=== PATIENT | female | born 1945 | race Caucasian/White ===

== ENCOUNTER 2020-05-15 16:11 | Observation (INO) | payer MEDICARE, OTHER, SELFPAY ==
[2020-05-15] VITALS (11 sets, daily range): BP systolic 127–157; BP diastolic 57–89; PULSE 70–84; RESP 12–18; TEMP 36.6–37.1; O2SAT 97–100; BMI 22.4
--- NOTE | 2020-05-15 16:42 | ECG_ITS ---
Test Reason : SYNCOPE Blood Pressure : / mmHG Vent. Rate : 078 BPM Atrial Rate : 078 BPM P-R Int : 216 ms QRS Dur : 080 ms QT Int : 394 ms P-R-T Axes : 068 060 085 degrees QTc Int : 449 ms Poor data quality Sinus rhythm with 1st degree A-V block Possible Left atrial enlargement Nonspecific ST and T wave abnormality No previous ECGs available Referred By: Brandon Jacobsen Electronically Signed By:Prasanna Alex
--- NOTE | 2020-05-15 16:42 | ED.SYNCOPE ---
HPI - Syncope General Chief Complaint: Syncope Stated Complaint: SYNCOPE Time Seen by Provider: 05/15/20 16:42 Source: EMS Mode of arrival: EMS Limitations: no limitations History of Present Illness HPI narrative: This is a otherwise very healthy 74-year-old female who reports she has history of gastroesophageal reflux disease for which she is taking Nexium and urinary frequency for which she takes ? oxybutynin lives at home with her she states overall today she had somewhat emotional day due to a relationship problem with her however she has been able to eat breakfast and lunch she went for a walk after lunch which she usually does her kids were visiting today at 03:30 (1-1/2 hour prior to arrival) and she was preparing to go for walks she had a jacket on that was relatively heavy and had a zipper in buttons which she was having hard time putting on so she started become a little lightheaded she bent over to ?increase the blood flow to her brain? and subsequently appear to have fainted states she was told that she got lower by her son and she was mumbling for about 30 seconds. States she had a slight headache prior to the event and lightheadedness which she still has a slight headache otherwise no chest pain, shortness of breath or recent illness. MD complaint: loss of consciousness, felt faint and collapsed Onset (ago): hour(s) (1529) Duration of episode: 30 (Seconds) -: second(s) Prodromal symptoms: headache and lightheaded Witnessed: Yes - by Bystander (Son and ) Context: other (With standing playing on her jacket) Treatments prior to arrival: none Related Data Allergies Allergy/AdvReac Type Severity Reaction Status Date / Time Penicillins [PENICILLINS] Allergy Intermediate THROAT Unverified 02/12/20 19:04 SWELLS penicillin V Allergy Unknown anaphylaxis Verified 10/03/17 00:00 Dust, Mold, Mites, Bee Sting Allergy Unknown Nasal Uncoded 05/15/20 16:24 congestion Review of Systems Neurologic: Reports Abnormal speech present PMFSH Past Medical History Medical History Acid reflux Overactive bladder Social History Social History Smoking Status: Never smoker Use of substances other than those prescribed or required for medical reasons: No Advance Directives: No Advance Directives Information Provided: Yes Physical Exam Vital Signs: Vital Signs: Last Vital Signs Temp 98 F 05/15/20 17:43 Pulse 78 05/15/20 18:08 Resp 16 05/15/20 18:08 BP 127/57 L 05/15/20 18:08 Pulse Ox 98 05/15/20 18:08 Body Mass Index 20.0 Reviewed Const: General: cooperative and healthy appearing; No acute distress or intoxicated appearing Nutritional Appearance: average body habitus Orientation/consciousness: patient oriented x3 HENMT: Head: Yes normal to inspection Ears: hearing grossly normal bilaterally Eyes: General: appearance normal, both eyes and all related structures Visual Hall: normal visual hall by confrontation Neck: Neck: Yes normal visual inspection, No positive Brudzinski's sign, No positive Kernig's sign and No tender Thyroid: Thyroid normal Chest: Chest palpation & inspection: normal inspection of the chest Resp: Effort & Inspection: normal respiratory effort Auscultation: clear to auscultation bilaterally Cardio: Jugular venous distension: no JVD Rate: regular rate Rhythm: regular rhythm Heart sounds: S1 normal heart sound present and S2 normal heart sound present GI: Inspection: Yes normal to inspection Palpation (GI): Soft to palpation Percussion: Yes normal to percussion Auscultation: normal bowel sounds : General: Yes no CVA tenderness Back/Spine/Pelvis: Back: no CVA tenderness Skin: General skin exam: no rashes or lesions noted Neuro: General: patient oriented x3 Cranial nerves: Yes CN's II-XII intact bilaterally Speech: Abnormal speech present Gait exam (Neuro): Normal gait present Motor exam (neuro): 5/5 motor strength present throughout Sensory Exam: Normal double simultaneous stimulation for sensation Extrem: General: Yes normal to inspection NIH Stroke Scale Internal: Initial- Upon Arrival Level of Consciousness: Alert Level of Consciousness Questions: Answers both questions correctly Level of Consciousness Commands: Performs both tasks correctly Best Gaze: Normal Visual: No visual loss Facial Palsy: Normal Motor Arm (Right): No drift Motor Arm (Left): No drift Motor Leg (Right): No drift Motor Leg (Left): No drift Limb Ataxia: Absent Sensory: Normal Best Language: No aphasia Dysarthia: Normal Extinction and Inattention: No abnormality Score: 0 MDM - Syncope MDM Narrative Medical decision making narrative: Labs with slight hyponatremia has been in 128 however the 125 to the lowers for her additionally EKG/troponin nondiagnostic. D-dimer significantly elevated at 9136 subsequently CTA PE study done which is negative and bilateral lower extremity ultrasounds are negative. She has normal sinus rhythm on bedside monitor with no ectopy, pulse ox 98-99% on room air, heart rate in the 70s. COVID test is negative. She has no URI symptoms. Case discussed with hospitalist for further management. Differential Diagnosis Differential diagnosis: Likely syncope due to orthostatic hypotension, vasovagal syncope, complete atrioventricular block, subarachnoid hemorrhage, pulmonary embolism and dehydration Medical Records Attestation: I reviewed the patient's medical records. Lab Data Attestation: I reviewed the patient's lab results. Result diagrams: 05/15/20 17:29 05/15/20 17:28 Labs: Lab Results 05/15/20 05/15/20 05/15/20 Range/Units 17:19 17:25 17:28 WBC (4.8-10.8) X10*3/uL RBC (4.20-5.50) X10*6/uL Hgb (12.0-16.0) g/dl Hct (37-47) % MCV (80-98) fL MCH (27.0-33.0) pg MCHC (31.0-35.0) g/dl RDW (11.0-16.0) % Plt Count (160-400) X10*3/uL MPV (9.4-12.3) fL Immature Gran % (Auto) (0.0-0.4) % Neut % (Auto) (45-73) % Lymph % (Auto) (20-40) % [place] % (Auto) (2-11) % Eos % (Auto) (0-4) % Baso % (Auto) (0-2) % Lymph # (Auto) (1.2-4.9) X10*3/uL [place] # (Auto) (0.1-1.2) X10*3/uL Eos # (Auto) (0.0-0.4) X10*3/uL Baso # (Auto) (0.0-0.2) X10*3/uL Abs Immat Gran (auto) (0.00-0.03) X10*3/uL Absolute Neuts (auto) (2.0-8.3) X10*3/uL Absolute Nucleated RBC (0.0-0.012) X10*3/uL Nucleated RBC % (auto) (0.0-0.2) /100WBC PT 12.8 (10.8-13.0) SEC INR 1.1 (0.9-1.1) APTT 30.6 (24.1-38.0) SEC D-Dimer 9136 NG/ML Sodium (135-145) mmol/L Potassium (3.3-5.1) mmol/l Chloride (96-108) mmol/L Carbon Dioxide (22-29) mmol/L Anion Gap (12-20) BUN (9-16) mg/dL Creatinine (0.5-1.4) mg/dL Estim Creat Clear Calc Estimated GFR Random Glucose (60-115) mg/dL Calcium (8.4-10.2) mg/dL Total Bilirubin (0.0-1.0) mg/dL AST (5-31) U/L ALT (0-31) U/L Alkaline Phosphatase (39-117) U/L Troponin I High Sens (<3.5-17.0) ng/L Total Protein (6.5-8.0) g/dL Albumin (3.5-5.0) g/dL Urine Color YELLOW Urine Appearance CLEAR Urine pH 7.5 (5.0-8.0) Ur Specific [place] 1.010 (1.005-1.025) Urine Protein NEG (NEG-TRACE) MG/DL Urine Glucose (UA) NEG (NEG) MG/DL Urine Ketones NEG (NEG) MG/DL Urine Blood NEG (NEG) Urine Nitrite NEG (NEG) Ur Leukocyte Esterase NEG (NEG) Urine RBC 0 (0) /HPF Urine WBC 0 (0-4) /HPF Ur Squamous Epith Cells TRACE /LPF Urine Bacteria NONE /LPF Coronavirus (PCR) NEGATIVE (Negative) Influenza Type A (PCR) NEGATIVE (Negative) Influenza Type B (PCR) NEGATIVE (Negative) RSV RNA Qual (PCR) NEGATIVE (Negative) 05/15/20 05/15/20 05/15/20 Range/Units 17:28 17:28 17:29 WBC 5.0 (4.8-10.8) X10*3/uL RBC 3.62 L (4.20-5.50) X10*6/uL Hgb 11.9 L (12.0-16.0) g/dl Hct 34.6 L (37-47) % MCV 95.6 (80-98) fL MCH 32.9 (27.0-33.0) pg MCHC 34.4 (31.0-35.0) g/dl RDW 12.2 (11.0-16.0) % Plt Count 256 (160-400) X10*3/uL MPV 9.6 (9.4-12.3) fL Immature Gran % (Auto) 0.2 (0.0-0.4) % Neut % (Auto) 74.6 H (45-73) % Lymph % (Auto) 14.1 L (20-40) % [place] % (Auto) 10.1 (2-11) % Eos % (Auto) 0.6 (0-4) % Baso % (Auto) 0.4 (0-2) % Lymph # (Auto) 0.7 L (1.2-4.9) X10*3/uL [place] # (Auto) 0.5 (0.1-1.2) X10*3/uL Eos # (Auto) 0.0 (0.0-0.4) X10*3/uL Baso # (Auto) 0.0 (0.0-0.2) X10*3/uL Abs Immat Gran (auto) 0.01 (0.00-0.03) X10*3/uL Absolute Neuts (auto) 3.8 (2.0-8.3) X10*3/uL Absolute Nucleated RBC 0.000 (0.0-0.012) X10*3/uL Nucleated RBC % (auto) 0.0 (0.0-0.2) /100WBC PT (10.8-13.0) SEC INR (0.9-1.1) APTT (24.1-38.0) SEC D-Dimer NG/ML Sodium 125 L (135-145) mmol/L Potassium 5.0 (3.3-5.1) mmol/l Chloride 91 L (96-108) mmol/L Carbon Dioxide 28 (22-29) mmol/L Anion Gap 11 L (12-20) BUN 21 H (9-16) mg/dL Creatinine 0.89 (0.5-1.4) mg/dL Estim Creat Clear Calc 43.4 Estimated GFR > 60 Random Glucose 106 (60-115) mg/dL Calcium 8.8 (8.4-10.2) mg/dL Total Bilirubin 0.6 (0.0-1.0) mg/dL AST 33 H (5-31) U/L ALT 21 (0-31) U/L Alkaline Phosphatase 92 (39-117) U/L Troponin I High Sens 11.2 (<3.5-17.0) ng/L Total Protein 6.4 L (6.5-8.0) g/dL Albumin 4.0 (3.5-5.0) g/dL Urine Color Urine Appearance Urine pH (5.0-8.0) Ur Specific [place] (1.005-1.025) Urine Protein (NEG-TRACE) MG/DL Urine Glucose (UA) (NEG) MG/DL Urine Ketones (NEG) MG/DL Urine Blood (NEG) Urine Nitrite (NEG) Ur Leukocyte Esterase (NEG) Urine RBC (0) /HPF Urine WBC (0-4) /HPF Ur Squamous Epith Cells /LPF Urine Bacteria /LPF Coronavirus (PCR) (Negative) Influenza Type A (PCR) (Negative) Influenza Type B (PCR) (Negative) RSV RNA Qual (PCR) (Negative) Imaging Data Head CT: Radiologist's impression: [place] [address] CT Scan Report Signed Patient: Nevaeh Torres#: [id number] : 4Acct:[id number] Age/Sex: 74 / FADM Date: 05/15/20 Loc: .ED Attending Dr: Ordering Physician: Brandon Jacobsen NP Date of Service: 05/15/20 Procedure(s): CT head/brain wo con Accession Number(s): [id number] cc: Brandon Jacobsen NP~ EXAMINATION: CT HEAD WITHOUT CONTRAST CLINICAL INFORMATION: Syncope. COMPARISON: None TECHNIQUE: Contiguous axial imaging was performed from the skull base to vertex without intravenous administration of contrast. This CT examination was performed using dose optimization techniques as appropriate, variously including the following: *Automated exposure control *Adjustment of mA and/or kV according to patient size (this includes techniques or standardized protocols for targeted exams where dose is matched to indication/reason for exam; i.e. extremities or head) *Use of iterative reconstruction technique DLP: 621 mGy-cm FINDINGS: There is no evidence of acute intracranial hemorrhage or territorial infarction. No abnormal mass effect or midline shift is seen. [place] to white matter differentiation is well preserved. No extra-axial fluid collections are identified. The ventricles are normal in size. There is no abnormal attenuation within the brain parenchyma. The osseous structures and soft tissues are normal. The mastoid air cells and visualized portions of the paranasal sinuses are well aerated. Mild degenerative spurring left TM joint. CT/CT head/brain wo con IMPRESSION: No acute intracranial process seen. Dictated By:ORQUIDEA ARMSTRONG MD Signed By:<Electronically signed by ORQUIDEA ARMSTRONG MD in OV>05/15/20 1719 DD/ 1643 TD/TT: Technician [employer]: KRIS Chest x-ray: Radiologist's impression: [address] [address] XRay Report Signed Patient: Nevaeh TorresMR#: [id number] : 4Acct:[id number] Age/Sex: 74 / FADM Date: 05/15/20 Loc: .ED Attending Dr: Ordering Physician: Brandon Jacobsen NP Date of Service: 05/15/20 Procedure(s): XR chest 1V Accession Number(s): [id number] cc: Brandon Jacobsen [employer] SALES DIRECTOR~ EXAMINATION: XR chest 1V CLINICAL INFORMATION: Reason for Exam Syncope COMPARISON: No prior study available for comparison. TECHNIQUE: Portable chest x-ray marked for 40 2:00 PM Tubes and lines: None Lungs and Cassandra: Both lungs are clear. Pleura: Normal. Costophrenic angles are sharp. No pneumothorax. Heart and mediastinum: The mediastinum is within normal limits.. Bones: Skeletal structures included are normal for patient's age. XR/XR chest 1V IMPRESSION: No radiographic evidence of acute cardiopulmonary disease. Dictated By:MEHRDAD LAMAS MD Signed By:<Electronically signed by MEHRDAD LAMAS MD in OV>05/15/20 1656 DD/ 1642 TD/TT: Technician [employer] And Maintenance: CARLITO Bilateral lower extremity: Radiologist's impression: [address] [address] Ultrasound Report Signed Patient: Nevaeh TorresMR#: [id number] : 4Acct:[id number] Age/Sex: 74 / FADM Date: 05/15/20 Loc: .ED Attending Dr: Ordering Physician: Brandon Jacobsen NP Date of Service: 05/15/20 Procedure(s): US venous duplex LE BI Accession Number(s): [id number] cc: Brandon Jacobsen NP~ EXAMINATION: US VENOUS ULTRASOUND WITH DOPPLER LOWER EXTREMITY, BILATERAL CLINICAL INFORMATION: Elevated d-dimer COMPARISON: None TECHNIQUE: Ultrasound of the deep veins is performed from the hip to the calf with compression sonography and color and pulse Doppler assessment. Spectral analysis with color-flow imaging is performed. FINDINGS: RIGHT: There is normal venous compression and respiratory variation and augmented flow. The visualized common femoral vein, superficial femoral vein, profunda femoral vein, popliteal vein, and the trifurcation region shows no evidence of deep venous thrombosis. There is no significant popliteal fossa cyst. LEFT: There is normal venous compression and respiratory variation and augmented flow. The visualized common femoral vein, superficial femoral vein, profunda femoral vein, popliteal vein, and the trifurcation region shows no evidence of deep venous thrombosis. There is no significant popliteal fossa cyst. US/US venous duplex LE BI IMPRESSION: No DVT demonstrated in the bilateral lower extremities. Dictated By:TESSIE FONG MD Signed By:<Electronically signed by TESSIE FONG MD in OV>05/15/20 1936 DD/ 1840 TD/TT: Technician [employer] Maintenance: VARGHESE ECG Data Interpretation: Normal sinus rhythm with 1st degree block Rate 78 Nonspecific T-wave abnormality No acute ST segment changes Discharge Plan Discharge Clinical Impression: Syncope, Acute hyponatremia, D-dimer, elevated Patient Disposition: Admitted As Inpatient
--- NOTE | 2020-05-15 17:20 | PC.NURSE ---
Spoke with daughter Ana Lilia (with permission of pt) updated on plan of care. in WR
[2020-05-15 17:38] LABS: Glucose Urine UA NEG (NEG); Leukocyte Esterase Urine NEG (NEG); Nitrite Urine NEG (NEG); PH 7.5 (5.0-8.0); Urine Blood NEG (NEG); Urine Ketones NEG (NEG); Urine Protein NEG (NEG-TRACE)
[2020-05-15 17:38] LABS: MANUAL DIFF FLAG NO
[2020-05-15 17:40] LABS: Basophils Percent Auto 0.4 % (0-2); Eosinophils Percent Auto 0.6 % (0-4); Hematocrit 34.6 % (37-47); Hemoglobin 11.9 g/dl (12.0-16.0); Imm Gran Abs Auto 0.01 X10*3/uL (0.00-0.03); Imm Gran Pct Auto 0.2 % (0.0-0.4); Lymphocytes Absolute Auto 0.7 X10*3/uL (1.2-4.9); Lymphocytes Percent Auto 14.1 % (20-40); Mean Corpuscular HGB Conc 34.4 g/dl (31.0-35.0); Mean Corpuscular Hemoglobin 32.9 pg (27.0-33.0); Mean Corpuscular Volume 95.6 fL (80-98); Mean Platelet Volume 9.6 fL (9.4-12.3); Monocytes Absolute Auto 0.5 X10*3/uL (0.1-1.2); Monocytes Percent Auto 10.1 % (2-11); Neutrophils Absolute Auto 3.8 X10*3/uL (2.0-8.3); Neutrophils Percent Auto 74.6 % (45-73); Platelet Count 256 X10*3/uL (160-400); Red Blood Count 3.62 X10*6/uL (4.20-5.50); Red Cell Distribution Width 12.2 % (11.0-16.0)
[2020-05-15 17:45] LABS: INTERNATIONAL NORM RATIO 1.1 (0.9-1.1); Prothrombin Time 12.8 SEC (10.8-13.0)
[2020-05-15 17:48] LABS: Appearance Urine CLEAR; Color Urine YELLOW
[2020-05-15 17:48] LABS: Partial Thromboplastin Time 30.6 SEC (24.1-38.0)
[2020-05-15 17:55] LABS: RBC Urine 0 /HPF (0); Squamous Epithelial Cell Urine TRACE /LPF; WBC Urine 0 /HPF (0-4)
[2020-05-15 18:04] LABS: Troponin-I High Sensitivity 11.2 ng/L (<3.5-17.0)
[2020-05-15 18:05] LABS: Alanine Aminotransferase 21 U/L (0-31); Alkaline Phosphatase 92 U/L (39-117); Aspartate Amino Transferase 33 U/L (5-31); Bilirubin Total 0.6 mg/dL (0.0-1.0); Blood Urea Nitrogen 21 mg/dL (9-16); Calcium 8.8 mg/dL (8.4-10.2); Creatinine Clr Calc Pharmacy 43.4; Estimated Glomerular Filt Rate > 60; Glucose Random 106 mg/dL (60-115); Total Protein 6.4 g/dL (6.5-8.0)
[2020-05-15 18:18] LABS: Influenza A PCR NEGATIVE (Negative); Influenza B PCR NEGATIVE (Negative); Resp Syncy Virus RNA Qual PCR NEGATIVE (Negative); SARS COV2 PCR INHOUSE NEGATIVE (Negative)
[2020-05-15 18:26] LABS: Anion Gap 11 (12-20); Carbon Dioxide 28 mmol/L (22-29); Chloride 91 mmol/L (96-108); Sodium 125 mmol/L (135-145)
[2020-05-15 18:34] LABS: D Dimer 9136 NG/ML
--- NOTE | 2020-05-15 18:40 | CT_ITS ---
EXAMINATION: CT ANGIOGRAM OF THE CHEST WITH AND WITHOUT CONTRAST (CT PULMONARY ANGIOGRAM FOR PE) CLINICAL INFORMATION: Reason for Exam Syncope, elevated D-dimer 9000 COMPARISON: None TECHNIQUE: Prior to contrast administration, noncontrast localization images were obtained. Subsequently, multidetector volumetric imaging was performed from the thoracic inlet to below the diaphragms following the administration of 65 mL Omnipaque 350 intravenous contrast. No contrast reaction reported Sagittal, coronal, and MIP oblique sagittal reformatted images were obtained on the CT workstation, uploaded to PACS, and reviewed. This CT examination was performed using dose optimization techniques as appropriate, variously including the following: *Automated exposure control *Adjustment of mA and/or kV according to patient size (this includes techniques or standardized protocols for targeted exams where dose is matched to indication/reason for exam; i.e. extremities or head) *Use of iterative reconstruction technique Total exam dose-length product 164 mGy-cm FINDINGS: QUALITY OF STUDY/CONTRAST BOLUS: Satisfactory. PULMONARY ARTERIES: No pulmonary embolus demonstrated. THORACIC AORTA: There is no thoracic aortic aneurysm. There is some atherosclerosis. LUNG: There is likely a tiny diverticulum along the posterior right side of the upper trachea. There is no consolidation. No edema. Minor linear density in the inferior lingula may be fibrosis. PLEURA: No pleural effusion or pneumothorax. MEDIASTINUM: There are no enlarged mediastinal or hilar lymph nodes. No evidence of septal bowing or right heart strain. CHEST WALL/AXILLA: Nodular densities within the breasts are nonspecific. The patient should undergo annual screening mammography. OSSEOUS STRUCTURES: No acute or suspicious osseous abnormality. UPPER ABDOMEN: There are small circumscribed low attenuating liver lesions. No significant change when compared to 04/16/18 No reflux of contrast into the hepatic veins to suggest elevated right heart pressures. CT/CT angio chest PE protocol IMPRESSION: No pulmonary embolus demonstrated. No pneumonia or edema. VTE: negative
--- NOTE | 2020-05-15 18:40 | US_ITS ---
EXAMINATION: US VENOUS ULTRASOUND WITH DOPPLER LOWER EXTREMITY, BILATERAL CLINICAL INFORMATION: Elevated d-dimer COMPARISON: None TECHNIQUE: Ultrasound of the deep veins is performed from the hip to the calf with compression sonography and color and pulse Doppler assessment. Spectral analysis with color-flow imaging is performed. FINDINGS: RIGHT: There is normal venous compression and respiratory variation and augmented flow. The visualized common femoral vein, superficial femoral vein, profunda femoral vein, popliteal vein, and the trifurcation region shows no evidence of deep venous thrombosis. There is no significant popliteal fossa cyst. LEFT: There is normal venous compression and respiratory variation and augmented flow. The visualized common femoral vein, superficial femoral vein, profunda femoral vein, popliteal vein, and the trifurcation region shows no evidence of deep venous thrombosis. There is no significant popliteal fossa cyst. US/US venous duplex LE BI IMPRESSION: No DVT demonstrated in the bilateral lower extremities.
[2020-05-15] MEDS: iohexoL 350 MG/ML 100 ML INFUS..BTL IV (19:44)
[2020-05-15 20:41] LABS: Troponin-I High Sensitivity 8.5 ng/L (<3.5-17.0)
--- NOTE | 2020-05-15 20:46 | PC.NURSE ---
HOSPITALIST IN ROOM FOR EVAL. PT REQUESTING WATER.
--- NOTE | 2020-05-15 21:11 | PM.IMHP ---
History of Present Illness Date of Service: 05/15/20 Chief Complaint: Syncope 74-year-old female with past medical history of GERD, overactive bladder who presents to the hospital who presents to the hospital with complaints of syncopal episode. Patient reports that she was getting ready to leave the house with her and grandson for a walk and was over dressed, felt heat in the house, stepped outside, felt woozy and about to faint, she leaned forward to get some blood into her brain and fainted. She was caught by her and grandson and did not hit her head head. This lasted about less than 1 minute, her noticed her left hand shaking, but patient was not postictal. She felt nauseous after coming about, she also felt headache right after the incident. She denies any head injury, she denies having any chest pain, palpitations, any shortness of breath. Denies any similar episode within recent past. She denies any change in vision, she has been feeling slightly more anxious and nervous lately due to some family issues and has been having frequent bowel movements, and has been very anxious. She otherwise denies any abdominal pain, no diarrhea or constipation, no urinary symptoms and no lower extremity edema. No weakness numbness or tingling. On arrival to the ED hemodynamically stable with no significant abnormal vitals Labs are significant for hemoglobin of 11.9, sodium of 125 (chronically low with the lowest being 128 in 2018), last sodium was 131 on , UA negative. Respiratory viral panel negative, COVID-19 negative Past medical history: GERD, overactive bladder Past surgical history: Denies Family history: Denies Social history: Lives with , walks independently, denies any tobacco alcohol or illicit drugs Review of Systems Review of Systems: Yes all other systems are reviewed and are negative [facility] Medical History Acid reflux Overactive bladder Social History Smoking Status: Never smoker Use of substances other than those prescribed or required for medical reasons: No Advance Directives: No Advance Directives Information Provided: Yes Meds Allergies Allergy/AdvReac Type Severity Reaction Status Date / Time Penicillins [PENICILLINS] Allergy Intermediate THROAT Unverified 09/17/20 19:04 SWELLS penicillin V Allergy Unknown anaphylaxis Verified 10/03/17 00:00 Dust, Mold, Mites, Bee Sting Allergy Unknown Nasal Uncoded 05/15/20 16:24 congestion Physical Exam Vital Signs and Narrative: Vital Signs: Last Vital Signs Temp 98 F 05/15/20 17:43 Pulse 78 05/15/20 18:08 Resp 16 05/15/20 18:08 BP 127/57 L 05/15/20 18:08 Pulse Ox 98 05/15/20 18:08 Body Mass Index 20.0 Const: General: cooperative and no acute distress Orientation/consciousness: patient oriented x3 Eyes: General: appearance normal, both eyes and all related structures Resp: Effort & Inspection: normal respiratory effort and able to speak in complete sentences Auscultation: clear to auscultation bilaterally Cardio: Rate: regular rate Rhythm: regular rhythm GI: Palpation (GI): Soft to palpation Auscultation: normal bowel sounds Skin: General skin exam: no rashes or lesions noted Neuro: Other: No neurological deficits General: patient oriented x3 Cognition (Neuro): normal cognition Extrem: General: Yes normal to inspection and Yes no pedal edema Results Labs CBC and Chem 7: 05/15/20 17:29 05/15/20 17:28 Labs: Laboratory Results - last 24 hr 05/15/20 05/15/20 05/15/20 17:19 17:25 17:28 MCV MCH MCHC RDW Plt Count MPV Immature Gran % (Auto) Neut % (Auto) Lymph % (Auto) [place] % (Auto) Eos % (Auto) Baso % (Auto) Lymph # (Auto) [place] # (Auto) Eos # (Auto) Baso # (Auto) Abs Immat Gran (auto) Absolute Neuts (auto) Absolute Nucleated RBC Nucleated RBC % (auto) PT 12.8 INR 1.1 APTT 30.6 D-Dimer 9136 Anion Gap Estim Creat Clear Calc Estimated GFR Random Glucose Calcium Total Bilirubin AST ALT Alkaline Phosphatase Troponin I High Sens Total Protein Albumin Urine Color YELLOW Urine Appearance CLEAR Urine pH 7.5 Ur Specific [place] 1.010 Urine Protein NEG Urine Glucose (UA) NEG Urine Ketones NEG Urine Blood NEG Urine Nitrite NEG Ur Leukocyte Esterase NEG Urine RBC 0 Urine WBC 0 Ur Squamous Epith Cells TRACE Urine Bacteria NONE Coronavirus (PCR) NEGATIVE Influenza Type A (PCR) NEGATIVE Influenza Type B (PCR) NEGATIVE RSV RNA Qual (PCR) NEGATIVE 05/15/20 05/15/20 05/15/20 17:28 17:28 17:29 MCV 95.6 MCH 32.9 MCHC 34.4 RDW 12.2 Plt Count 256 MPV 9.6 Immature Gran % (Auto) 0.2 Neut % (Auto) 74.6 H Lymph % (Auto) 14.1 L [place] % (Auto) 10.1 Eos % (Auto) 0.6 Baso % (Auto) 0.4 Lymph # (Auto) 0.7 L [place] # (Auto) 0.5 Eos # (Auto) 0.0 Baso # (Auto) 0.0 Abs Immat Gran (auto) 0.01 Absolute Neuts (auto) 3.8 Absolute Nucleated RBC 0.000 Nucleated RBC % (auto) 0.0 PT INR APTT D-Dimer Anion Gap 11 L Estim Creat Clear Calc 43.4 Estimated GFR > 60 Random Glucose 106 Calcium 8.8 Total Bilirubin 0.6 AST 33 H ALT 21 Alkaline Phosphatase 92 Troponin I High Sens 11.2 Total Protein 6.4 L Albumin 4.0 Urine Color Urine Appearance Urine pH Ur Specific [place] Urine Protein Urine Glucose (UA) Urine Ketones Urine Blood Urine Nitrite Ur Leukocyte Esterase Urine RBC Urine WBC Ur Squamous Epith Cells Urine Bacteria Coronavirus (PCR) Influenza Type A (PCR) Influenza Type B (PCR) RSV RNA Qual (PCR) 05/15/20 20:08 MCV MCH MCHC RDW Plt Count MPV Immature Gran % (Auto) Neut % (Auto) Lymph % (Auto) [place] % (Auto) Eos % (Auto) Baso % (Auto) Lymph # (Auto) [place] # (Auto) Eos # (Auto) Baso # (Auto) Abs Immat Gran (auto) Absolute Neuts (auto) Absolute Nucleated RBC Nucleated RBC % (auto) PT INR APTT D-Dimer Anion Gap Estim Creat Clear Calc Estimated GFR Random Glucose Calcium Total Bilirubin AST ALT Alkaline Phosphatase Troponin I High Sens 8.5 Total Protein Albumin Urine Color Urine Appearance Urine pH Ur Specific [place] Urine Protein Urine Glucose (UA) Urine Ketones Urine Blood Urine Nitrite Ur Leukocyte Esterase Urine RBC Urine WBC Ur Squamous Epith Cells Urine Bacteria Coronavirus (PCR) Influenza Type A (PCR) Influenza Type B (PCR) RSV RNA Qual (PCR) Imaging Radiologist's Impressions: Impressions Chest X-Ray 05/15/20 16:42 IMPRESSION: No radiographic evidence of acute cardiopulmonary disease. Head CT 05/15/20 16:43 IMPRESSION: No acute intracranial process seen. Chest CTA 05/15/20 18:40 IMPRESSION: No pulmonary embolus demonstrated. No pneumonia or edema. VTE: negative Venous Duplex 05/15/20 18:40 IMPRESSION: No DVT demonstrated in the bilateral lower extremities. Assessment and Plan (1) Syncope: Status: Acute (2) Acute hyponatremia: Status: Acute 74-year-old female with past medical history as above who presents to the hospital with syncopal episode. # syncope - vasovagal versus cardiogenic versus neurogenic less likely - patient had prodromal symptoms and felt like fainting prior to the episode occurring - less likely to be seizure, less likely be secondary to hyponatremia as shes had hyponatremia chronically Plan: - will place on telemtry - Echocardiogram - Check orthostatic vitals # Hyponatremia - Acute on chronic - Has been as low as 128 in the past. 131 in 01/14 Plan: - Will obtain urine studies - Urine sodium, urine creatine, urine osmolality, serum osmolality - start normal saline at 80 cc - will check BMP q.6 hours - consult Nephrology # GERD - continue home med # Overactive bladder - continue home med DVT ppx: LOVONEX
--- NOTE | 2020-05-15 21:30 | PC.NURSE ---
ORTHOSTATICS OBTAINED PER HOSPITALIST.
[2020-05-15 22:32] LABS: Creatinine Urine 7.02 mg/dL
[2020-05-15 22:50] LABS: Uric Acid 3.1 mg/dL (2.4-5.7)
[2020-05-15 22:56] LABS: Osmolality, Serum 272 mosm/kg (281-305)
[2020-05-15] MEDS: Enoxaparin Sodium 40 MG/0.4 ML SYRINGE SUBCUT (22:59)
[2020-05-15] MEDS: 0.9 % Sodium Chloride 1,000 ML 80 ML IVCONT (23:00)
[2020-05-15 23:07] LABS: Osmolality Urine 166 mosm/kg (373-1093)
[2020-05-16 02:12] LABS: Anion Gap 12 (12-20); Blood Urea Nitrogen 17 mg/dL (9-16); Calcium 9.2 mg/dL (8.4-10.2); Carbon Dioxide 27 mmol/L (22-29); Chloride 97 mmol/L (96-108); Creatinine Clr Calc Pharmacy 50.7; Estimated Glomerular Filt Rate > 60; Glucose Random 91 mg/dL (60-115); Sodium 131 mmol/L (135-145)
[2020-05-16 03:21] VITALS: BP 160/78; PULSE 68; RESP 16; TEMP 36.9; O2SAT 100
[2020-05-16 05:41] LABS: Basophils Percent Auto 0.2 % (0-2); Eosinophils Percent Auto 0.2 % (0-4); Hemoglobin 12.7 g/dl (12.0-16.0); Imm Gran Abs Auto 0.01 X10*3/uL (0.00-0.03); Imm Gran Pct Auto 0.2 % (0.0-0.4); Lymphocytes Absolute Auto 0.8 X10*3/uL (1.2-4.9); Lymphocytes Percent Auto 16.4 % (20-40); Mean Corpuscular HGB Conc 34.3 g/dl (31.0-35.0); Mean Corpuscular Hemoglobin 33.2 pg (27.0-33.0); Mean Corpuscular Volume 96.6 fL (80-98); Mean Platelet Volume 9.9 fL (9.4-12.3); Monocytes Absolute Auto 0.4 X10*3/uL (0.1-1.2); Monocytes Percent Auto 9.4 % (2-11); Neutrophils Absolute Auto 3.4 X10*3/uL (2.0-8.3); Neutrophils Percent Auto 73.6 % (45-73); Platelet Count 272 X10*3/uL (160-400); Red Blood Count 3.83 X10*6/uL (4.20-5.50); Red Cell Distribution Width 12.3 % (11.0-16.0); White Blood Count 4.6 X10*3/uL (4.8-10.8)
[2020-05-16 05:42] LABS: MANUAL DIFF FLAG NO
[2020-05-16 06:07] LABS: Anion Gap 11 (12-20); Blood Urea Nitrogen 14 mg/dL (9-16); Calcium 9.1 mg/dL (8.4-10.2); Carbon Dioxide 30 mmol/L (22-29); Chloride 97 mmol/L (96-108); Creatinine Clr Calc Pharmacy 51.3; Estimated Glomerular Filt Rate > 60; Glucose Random 86 mg/dL (60-115); Potassium 4.6 mmol/l (3.3-5.1); Sodium 133 mmol/L (135-145)
[2020-05-16] MEDS: 0.9 % Sodium Chloride Flush 3 ML SYRINGE IVFLUSH ×3 (08:37→22:34)
[2020-05-16 08:49] VITALS: BP 140/65; PULSE 82; RESP 20; TEMP 36.3; O2SAT 98
--- NOTE | 2020-05-16 10:24 | MHC.CM.PN ---
Addendum entered by Erin Quiles 05/16/20 12:02: NEW HCP COMPLETED, COPY PLACED IN CHART Original Note: PT REPORTS SHE LIVES WITH HER IN AN INDEPENDENT LIVING COMMUNITY. PT REPORTS SHE HAS NO HOME SERVICES AND NO DME. PT REPORTS SHE HAS DONE A HCP IN THE PAST BUT IT ONLY LISTED HER , SHE WOULD LIKE TO COMPLETE A NEW ONE TODAY NAMING HER PRIMARY AND DAUGHTER,. LILI ALTERNATE. PT CONFIRMS HER PCP IS RONALD BACON. OBSERVATION STATUS EXPLAINED DC PLAN IS HOME WITH NO SERVICES PT WILL SELF ARRANGE TRANSPORT
--- NOTE | 2020-05-16 11:08 | PM.CNCAR ---
History of Present Illness History of Present Illness Date of Service: 05/16/20 Requesting physician: Toney Soriano Chief complaint: SYNCOPE Narrative: 74-year-old female presenting with syncope. She has background of syncope 20 years ago. She said she had multiple layers on and was about to leave the house with family. She said she felt very hot and said she was quickly trying to get out into the cold weather. She said as she stepped out she fainted. Family members held her and she did not fall. She had left arm shaking and she woke up without any postictal state. She was nauseous as she woke up. She was brought into the emergency department. She has known history of hyponatremia and was noted to be hyponatremic on this admission also. She denies chest pain or shortness of breath. No other concerns. Review of Systems Review of Systems: Currently asymptomatic Yes all other systems are reviewed and are negative [facility] Past Medical History Medical History Acid reflux Overactive bladder Social History Social History Household Members: Spouse Housing: Apartment Do you presently have visiting nurse or other home services: No Smoking Status: Never smoker Use of substances other than those prescribed or required for medical reasons: No Have you been hit, kicked, punched, or otherwise hurt by someone within the past year? If so, by whom?: No Do you feel safe in your current relationship?: Yes Is there a partner from a previous relationship who is making you feel unsafe now?: No Are you made to feel afraid or neglected: No Advance Directives: No Advance Directives Information Provided: Yes Do you have thoughts of harming others: None Do you have a plan to hurt others: No Plan Recently lost weight without trying: Unsure service: No Current occupational status: retired Meds Allergies Allergy/AdvReac Type Severity Reaction Status Date / Time Penicillins [PENICILLINS] Allergy Intermediate THROAT Verified 05/15/20 23:05 SWELLS penicillin V Allergy Unknown anaphylaxis Verified 10/03/17 00:00 Dust, Mold, Mites, Bee Sting Allergy Unknown Nasal Uncoded 05/15/20 16:24 congestion Physical Exam Vital Signs: Vital Signs: Last Vital Signs Temp 97.4 F 05/16/20 08:49 Pulse 82 05/16/20 08:49 Resp 20 05/16/20 08:49 BP 140/65 H 05/16/20 08:49 Pulse Ox 98 05/16/20 08:49 Body Mass Index 22.4 GENERAL APPEARANCE: in no acute distress, well developed, well nourished. HEENT: unremarkable. HEAD: normocephalic, atraumatic. NECK/THYROID: Radiation of aortic stenosis murmur to the carotids, no jugular venous distention. SKIN: no suspicious lesions, warm and dry. HEART: Systolic murmur aortic area with preserved 2nd heart sound, regular rate and rhythm, S1, S2 normal. LUNGS: clear to auscultation bilaterally. ABDOMEN: normal, bowel sounds present, soft, nontender, nondistended. EXTREMITIES: no clubbing, cyanosis, or edema. PERIPHERAL PULSES: equal. NEUROLOGIC: nonfocal, alert and oriented. PSYCH: mood/affect full range. Results Labs and Meds Result diagrams: 05/16/20 04:55 05/16/20 11:12 Lab results: Laboratory Results - last 24 hr 05/15/20 05/15/20 05/15/20 17:19 17:25 17:28 WBC RBC Hgb Hct MCV MCH MCHC RDW Plt Count MPV Immature Gran % (Auto) Neut % (Auto) Lymph % (Auto) [place] % (Auto) Eos % (Auto) Baso % (Auto) Lymph # (Auto) [place] # (Auto) Eos # (Auto) Baso # (Auto) Abs Immat Gran (auto) Absolute Neuts (auto) Absolute Nucleated RBC Nucleated RBC % (auto) PT 12.8 INR 1.1 APTT 30.6 D-Dimer 9136 Sodium Potassium Chloride Carbon Dioxide Anion Gap BUN Creatinine Estim Creat Clear Calc Estimated GFR Random Glucose Osmolality Uric Acid Calcium Total Bilirubin AST ALT Alkaline Phosphatase Troponin I High Sens Total Protein Albumin Urine Color YELLOW Urine Appearance CLEAR Urine pH 7.5 Ur Specific [place] 1.010 Urine Protein NEG Urine Glucose (UA) NEG Urine Ketones NEG Urine Blood NEG Urine Nitrite NEG Ur Leukocyte Esterase NEG Urine RBC 0 Urine WBC 0 Ur Squamous Epith Cells TRACE Urine Bacteria NONE Urine Osmolality Ur Random Sodium Urine Creatinine Coronavirus (PCR) NEGATIVE Influenza Type A (PCR) NEGATIVE Influenza Type B (PCR) NEGATIVE RSV RNA Qual (PCR) NEGATIVE 05/15/20 05/15/20 05/15/20 17:28 17:28 17:29 WBC 5.0 RBC 3.62 L Hgb 11.9 L Hct 34.6 L MCV 95.6 MCH 32.9 MCHC 34.4 RDW 12.2 Plt Count 256 MPV 9.6 Immature Gran % (Auto) 0.2 Neut % (Auto) 74.6 H Lymph % (Auto) 14.1 L [place] % (Auto) 10.1 Eos % (Auto) 0.6 Baso % (Auto) 0.4 Lymph # (Auto) 0.7 L [place] # (Auto) 0.5 Eos # (Auto) 0.0 Baso # (Auto) 0.0 Abs Immat Gran (auto) 0.01 Absolute Neuts (auto) 3.8 Absolute Nucleated RBC 0.000 Nucleated RBC % (auto) 0.0 PT INR APTT D-Dimer Sodium 125 L Potassium 5.0 Chloride 91 L Carbon Dioxide 28 Anion Gap 11 L BUN 21 H Creatinine 0.89 Estim Creat Clear Calc 43.4 Estimated GFR > 60 Random Glucose 106 Osmolality Uric Acid Calcium 8.8 Total Bilirubin 0.6 AST 33 H ALT 21 Alkaline Phosphatase 92 Troponin I High Sens 11.2 Total Protein 6.4 L Albumin 4.0 Urine Color Urine Appearance Urine pH Ur Specific [place] Urine Protein Urine Glucose (UA) Urine Ketones Urine Blood Urine Nitrite Ur Leukocyte Esterase Urine RBC Urine WBC Ur Squamous Epith Cells Urine Bacteria Urine Osmolality Ur Random Sodium Urine Creatinine Coronavirus (PCR) Influenza Type A (PCR) Influenza Type B (PCR) RSV RNA Qual (PCR) 05/15/20 05/15/20 05/15/20 20:08 21:59 21:59 WBC RBC Hgb Hct MCV MCH MCHC RDW Plt Count MPV Immature Gran % (Auto) Neut % (Auto) Lymph % (Auto) [place] % (Auto) Eos % (Auto) Baso % (Auto) Lymph # (Auto) [place] # (Auto) Eos # (Auto) Baso # (Auto) Abs Immat Gran (auto) Absolute Neuts (auto) Absolute Nucleated RBC Nucleated RBC % (auto) PT INR APTT D-Dimer Sodium Potassium Chloride Carbon Dioxide Anion Gap BUN Creatinine Estim Creat Clear Calc Estimated GFR Random Glucose Osmolality 272 L Uric Acid 3.1 Calcium Total Bilirubin AST ALT Alkaline Phosphatase Troponin I High Sens 8.5 Total Protein Albumin Urine Color Urine Appearance Urine pH Ur Specific [place] Urine Protein Urine Glucose (UA) Urine Ketones Urine Blood Urine Nitrite Ur Leukocyte Esterase Urine RBC Urine WBC Ur Squamous Epith Cells Urine Bacteria Urine Osmolality Ur Random Sodium Urine Creatinine Coronavirus (PCR) Influenza Type A (PCR) Influenza Type B (PCR) RSV RNA Qual (PCR) 05/15/20 05/15/20 05/16/20 22:09 22:10 00:52 WBC RBC Hgb Hct MCV MCH MCHC RDW Plt Count MPV Immature Gran % (Auto) Neut % (Auto) Lymph % (Auto) [place] % (Auto) Eos % (Auto) Baso % (Auto) Lymph # (Auto) [place] # (Auto) Eos # (Auto) Baso # (Auto) Abs Immat Gran (auto) Absolute Neuts (auto) Absolute Nucleated RBC Nucleated RBC % (auto) PT INR APTT D-Dimer Sodium 131 L Potassium 5.0 Chloride 97 Carbon Dioxide 27 Anion Gap 12 BUN 17 H Creatinine 0.78 Estim Creat Clear Calc 50.7 Estimated GFR > 60 Random Glucose 91 Osmolality Uric Acid Calcium 9.2 Total Bilirubin AST ALT Alkaline Phosphatase Troponin I High Sens Total Protein Albumin Urine Color Urine Appearance Urine pH Ur Specific [place] Urine Protein Urine Glucose (UA) Urine Ketones Urine Blood Urine Nitrite Ur Leukocyte Esterase Urine RBC Urine WBC Ur Squamous Epith Cells Urine Bacteria Urine Osmolality 166 L Ur Random Sodium 43.0 Urine Creatinine 7.02 Coronavirus (PCR) Influenza Type A (PCR) Influenza Type B (PCR) RSV RNA Qual (PCR) 05/16/20 05/16/20 04:55 04:55 WBC 4.6 L RBC 3.83 L Hgb 12.7 Hct 37.0 MCV 96.6 MCH 33.2 H MCHC 34.3 RDW 12.3 Plt Count 272 MPV 9.9 Immature Gran % (Auto) 0.2 Neut % (Auto) 73.6 H Lymph % (Auto) 16.4 L [place] % (Auto) 9.4 Eos % (Auto) 0.2 Baso % (Auto) 0.2 Lymph # (Auto) 0.8 L [place] # (Auto) 0.4 Eos # (Auto) 0.0 Baso # (Auto) 0.0 Abs Immat Gran (auto) 0.01 Absolute Neuts (auto) 3.4 Absolute Nucleated RBC 0.000 Nucleated RBC % (auto) 0.0 PT INR APTT D-Dimer Sodium 133 L Potassium 4.6 Chloride 97 Carbon Dioxide 30 H Anion Gap 11 L BUN 14 Creatinine 0.77 Estim Creat Clear Calc 51.3 Estimated GFR > 60 Random Glucose 86 Osmolality Uric Acid Calcium 9.1 Total Bilirubin AST ALT Alkaline Phosphatase Troponin I High Sens Total Protein Albumin Urine Color Urine Appearance Urine pH Ur Specific [place] Urine Protein Urine Glucose (UA) Urine Ketones Urine Blood Urine Nitrite Ur Leukocyte Esterase Urine RBC Urine WBC Ur Squamous Epith Cells Urine Bacteria Urine Osmolality Ur Random Sodium Urine Creatinine Coronavirus (PCR) Influenza Type A (PCR) Influenza Type B (PCR) RSV RNA Qual (PCR) Assessment and Plan (1) Syncope: Status: Acute 74-year-old female presenting with syncope. The story sounds like vasovagal syncope. She had elevated D-dimer and underwent chest CT to rule out pulmonary embolism which was negative. I have advised her to keep herself well hydrated. I have advised also to be careful in hot environments. We will check echocardiogram to assess for any structural issues. She has aortic stenosis murmur but it does not sound severe. She has bilateral carotid bruits which I think are due to radiation of aortic stenosis murmur. She can have elective carotid ultrasounds either inpatient or outpatient. If echocardiography is normal and she continues to be asymptomatic then she can go home. Thank you for allowing me to participate in the care of your patient. Please feel free to contact me if you have any questions.
[2020-05-16 12:08] LABS: Anion Gap 13 (12-20); Blood Urea Nitrogen 16 mg/dL (9-16); Calcium 8.5 mg/dL (8.4-10.2); Carbon Dioxide 24 mmol/L (22-29); Chloride 97 mmol/L (96-108); Estimated Glomerular Filt Rate > 60; Glucose Random 106 mg/dL (60-115); Potassium 4.9 mmol/l (3.3-5.1); Sodium 129 mmol/L (135-145)
--- NOTE | 2020-05-16 12:34 | HO.PM.IMPN ---
Subjective Subjective Date of Service: 05/16/20 Interval History: seen and examined feels better no further episodes ROS General - no fevers or chills Cardiovascular - no chest pain Respiratory - no shortness of breath or cough Abdominal- no abdominal pain, nausea, vomiting, diarrhea Physical Exam Vital Signs: Vital Signs: Last Vital Signs Temp 97.4 F 05/16/20 08:49 Pulse 82 05/16/20 08:49 Resp 20 05/16/20 08:49 BP 140/65 H 05/16/20 08:49 Pulse Ox 98 05/16/20 08:49 Body Mass Index 22.4 Const: Other: General - no acute distress, appears comfortable Cardiovascular - regular rate and rhythm, S1-S2 Lungs - normal respiratory effort, clear to auscultation bilaterally, no wheezing Abdomen - soft, nontender, no rebound or guarding Extremities - no edema bilaterally Neuro - awake and alert, no focal deficits Objective Data Current Medications Generic Name Dose Route Start Last Admin Trade Name Freq PRN Reason Stop Dose Admin Acetaminophen 650 mg 05/15/20 22:22 Acetaminophen 325 Mg Tablet PO Q6H PRN Pain, Mild (Pain Scale 1-3) Docusate Sodium 100 mg 05/15/20 22:22 Docusate Sodium 100 Mg Capsule PO DAILY PRN Constipation Enoxaparin Sodium 40 mg 05/15/20 23:00 05/15/20 22:59 Enoxaparin Sodium 40 Mg/0.4 Ml Syringe SUBCUT 40 mg Q24H MARNIE Administration Ondansetron HCl 4 mg 05/15/20 22:22 Ondansetron Hcl 4 Mg/2 Ml Vial IVPUSH Q8H PRN Nausea and Vomiting Pharmacy Consult 1 each 05/15/20 16:48 Consult Rx Perform Med Rec MISCELLANE ONCE PRN Consult order Sodium Chloride 3 ml 05/16/20 00:00 05/16/20 08:37 0.9 % Sodium Chloride Flush 3 Ml Syringe IVFLUSH 3 ml QSHIFT MARNIE Administration Labs CBC & Chem 7: 05/16/20 04:55 05/16/20 11:12 Assessment and Plan (1) Syncope: Status: Acute Assessment and Plan: 74 yo F with chronic hypoNa who presents with syncope which appears to be vasovagal in nature 1. syncope suspect vasovagal will check echo, continue cardiac monitoring doubt neurogenic 2. HypoNa chronic likely siadh fluid restrict continue other chronic meds Full code dvt pptx, lovenox
[2020-05-16 12:44] VITALS: BP 150/60; PULSE 69; RESP 20; TEMP 36.8; O2SAT 98
[2020-05-16 15:14] VITALS: BP 142/59; PULSE 68; RESP 18; TEMP 36.8; O2SAT 100
[2020-05-16 18:47] LABS: Anion Gap 10 (12-20); Blood Urea Nitrogen 20 mg/dL (9-16); Calcium 8.8 mg/dL (8.4-10.2); Carbon Dioxide 28 mmol/L (22-29); Chloride 96 mmol/L (96-108); Creatinine Clr Calc Pharmacy 50.1; Estimated Glomerular Filt Rate > 60; Glucose Random 87 mg/dL (60-115); Sodium 129 mmol/L (135-145)
[2020-05-16 19:12] VITALS: BP 137/66; PULSE 74; RESP 18; TEMP 36.8; O2SAT 97
[2020-05-16] MEDS: Enoxaparin Sodium 40 MG/0.4 ML SYRINGE SUBCUT (22:33)
[2020-05-17] VITALS: BP 151/76; PULSE 66; RESP 18; TEMP 36.6; O2SAT 99
[2020-05-17 03:47] VITALS: BP 162/64; PULSE 67; RESP 18; TEMP 36.6; O2SAT 99
[2020-05-17 04:43] VITALS: BP 142/60; PULSE 65; RESP 18
[2020-05-17 05:34] LABS: Anion Gap 12 (12-20); Blood Urea Nitrogen 17 mg/dL (9-16); Carbon Dioxide 26 mmol/L (22-29); Chloride 96 mmol/L (96-108); Estimated Glomerular Filt Rate > 60; Glucose Random 86 mg/dL (60-115); Potassium 5.2 mmol/l (3.3-5.1); Sodium 129 mmol/L (135-145)
[2020-05-17 07:31] VITALS: BP 147/72; PULSE 62; RESP 20; TEMP 36.7; O2SAT 100
[2020-05-17] MEDS: 0.9 % Sodium Chloride Flush 3 ML SYRINGE IVFLUSH (10:27)
[2020-05-17 11:24] VITALS: BP 135/74; PULSE 90; RESP 20; TEMP 36.8; O2SAT 93
--- NOTE | 2020-05-17 12:16 | PM.PNNEP ---
Subjective Subjective Date of Service: 05/17/20 Interval history: Patient seen and examined full consult dictated Physical Exam Vital Signs: Vital Signs: Last Vital Signs Temp 98.2 F 05/17/20 11:24 Pulse 90 05/17/20 11:24 Resp 20 05/17/20 11:24 BP 135/74 05/17/20 11:24 Pulse Ox 93 05/17/20 11:24 Body Mass Index 22.4 Objective Data Labs CBC & Chem 7: 05/16/20 04:55 05/17/20 04:24 Labs: Laboratory Results - last 24 hr 05/16/20 05/17/20 18:10 04:24 Sodium 129 L 129 L Potassium 5.0 5.2 H Chloride 96 96 Carbon Dioxide 28 26 Anion Gap 10 L 12 BUN 20 H 17 H Creatinine 0.79 0.76 Estim Creat Clear Calc 50.1 52.0 Estimated GFR > 60 > 60 Random Glucose 87 86 Calcium 8.8 9.0 Assessment & Plan Assessment and plan (1) Hyponatremia: Status: Acute (2) Hyperkalemia: Status: Acute Assessment and Plan: acute hyponatremia superimposed on chronic hyponatremia not consistent with SIADH serum osmolality > urine osmolality elevated urine sodium suspect: -reset osmotat -excessive free water intake REC fluid restriction cut back on fluid intake 50% follow electrolytes Thank you Time Spent With Patient Time: Total time spent is greater than 50% in coordination of care (as documented) at patient's floor/unit and/or counseling patient:
--- NOTE | 2020-05-17 12:38 | MHC.CM.PN ---
PER ROUNDS PT LIKELY TO BE DCD TODAY HOME NO SERVCEIS
--- NOTE | 2020-05-17 14:00 | CA_ITS ---
Transthoracic Echocardiogram Patient (Last, First, Middle): Nevaeh Torres, Gender: Female Date of : 1945 Age: 74 Procedure Date: 05/17/2020 Procedure Type: Transthoracic Echocardiogram Location: [facility] – [place] Height: 160.02 cm Weight: 57.15 kg BSA: 1.59 m2 Heart Rate: bpm BP: 151 / 76 mmHg Regional Controller: KEVIN Jo MD: Toney Soriano MD Doper: Mode Allen MD Symptoms: syncope Study Quality: Fair ECG Rhythm: Sinus Conclusions: - 1. Normal LV systolic function with impaired relaxation filling pattern 2. Normal cardiac valvular Doppler with mild calcific aortic valve changes 3. Normal RV systolic pressure 4. No pericardial effusion Findings Left Ventricle Normal left ventricular size, thickness, and systolic function. The visually estimated ejection fraction is between 55-60%. Spectral Doppler is indicative of an impaired relaxation filling pattern. E/E prime ratio is between 8 and 15 consistent with indeterminate filling pressures. Right Ventricle Normal right ventricular cavity size and systolic function. Atria Both atria are normal in size. There is no evidence of interatrial shunt. Aortic Valve There is mild calcification of the aortic valve. There is mild thickening of the aortic valve. There is no aortic valve stenosis. There is no aortic valve regurgitation. Mitral Valve There is mild anterior and posterior mitral leaflet thickening. There is trace mitral valve regurgitation. There is no mitral valve stenosis. Pulmonic Valve The pulmonic valve was not well visualized. Tricuspid Valve Likely normal tricuspid valve structure and function. There is trace tricuspid valve regurgitation. The right ventricular systolic pressure is normal. The right ventricular systolic pressure is 24 mmHg. Normal right atrial pressure. There is no evidence of pulmonary hypertension. Great Vessels All visible segments of the aorta are normal in size. The pulmonary artery was not well visualized. Venous The inferior vena cava is normal in size and collapses greater than 50% with inspiration. Pericardium/Pleural There is no evidence of pericardial effusion. Prior Study Comparison No prior study available for comparison. Measurements 2D Linear Measurements IVSd: 0.77 0.6-0.9/0.6-1.0 cm LVIDd: 3.73 3.9-5.3/4.2-5.9 cm LVIDd Index: 2.35 2.4-3.2/2.2-3.1 cm/m2 LVIDs: 2.11 2.0-3.6 cm LVPWd: 0.78 0.7-1.1 cm Ao Root: 3.00 2.1-3.5 cm LA Diam: 2.60 2.7-3.8/3.0-4.0 cm LAIDs Index: 1.64 1.5-2.3 cm/m2 LV Mass: 99.03 67-162/88-224 g LV Mass Index: 62.28 43-95/49-115 g/m2 LVOT Diam: 1.90 3.0+(-)1.3 cm Mitral Valve MV Pk E: 0.69 MV PK A: 0.87 MV Decel Time: 208.00 E/A: 0.80 E'Lateral: 10.20 E'Medial: 7.54 E/E' Med: 9.20 E/E' Lat: 6.80 PHT: 61.00 MVA PHT: 3.61 Decel Rooks: 3.34 Aortic Valve AoV Pk Levon: 1.51 AoV Mn Levon: 1.10 AoV VTI: 0.34 AoV Pk Grad: 9.00 Aov Mn Grad: 5.00 SANDRA Cont.VTI: 1.78 LVOT LVOT Pk Levon: 1.16 LVOT Mn Levon: 0.63 LVOT VTI: 0.21 LVOT Pk Grad: 5.00 LVOT Mn Grad: 2.00 LVOT Diam: 1.90 LVOT Area: 2.84 Diastolic Function MV Pk E: 0.69 MV Pk A: 0.87 E/A: 0.80 E'Medial: 7.54 E/E' Med: 9.20 E' Laterial: 10.20 E/E' Lat: 6.80 Tricuspid Valve TR Pk Levon: 2.31 TR Pk Grad: 21.00 RA Press: 3.00 RVSP: 24.00 Great Vessels Aorta Ao Root-2D: 3.00 2.0-3.7 cm Ao Asc: 3.00 2.1-3.4 cm Ao Arch: 2.70 Updated in Other Vendor System with Status of Final Mode Allen MD electronically signed on 05/17/2020 4:21:03 PM with status of Final
--- NOTE | 2020-05-17 14:52 | P.PNCA_ITS ---
Subjective Subjective Date of Service: 05/17/[address] <[address] - Last Filed: 05/17/20 17:10> 05/17/20 <Mode Allen MD - Last Filed: 05/17/20 17:40> Principal diagnosis: syncope <LES St - Last Filed: 05/17/20 17:10> Interval history: Cardiology follow up for syncope. Seen at 1350. Today she reports feeling well since hospital admit. No report of dizziness, presyncope, syncope. No chest pains, palpitation, sob. Reports steadiness when standing but states they won't let me . Getting echo at the time of my visit. <LES St - Last Filed: 05/17/20 17:10> Review of Systems Review of Systems as above <LES St - Last Filed: 05/17/20 17:10> Yes all other systems are reviewed and are negative <LES St - Last Filed: 05/17/20 17:10> Physical Exam Vital Signs: Last Vital Signs Temp 98.2 F 05/17/20 11:24 Pulse 90 05/17/20 11:24 Resp 20 05/17/20 11:24 BP 135/74 05/17/20 11:24 Pulse Ox 93 05/17/20 11:24 Body Mass Index 22.[address] <[address] - Last Filed: 05/17/20 17:10> Const General: cooperative, healthy appearing, no acute distress, alert and awake <LES St - Last Filed: 05/17/20 17:10> Orientation/consciousness: patient oriented x3 <LES St - Last Filed: 05/17/20 17:10> HENMT Head: Yes normal to inspection <LES St - Last Filed: 05/17/20 17:10> Neck Neck: Yes normal visual inspection and Yes no JVD <LES St - Last Filed: 05/17/20 17:10> Resp Effort & Inspection: normal respiratory effort, able to speak in complete sentences and not labored <LES St - Last Filed: 05/17/20 17:10> Auscultation: clear to auscultation bilaterally, no crackles, no rales, no rhonchi and no wheezes <Jessica ZapataAMINAH-C - Last Filed: 05/17/20 17:10> Cardio Rate: regular rate <Jessica ZapataAMINAH-C - Last Filed: 05/17/20 17:10> Rhythm: regular rhythm <Jessica ZapataAMINAH-C - Last Filed: 05/17/20 17:10> Heart sounds: S1 normal heart sound present, S2 normal heart sound present and Murmur heart sound present (2/6 systolic) <Jessica ZapataAMINAH-C - Last Filed: 05/17/20 17:10> Peripheral pulses: Peripheral pulses 2+ throughout <Jessica ZapataAMINAH-C - Last Filed: 05/17 17:10> GI Inspection: Yes normal to inspection <Jessica ZapataAMINAH-C - Last Filed: 05/17/20 17:10> Neuro General: patient oriented x3 <Jessica ZapataAMINAH-C - Last Filed: 05/17/20 17:10> Extrem General: Yes normal to inspection and No edema <Jessica ZapataAMINAH-C - Last Filed: 05/17/20 17:10> Results Labs and Meds Result diagrams: : 05/16/20 04:55 05/17/20 04:24 <Jessica ZapataDAMARISC - Last Filed: 05/17/20 17:10> Lab results: Laboratory Results - last 24 hr 05/16/20 05/17/20 18:10 04:24 Sodium 129 L 129 L Potassium 5.0 5.2 H Chloride 96 96 Carbon Dioxide 28 26 Anion Gap 10 L 12 BUN 20 H 17 H Creatinine 0.79 0.76 Estim Creat Clear Calc 50.1 52.0 Estimated GFR > 60 > 60 Random Glucose 87 86 Calcium 8.8 9.0 <Jessica ZapataAMINAH-C - Last Filed: 05/17/20 17:10> Progress Note: A&P Assessment and plan (1) Syncope: Status: Acute <Jessica PedersenAMINAH weaver-C - Last Filed: 05/17/20 17:10> Assessment and Plan: Syncopal event prior to admit. Was dressed warmly then started feeling hot. No fall, not postictal. notes indicate nausea afterwards. EKG and Tele showing SR, no arrythmia. Not reported to be orthostatic. CTA no PE. Does have hyponatremia and is being followed by nephrology. Likely vasovagal event. Echo being completed, report pending. If no significant abnormalities, then she can be discharged from a cardiology perspective. She is normally well hydrating, drinking about 64+ oz flluid daily. Nephrology recommends reduction in free water intake. To help prevent future syncope, she can increase salt intake. We will arrange for outpt cardiology follow up with BP bartlett. <DAMARIS St - Last Filed: 05/17/20 17:10> Patient seen. Case discussed with Jessica. Patient has had no significant cardiac arrhythmias. Echocardiogram within normal limits. Most likely cause for her syncope appears to be vasovagal. Advised to increase fluid and salt intake. Follow-up basic metabolic profile in a week's time. Will follow up in the office in 4 weeks. Advised to seek sitting or supine position when she has repeat symptoms. If she continues to repeat symptoms further workup will be pursued as outpatient. Patient can be safely discharged home. <Mode Allen MD - Last Filed: 05/17/20 17:40> (2) Hyponatremia: Status: Acute <LES St - Last Filed: 05/17/20 17:10> Assessment and Plan: Na 125 on admit. Up to 129 today. Nephrology recommends fluid restriction <LES St - Last Filed: 05/17/20 17:10> (3) Hyperkalemia: Status: Acute <LES St - Last Filed: 05/17/20 17:10> Assessment and Plan: K 5.2 today. Being followed by hospitalist <LES St - Last Filed: 05/17/20 17:10> Fall Risk Details Current Medications: Current Medications Generic Name Dose Route Start Last Admin Trade Name Freq PRN Reason Stop Dose Admin Acetaminophen 650 mg 05/15/20 22:22 Acetaminophen 325 Mg Tablet PO Q6H PRN Pain, Mild (Pain Scale 1-3) Docusate Sodium 100 mg 05/15/20 22:22 Docusate Sodium 100 Mg Capsule PO DAILY PRN Constipation Enoxaparin Sodium 40 mg 05/15/20 23:00 05/16/20 22:33 Enoxaparin Sodium 40 Mg/0.4 Ml Syringe SUBCUT 40 mg Q24H MARNIE Administration Ondansetron HCl 4 mg 05/15/20 22:22 Ondansetron Hcl 4 Mg/2 Ml Vial IVPUSH Q8H PRN Nausea and Vomiting Pharmacy Consult 1 each 05/15/20 16:48 Consult Rx Perform Med Rec MISCELLANE ONCE PRN Consult order Sodium Chloride 3 ml 05/16/20 00:00 05/17/20 10:27 0.9 % Sodium Chloride Flush 3 Ml Syringe IVFLUSH 3 ml QSHIFT MARNIE Administration <LES St - Last Filed: 05/17/20 17:10> Time Spent With Patient Time: Total time spent is greater than 50% in coordination of care (as documented) at patient's floor/unit and/or counseling patient: <LES St - Last Filed: 05/17/20 17:10> Time with patient: 15 - 24 minutes <[address] - Last Filed: 05/17/20 17:10>
[2020-05-17 15:22] VITALS: BP 132/61; PULSE 70; RESP 20; TEMP 36.5; O2SAT 99
--- NOTE | 2020-05-17 17:12 | PM.DS ---
DS: Providers Provider Date of admission: 05/15/20 21:08 Primary care physician: Lalit Aguirre MD Consults: 05/15/20 21:11 Consult to Nephrology Routine Consulting Provider: [facility] Reason for consultation: hyponatremia Has provider been notified: No 05/16/20 10:04 Consult to Cardiology Routine Consulting Provider: Prasanna Alex Reason for consultation: syncope DS: Diagnosis Discharge Diagnosis (1) Syncope: Status: Acute (2) Hyponatremia: Status: Acute (3) Hyperkalemia: Status: Acute DS: Summary Hospital Course Hospital Course: Patient was admitted for workup of her syncopal episode. Monitored on telemetry and did not have any cardiac arrhythmias reported. She underwent a 2D echo which did not show any Safia viable cause for her syncopal episode. She was evaluated by Cardiology who felt her syncope was likely vasovagal in nature. Her hospitalization was also complicated by acute on chronic hyponatremia. Her urine studies were consistent with polydipsia and this was confirmed by her who reported that she drank more than a gallon of water daily. She was treated with fluid restriction in the hospital with improvement of her serum sodium which has been stable at 129 for the last 3 chemistries. She will be discharged home with the following recommendations to drink less than 50% of her total water intake. She will have repeat chemistry done several days from discharge which will be followed up by the PCP as well as Nephrology. Time Spent with Patient Time attestation: Total time spent providing and/or coordinating discharge services: Physical Exam Vital Signs: Vital Signs: Last Vital Signs Temp 97.7 F 05/17/20 15:22 Pulse 70 05/17/20 15:22 Resp 20 05/17/20 15:22 BP 132/61 05/17/20 15:22 Pulse Ox 99 05/17/20 15:22 Body Mass Index 22.4 Const: Other: General - no acute distress, appears comfortable Cardiovascular - regular rate and rhythm, S1-S2 Lungs - normal respiratory effort, clear to auscultation bilaterally, no wheezing Abdomen - soft, nontender, no rebound or guarding Extremities - no edema bilaterally Neuro - awake and alert, no focal deficits DS: Data Data Completed and Pending Labs on day of discharge: Laboratory Last Values WBC 4.6 X10*3/uL (4.8-10.8) L 05/16/20 04:55 RBC 3.83 X10*6/uL (4.20-5.50) L 05/16/20 04:55 Hgb 12.7 g/dl (12.0-16.0) 05/16/20 04:55 Hct 37.0 % (37-47) 05/16/20 04:55 MCV 96.6 fL (80-98) 05/16/20 04:55 MCH 33.2 pg (27.0-33.0) H 05/16/20 04:55 MCHC 34.3 g/dl (31.0-35.0) 05/16/20 04:55 RDW 12.3 % (11.0-16.0) 05/16/20 04:55 Plt Count 272 X10*3/uL (160-400) 05/16/20 04:55 MPV 9.9 fL (9.4-12.3) 05/16/20 04:55 Immature Gran % (Auto) 0.2 % (0.0-0.4) 05/16/20 04:55 Neut % (Auto) 73.6 % (45-73) H 05/16/20 04:55 Lymph % (Auto) 16.4 % (20-40) L 05/16/20 04:55 [place] % (Auto) 9.4 % (2-11) 05/16/20 04:55 Eos % (Auto) 0.2 % (0-4) 05/16/20 04:55 Baso % (Auto) 0.2 % (0-2) 05/16/20 04:55 Lymph # (Auto) 0.8 X10*3/uL (1.2-4.9) L 05/16/20 04:55 [place] # (Auto) 0.4 X10*3/uL (0.1-1.2) 05/16/20 04:55 Eos # (Auto) 0.0 X10*3/uL (0.0-0.4) 05/16/20 04:55 Baso # (Auto) 0.0 X10*3/uL (0.0-0.2) 05/16/20 04:55 Abs Immat Gran (auto) 0.01 X10*3/uL (0.00-0.03) 05/16/20 04:55 Absolute Neuts (auto) 3.4 X10*3/uL (2.0-8.3) 05/16/20 04:55 Absolute Nucleated RBC 0.000 X10*3/uL (0.0-0.012) 05/16/20 04:55 Nucleated RBC % (auto) 0.0 /100WBC (0.0-0.2) 05/16/20 04:55 PT 12.8 SEC (10.8-13.0) 05/15/20 17:28 INR 1.1 (0.9-1.1) 05/15/20 17:28 APTT 30.6 SEC (24.1-38.0) 05/15/20 17:28 D-Dimer 9136 NG/ML 05/15/20 17:28 Sodium 129 mmol/L (135-145) L 05/17/20 04:24 Potassium 5.2 mmol/l (3.3-5.1) H 05/17/20 04:24 Chloride 96 mmol/L (96-108) 05/17/20 04:24 Carbon Dioxide 26 mmol/L (22-29) 05/17/20 04:24 Anion Gap 12 (-20) 05/17/20 04:24 BUN 17 mg/dL (9-16) H 05/17/20 04:24 Creatinine 0.76 mg/dL (0.5-1.4) 05/17/20 04:24 Estim Creat Clear Calc 52.0 05/17/20 04:24 Estimated GFR > 60 05/17/20 04:24 Random Glucose 86 mg/dL (60-115) 05/17/20 04:24 Osmolality 272 mosm/kg (281-305) L 05/15/20 21:59 Uric Acid 3.1 mg/dL (2.4-5.7) 05/15/20 21:59 Calcium 9.0 mg/dL (8.4-10.2) 05/17/20 04:24 Total Bilirubin 0.6 mg/dL (0.0-1.0) 05/15/20 17:28 AST 33 U/L (5-31) H 05/15/20 17:28 ALT 21 U/L (0-31) 05/15/20 17:28 Alkaline Phosphatase 92 U/L (39-117) 05/15/20 17:28 Troponin I High Sens 8.5 ng/L (<3.5-17.0) 05/15/20 20:08 Total Protein 6.4 g/dL (6.5-8.0) L 05/15/20 17:28 Albumin 4.0 g/dL (3.5-5.0) 05/15/20 17:28 Urine Color YELLOW 05/15/20 17:19 Urine Appearance CLEAR 05/15/20 17:19 Urine pH 7.5 (5.0-8.0) 05/15/20 17:19 Ur Specific [place] 1.010 (1.005-1.025) 05/15/20 17:19 Urine Protein NEG MG/DL (NEG-TRACE) 05/15/20 17:19 Urine Glucose (UA) NEG MG/DL (NEG) 05/15/20 17:19 Urine Ketones NEG MG/DL (NEG) 05/15/20 17:19 Urine Blood NEG (NEG) 05/15/20 17:19 Urine Nitrite NEG (NEG) 05/15/20 17:19 Ur Leukocyte Esterase NEG (NEG) 05/15/20 17:19 Urine RBC 0 /HPF (0) 05/15/20 17:19 Urine WBC 0 /HPF (0-4) 05/15/20 17:19 Ur Squamous Epith Cells TRACE /LPF 05/15/20 17:19 Urine Bacteria NONE /LPF 05/15/20 17:19 Urine Osmolality 166 mosm/kg (373-1093) L 05/15/20 22:09 Ur Random Sodium 43.0 mmol/L 05/15/20 22:10 Urine Creatinine 7.02 mg/dL 05/15/20 22:10 Coronavirus (PCR) NEGATIVE (Negative) 05/15/20 17:25 Influenza Type A (PCR) NEGATIVE (Negative) 05/15/20 17:25 Influenza Type B (PCR) NEGATIVE (Negative) 05/15/20 17:25 RSV RNA Qual (PCR) NEGATIVE (Negative) 05/15/20 17:25 Discharge Plan Discharge Patient Disposition: Home, Self-Care Referrals: Lalit Aguirre MD [Primary Care Provider] - Discharge Orders: Discharge Order (Routine); Ordered 05/17/20 Ordered By: Toney Soriano Diet: advance to usual diet Activity on Discharge: As tolerated Other Ambulatory Orders: Basic Metabolic Panel (Routine) Timeframe: 20200519 Facility: [facility] - Location: Laboratory Ordered By: Toney Soriano Visit Report Forms: Patient Portal Discharge page Care Plan Goals: To stay healthy and out of the hospital. Health Concerns: Syncope Low Sodium Levels Plan of Treatment: Syncope -- this was most likely caused by something called vaso-vagal syncope. No other specific was found Low Sodium levels -- you have low sodiums levels chornically but it was even lower than usual. Drink 50% less water than your normally do for about 2-3 days and recheck your blood work. Follow up with primary care doctor and if needed, kidney doctors.
--- NOTE | 2020-05-18 12:36 | CONS_ITS ---
DATE OF SERVICE: 05/17/2020 HISTORY OF PRESENT ILLNESS: This is a 74-year-old patient, who has a prior history of hyponatremia, who presented to the hospital with syncope and was noted to have a low serum sodium. The patient denies any chest pain or shortness of breath. She denies any nausea, vomiting, or diarrhea. She apparently was getting ready to leave her house with her for a walk, when she felt woozy and leaned forward and fainted. She reports drinking roughly around 100 ounces of liquid on a daily basis. The patient was noted to have a low serum sodium in the range of 125. PAST MEDICAL HISTORY: Remarkable for GERD, overactive bladder. MEDICATIONS: As an outpatient review. ALLERGIES: SHE IS ALLERGIC TO PENICILLIN. SOCIAL HISTORY: Does not smoke. FAMILY HISTORY: Negative for kidney disease. REVIEW OF SYSTEMS: Ten-point systems negative except pertinent in history of present illness. PHYSICAL EXAMINATION: VITAL SIGNS: Blood pressure is 135/74, heart rate 90, respiratory rate 20, temperature 98.2. CONSTITUTIONAL: Looks her stated age. No acute distress. NEUROLOGIC: Alert, awake. HEAD: Atraumatic and normocephalic. Eyes, pupils are equal and reactive to light. Anicteric sclerae. NECK: Supple. LUNGS: Good air entry bilaterally. CARDIOVASCULAR: S1, S2. No rub. ABDOMEN: Soft, nontender. EXTREMITIES: No peripheral edema. LABORATORY DATA: Showed a serum sodium 129, potassium 4.2, chloride 96, CO2 of 26, BUN 17, creatinine 0.76. Serum osmolality is 272. Urine sodium is 43. Urine osmolality 166. IMPRESSION: 1. Hyponatremia. 2. Mild hyperkalemia. This is a patient who presented with a low serum sodium and review of serum sodium suggests that she has had a sodium in the range of 130 for at least a year. I do not think that this is consistent with SIADH as her serum osmolarity is greater than her urine osmolality, which appears to be on the low side. I suspect that she could have underlying reset osmostat versus excessive free water intake causing a low serum sodium. I would restrict her fluid intake and I have discussed with her the need to cut back on her fluid intake by 50%. We will continue to follow closely her kidney function and electrolytes along with medical team. Thank you for allowing me to participate in the care of this patient. MD RENZO Velez/MODL / [phone]
== END 2020-05-17 17:58 | disposition home or self-care (01) ==
LOC: HO.ED 20:22 → HO.IMC 22:32
PROVIDERS: Nurse Practitioner Primary Care; Admitting Provider Internal Medicine; Emergency Provider Emergency Medicine; PCP Internal Medicine Medical Oncology; Visit Provider Family Medicine
DX: R55 Syncope and collapse (principal); E87.1 Hypo-osmolality and hyponatremia; E87.5 Hyperkalemia; I44.0 Atrioventricular block, first degree; K21.9 Gastro-esophageal reflux disease without esophagitis; R35.0 Frequency of micturition; Z88.0 Allergy status to penicillin; J30.89 Other allergic rhinitis; Z20.828 Contact with and (suspected) exposure to other viral communicable diseases; Z91.030 Bee allergy status
CPT/HCPCS: 0241U; 36415; 70450; 71045; 71275; 80048; 80053; 81001; 83930; 83935; 84300; 84484; 84550; 85025; 85379; 85610; 85730; 93005; 93306; 93970; 99219; 99225; 99284; 99285; J1650; Q9967

== ENCOUNTER 2020-05-19 08:39 | Outpatient (REF) | payer MEDICARE, OTHER, SELFPAY ==
[2020-05-19 10:17] LABS: Blood Urea Nitrogen 24 mg/dL (9-16); Calcium 8.4 mg/dL (8.4-10.2); Estimated Glomerular Filt Rate > 60; Glucose Random 75 mg/dL (60-115)
[2020-05-19 10:47] LABS: Anion Gap 10 (12-20); Carbon Dioxide 27 mmol/L (22-29); Chloride 98 mmol/L (96-108); Potassium 4.9 mmol/l (3.3-5.1); Sodium 130 mmol/L (135-145)
== END 2020-05-19 08:40 | disposition home or self-care (01) ==
LOC: HO.LAB 08:39
PROVIDERS: PCP Internal Medicine Medical Oncology; Visit Provider Family Medicine
DX: E87.1 Hypo-osmolality and hyponatremia (principal); M81.0 Age-related osteoporosis without current pathological fracture; R79.89 Other specified abnormal findings of blood chemistry
CPT/HCPCS: 80048

== ENCOUNTER 2020-06-02 06:11 | Outpatient (REF) | payer MEDICARE, OTHER, SELFPAY ==
[2020-06-02 07:19] LABS: MANUAL DIFF FLAG NO
[2020-06-02 07:21] LABS: Basophils Percent Auto 0.5 % (0-2); Eosinophils Absolute Auto 0.1 X10*3/uL (0.0-0.4); Eosinophils Percent Auto 2.6 % (0-4); Hematocrit 36.6 % (37-47); Hemoglobin 12.3 g/dl (12.0-16.0); Imm Gran Abs Auto 0.02 X10*3/uL (0.00-0.03); Imm Gran Pct Auto 0.5 % (0.0-0.4); Lymphocytes Absolute Auto 0.9 X10*3/uL (1.2-4.9); Lymphocytes Percent Auto 22.6 % (20-40); Mean Corpuscular HGB Conc 33.6 g/dl (31.0-35.0); Mean Corpuscular Hemoglobin 33.2 pg (27.0-33.0); Mean Corpuscular Volume 98.9 fL (80-98); Mean Platelet Volume 10.2 fL (9.4-12.3); Monocytes Absolute Auto 0.4 X10*3/uL (0.1-1.2); Monocytes Percent Auto 10.8 % (2-11); Neutrophils Absolute Auto 2.4 X10*3/uL (2.0-8.3); Platelet Count 261 X10*3/uL (160-400); Red Cell Distribution Width 12.8 % (11.0-16.0); White Blood Count 3.8 X10*3/uL (4.8-10.8)
[2020-06-02 07:37] LABS: Alanine Aminotransferase 25 U/L (0-31); Alkaline Phosphatase 89 U/L (39-117); Anion Gap 11 (12-20); Aspartate Amino Transferase 32 U/L (5-31); Bilirubin Total 0.6 mg/dL (0.0-1.0); Blood Urea Nitrogen 23 mg/dL (9-16); Calcium 8.9 mg/dL (8.4-10.2); Carbon Dioxide 29 mmol/L (22-29); Chloride 100 mmol/L (96-108); Estimated Glomerular Filt Rate 59; Glucose Random 87 mg/dL (60-115); Potassium 5.2 mmol/l (3.3-5.1); Sodium 135 mmol/L (135-145); Total Protein 6.5 g/dL (6.5-8.0)
[2020-06-02 07:50] LABS: Osmolality, Serum 288 mosm/kg (281-305)
[2020-06-02 08:47] LABS: Osmolality Urine 457 mosm/kg (373-1093)
== END 2020-06-02 06:12 | disposition home or self-care (01) ==
LOC: HO.LAB 06:11
PROVIDERS: Visit Provider Internal Medicine Medical Oncology
DX: E87.1 Hypo-osmolality and hyponatremia (principal); D72.819 Decreased white blood cell count, unspecified
CPT/HCPCS: 36415; 80053; 83930; 83935; 85025

== ENCOUNTER → 2020-07-28 10:11 | Outpatient (BNVA) | payer MEDICARE, OTHER, SELFPAY | PROVIDERS: PCP Internal Medicine Medical Oncology; Visit Provider Nurse Practitioner Family | DX: R55 Syncope and collapse (principal); E78.1 Pure hyperglyceridemia | CPT/HCPCS: 99212 ==

== ENCOUNTER 2020-10-12 06:11 | Outpatient (REF) | payer MEDICARE, OTHER, SELFPAY ==
[2020-10-12 08:11] LABS: MANUAL DIFF FLAG NO
[2020-10-12 08:14] LABS: Basophils Percent Auto 0.6 % (0-2); Eosinophils Absolute Auto 0.2 X10*3/uL (0.0-0.4); Eosinophils Percent Auto 3.5 % (0-4); Hemoglobin 12.2 g/dl (12.0-16.0); Imm Gran Abs Auto 0.01 X10*3/uL (0.00-0.03); Imm Gran Pct Auto 0.2 % (0.0-0.4); Lymphocytes Absolute Auto 1.3 X10*3/uL (1.2-4.9); Lymphocytes Percent Auto 26.1 % (20-40); Mean Corpuscular Hemoglobin 32.5 pg (27.0-33.0); Mean Corpuscular Volume 98.7 fL (80-98); Mean Platelet Volume 10.1 fL (9.4-12.3); Monocytes Absolute Auto 0.6 X10*3/uL (0.1-1.2); Monocytes Percent Auto 13.1 % (2-11); Neutrophils Absolute Auto 2.7 X10*3/uL (2.0-8.3); Neutrophils Percent Auto 56.5 % (45-73); Platelet Count 273 X10*3/uL (160-400); Red Blood Count 3.75 X10*6/uL (4.20-5.50); Red Cell Distribution Width 12.9 % (11.0-16.0); White Blood Count 4.8 X10*3/uL (4.8-10.8)
[2020-10-12 08:56] LABS: Alanine Aminotransferase 23 U/L (0-31); Alkaline Phosphatase 91 U/L (39-117); Anion Gap 13 (12-20); Aspartate Amino Transferase 34 U/L (5-31); Bilirubin Total 0.6 mg/dL (0.0-1.0); Blood Urea Nitrogen 28 mg/dL (9-16); Calcium 8.8 mg/dL (8.4-10.2); Carbon Dioxide 26 mmol/L (22-29); Chloride 101 mmol/L (96-108); Cholesterol 185 mg/dL; Estimated Glomerular Filt Rate > 60; Glucose Fasting 87 mg/dL (60-99); HDL Cholesterol 82 mg/dL; LDL Cholesterol Calculated 93 mg/dl; Potassium 4.5 mmol/L (3.3-5.1); Sodium 135 mmol/L (135-145); Total Protein 6.7 g/dL (6.5-8.0); Triglycerides 53 mg/dL
== END 2020-10-12 06:12 | disposition home or self-care (01) ==
LOC: HO.LAB 06:11
PROVIDERS: PCP Internal Medicine Medical Oncology; Visit Provider Internal Medicine Medical Oncology
DX: M54.9 Dorsalgia, unspecified (principal); K21.9 Gastro-esophageal reflux disease without esophagitis; E87.1 Hypo-osmolality and hyponatremia; D72.819 Decreased white blood cell count, unspecified
CPT/HCPCS: 36415; 80053; 80061; 85025

== ENCOUNTER 2020-11-19 14:25 | Outpatient (REF) | payer MEDICARE, OTHER, SELFPAY ==
--- NOTE | ~2020-11-19 | MM_ITS ---
EXAMINATION: MM SCREENING DIGITAL BREAST TOMOSYNTHESIS, BILATERAL CLINICAL INFORMATION: Screening. Asymptomatic. The lifetime risk of breast cancer based on the Tyrer-Cuzick Model is 1.5%. COMPARISON: Mammography: January 10, 2017 and studies dating back to January 11, 2010 TECHNIQUE: Digital breast tomosynthesis is performed in both the craniocaudal and mediolateral oblique views along with computer-aided detection (CAD). Synthesized 2D images are generated from the tomosynthesis. FINDINGS: There are scattered areas of fibroglandular density (ACR BI-RADS breast composition Category b). There are no significant masses, abnormal calcifications, or other abnormalities. MM/MM tomosynthesis screening BI IMPRESSION: There are no significant changes from prior study. ASSESSMENT: BI-RADS 1: Negative RECOMMENDATION: Routine annual mammography screening. This patient's information was entered into a reminder system with a target due date for their next mammogram.
== END 2020-11-19 14:26 | disposition home or self-care (01) ==
LOC: HO.MAMMO 14:25
PROVIDERS: Visit Provider Internal Medicine Medical Oncology
DX: Z12.31 Encounter for screening mammogram for malignant neoplasm of breast (principal)
CPT/HCPCS: 77063; 77067

== ENCOUNTER 2020-11-24 15:29 | Outpatient (REF) | payer MEDICARE, OTHER, SELFPAY ==
[2020-11-24 16:29] LABS: MANUAL DIFF FLAG NO
[2020-11-24 16:34] LABS: Basophils Percent Auto 0.7 % (0-2); Eosinophils Absolute Auto 0.1 X10*3/uL (0.0-0.4); Eosinophils Percent Auto 1.3 % (0-4); Hematocrit 33.9 % (37-47); Hemoglobin 11.5 g/dl (12.0-16.0); Imm Gran Abs Auto 0.02 X10*3/uL (0.00-0.03); Imm Gran Pct Auto 0.4 % (0.0-0.4); Lymphocytes Absolute Auto 1.1 X10*3/uL (1.2-4.9); Lymphocytes Percent Auto 23.1 % (20-40); Mean Corpuscular HGB Conc 33.9 g/dl (31.0-35.0); Mean Corpuscular Hemoglobin 32.2 pg (27.0-33.0); Mean Platelet Volume 10.2 fL (9.4-12.3); Monocytes Absolute Auto 0.6 X10*3/uL (0.1-1.2); Monocytes Percent Auto 12.4 % (2-11); Neutrophils Absolute Auto 2.9 X10*3/uL (2.0-8.3); Neutrophils Percent Auto 62.1 % (45-73); Platelet Count 265 X10*3/uL (160-400); Red Blood Count 3.57 X10*6/uL (4.20-5.50); Red Cell Distribution Width 12.4 % (11.0-16.0); White Blood Count 4.6 X10*3/uL (4.8-10.8)
[2020-11-24 16:58] LABS: Alanine Aminotransferase 21 U/L (0-31); Alkaline Phosphatase 88 U/L (39-117); Amylase 125 U/L (28-100); Anion Gap 12 (12-20); Aspartate Amino Transferase 32 U/L (5-31); Bilirubin Total 0.5 mg/dL (0.0-1.0); Blood Urea Nitrogen 26 mg/dL (9-16); Carbon Dioxide 27 mmol/L (22-29); Chloride 95 mmol/L (96-108); Estimated Glomerular Filt Rate > 60; Glucose Random 85 mg/dL (60-115); Lipase 41 U/L (8-78); Potassium 5.5 mmol/L (3.3-5.1); Sodium 128 mmol/L (135-145); Total Protein 6.5 g/dL (6.5-8.0)
[2020-11-24 17:33] LABS: Erythrocyte Sedimentation Rate 12 MM/HR (0-20)
== END 2020-11-24 15:30 | disposition home or self-care (01) ==
LOC: HO.LAB 15:29
PROVIDERS: PCP Internal Medicine Medical Oncology; Visit Provider Internal Medicine Medical Oncology
DX: R10.9 Unspecified abdominal pain (principal); R14.0 Abdominal distension (gaseous)
CPT/HCPCS: 36415; 80053; 82150; 83690; 85025; 85652

== ENCOUNTER 2020-11-29 19:41 | Inpatient (IN) | payer MEDICARE, OTHER, SELFPAY ==
[2020-11-29] VITALS (8 sets, daily range): BP systolic 132–171; BP diastolic 59–80; PULSE 75–94; RESP 10–21; TEMP 36.7–36.8; O2SAT 97–100; BMI 46.4
--- NOTE | ~2020-11-29 | CT_ITS ---
EXAMINATION: CTA NECK WITH CONTRAST (STROKE) CTA BRAIN WITH CONTRAST (STROKE) CLINICAL INFORMATION: RIGHT vision loss. Assess for major vessel occlusion. Please call report. COMPARISON: CT head performed earlier same date and 05/15/2020 TECHNIQUE: CTA of the head and neck was performed in the axial plane from the mediastinum to the skull vertex using 70mL Omnipaque 350 intravenous contrast. Additional reformatted multiplanar images including maximum intensity projection MIP images are generated on the CT workstation. This CT examination was performed using dose optimization techniques as appropriate, variously including the following: *Automated exposure control *Adjustment of mA and/or kV according to patient size (this includes techniques or standardized protocols for targeted exams where dose is matched to indication/reason for exam; i.e. extremities or head) *Use of iterative reconstruction technique DLP: 1403 mGy-cm FINDINGS: SOFT TISSUES AND LUNG APICES: No overt abnormality is appreciated. CTA NECK: The aortic arch has a classic configuration and the major arch vessel origins are non-stenotic. Left vertebral artery is dominant. Vertebral arteries are co-dominant and both vertebral origins are widely patent. Both common carotid arteries are normal in course and caliber. Both internal carotid arteries demonstrate mild atherosclerotic plaque without significant stenosis. CTA HEAD: There is normal opacification of the major intracranial vessels. No acute proximal large vessel occlusion, focal flow-limiting stenosis, or saccular intracranial aneurysm is identified. Cavernous carotid calcifications. There is somewhat asymmetrically diminished flow within the distal RIGHT ophthalmic artery with respect to the left, particularly distal to the band, however the clinical significance of this finding is unclear. No abnormal parenchymal enhancement or regional oligemia is visualized. HEAD (delayed): No intracranial mass, intercerebral edema, hemorrhage, or midline shift is evident. The ventricles and sulci are stable in size and configuration. No extra-axial collections are appreciated. No pathologic intracranial enhancement. Dural sinuses are patent. The paranasal sinuses are well-aerated and clear. CT/CT angio head neck stroke IMPRESSION: * No hemodynamically significant stenosis or large vessel occlusion within the intracranial or extracranial arterial vasculature. * Slightly asymmetrically decreased flow within the RIGHT ophthalmic artery distal to the bend. This critical result was discussed with Jocelyn Stone NP at 11/29/2020 8:48 PM and it was ascertained that the content and urgency of the report was understood at the time of direct communication.
--- NOTE | ~2020-11-29 | CT_ITS ---
EXAMINATION: CT HEAD WITHOUT CONTRAST (STROKE PROTOCOL) CLINICAL INFORMATION: Stroke protocol. COMPARISON: 05/15/2020 TECHNIQUE: Contiguous axial imaging was performed from the skull base to vertex without intravenous administration of contrast. This CT examination was performed using dose optimization techniques as appropriate, variously including the following: *Automated exposure control *Adjustment of mA and/or kV according to patient size (this includes techniques or standardized protocols for targeted exams where dose is matched to indication/reason for exam; i.e. extremities or head) *Use of iterative reconstruction technique DLP: 682 mGy-cm FINDINGS: There is no intracranial hemorrhage, hematoma, or extra-axial fluid collection. The ventricles are normal in size. There is no hydrocephalus, edema, or mass effect. The plasencia-white matter differentiation appears symmetric. There is no acute infarct or mass lesion. Cavernous carotid calcifications. The calvarium appears intact. There is no pneumocephalus or orbital emphysema. The visualized sinuses and middle ears and mastoid air cells show no significant mucosal thickening. There are no air-fluid levels. CT/CT head for stroke IMPRESSION: No acute intracranial pathology. This critical result was discussed with Jocelyn Stone NP at 11/29/2020 8:18 PM and it was ascertained that the content and urgency of the report was understood at the time of direct communication.
--- NOTE | ~2020-11-29 | MR_ITS ---
EXAMINATION: MR BRAIN WITHOUT CONTRAST CLINICAL INFORMATION: Status post stroke, tPA given. COMPARISON: CT from 11/29/2020. TECHNIQUE: Multiplanar, multisequence imaging of the brain was performed without contrast. FINDINGS: No diffusion abnormalities are identified to suggest an acute infarct. The ventricles are normal in size. No mass effect or midline shift is seen. Very mild scattered T2 hyperintense signal changes present in the cerebral white matter of both hemispheres. No extra-axial fluid collections are seen. The brainstem and cerebellum are normal. The gradient refocused acquisition is normal. The craniovertebral junction, marrow signal, and midline structures are normal. The major intracranial flow voids at the level of the [place] are preserved. The dural venous sinus flow voids are maintained. The mastoid air cells and paranasal sinuses are well aerated. Severe degenerative disc disease noted at the C4-C5 level. MR/MR head/brain wo con IMPRESSION: No acute intracranial process. Minimal nonspecific white matter signal changes which may be due to chronic microangiopathy.
--- NOTE | 2020-11-29 20:01 | ECG_ITS ---
Test Reason : STROKE Blood Pressure : / mmHG Vent. Rate : 091 BPM Atrial Rate : 091 BPM P-R Int : 224 ms QRS Dur : 094 ms QT Int : 384 ms P-R-T Axes : 071 033 057 degrees QTc Int : 472 ms Sinus rhythm with 1st degree A-V block Possible Left atrial enlargement Borderline ECG When compared with ECG of 15-MAY-2020 17:04, No significant change was found Referred By: Jocelyn Ross Electronically Signed By:JOSIE THORPE
--- NOTE | 2020-11-29 20:05 | ED_ITS ---
HPI - Eye Problem General Chief complaint: Eye Problems Stated complaint: Blurry vision to right eye Time Seen by Provider: 11/29/20 20:49 Source: patient Mode of arrival: ambulatory Limitations: no limitations History of Present Illness HPI Narrative: 75-year-old female with past medical history of hyperkalemia, h yponatremia, history of elevated D-dimer presents with sudden onset of right vision loss. Stated that she was sitting at the table and noticed that her right eye became very blurry, almost like mucus was covering the entire I, then lost her vision entirely. Stated that vision started to come back shortly after complete vision loss. This happened approximately 7:00 p.m. she does not report any other symptoms. She did not have a prior history of [place] or stroke, denies chest pain or pressure, palpitations, shortness of breath, shortness of breath on exertion, abdominal pain, abdominal distention, nausea, vomiting, diarrhea, loss of bowel or bladder, loss of balance, or any other concerning symptoms. MD chief complaint: vision change Onset (ago): hour(s) ( Within 1 hour of arrival) Onset description: sudden Duration: improved Location: right eye Eye Symptoms: decreased vision and blurry vision Place: home Related Data Patient tetanus UTD: Yes Home Medications Medication Instructions Recorded Confirmed esomeprazole magnesium 20 mg 20 mg PO DAILY 07/28/20 11/29/20 capsule,delayed release mirabegron 50 mg tablet,extended 50 mg PO DAILY tab 07/28/20 11/29/20 release 24 hr Allergies Allergy/AdvReac Type Severity Reaction Status Date / Time Penicillins [PENICILLINS] Allergy Severe THROAT Verified 07/28/20 10:18 SWELLS Dust, Mold, Mites, Bee Sting Allergy Unknown Nasal Uncoded 07/28/20 10:18 congestion Review of Systems Review of Systems: Constitutional: No Weight loss, No Fever, No Chills, No Night Sweats, No Fatigue, No Malaise ENT/Mouth: No Hearing loss, No Ear Pain, No Nasal Congestion, No Sinus Pain, No Hoarseness, No sore throat, No Rhinorrhea, No Swallowing Difficulty Eyes: Positive right vision loss, No Eye Pain, No Swelling, No Redness, No Foreign Body, No Discharge Cardiovascular: No Chest Pain, No SOB, No Dyspnea on Exertion, No Orthopnea, No Edema, No Palpitations Respiratory: No Cough, No Sputum, No Wheezing, No Smoke Exposure, No Dyspnea Gastrointestinal: No Nausea, No Vomiting, No Diarrhea, No Constipation, No abdominal Pain, No Hematochezia, No Melena Genitourinary: no irregular bleeding, No Dysuria, No Urinary Frequency, No Hematuria, No Urinary Incontinence, No Urgency, No Flank Pain, No Urinary Flow Changes, No Hesitancy Musculoskeletal: No joint pain, No Myalgias, No Joint Swelling Skin: No Skin Lesions, No rash Neuro: No Weakness, No Numbness, No Paresthesias, No Loss of Consciousness, No Dizziness, No Headache Psych: No Anxiety/Panic, No Depression, No SI/HI/AH/VH, No Social Issues Heme/Lymph: No Bruising, No Bleeding,No Lymphadenopathy Endocrine: No Polyuria, No Polydipsia, No Temperature Intolerance Yes all other systems are reviewed and are negative [facility] Past Medical History Attestation statement: The following information was validated with the patient. Source: old records reviewed Medical History Acid reflux Overactive bladder Syncope Surgical History No pertinent past surgical history Family History Family History Father No problems noted. Mother HTN (hypertension) Stroke Social History Social History Household Members: Spouse Housing: Apartment Do you presently have visiting nurse or other home services: No Alcohol intake: never Patient Tobacco Use Status: Never used Tobacco Use of substances other than those prescribed or required for medical reasons: No Advance Directives: No Advance Directives Information Provided: Yes service: No Current occupational status: retired Physical Exam Vital Signs: Vital Signs: Last Vital Signs Temp 98.0 F 11/29/20 21:47 Pulse 93 11/29/20 22:02 Resp 12 11/29/20 22:02 BP 142/65 H 11/29/20 22:02 Pulse Ox 97 11/29/20 22:02 Body Mass Index 46.4 Appearance: Alert. Oriented X3. No acute distress. Head: Normal external exam. Normocephalic. Atraumatic. No Carvajal signs noted. No raccoon eyes noted Eyes: PERRLA. EOMI. Conjunctiva and sclera normal. Eyelids normal. Unable to visualize retina or fundus secondary to cataracts. ENT: TM's Normal. Pharynx normal. Uvula midline. Moist mucous membranes. No trismus noted. No drooling noted. No muffled voice noted. Neck: Normal inspection. Neck supple. No adenopathy. Thyroid Normal. No meningeal signs. No neck mass noted. CVS: Normal heart rate and rhythm. Heart sound normal. No murmurs noted. Pulses equal to all extremities. Respiratory: No respiratory distress. Painless inspiration. Breath sounds normal. No wheezes/rales/rhonchi noted. Chest nontender. No accessory muscle usage noted or decreased air movement noted. Abdomen: Soft and nontender. Bowel sounds normal in all 4 quadrants. No distention noted. No organomegaly noted. No visible injury noted. Back: No CVA tenderness. Full range of motion noted. Skin: Skin warm and dry. Normal skin color. Normal skin turgor. No rashes/lesions/lacerations noted. Extremities: No lower extremity edema. Extremities exhibit normal range of motion. Extremities nontender. Neuro: cranial nerves 2-12 intact, no focal neural deficits, strength 5/5 to all extremities, No motor deficit. No sensory deficit. NIH Stroke Scale Internal: Initial- Upon Arrival Time: 20:00 Level of Consciousness: Alert Level of Consciousness Questions: Answers both questions correctly Level of Consciousness Commands: Performs both tasks correctly Best Gaze: Normal Visual: Partial hemianopia Facial Palsy: Normal Motor Arm (Right): No drift Motor Arm (Left): No drift Motor Leg (Right): No drift Motor Leg (Left): No drift Limb Ataxia: Absent Sensory: Normal Best Language: No aphasia Dysarthia: Normal Extinction and Inattention: No abnormality Score: 1 Course Course Course Narrative: 75-year-old female presents with sudden onset of right sided vision loss. NIH stroke scale is 1, ordered stroke protocol at 8:00 p.m.. last known well 7:00 p.m.. 8:07 p.m. INR 1.1 POC 112 8:17 p.m. discussion with [facility] regarding CT of head without. No acute findings for CT without. CTA pending. 8:44 p.m. discussion with deficits in Radiology regarding CTA of head and neck. No large vessel occlusion, question microvascular abnormalities that appear to be chronic. No indication of giant cell arteritis on physical exam. No extraocular movement abnormalities or pain on movement. 902 discussion with on-call Neurology, plan of care is to give tPA. 9:[address] Castañeda, plan is to admit to ICU, call to [facility]. MDM - Eye Problem Differential Diagnosis Differential diagnosis: Likely corneal abrasion, acute iritis and subconjunctival hemorrhage Medical Records Attestation: I reviewed the patient's medical records. Lab Data Attestation: I reviewed the patient's lab results. Result diagrams: 11/29/20 20:00 11/29/20 20:00 Labs: Lab Results 11/29/20 11/29/20 11/29/20 Range/Units 20:00 20:00 20:00 WBC 5.3 (4.8-10.8) X10*3/uL RBC 3.54 L (4.20-5.50) X10*6/uL Hgb 11.6 L (12.0-16.0) g/dl Hct 34.8 L (37-47) % MCV 98.3 H (80-98) fL MCH 32.8 (27.0-33.0) pg MCHC 33.3 (31.0-35.0) g/dl RDW 12.9 (11.0-16.0) % Plt Count 270 (160-400) X10*3/uL MPV 9.7 (9.4-12.3) fL Immature Gran % (Auto) 0.2 (0.0-0.4) % Neut % (Auto) 57.5 (45-73) % Lymph % (Auto) 25.9 (20-40) % [place] % (Auto) 12.9 H (2-11) % Eos % (Auto) 2.9 (0-4) % Baso % (Auto) 0.6 (0-2) % Lymph # (Auto) 1.4 (1.2-4.9) X10*3/uL [place] # (Auto) 0.7 (0.1-1.2) X10*3/uL Eos # (Auto) 0.2 (0.0-0.4) X10*3/uL Baso # (Auto) 0.0 (0.0-0.2) X10*3/uL Abs Immat Gran (auto) 0.01 (0.00-0.03) X10*3/uL Absolute Neuts (auto) 3.0 (2.0-8.3) X10*3/uL Absolute Nucleated RBC 0.000 (0.0-0.012) X10*3/uL Nucleated RBC % (auto) 0.0 (0.0-0.2) /100WBC ESR (0-20) MM/HR PT 12.3 (9.9-13.0) SEC Whole Blood PT (11.1-13.5) sec INR 1.1 (0.9-1.1) Whole Blood INR (0.9-1.1) APTT 31.1 (24.1-38.0) SEC Sodium (135-145) mmol/L Potassium (3.3-5.1) mmol/L Chloride (96-108) mmol/L Carbon Dioxide (22-29) mmol/L Anion Gap (12-20) BUN (9-16) mg/dL Creatinine (0.5-1.4) mg/dL Estim Creat Clear Calc Estimated GFR POC Glucose (60-115) mg/dL Random Glucose (60-115) mg/dL Calcium (8.4-10.2) mg/dL Magnesium 2.1 (1.6-2.6) mg/dL Total Bilirubin 0.6 (0.0-1.0) mg/dL Direct Bilirubin 0.2 (0.0-0.5) mg/dL AST 36 H (5-31) U/L ALT 22 (0-31) U/L Alkaline Phosphatase 94 (39-117) U/L Total Creatine Kinase (26-140) U/L Troponin I High Sens (<3.5-17.0) ng/L C-Reactive Protein (< or = 0.50) mg/dL Total Protein 6.8 (6.5-8.0) g/dL Albumin 4.0 (3.5-5.0) g/dL TSH 1.53 (0.32-4.0) uIU/mL 11/29/20 11/29/20 11/29/20 Range/Units 20:00 20:00 20:00 WBC (4.8-10.8) X10*3/uL RBC (4.20-5.50) X10*6/uL Hgb (12.0-16.0) g/dl Hct (37-47) % MCV (80-98) fL MCH (27.0-33.0) pg MCHC (31.0-35.0) g/dl RDW (11.0-16.0) % Plt Count (160-400) X10*3/uL MPV (9.4-12.3) fL Immature Gran % (Auto) (0.0-0.4) % Neut % (Auto) (45-73) % Lymph % (Auto) (20-40) % [place] % (Auto) (2-11) % Eos % (Auto) (0-4) % Baso % (Auto) (0-2) % Lymph # (Auto) (1.2-4.9) X10*3/uL [place] # (Auto) (0.1-1.2) X10*3/uL Eos # (Auto) (0.0-0.4) X10*3/uL Baso # (Auto) (0.0-0.2) X10*3/uL Abs Immat Gran (auto) (0.00-0.03) X10*3/uL Absolute Neuts (auto) (2.0-8.3) X10*3/uL Absolute Nucleated RBC (0.0-0.012) X10*3/uL Nucleated RBC % (auto) (0.0-0.2) /100WBC ESR 12 (0-20) MM/HR PT (9.9-13.0) SEC Whole Blood PT (11.1-13.5) sec INR (0.9-1.1) Whole Blood INR (0.9-1.1) APTT (24.1-38.0) SEC Sodium 132 L (135-145) mmol/L Potassium 4.3 D (3.3-5.1) mmol/L Chloride 99 (96-108) mmol/L Carbon Dioxide 25 (22-29) mmol/L Anion Gap 12 (12-20) BUN 22 H (9-16) mg/dL Creatinine 0.98 (0.5-1.4) mg/dL Estim Creat Clear Calc 59.9 Estimated GFR 55 POC Glucose (60-115) mg/dL Random Glucose 105 (60-115) mg/dL Calcium 9.2 (8.4-10.2) mg/dL Magnesium (1.6-2.6) mg/dL Total Bilirubin (0.0-1.0) mg/dL Direct Bilirubin (0.0-0.5) mg/dL AST (5-31) U/L ALT (0-31) U/L Alkaline Phosphatase (39-117) U/L Total Creatine Kinase 139 (26-140) U/L Troponin I High Sens 4.1 (<3.5-17.0) ng/L C-Reactive Protein 0.07 (< or = 0.50) mg/dL Total Protein (6.5-8.0) g/dL Albumin (3.5-5.0) g/dL TSH (0.32-4.0) uIU/mL 11/29/20 11/29/20 Range/Units 20:06 20:06 WBC (4.8-10.8) X10*3/uL RBC (4.20-5.50) X10*6/uL Hgb (12.0-16.0) g/dl Hct (37-47) % MCV (80-98) fL MCH (27.0-33.0) pg MCHC (31.0-35.0) g/dl RDW (11.0-16.0) % Plt Count (160-400) X10*3/uL MPV (9.4-12.3) fL Immature Gran % (Auto) (0.0-0.4) % Neut % (Auto) (45-73) % Lymph % (Auto) (20-40) % [place] % (Auto) (2-11) % Eos % (Auto) (0-4) % Baso % (Auto) (0-2) % Lymph # (Auto) (1.2-4.9) X10*3/uL [place] # (Auto) (0.1-1.2) X10*3/uL Eos # (Auto) (0.0-0.4) X10*3/uL Baso # (Auto) (0.0-0.2) X10*3/uL Abs Immat Gran (auto) (0.00-0.03) X10*3/uL Absolute Neuts (auto) (2.0-8.3) X10*3/uL Absolute Nucleated RBC (0.0-0.012) X10*3/uL Nucleated RBC % (auto) (0.0-0.2) /100WBC ESR (0-20) MM/HR PT (9.9-13.0) SEC Whole Blood PT 13.3 (11.1-13.5) sec INR (0.9-1.1) Whole Blood INR 1.1 (0.9-1.1) APTT (24.1-38.0) SEC Sodium (135-145) mmol/L Potassium (3.3-5.1) mmol/L Chloride (96-108) mmol/L Carbon Dioxide (22-29) mmol/L Anion Gap (12-20) BUN (9-16) mg/dL Creatinine (0.5-1.4) mg/dL Estim Creat Clear Calc Estimated GFR POC Glucose 112 (60-115) mg/dL Random Glucose (60-115) mg/dL Calcium (8.4-10.2) mg/dL Magnesium (1.6-2.6) mg/dL Total Bilirubin (0.0-1.0) mg/dL Direct Bilirubin (0.0-0.5) mg/dL AST (5-31) U/L ALT (0-31) U/L Alkaline Phosphatase (39-117) U/L Total Creatine Kinase (26-140) U/L Troponin I High Sens (<3.5-17.0) ng/L C-Reactive Protein (< or = 0.50) mg/dL Total Protein (6.5-8.0) g/dL Albumin (3.5-5.0) g/dL TSH (0.32-4.0) uIU/mL Imaging Data CT head: Attestation: I personally reviewed and interpreted this imaging study as follows: Radiologist's impression: EXAMINATION: CT HEAD WITHOUT CONTRAST (STROKE PROTOCOL) CLINICAL INFORMATION: Stroke protocol. COMPARISON: 05/15/2020 TECHNIQUE: Contiguous axial imaging was performed from the skull base to vertex without intravenous administration of contrast. This CT examination was performed using dose optimization techniques as appropriate, variously including the following: *Automated exposure control *Adjustment of mA and/or kV according to patient size (this includes techniques or standardized protocols for targeted exams where dose is matched to indication/reason for exam; i.e. extremities or head) *Use of iterative reconstruction technique DLP: 682 mGy-cm FINDINGS: There is no intracranial hemorrhage, hematoma, or extra-axial fluid collection. The ventricles are normal in size. There is no hydrocephalus, edema, or mass effect. The plasencia-white matter differentiation appears symmetric. There is no acute infarct or mass lesion. Cavernous carotid calcifications. The calvarium appears intact. There is no pneumocephalus or orbital emphysema. The visualized sinuses and middle ears and mastoid air cells show no significant mucosal thickening. There are no air-fluid levels. CT/CT head for stroke IMPRESSION: No acute intracranial pathology. This critical result was discussed with Jocelyn Stone NP at 11/29/2020 8:18 PM and it was ascertained that the content and urgency of the report was understood at the time of direct communication. CT a head neck: Attestation: I personally reviewed and interpreted this imaging study as follows: Radiologist's impression: EXAMINATION: CTA NECK WITH CONTRAST (STROKE) CTA BRAIN WITH CONTRAST (STROKE) CLINICAL INFORMATION: RIGHT vision loss. Assess for major vessel occlusion. Please call report. COMPARISON: CT head performed earlier same date and 05/15/2020 TECHNIQUE: CTA of the head and neck was performed in the axial plane from the mediastinum to the skull vertex using 70mL Omnipaque 350 intravenous contrast. Additional reformatted multiplanar images including maximum intensity projection MIP images are generated on the CT workstation. This CT examination was performed using dose optimization techniques as appropriate, variously including the following: *Automated exposure control *Adjustment of mA and/or kV according to patient size (this includes techniques or standardized protocols for targeted exams where dose is matched to indication/reason for exam; i.e. extremities or head) *Use of iterative reconstruction technique DLP: 1403 mGy-cm FINDINGS: SOFT TISSUES AND LUNG APICES: No overt abnormality is appreciated. CTA NECK: The aortic arch has a classic configuration and the major arch vessel origins are non-stenotic. Left vertebral artery is dominant. Vertebral arteries are co-dominant and both vertebral origins are widely patent. Both common carotid arteries are normal in course and caliber. Both internal carotid arteries demonstrate mild atherosclerotic plaque without significant stenosis. CTA HEAD: There is normal opacification of the major intracranial vessels. No acute proximal large vessel occlusion, focal flow-limiting stenosis, or saccular intracranial aneurysm is identified. Cavernous carotid calcifications. There is somewhat asymmetrically diminished flow within the distal RIGHT ophthalmic artery with respect to the left, particularly distal to the band, however the clinical significance of this finding is unclear. No abnormal parenchymal enhancement or regional oligemia is visualized. HEAD (delayed): No intracranial mass, intercerebral edema, hemorrhage, or midline shift is evident. The ventricles and sulci are stable in size and configuration. No extra-axial collections are appreciated. No pathologic intracranial enhancement. Dural sinuses are patent. The paranasal sinuses are well-aerated and clear. CT/CT angio head neck stroke IMPRESSION: * No hemodynamically significant stenosis or large vessel occlusion within the intracranial or extracranial arterial vasculature. * Slightly asymmetrically decreased flow within the RIGHT ophthalmic artery distal to the bend. This critical result was discussed with Jocelyn Stone NP at 11/29/2020 8:48 PM and it was ascertained that the content and urgency of the report was understood at the time of direct communication. ECG Data Attestation: I personally reviewed and interpreted this ECG as follows: ECG interpretation date: 11/29/20 ECG interpretation time: 20:30 Prior ECG tracings: available for review Interpretation: Vent. rate 91 BPM DE interval 224 ms QRS duration 94 ms QT/QTc 384/472 ms P-R-T axes 71 33 57 Sinus rhythm with 1st degree A-V block Possible Left atrial enlargement Borderline ECG When compared with ECG of 15-MAY-2020 17:04, No significant change was found Critical Care Time Critical Care Time Critical Care Time: Yes Total Critical Care Time: 65 Attestation: I have personally provided critical care time exclusive of time spent on separately billable procedures. Time includes review of laboratory data, radiology results, discussion with consultants, and monitoring for potential decompensation. Interventions were performed as documented. Discharge Plan Discharge Clinical Impression: Acute CVA (cerebrovascular accident) Patient Disposition: Admitted As Inpatient
[2020-11-29 20:16] LABS: Prothrombin Time Whole Bld POC 13.3 sec (11.1-13.5); ~PT, ~INR - Anti Coag Clinic 1.1 (0.9-1.1)
[2020-11-29 20:17] LABS: MANUAL DIFF FLAG NO
[2020-11-29 20:17] LABS: Glucose, Whole Blood 112 mg/dL (60-115)
[2020-11-29] MEDS: iohexoL 350 MG/ML 100 ML INFUS..BTL IV (20:18)
[2020-11-29 20:19] LABS: Basophils Percent Auto 0.6 % (0-2); Eosinophils Absolute Auto 0.2 X10*3/uL (0.0-0.4); Eosinophils Percent Auto 2.9 % (0-4); Hematocrit 34.8 % (37-47); Hemoglobin 11.6 g/dl (12.0-16.0); Imm Gran Abs Auto 0.01 X10*3/uL (0.00-0.03); Imm Gran Pct Auto 0.2 % (0.0-0.4); Lymphocytes Absolute Auto 1.4 X10*3/uL (1.2-4.9); Lymphocytes Percent Auto 25.9 % (20-40); Mean Corpuscular HGB Conc 33.3 g/dl (31.0-35.0); Mean Corpuscular Hemoglobin 32.8 pg (27.0-33.0); Mean Corpuscular Volume 98.3 fL (80-98); Mean Platelet Volume 9.7 fL (9.4-12.3); Monocytes Absolute Auto 0.7 X10*3/uL (0.1-1.2); Monocytes Percent Auto 12.9 % (2-11); Neutrophils Percent Auto 57.5 % (45-73); Platelet Count 270 X10*3/uL (160-400); Red Blood Count 3.54 X10*6/uL (4.20-5.50); Red Cell Distribution Width 12.9 % (11.0-16.0); White Blood Count 5.3 X10*3/uL (4.8-10.8)
[2020-11-29 20:24] LABS: INTERNATIONAL NORM RATIO 1.1 (0.9-1.1); Prothrombin Time 12.3 SEC (9.9-13.0)
[2020-11-29 20:27] LABS: Partial Thromboplastin Time 31.1 SEC (24.1-38.0)
[2020-11-29 20:28] LABS: Stroke Lab Use COMPLETE
[2020-11-29 20:41] LABS: Anion Gap 12 (12-20); Blood Urea Nitrogen 22 mg/dL (9-16); Calcium 9.2 mg/dL (8.4-10.2); Carbon Dioxide 25 mmol/L (22-29); Chloride 99 mmol/L (96-108); Creatinine Clr Calc Pharmacy 59.9; Estimated Glomerular Filt Rate 55; Glucose Random 105 mg/dL (60-115); Potassium 4.3 mmol/L (3.3-5.1); Sodium 132 mmol/L (135-145)
[2020-11-29 20:44] LABS: Alanine Aminotransferase 22 U/L (0-31); Alkaline Phosphatase 94 U/L (39-117); Aspartate Amino Transferase 36 U/L (5-31); Bilirubin Direct 0.2 mg/dL (0.0-0.5); Bilirubin Total 0.6 mg/dL (0.0-1.0); Magnesium 2.1 mg/dL (1.6-2.6); Total Protein 6.8 g/dL (6.5-8.0); Troponin-I High Sensitivity 4.1 ng/L (<3.5-17.0)
[2020-11-29] MEDS: 0.9 % Sodium Chloride 1,000 ML 999 ML IVCONT (20:47)
[2020-11-29 21:01] LABS: Thyroid Stimulating Hormone 1.53 uIU/mL (0.32-4.0)
[2020-11-29 21:06] LABS: C Reactive Protein 0.07 mg/dL (< or = 0.50)
--- NOTE | 2020-11-29 21:39 | PC.NURSE ---
ICU hospitalist at bedside for evaluation. TPA running per protocol at 44ml/hr. Patient reporting no issue with administration.
[2020-11-29 21:47] LABS: Erythrocyte Sedimentation Rate 12 MM/HR (0-20)
--- NOTE | 2020-11-29 22:02 | PC.NURSE ---
Patient passed swallow evaluation.
--- NOTE | 2020-11-29 22:19 | PM.CCHP ---
History of Present Illness Date of Service: 11/29/20 Chief Complaint: vision loss 75 yo female with a past med hx of hypokalemia, hyponatremia, history of elevated D-dimer, overactive bladder and acid reflex who came to the ED at approximately 8:45pm after experiencing sudden vision loss at approximately 7pm this evening. patient states she was at her home, with her when her vision seem to get blurry and then she lost her vision completely, in her right eye. She said about 30 minutes later, it started to come back. Her brought her to the ED. Patient denies any other deficits, she also denies chest pain, shortness of breath, nausea vomiting diarrhea, fevers, or cough. She does state that approximately 2 weeks ago she started having abdominal pains and some diarrhea so she went to her primary care doctor who did some blood work and arranged for her to have an abdominal CT scan next week at this Hospital. She states most of her symptoms have resolved. In the emergency department, the provider contacted Neurology, Dr. Gonzalez ordered tPA, tPA was started at 9:09pm. During my bedside exam, the patient was very well-appearing, her vital signs were stable except her blood pressure was slightly hypertensive at 180 systolic, she commented she was very nervous and typically does not have elevated blood pressure. The patient will be transferred to the ICU for monitoring. Review of Systems Review of Systems: Yes all other systems are reviewed and are negative PMFSH Past Medical History Medical History Acid reflux Overactive bladder Syncope Functional capacity: independent ambulation Family History Family History Father No problems noted. Mother HTN (hypertension) Stroke Surgical History Surgical History No pertinent past surgical history Social History Social History Household Members: Spouse Housing: Apartment Do you presently have visiting nurse or other home services: No Alcohol intake: never Patient Tobacco Use Status: Never used Tobacco Use of substances other than those prescribed or required for medical reasons: No Advance Directives: No Advance Directives Information Provided: Yes service: No Current occupational status: retired Meds Allergies Allergy/AdvReac Type Severity Reaction Status Date / Time Penicillins [PENICILLINS] Allergy Severe THROAT Verified 07/28/20 10:18 SWELLS Dust, Mold, Mites, Bee Sting Allergy Unknown Nasal Uncoded 07/28/20 10:18 congestion Active Medications: Current Medications Generic Name Dose Route Start Last Admin Trade Name Columba PRN Reason Stop Dose Admin Sodium Chloride 3 ml 11/30/20 00:00 0.9 % Sodium Chloride Flush 3 Ml [facility] Home Medications Medication Instructions Recorded Confirmed Last Taken Type esomeprazole magnesium 20 mg 20 mg PO DAILY 07/28/20 11/29/20 Unknown History capsule,delayed release mirabegron 50 mg tablet,extended 50 mg PO DAILY tab 07/28/20 11/29/20 Unknown History release 24 hr Physical Exam Vital Signs: Vital Signs: Last Vital Signs Temp 98.0 F 11/29/20 21:47 Pulse 93 11/29/20 22:02 Resp 12 11/29/20 22:02 BP 142/65 H 11/29/20 22:02 Pulse Ox 97 11/29/20 22:02 Body Mass Index 46.4 Const: General: cooperative, healthy appearing, comfortable, no acute distress and well developed Orientation/consciousness: patient oriented x3 Limitations: no limitations HENMT: Head: Yes normal to inspection Eyes: General: appearance normal, both eyes and all related structures Neck: Neck: Yes normal visual inspection and Yes full ROM Resp: Effort & Inspection: normal respiratory effort and able to speak in complete sentences Auscultation: clear to auscultation bilaterally Cardio: Rate: regular rate Rhythm: regular rhythm Heart sounds: normal S1 and S2 GI: Inspection: Yes normal to inspection Palpation (GI): Soft to palpation and nontender Skin: General skin exam: no rashes or lesions noted Neuro: General: patient oriented x3 and Unable to assess gait Cranial nerves: Yes CN's II-XII intact bilaterally (excpt for blurry vision in right eye) Cognition (Neuro): normal cognition Gait exam (Neuro): Unable to assess gait Motor exam (neuro): 5/5 motor strength present throughout and Pronator motor function not present Extrem: General: Yes normal to inspection Results Labs CBC and Chem 7: 11/29/20 20:00 11/29/20 20:00 Labs: Laboratory Results - last 24 hr 11/29/20 11/29/20 11/29/20 20:00 20:00 20:00 MCV 98.3 H MCH 32.8 MCHC 33.3 RDW 12.9 Plt Count 270 MPV 9.7 Immature Gran % (Auto) 0.2 Neut % (Auto) 57.5 Lymph % (Auto) 25.9 Sandoval % (Auto) 12.9 H Eos % (Auto) 2.9 Baso % (Auto) 0.6 Lymph # (Auto) 1.4 Sandoval # (Auto) 0.7 Eos # (Auto) 0.2 Baso # (Auto) 0.0 Abs Immat Gran (auto) 0.01 Absolute Neuts (auto) 3.0 Absolute Nucleated RBC 0.000 Nucleated RBC % (auto) 0.0 ESR PT 12.3 Whole Blood PT INR 1.1 Whole Blood INR APTT 31.1 Anion Gap Estim Creat Clear Calc Estimated GFR POC Glucose Random Glucose Calcium Magnesium 2.1 Total Bilirubin 0.6 Direct Bilirubin 0.2 AST 36 H ALT 22 Alkaline Phosphatase 94 Total Creatine Kinase Troponin I High Sens C-Reactive Protein Total Protein 6.8 Albumin 4.0 TSH 1.53 11/29/20 11/29/20 11/29/20 20:00 20:00 20:00 MCV MCH MCHC RDW Plt Count MPV Immature Gran % (Auto) Neut % (Auto) Lymph % (Auto) Sandoval % (Auto) Eos % (Auto) Baso % (Auto) Lymph # (Auto) Sandoval # (Auto) Eos # (Auto) Baso # (Auto) Abs Immat Gran (auto) Absolute Neuts (auto) Absolute Nucleated RBC Nucleated RBC % (auto) ESR 12 PT Whole Blood PT INR Whole Blood INR APTT Anion Gap 12 Estim Creat Clear Calc 59.9 Estimated GFR 55 POC Glucose Random Glucose 105 Calcium 9.2 Magnesium Total Bilirubin Direct Bilirubin AST ALT Alkaline Phosphatase Total Creatine Kinase 139 Troponin I High Sens 4.1 C-Reactive Protein 0.07 Total Protein Albumin TSH 11/29/20 11/29/20 20:06 20:06 MCV MCH MCHC RDW Plt Count MPV Immature Gran % (Auto) Neut % (Auto) Lymph % (Auto) Sandoval % (Auto) Eos % (Auto) Baso % (Auto) Lymph # (Auto) Sandoval # (Auto) Eos # (Auto) Baso # (Auto) Abs Immat Gran (auto) Absolute Neuts (auto) Absolute Nucleated RBC Nucleated RBC % (auto) ESR PT Whole Blood PT 13.3 INR Whole Blood INR 1.1 APTT Anion Gap Estim Creat Clear Calc Estimated GFR POC Glucose 112 Random Glucose Calcium Magnesium Total Bilirubin Direct Bilirubin AST ALT Alkaline Phosphatase Total Creatine Kinase Troponin I High Sens C-Reactive Protein Total Protein Albumin TSH Imaging Radiologist's Impressions: Impressions Head CT 11/29/20 19:58 IMPRESSION: No acute intracranial pathology. This critical result was discussed with Jocelyn Stone NP at 11/29/2020 8:18 PM and it was ascertained that the content and urgency of the report was understood at the time of direct communication. Head/Neck CTA 11/29/20 19:58 IMPRESSION: * No hemodynamically significant stenosis or large vessel occlusion within the intracranial or extracranial arterial vasculature. * Slightly asymmetrically decreased flow within the RIGHT ophthalmic artery distal to the bend. This critical result was discussed with Jocelyn Stone GRIPPER MACHINE OPERATOR at 11/29/2020 8:48 PM and it was ascertained that the content and urgency of the report was understood at the time of direct communication. Assessment and Plan (1) Acute CVA (cerebrovascular accident): Start date: 11/29/20 Status: Acute TPA given, stroke protocol to be followed, echo, MRI, Q1H neuro exams. NPO 6 hours, nursing swallow, bed rest, pt to have purewick
[2020-11-29 22:55] LABS: COVID-19 Test Negative (Negative)
[2020-11-30] VITALS (29 sets, daily range): BP systolic 120–171; BP diastolic 42–110; PULSE 64–90; RESP 12–21; TEMP 36.2–37.1; O2SAT 96–100; BMI 22.8; BMI 22.4
[2020-11-30] MEDS: 0.9 % Sodium Chloride Flush 3 ML SYRINGE IVFLUSH ×3 (00:57→15:54)
--- NOTE | 2020-11-30 03:35 | PC.NURSE ---
Addendum entered by Wilber Valdes RN 11/30/20 05:17: purwik collected 1200ml yellow urine overnight..denies blurred vision at present Original Note: ADMIT TO 259-1 POST-TPA IN ER DEPT...ALERT..ORIENTED X3...PATEL WITH GOOD STRENGTH..SPEECH CLEAR...DENIES LEFT VISUAL DEFICIT..STATES MILD RESIDUAL RIGHT EYE BLURRED VISION BUT MUCH IMPROVED SINCE ARRIVAL TO ER..STATES ABLE TO READ CLOCK ON WALL...MAP UPPER 70'S-80'S...SBP 120'S-130'S...ICU PA AWARE...PURWIK EXTERNAL CATHETER COLLECTING CLEAR YELLOW URINE....INCONTINANT X1 WHEN PURWIK DISLODGED..PER ICU PA PATIENT REQUESTED PURWIK TO HER IN ER DEPT...NSR..NO ECTOPY...RESTFUL..DENIES DISCOMFORT...DENIES HEADACHE
[2020-11-30 05:39] LABS: MANUAL DIFF FLAG NO
[2020-11-30 05:43] LABS: Basophils Percent Auto 0.4 % (0-2); Eosinophils Absolute Auto 0.1 X10*3/uL (0.0-0.4); Eosinophils Percent Auto 1.4 % (0-4); Hematocrit 31.9 % (37-47); Hemoglobin 10.9 g/dl (12.0-16.0); Imm Gran Abs Auto 0.01 X10*3/uL (0.00-0.03); Imm Gran Pct Auto 0.2 % (0.0-0.4); Lymphocytes Absolute Auto 1.1 X10*3/uL (1.2-4.9); Lymphocytes Percent Auto 18.6 % (20-40); Mean Corpuscular HGB Conc 34.2 g/dl (31.0-35.0); Mean Corpuscular Hemoglobin 32.4 pg (27.0-33.0); Mean Corpuscular Volume 94.9 fL (80-98); Monocytes Absolute Auto 0.6 X10*3/uL (0.1-1.2); Neutrophils Absolute Auto 3.9 X10*3/uL (2.0-8.3); Neutrophils Percent Auto 68.4 % (45-73); Platelet Count 241 X10*3/uL (160-400); Red Blood Count 3.36 X10*6/uL (4.20-5.50); Red Cell Distribution Width 12.7 % (11.0-16.0); White Blood Count 5.6 X10*3/uL (4.8-10.8)
[2020-11-30 05:49] LABS: INTERNATIONAL NORM RATIO 1.1 (0.9-1.1); Prothrombin Time 12.4 SEC (9.9-13.0)
[2020-11-30 05:52] LABS: Partial Thromboplastin Time 23.2 SEC (24.1-38.0)
[2020-11-30 06:10] LABS: Anion Gap 12 (12-20); Blood Urea Nitrogen 23 mg/dL (9-16); Calcium 8.4 mg/dL (8.4-10.2); Carbon Dioxide 23 mmol/L (22-29); Chloride 103 mmol/L (96-108); Creatinine Clr Calc Pharmacy 50.6; Estimated Glomerular Filt Rate > 60; Glucose Random 88 mg/dL (60-115); Phosphorus 3.8 mg/dL (2.7-4.5); Potassium 4.5 mmol/L (3.3-5.1); Sodium 133 mmol/L (135-145)
[2020-11-30 07:33] LABS: Glucose, Whole Blood 81 mg/dL (60-115)
--- NOTE | 2020-11-30 12:24 | P.CNNE_ITS ---
History of Present Illness Data of Consult Service Date: 11/30/20 Primary Care Provider: Lalit Aguirre MD HPI Reason for consult: Sudden loss of vision in the right eye This is a 75-year-old woman with a history of hyponatremia GERD d-dimer elevation and previous syncope who had just returned home with her from her on birthday celebration when suddenly she lost vision in the right I. She came to the emergency room where she had a negative CT scan of the head and a CTA showed no occlusive disease in the neck or intracranial circulation except for relatively slow flow in the right ophthalmic artery. Her sedimentation rate was 12. There was slight improvement in her vision. I was contacted 2 hours after the onset of her symptoms and recommended that she be given TPA. Overnight she has had almost complete recovery of the vision and feels back to normal and able to read. There is no previous history of stroke or TIA. Review of Systems Eyes: Eyes: Reports no additional eye complaints ENT: Reports system reviewed and no additional complaints, except as documented and Reports Normal hearing present Cardiovascular: Cardiovascular: Reports no additional cardiovascular complaints Respiratory: Respiratory: Reports no additional respiratory complaints Gastrointestinal: Gastrointestinal: Reports no additional gastrointestinal complaints Musculoskeletal: Musculoskeletal: Reports no additional musculoskeletal complaints Integumentary/Breasts: Skin/Breast: Reports system reviewed and no additional complaints, except as docu Neurologic: Reports as per HPI and Reports Normal hearing present Psychiatric: Psychiatric: Reports as per HPI Endocrine: Endocrine: Reports no additional endocrine complaints Hematologic/Lymphatic: Hematologic/Lymphatic: Reports no additional hematologic/lymphatic complaints Allergic/Immunologic: Allergic/Immunologic: Reports no additional allergic/immunologic complaints [facility] Past Medical History Medical History Acid reflux Overactive bladder Syncope Functional capacity: independent ambulation Family History Family History Father No problems noted. Mother HTN (hypertension) Stroke Surgical History Surgical History No pertinent past surgical history Social History Social History Household Members: Spouse Housing: Apartment Do you presently have visiting nurse or other home services: No Alcohol intake: never Patient Tobacco Use Status: Never used Tobacco Use of substances other than those prescribed or required for medical reasons: No Currently Displaying Signs/Symptoms of Drug Intoxication Withdrawal: No Have you been hit, kicked, punched, or otherwise hurt by someone within the past year? If so, by whom?: No Do you feel safe in your current relationship?: Yes Is there a partner from a previous relationship who is making you feel unsafe now?: No Are you made to feel afraid or neglected: No Advance Directives: No Advance Directives Information Provided: Yes Do you have thoughts of harming others: None Do you have a plan to hurt others: No Plan service: No Current occupational status: retired Meds Allergies Allergy/AdvReac Type Severity Reaction Status Date / Time Penicillins [PENICILLINS] Allergy Severe THROAT Verified 07/28/20 10:18 SWELLS Dust, Mold, Mites, Bee Sting Allergy Unknown Nasal Uncoded 07/28/20 10:18 congestion Active Medications: Current Medications Generic Name Dose Route Start Last Admin Trade Name Freq PRN Reason Stop Dose Admin Sodium Chloride 3 ml 11/30/20 00:00 11/30/20 09:07 0.9 % Sodium Chloride Flush 3 Ml Syringe IVFLUSH 3 ml [facility] Administration Home Medications Medication Instructions Recorded Confirmed Last Taken Type esomeprazole magnesium 20 mg 20 mg PO DAILY 07/28/20 11/30/20 11/29/20 12:00 History capsule,delayed release mirabegron 50 mg tablet,extended 50 mg PO DAILY tab 07/28/20 11/30/20 11/29/20 07:00 History release 24 hr Physical Exam Vital Signs: Vital Signs: Last Vital Signs Temp 98.7 F 11/30/20 11:00 Pulse 72 11/30/20 11:00 Resp 18 11/30/20 11:00 BP 136/71 11/30/20 11:00 Pulse Ox 99 11/30/20 11:00 Body Mass Index 22.4 Const: General: cooperative, comfortable, no acute distress, well developed, alert and awake Nutritional Appearance: well nourished Orientation/consciousness: oriented to person, oriented to place and oriented to time Limitations: no limitations HENMT: Head: Yes normal to inspection, Yes normocephalic and Yes atraumatic Ears: hearing grossly normal bilaterally General nose exam: Normal external nose present Face and sinus: Yes normal facial exam Mouth: Normal oral and palatal mucosa present Eyes: General: appearance normal, both eyes and all related structures Visual Bergeron: normal visual bergeron by confrontation Alignment and Position: alignment normal Periorbital: periorbital findings normal Eyelids: Yes eyelids normal Conjunctivae: conjunctivae normal Sclerae: sclerae normal Corneas: corneas normal Pupils: Equal, round and reactive pupils present and Pupil accommodation reflex normal EOM: EOMs intact bilaterally Direct Ophthalmoscopy: normal light reflex Neck: Neck: Yes normal visual inspection, Yes full ROM and Yes no meningeal signs Thyroid: Thyroid normal Carotids: normal carotid upstroke and bounding pulses Chest: Chest palpation & inspection: normal inspection of the chest Resp: Effort & Inspection: normal respiratory effort Auscultation: clear to auscultation bilaterally Cardio: Rate: regular rate Rhythm: regular rhythm Heart sounds: S1 normal heart sound present and S2 normal heart sound present Peripheral pulses: Peripheral pulses 2+ throughout GI: Inspection: Yes normal to inspection Percussion: Yes normal to percussion Auscultation: normal bowel sounds Rectal Exam - Female: d eferred Back/Spine/Pelvis: Cervical Spine: normal cervical lordosis and cervical ROM normal Thoracic/Lumbar Spine: thoracic and lumbar spine normal to inspection Skin: General skin exam: no rashes or lesions noted Neuro: General: oriented to person, oriented to place, oriented to time, gait normal, tone normal, moves all extremities, Normal light touch and pain sensation, no meningeal signs, no focal motor deficits, CN's II-XI intact bilaterally, normal sensation to monofilament and deep tendon reflexes 2+ bilaterally Cranial nerves: Yes CN's II-XII intact bilaterally, Yes Equal, round and reactive pupils present, Yes Bilaterally intact EOM present, Yes Nystagmus not present, Yes Normal facial strength present, Yes Midline tongue present, Yes Normal gag reflex present, Yes Symmetric palate elevation present, Yes Normal hearing present and Yes Ability to bilaterally rotate head present Cognition (Neuro): normal cognition Speech: Other speech findings present (Neuro) Gait exam (Neuro): Normal gait present Motor exam (neuro): 5/5 motor strength present throughout, Pronator motor function not present, no tremor noted, no asterixis, Motor fasciculations not present, Normal motor muscle tone present throughout and Motor abnormalities not present Sensory Exam: Bilaterally intact graphesthesia Deep tendon reflexes (DTR's): Right triceps reflex intensity grade: 2+, Left triceps reflex intensity grade: 2+, Rt Biceps (C5, C6): 2+, Left biceps reflex intensity grade: 2+, Right brachioradialis reflex intensity grade: 2+, Left brachioradialis reflex intensity grade: 2+, Right patellar reflex intensity grade: 2+, Left patellar reflex intensity grade: 2+, Right ankle reflex intensity grade: 2+ and Left ankle reflex intensity grade: 2+ Plantar Reflex Responses: downgoing: right, left and bilateral Coordination: [id number] test normal, [id number] test normal, tandem gait normal and Romberg test negative Pupils: Normal pupillary reactivity/response: bilateral Extrem: General: Yes normal to inspection, Yes normal exam except as noted and Yes no pedal edema Psych: Appearance: grossly normal Mental Status: mental status grossly normal Speech and movement: Normal speech and movement present and Clear speech present Affect: normal affect Attitude: cooperative Thought process: Normal thought process present Results Labs CBC & Chem 7: 11/30/20 05:15 11/30/20 05:15 Labs: Short CBC 11/29/20 11/30/20 Range/Units 20:00 05:15 WBC 5.3 5.6 (4.8-10.8) X10*3/uL Hgb 11.6 L 10.9 L (12.0-16.0) g/dl Hct 34.8 L 31.9 L (37-47) % Plt Count 270 241 (160-400) X10*3/uL BMP 11/29/20 11/30/20 20:00 05:15 Sodium 132 L 133 L Potassium 4.3 D 4.5 Chloride 99 103 Carbon Dioxide 25 23 BUN 22 H 23 H Creatinine 0.98 0.77 Calcium 9.2 8.4 D Cardiac Enzymes 11/29/20 Range/Units 20:00 Total Creatine Kinase 139 (26-140) U/L Liver Function 11/29/20 Range/Units 20:00 Total Bilirubin 0.6 (0.0-1.0) mg/dL Direct Bilirubin 0.2 (0.0-0.5) mg/dL AST 36 H (5-31) U/L ALT 22 (0-31) U/L Alkaline Phosphatase 94 (39-117) U/L Albumin 4.0 (3.5-5.0) g/dL Assessment and Plan (1) Transient monocular blindness: Status: Acute Status post t-PA for right ophthalmic artery occlusion with good return of vision. Start aspirin 81 mg a day. (2) Acute CVA (cerebrovascular accident): Status: Acute As above. MRI brain is pending. CTA reports as above (3) Syncope: Status: Acute (4) Hyponatremia: Status: Acute Procedures Date of Service Date of Service: 11/30/20
--- NOTE | 2020-11-30 13:35 | P.PNCC_ITS ---
Subjective Subjective Date of Service: 11/30/20 Interval History: 75-year-old female no significant past medical history presents with am your Amaurosis Fugax which resolved after receiving tPA and she has had an unremarkable course since then with religion of her site and MRI results are pending diet has started because she passed a swallow evaluation Critical Care Time (minutes): 30 Physical Exam Vital Signs: Vital Signs: Last Vital Signs Temp 97.9 F 11/30/20 12:00 Pulse 71 11/30/20 13:00 Resp 21 H 11/30/20 13:00 BP 152/76 H 11/30/20 13:00 Pulse Ox 99 11/30/20 13:00 Body Mass Index 22.4 Const: Other: awake alert and oriented without complaint and nonfocal neurologic cardiovascular with normal sinus rhythm and no neck vein distension and good bilateral carotid upstrokes and no murmurs chest clear with no adventitious sounds abdomen benign with no organom egaly no peripheral edema and and distal pulses are palpable Objective Data Labs CBC & Chem 7: 11/30/20 05:15 11/30/20 05:15 Labs: Laboratory Results - last 24 hr 11/29/20 11/29/20 11/29/20 20:00 20:00 20:00 WBC 5.3 RBC 3.54 L Hgb 11.6 L Hct 34.8 L MCV 98.3 H MCH 32.8 MCHC 33.3 RDW 12.9 Plt Count 270 MPV 9.7 Immature Gran % (Auto) 0.2 Neut % (Auto) 57.5 Lymph % (Auto) 25.9 [place] % (Auto) 12.9 H Eos % (Auto) 2.9 Baso % (Auto) 0.6 Lymph # (Auto) 1.4 [place] # (Auto) 0.7 Eos # (Auto) 0.2 Baso # (Auto) 0.0 Abs Immat Gran (auto) 0.01 Absolute Neuts (auto) 3.0 Absolute Nucleated RBC 0.000 Nucleated RBC % (auto) 0.0 ESR PT 12.3 Whole Blood PT INR 1.1 Whole Blood INR APTT 31.1 Sodium Potassium Chloride Carbon Dioxide Anion Gap BUN Creatinine Estim Creat Clear Calc Estimated GFR POC Glucose Random Glucose Calcium Phosphorus Magnesium 2.1 Total Bilirubin 0.6 Direct Bilirubin 0.2 AST 36 H ALT 22 Alkaline Phosphatase 94 Total Creatine Kinase Troponin I High Sens C-Reactive Protein Total Protein 6.8 Albumin 4.0 TSH 1.53 COVID-19 ([facility]) COVID-19 Clin Com 11/29/20 11/29/20 11/29/20 20:00 20:00 20:00 WBC RBC Hgb Hct MCV MCH MCHC RDW Plt Count MPV Immature Gran % (Auto) Neut % (Auto) Lymph % (Auto) [place] % (Auto) Eos % (Auto) Baso % (Auto) Lymph # (Auto) [place] # (Auto) Eos # (Auto) Baso # (Auto) Abs Immat Gran (auto) Absolute Neuts (auto) Absolute Nucleated RBC Nucleated RBC % (auto) ESR 12 PT Whole Blood PT INR Whole Blood INR APTT Sodium 132 L Potassium 4.3 D Chloride 99 Carbon Dioxide 25 Anion Gap 12 BUN 22 H Creatinine 0.98 Estim Creat Clear Calc 59.9 Estimated GFR 55 POC Glucose Random Glucose 105 Calcium 9.2 Phosphorus Magnesium Total Bilirubin Direct Bilirubin AST ALT Alkaline Phosphatase Total Creatine Kinase 139 Troponin I High Sens 4.1 C-Reactive Protein 0.07 Total Protein Albumin TSH COVID-19 ([facility]) COVID-19 [employer] 11/29/20 11/29/20 11/29/20 20:06 20:06 22:31 WBC RBC Hgb Hct MCV MCH MCHC RDW Plt Count MPV Immature Gran % (Auto) Neut % (Auto) Lymph % (Auto) [place] % (Auto) Eos % (Auto) Baso % (Auto) Lymph # (Auto) [place] # (Auto) Eos # (Auto) Baso # (Auto) Abs Immat Gran (auto) Absolute Neuts (auto) Absolute Nucleated RBC Nucleated RBC % (auto) ESR PT Whole Blood PT 13.3 INR Whole Blood INR 1.1 APTT Sodium Potassium Chloride Carbon Dioxide Anion Gap BUN Creatinine Estim Creat Clear Calc Estimated GFR POC Glucose 112 Random Glucose Calcium Phosphorus Magnesium Total Bilirubin Direct Bilirubin AST ALT Alkaline Phosphatase Total Creatine Kinase Troponin I High Sens C-Reactive Protein Total Protein Albumin TSH COVID-19 ([facility]) Negative COVID-19 Clin Com See Note 11/30/20 11/30/20 11/30/20 05:15 05:15 05:15 WBC 5.6 RBC 3.36 L Hgb 10.9 L Hct 31.9 L MCV 94.9 MCH 32.4 MCHC 34.2 RDW 12.7 Plt Count 241 MPV 10.0 Immature Gran % (Auto) 0.2 Neut % (Auto) 68.4 Lymph % (Auto) 18.6 L [place] % (Auto) 11.0 Eos % (Auto) 1.4 Baso % (Auto) 0.4 Lymph # (Auto) 1.1 L [place] # (Auto) 0.6 Eos # (Auto) 0.1 Baso # (Auto) 0.0 Abs Immat Gran (auto) 0.01 Absolute Neuts (auto) 3.9 Absolute Nucleated RBC 0.000 Nucleated RBC % (auto) 0.0 ESR PT 12.4 Whole Blood PT INR 1.1 Whole Blood INR APTT 23.2 L D Sodium 133 L Potassium 4.5 Chloride 103 Carbon Dioxide 23 Anion Gap 12 BUN 23 H Creatinine 0.77 Estim Creat Clear Calc 50.6 Estimated GFR > 60 POC Glucose Random Glucose 88 Calcium 8.4 D Phosphorus 3.8 Magnesium 2.0 Total Bilirubin Direct Bilirubin AST ALT Alkaline Phosphatase Total Creatine Kinase Troponin I High Sens C-Reactive Protein Total Protein Albumin TSH COVID-19 ([facility]) COVID-19 [employer] 11/30/20 07:29 WBC RBC Hgb Hct MCV MCH MCHC RDW Plt Count MPV Immature Gran % (Auto) Neut % (Auto) Lymph % (Auto) [place] % (Auto) Eos % (Auto) Baso % (Auto) Lymph # (Auto) [place] # (Auto) Eos # (Auto) Baso # (Auto) Abs Immat Gran (auto) Absolute Neuts (auto) Absolute Nucleated RBC Nucleated RBC % (auto) ESR PT Whole Blood PT INR Whole Blood INR APTT Sodium Potassium Chloride Carbon Dioxide Anion Gap BUN Creatinine Estim Creat Clear Calc Estimated GFR POC Glucose 81 Random Glucose Calcium Phosphorus Magnesium Total Bilirubin Direct Bilirubin AST ALT Alkaline Phosphatase Total Creatine Kinase Troponin I High Sens C-Reactive Protein Total Protein Albumin TSH COVID-19 ([facility]) COVID-19 Clin Com Progress Note: A&P Assessment and plan (1) Transient monocular blindness: Status: Acute (2) Syncope: Status: Acute (3) Acute CVA (cerebrovascular accident): Status: Acute (4) Hyperkalemia: Status: Acute (5) Acid reflux: Status: Acute (6) Hyponatremia: Status: Acute (7) Acute hyponatremia: Status: Acute (8) D-dimer, elevated: Status: Acute (9) Amaurosis fugax: Status: Acute Assessment and Plan: awaiting results from MRI and evaluation by Occupational and Physical therapy will begin a statin drug tonight and aspirin probably tomorrow morning pure normal sinus rhythm and okay to go to the floor Quality Stroke Does the patient have a stroke diagnosis?: Yes Reason for No Anti-thrombotic by Day Two: N/A - Med Ordered VTE Prior VTE?: No VTE Risk Level:: Medical - low VTE Device Contraindication: N/A - Device Ordered VTE Drug Contraindication: Treatment Not Tolerated
--- NOTE | 2020-11-30 13:42 | MHC.STROKE ---
Addendum entered by Genna Liao RN 11/30/20 16:11: I VERIFIED WITH CARLOS MANUEL MART RN THAT THE ALTEPLASE BOLUS DOSE OF 4.8MG WAS GIVEN AT 2113. DOOR TO NEEDLE = 92 MINUTES. Addendum entered by Genna Liao RN 11/30/20 15:56: I SPOKE WITH RONALD BURR REGARDING TPA ADMINISTRATION. ORIGINALLY THE WT WAS PUT IN 119KG AND SHOULD HAVE BEEN 119LBS. THAT WAS CORRECTED AND MEDICATION WAS GIVEN BASED ON WT OF 119. 48.2MG FOR HER TOTAL DOSE. I ALSO CONFIRMED WITH THE ORACLE EBS CONSULTANT RONALD THAT THE DELAY WAS ALSO BASED ON IF SHE HAD A DETACHED RETINA, SHE HAD CATARACTS THEREFORE THE EXAM WAS MORE INVOLVED. SHE DID NEED TO DETERMINE HER ELIGIBILITY AND WITH THE NIHSS = 1 THE TIMEFRAME WAS EXTENDED BEYOND THE 30MIN, 45MIN, AND 60 MIN WINDOW. Original Note: 11/29/201940 ARRIVED VIA CAR WITH C/O SUDDEN ONSET OF RIGHT VISION LOSS AT APPROX. 1900. STAT CTH AND CTA H/N, NO BLEED NO LVO. NEUROLOGIST CONTACTED AND IT WAS DETERMINED THAT SHE WAS ELIGIBLE FOR TPA (ALTEPLASE). DELAY IN TPA >THAN 30 MIN, 45 AND 60 MINUTES DUE TO LOW NIHSS OF 1 AND CARE TEAM WAS DETERMINING ELIGIBILITY. IV BOLUS OF ALTEPLASE GIVEN AT 2118 PER NURSES NOTES. HER SYMPTOMS IMPROVED POST-TPA. NO COMPLICATIONS POST-TPA. I MET WITH HER TODAY AND PROVIDED STROKE EDUCATION. WE RIVIEWED HER INDIVIDUAL RISK FACTORS. I EXPLAINED THAT SHE WILL BE STARTING ON AN ASPIRIN 81MG AND A STATIN. WE WILL DO A FASTING LIPID PANEL IN THE AM. SHE WILL BE SEEN BY PT/OT TO ASSESS ANY REHAB NEEDS. SHE HAD AN MRI TODAY. DR ARAUJO EXPLAINED THAT HE MRI MAY NOT SHOW AN INFARCT DUE TO THE LOCATION, I DID EXPLAIN THIS TO THE PATIENT. I ANSWERED ALL OF THEIR QUESTIONS AND I WILL CONTINUE TO FOLLOW.
[2020-11-30 14:28] LABS: MANUAL DIFF FLAG NO
[2020-11-30 14:31] LABS: Basophils Percent Auto 0.4 % (0-2); Eosinophils Absolute Auto 0.1 X10*3/uL (0.0-0.4); Eosinophils Percent Auto 1.6 % (0-4); Hematocrit 36.7 % (37-47); Hemoglobin 12.4 g/dl (12.0-16.0); Imm Gran Abs Auto 0.02 X10*3/uL (0.00-0.03); Imm Gran Pct Auto 0.3 % (0.0-0.4); Lymphocytes Percent Auto 12.7 % (20-40); Mean Corpuscular HGB Conc 33.8 g/dl (31.0-35.0); Mean Corpuscular Hemoglobin 32.7 pg (27.0-33.0); Mean Corpuscular Volume 96.8 fL (80-98); Mean Platelet Volume 9.9 fL (9.4-12.3); Monocytes Absolute Auto 0.8 X10*3/uL (0.1-1.2); Monocytes Percent Auto 9.9 % (2-11); Neutrophils Absolute Auto 5.7 X10*3/uL (2.0-8.3); Neutrophils Percent Auto 75.1 % (45-73); Platelet Count 248 X10*3/uL (160-400); Red Blood Count 3.79 X10*6/uL (4.20-5.50); Red Cell Distribution Width 12.8 % (11.0-16.0); White Blood Count 7.6 X10*3/uL (4.8-10.8)
--- NOTE | 2020-11-30 14:36 | MHC.CM.PN ---
Met with pt to discuss d/c planning: pt resides with spouse at [facility] - she is independent with all care needs, has no services or devices and drives. Pt states she has an RN at her complex that she can have visits with and declined VNA services. Will await MRI and evals from PT/OT to ensure no changes to d/c plan. Spouse to transport: HCP requested
[2020-11-30 15:00] LABS: Anion Gap 15 (12-20); Blood Urea Nitrogen 19 mg/dL (9-16); Calcium 8.9 mg/dL (8.4-10.2); Carbon Dioxide 23 mmol/L (22-29); Chloride 98 mmol/L (96-108); Cholesterol 178 mg/dL; Creatinine Clr Calc Pharmacy 48.1; Estimated Glomerular Filt Rate > 60; Glucose Random 100 mg/dL (60-115); HDL Cholesterol 86 mg/dL; LDL Cholesterol Calculated 84 mg/dl; Potassium 4.7 mmol/L (3.3-5.1); Sodium 131 mmol/L (135-145); Triglycerides 43 mg/dL
[2020-11-30 16:34] LABS: Glucose, Whole Blood 88 mg/dL (60-115)
[2020-11-30 18:00] LABS: Glucose, Whole Blood 85 mg/dL (60-115)
--- NOTE | 2020-11-30 18:35 | PC.NURSE ---
Patient stable this shift, no neurological deficits. MRI obtained, (-). Neuro consult done. PT/OT screen done. Transfer order put in to move to [facility] [place]. PLAN:To start STATIN tonight and Aspirin in the AM. Mild bleeding noted to bilateral AC IV sites. Left site redressed. Patient transferred with belongings in W/C to [facility] at 16:00.
[2020-11-30] MEDS: Atorvastatin Calcium 40 MG TABLET PO (20:09)
[2020-11-30 20:34] LABS: Glucose, Whole Blood 103 mg/dL (60-115)
[2020-12-01] MEDS: 0.9 % Sodium Chloride Flush 3 ML SYRINGE IVFLUSH ×3 (00:34→10:12)
[2020-12-01 03:56] VITALS: BP 160/75; PULSE 72; RESP 18; TEMP 36.4; O2SAT 99
[2020-12-01 04:51] VITALS: BMI 21.5
[2020-12-01 06:59] LABS: Glucose, Whole Blood 79 mg/dL (60-115)
[2020-12-01 07:15] VITALS: BP 158/72; PULSE 65; RESP 16; TEMP 36.7; O2SAT 100
[2020-12-01 07:51] LABS: Cholesterol 177 mg/dL; HDL Cholesterol 87 mg/dL; LDL Cholesterol Calculated 81 mg/dl; Triglycerides 47 mg/dL
[2020-12-01 10:12] VITALS: BP 158/72; PULSE 65; O2SAT 100
[2020-12-01] MEDS: Aspirin 81 MG TAB.CHEW PO (10:12)
[2020-12-01 11:00] LABS: Glucose, Whole Blood 96 mg/dL (60-115)
[2020-12-01 11:27] VITALS: BP 137/69; PULSE 77; RESP 16; TEMP 36.6; O2SAT 99
--- NOTE | 2020-12-01 14:20 | PM.DS ---
DS: Providers Provider Date of Service: 12/01/20 Date of admission: 11/29/20 22:02 Primary care physician: Lalit Aguirre MD Consults: 11/29/20 22:02 Consult to Neurology Routine Consulting Provider: Tristin Gonzalez Reason for consultation: stroke protocol Has provider been notified: Yes DS: Diagnosis Discharge Diagnosis (1) Transient monocular blindness: Status: Acute (2) Syncope: Status: Acute (3) Acute CVA (cerebrovascular accident): Status: Acute (4) Hyperkalemia: Status: Acute (5) Acid reflux: Status: Acute (6) Hyponatremia: Status: Acute (7) Acute hyponatremia: Status: Acute (8) D-dimer, elevated: Status: Acute (9) Amaurosis fugax: Status: Acute DS: Medications Discharge Medications Home Medications: Home Medications Medication Instructions Recorded Confirmed esomeprazole magnesium 20 mg 20 mg PO DAILY 07/28/20 11/30/20 capsule,delayed release mirabegron 50 mg tablet,extended 50 mg PO DAILY tab 07/28/20 11/30/20 release 24 hr Previous Rx's Medication Instructions Recorded aspirin 81 mg PO DAILY #30 tab 12/01/20 atorvastatin 40 mg PO BEDTIME #30 tab 12/01/20 DS: Summary Hospital Course Hospital Course: Patient was admitted for TIA due to slow flow in right ophthalmic artery. She received IV tPA and she had complete return of vision to right eye. Post tPA monitoring was unremarkable. Echo was completed, with report pending and should be followed up outpatient. Patient is feeling much better will be discharged home on aspirin and statin. Time Spent with Patient Time attestation: Total time spent providing and/or coordinating discharge services: Discharge coordination time: Greater than 30 minutes Quality: Stroke Does the patient have a stroke diagnosis?: Yes Reason for No Anti-thrombotic at DC: N/A - Med Ordered Reason for No Anticoagulant at DC: Not indicated Reason Not Initiating IV-Tpa: N/A - Med Ordered Reason for No Anti-thrombotic by Day Two: N/A - Med Ordered Reason for No Statin at DC: N/A - Med Ordered Physical Exam Vital Signs: Vital Signs: Last Vital Signs Temp 97.8 F 12/01/20 11:27 Pulse 77 12/01/20 11:27 Resp 16 12/01/20 11:27 BP 137/69 12/01/20 11:27 Pulse Ox 99 12/01/20 11:27 Body Mass Index 21.5 General: AO X 3, no acute distress Resp: CTA bilateral CVS: S1,S2,RRR GI: soft, non tender, non distended Neuro: motor grossly intact Psych: appropriate affect DS: Data Data Completed and Pending Labs on day of discharge: Laboratory Results - last 24 hr 11/30/20 11/30/20 11/30/20 12:24 13:55 13:55 WBC 7.6 RBC 3.79 L Hgb 12.4 Hct 36.7 L MCV 96.8 MCH 32.7 MCHC 33.8 RDW 12.8 Plt Count 248 MPV 9.9 Immature Gran % (Auto) 0.3 Neut % (Auto) 75.1 H Lymph % (Auto) 12.7 L [place] % (Auto) 9.9 Eos % (Auto) 1.6 Baso % (Auto) 0.4 Lymph # (Auto) 1.0 L [place] # (Auto) 0.8 Eos # (Auto) 0.1 Baso # (Auto) 0.0 Abs Immat Gran (auto) 0.02 Absolute Neuts (auto) 5.7 Absolute Nucleated RBC 0.000 Nucleated RBC % (auto) 0.0 Sodium 131 L Potassium 4.7 Chloride 98 Carbon Dioxide 23 Anion Gap 15 BUN 19 H Creatinine 0.81 Estim Creat Clear Calc 48.1 Estimated GFR > 60 POC Glucose 85 Random Glucose 100 Calcium 8.9 Triglycerides 43 Cholesterol 178 LDL Cholesterol, Calc 84 HDL Cholesterol 86 11/30/20 11/30/20 12/01/20 16:28 20:29 05:57 WBC RBC Hgb Hct MCV MCH MCHC RDW Plt Count MPV Immature Gran % (Auto) Neut % (Auto) Lymph % (Auto) [place] % (Auto) Eos % (Auto) Baso % (Auto) Lymph # (Auto) [place] # (Auto) Eos # (Auto) Baso # (Auto) Abs Immat Gran (auto) Absolute Neuts (auto) Absolute Nucleated RBC Nucleated RBC % (auto) Sodium Potassium Chloride Carbon Dioxide Anion Gap BUN Creatinine Estim Creat Clear Calc Estimated GFR POC Glucose 88 103 Random Glucose Calcium Triglycerides 47 Cholesterol 177 LDL Cholesterol, Calc 81 HDL Cholesterol 87 12/01/20 12/01/20 06:53 10:55 WBC RBC Hgb Hct MCV MCH MCHC RDW Plt Count MPV Immature Gran % (Auto) Neut % (Auto) Lymph % (Auto) [place] % (Auto) Eos % (Auto) Baso % (Auto) Lymph # (Auto) [place] # (Auto) Eos # (Auto) Baso # (Auto) Abs Immat Gran (auto) Absolute Neuts (auto) Absolute Nucleated RBC Nucleated RBC % (auto) Sodium Potassium Chloride Carbon Dioxide Anion Gap BUN Creatinine Estim Creat Clear Calc Estimated GFR POC Glucose 79 96 Random Glucose Calcium Triglycerides Cholesterol LDL Cholesterol, Calc HDL Cholesterol Discharge Plan Discharge Patient Disposition: Home, Self-Care Discharge Diagnosis: TIA Referrals: Lalit Aguirre MD [Primary Care Provider] - 1 Week Discharge Medications: New atorvastatin 40 mg Tablet 40 mg PO BEDTIME Qty: 30 RF: 0 aspirin 81 mg Tablet,Chewable 81 mg PO DAILY Qty: 30 RF: 0 Continued mirabegron 50 mg tablet extended release 24 hr 50 mg PO DAILY RF: 0 esomeprazole magnesium [Nexium 24HR] 20 mg capsule,delayed release(DR/EC) 20 mg PO DAILY RF: 0 Discharge Orders: Discharge Order (Routine); Ordered 12/01/20 Ordered By: Axel Tamayo Diet: advance to usual diet Activity on Discharge: As tolerated Stand Alone Forms: Patient Portal Discharge page Care Plan Goals: prevent further strokes Health Concerns: cva Plan of Treatment: asa, statin Assessment: see above
--- NOTE | 2020-12-01 14:20 | MHC.CM.PN ---
Patient has been medically cleared for dc to home today, no services.Last IMM addressed yesterday.
--- NOTE | 2020-12-01 22:02 | CA_ITS ---
Transthoracic Echocardiogram Patient (Last, First, Middle): Nevaeh Torres, Gender: Female Date of : 1945 Age: 75 Procedure Date: 12/01/2020 Procedure Type: Transthoracic Echocardiogram Location: OP Height: 160.02 cm Weight: 56.7 kg BSA: 1.58 m2 Heart Rate: bpm BP: 138 / 110 mmHg Salon Assistant: KEVIN/CAROL Referring MD: Mary Barrientos PA-C Symptoms: CVA s/p stroke tpa given Study Quality: Fair ECG Rhythm: Sinus Conclusions: - The left ventricular systolic function is normal. The calculated ejection fraction is 60% by biplane method. - There is mild calcification of the aortic valve. - No obvious valvular pathology seen on this study. Findings Left Ventricle Normal left ventricular cavity size. There is normal left ventricular wall thickness. The left ventricular systolic function is normal. The calculated ejection fraction is 60% by biplane method. There is no evidence of regional wall motion abnormalities. Diastolic function is normal for age. Right Ventricle Normal right ventricular cavity size and systolic function. Atria Both atria are normal in size. Aortic Valve There is a normal trileaflet aortic valve. There is mild calcification of the aortic valve. There is no aortic valve stenosis. There is no aortic valve regurgitation. Mitral Valve The mitral valve appears normal. There is mild anterior mitral leaflet thickening. There is trace mitral valve regurgitation. There is no mitral valve stenosis. Pulmonic Valve The pulmonic valve was not well visualized. Tricuspid Valve Normal tricuspid valve structure. There is no tricuspid valve regurgitation. The pulmonary artery systolic pressure is normal. Great Vessels The aortic annulus, sinuses of valsalva, and asc aorta are normal in size. Venous The inferior vena cava is normal in size and collapses greater than 50% with inspiration. Pericardium/Pleural There is no evidence of pericardial effusion. Prior Study Comparison No significant change compared to prior study dated: 05/17/2020. Recommendations, Care & Conclusions No obvious valvular pathology seen on this study. Measurements 2D Linear Measurements IVSd: 0.92 0.6-0.9/0.6-1.0 cm LVIDd: 3.84 3.9-5.3/4.2-5.9 cm LVIDd Index: 2.43 2.4-3.2/2.2-3.1 cm/m2 LVIDs: 2.32 2.0-3.6 cm LVPWd: 0.79 0.7-1.1 cm Ao Root: 2.80 2.1-3.5 cm LA Diam: 2.90 2.7-3.8/3.0-4.0 cm LAIDs Index: 1.84 1.5-2.3 cm/m2 LV Mass: 118.62 67-162/88-224 g LV Mass Index: 75.07 43-95/49-115 g/m2 LVOT Diam: 2.00 3.0+(-)1.3 cm 2D Systolic Function EF 4C: 56.00 >55% EF 2C: 63.10 >55% EF BiP: 59.50 >55% Mitral Valve MV Pk E: 0.90 MV PK A: 0.81 MV Decel Time: 210.00 E/A: 1.10 E'Lateral: 12.40 E'Medial: 9.46 E/E' Med: 9.50 E/E' Lat: 7.20 PHT: 61.00 MVA PHT: 3.61 Decel [place]: 4.27 Aortic Valve AoV Pk Levon: 1.51 AoV Mn Levon: 0.96 AoV VTI: 0.29 AoV Pk Grad: 9.00 Aov Mn Grad: 4.00 SANDRA Cont.VTI: 2.66 LVOT LVOT Pk Levon: 1.23 LVOT Mn Levon: 0.76 LVOT VTI: 0.24 LVOT Pk Grad: 6.00 LVOT Mn Grad: 3.00 LVOT Diam: 2.00 LVOT Area: 3.14 Diastolic Function MV Pk E: 0.90 MV Pk A: 0.81 E/A: 1.10 E'Medial: 9.46 E/E' Med: 9.50 E' Laterial: 12.40 E/E' Lat: 7.20 Tricuspid Valve TR Pk Levon: 1.85 TR Pk Grad: 14.00 RA Press: 3.00 RVSP: 17.00 Great Vessels Aorta Ao Root-2D: 2.80 2.0-3.7 cm Ao Asc: 2.70 2.1-3.4 cm Ao Arch: 2.20 Updated in Other Vendor System with Status of Final Marco A Mccartney MD electronically signed on 12/01/2020 5:04:44 PM with status of Final
== END 2020-12-01 15:15 | disposition home or self-care (01) | DRG 62 ==
LOC: HO.ED 21:21 → HO.ICU 23:05 → HO.IMC 11-30 13:53
PROVIDERS: Internal Medicine Cardiovascular Disease; Nurse Practitioner Family; Admitting Provider Physician Assistant; Emergency Provider Emergency Medicine; PCP Internal Medicine Medical Oncology; Visit Provider Internal Medicine
DX: I63.9 Cerebral infarction, unspecified (principal); G45.3 Amaurosis fugax; E87.1 Hypo-osmolality and hyponatremia; K21.9 Gastro-esophageal reflux disease without esophagitis; R29.701 NIHSS score 1; Z20.822 Contact with and (suspected) exposure to COVID-19; Z88.0 Allergy status to penicillin; Z79.82 Long term (current) use of aspirin; Z79.899 Other long term (current) drug therapy
CPT/HCPCS: 36415; 70450; 70496; 70498; 70551; 80048; 80061; 80076; 82550; 82947; 83735; 84100; 84443; 84484; 85025; 85610; 85652; 85730; 86140; 87635; 93005; 93306; 97110; 97116; 97161; 97166; 99285; J2997; Q9967

== ENCOUNTER 2020-12-29 06:04 | Outpatient (REF) | payer MEDICARE, OTHER, SELFPAY ==
[2020-12-29 08:54] LABS: MANUAL DIFF FLAG NO
[2020-12-29 09:00] LABS: Basophils Percent Auto 0.4 % (0-2); Eosinophils Absolute Auto 0.2 X10*3/uL (0.0-0.4); Eosinophils Percent Auto 2.8 % (0-4); Hematocrit 34.8 % (37-47); Hemoglobin 11.5 g/dl (12.0-16.0); Imm Gran Abs Auto 0.02 X10*3/uL (0.00-0.03); Imm Gran Pct Auto 0.4 % (0.0-0.4); Lymphocytes Absolute Auto 0.8 X10*3/uL (1.2-4.9); Lymphocytes Percent Auto 14.5 % (20-40); Mean Corpuscular Hemoglobin 31.7 pg (27.0-33.0); Mean Corpuscular Volume 95.9 fL (80-98); Mean Platelet Volume 10.6 fL (9.4-12.3); Monocytes Absolute Auto 0.6 X10*3/uL (0.1-1.2); Monocytes Percent Auto 11.7 % (2-11); Neutrophils Absolute Auto 3.7 X10*3/uL (2.0-8.3); Neutrophils Percent Auto 70.2 % (45-73); Platelet Count 261 X10*3/uL (160-400); Red Blood Count 3.63 X10*6/uL (4.20-5.50); Red Cell Distribution Width 12.3 % (11.0-16.0); White Blood Count 5.3 X10*3/uL (4.8-10.8)
[2020-12-29 09:50] LABS: Alanine Aminotransferase 36 U/L (0-31); Albumin Level 3.8 g/dL (3.5-5.0); Alkaline Phosphatase 95 U/L (39-117); Anion Gap 12 (12-20); Aspartate Amino Transferase 45 U/L (5-31); Bilirubin Total 0.5 mg/dL (0.0-1.0); Blood Urea Nitrogen 22 mg/dL (9-16); Calcium 8.8 mg/dL (8.4-10.2); Carbon Dioxide 27 mmol/L (22-29); Chloride 95 mmol/L (96-108); Cholesterol 122 mg/dL; Estimated Glomerular Filt Rate > 60; Glucose Fasting 77 mg/dL (60-99); HDL Cholesterol 74 mg/dL; LDL Cholesterol Calculated 42 mg/dl; Potassium 5.6 mmol/L (3.3-5.1); Sodium 128 mmol/L (135-145); Total Protein 6.2 g/dL (6.5-8.0); Triglycerides 34 mg/dL
[2020-12-29 10:00] LABS: Erythrocyte Sedimentation Rate 12 MM/HR (0-20)
== END 2020-12-29 06:05 | disposition home or self-care (01) ==
LOC: HO.LAB 06:04
PROVIDERS: PCP Internal Medicine Medical Oncology; Visit Provider Internal Medicine Medical Oncology
DX: M81.0 Age-related osteoporosis without current pathological fracture (principal); D72.819 Decreased white blood cell count, unspecified
CPT/HCPCS: 36415; 80053; 80061; 85025; 85652

== ENCOUNTER 2021-01-04 06:29 | Emergency (ER) | payer MEDICARE, OTHER, SELFPAY ==
--- NOTE | ~2021-01-04 | CT_ITS ---
EXAMINATION: CT ANGIOGRAM NECK WITH CONTRAST CT ANGIOGRAM BRAIN WITH CONTRAST CLINICAL INFORMATION: Right eye cloudy vision to rule out ophthalmic artery occlusion. COMPARISON: CTA head and neck November 29, 2020. MRI brain November 30, 2020. Head CT performed earlier the same day. TECHNIQUE: Test bolus sequences followed by intravenous administration 70 mL of Omnipaque 350. Helical imaging was performed in the axial plane from the thoracic inlet to the skull vertex. Delayed postcontrast imaging of the head was also performed. The data was processed at the dental technologist workstation for generation of MIP sequences. Angled MIPs and volume rendered reformatted images were also generated at an offline 3D workstation under concurrent supervision. Stenoses are assessed in accordance with NASCET criteria unless otherwise indicated. This CT examination was performed using dose optimization techniques as appropriate, variously including the following: *Automated exposure control *Adjustment of mA and/or kV according to patient size (this includes techniques or standardized protocols for targeted exams where dose is matched to indication/reason for exam; i.e. extremities or head) *Use of iterative reconstruction technique FINDINGS: BRAIN: [There is no intracranial hemorrhage, hydrocephalus, extra-axial surface collection, midline shift, or other herniation pattern. [place] to white matter differentiation is diffusely maintained without evidence of an evolved acute territorial infarct. The basilar cisterns are preserved. No significant soft tissue abnormality. No acute osseous abnormality. The paranasal sinuses and the mastoid air cells are well aerated.] CERVICAL SOFT TISSUES AND LUNG APICES: There is multilevel cervical spondylosis. No significant soft tissue findings within the neck. Imaged upper lungs are clear. NECK CTA: [There is a classic 3 vessel configuration of the aortic arch. Proximal arch vessels are non-stenotic. Left vertebral artery is dominant. No significant ostial stenosis is visualized on either side. Both vertebral arteries are widely patent throughout their extracranial cervical course. Common carotid arteries are widely patent. Stable significant beaded irregularity of the cervical internal carotid arteries bilaterally in keeping with fibromuscular dysplasia. BRAIN CTA: Stable appearing decreased contrast opacification of the right ophthalmic artery beyond the mid right orbit suggesting partial occlusion or a significant flow-limiting stenosis. No additional focal flow-limiting stenosis nor discrete proximal large artery occlusion. No aneurysm. Timing of the contrast bolus allows assessment of the major dural venous sinuses, which all opacify normally] CT/CT angio head neck stroke IMPRESSION: Stable appearing decreased contrast opacification of the right ophthalmic artery beyond the mid right orbit suggesting partial occlusion or a significant flow-limiting stenosis. Stable significant beaded irregularity of the cervical internal carotid arteries bilaterally in keeping with fibromuscular dysplasia.
--- NOTE | ~2021-01-04 | CT_ITS ---
EXAMINATION: CT HEAD WITHOUT CONTRAST (STROKE PROTOCOL) CLINICAL INFORMATION: Stroke protocol. Right eye cloudy vision. COMPARISON: MRI brain 11/30/2020. TECHNIQUE: Contiguous axial imaging was performed from the skull base to vertex without intravenous administration of contrast. This CT examination was performed using dose optimization techniques as appropriate, variously including the following: *Automated exposure control *Adjustment of mA and/or kV according to patient size (this includes techniques or standardized protocols for targeted exams where dose is matched to indication/reason for exam; i.e. extremities or head) *Use of iterative reconstruction technique DLP: 638 mGy-cm FINDINGS: There is no intracranial hemorrhage, hematoma, or extra-axial fluid collection. The ventricles are normal in size. There is no hydrocephalus, edema, or mass effect. The plasencia-white matter differentiation appears symmetric. There is no acute infarct or mass lesion. The calvarium appears intact. There is no pneumocephalus or orbital emphysema. The visualized sinuses and middle ears and mastoid air cells show no significant mucosal thickening. There are no air-fluid levels. CT/CT head for stroke IMPRESSION: No acute intracranial process seen. This critical result was discussed with Dr. Adam Bell at 7:35 AM on 01/04/2021. It was ascertained that the content and urgency of the report was understood at the time of direct communication.
[2021-01-04 06:38] VITALS: BP 145/63; PULSE 89; RESP 16; TEMP 36.7; O2SAT 100; BMI 21.0
--- NOTE | 2021-01-04 06:47 | ED.NEUROSD ---
HPI - Neuro Symptoms/Deficit General Chief Complaint: Stroke Stated Complaint: PT admitted prev for stroke, exp. same symptoms Time Seen by Provider: 01/04/21 06:47 Source: patient Mode of arrival: ambulatory Limitations: no limitations History of Present Illness HPI Narrative: 75-year-old female who presents emergency department for evaluation of cloudy vision in her right eye. The patient states that she got up around 6:00 a.m. and was eating breakfast. She then had a sudden onset of cloudy, foggy vision in her right eye. She states that 30-40% over vision was cloudy, cloudiness seem to be increased medially. She states that since being in the emergency department it has improved slightly but her vision is still cloudy. She denied headache, nausea, vomiting, weakness, difficulty talking, numbness. The patient had a similar presentation on 11/29/2020. CT angiogram of the head revealed decreased flow in the right upper ophthalmic?artery. She was given tPA. She states that on discharge she was started atorvastatin and aspirin 81 mg. She states she has been taking these medications. Related Data Home Medications Medication Instructions Recorded Confirmed esomeprazole magnesium 20 mg 20 mg PO DAILY 07/28/20 11/30/20 capsule,delayed release (Nexium 24HR) mirabegron 50 mg tablet,extended 50 mg PO DAILY tab 07/28/20 11/30/20 release 24 hr Previous Rx's Medication Instructions Recorded aspirin 81 mg chewable tablet 81 mg PO DAILY #30 tab 12/01/20 atorvastatin 40 mg tablet 40 mg PO BEDTIME #30 tab 12/01/20 clopidogrel 75 mg tablet (Plavix) 75 mg PO DAILY #30 tab 01/04/21 Allergies Allergy/AdvReac Type Severity Reaction Status Date / Time Penicillins [PENICILLINS] Allergy Severe THROAT Verified 07/28/20 10:18 SWELLS Dust, Mold, Mites, Bee Sting Allergy Unknown Nasal Uncoded 07/28/20 10:18 congestion Review of Systems Review of Systems: Yes all other systems are reviewed and are negative [facility] Past Medical History Medical History Acid reflux Overactive bladder Syncope Surgical History No pertinent past surgical history Family History Family History Father No problems noted. Mother HTN (hypertension) Stroke Social History Social History Household Members: Spouse Housing: Apartment Do you presently have visiting nurse or other home services: No Alcohol intake: never Patient Tobacco Use Status: Never used Tobacco Use of substances other than those prescribed or required for medical reasons: No Advance Directives: Yes Advance Directives on File: Yes Advance Directives Date on File: 05/18/20 service: No Current occupational status: retired Physical Exam Vital Signs: Vital Signs: Last Vital Signs Temp 98.0 F 01/04/21 06:38 Pulse 72 01/04/21 09:07 Resp 18 01/04/21 09:07 BP 140/61 H 01/04/21 09:07 Pulse Ox 100 01/04/21 09:07 Body Mass Index 21.0 Const: General: cooperative and no acute distress Orientation/consciousness: oriented to person and oriented to place Limitations: no limitations HENMT: Head: Yes normal to inspection, Yes normocephalic and Yes atraumatic Ears: external ears normal General nose exam: Normal external nose present Face and sinus: Yes normal facial exam Mouth: Normal oral and palatal mucosa present Throat: Yes posterior oropharynx normal Eyes: Other: The patient is able to see objects and identify but she states that the a vision is cloudy. There is no visual field defect on confrontation. General: appearance normal, both eyes and all related structures Pupils: Equal, round and reactive pupils present Neck: Neck: Yes normal visual inspection, Yes no lymphadenopathy, Yes trachea midline and Yes supple Chest: Chest palpation & inspection: normal inspection of the chest and normal palpation of entire chest wall Resp: Effort & Inspection: normal respiratory effort and able to speak in complete sentences Auscultation: clear to auscultation bilaterally Cardio: Rate: regular rate Rhythm: regular rhythm Heart sounds: S1 normal heart sound present, S2 normal heart sound present and no murmurs GI: Inspection: Yes normal to inspection Palpation (GI): Soft to palpation, nontender and no guarding Auscultation: normal bowel sounds : General: Yes no CVA tenderness Back/Spine/Pelvis: Back: no CVA tenderness Skin: General skin exam: no rashes or lesions noted Neuro: General: oriented to person and oriented to place Cranial nerves: Yes CN's II-XII intact bilaterally and Yes Equal, round and reactive pupils present Cognition (Neuro): normal cognition Motor exam (neuro): 5/5 motor strength present throughout Extrem: General: Yes normal to inspection Psych: Appearance: grossly normal Speech and movement: Normal speech and movement present Affect: normal affect Attitude: cooperative Thought process: Normal thought process present Thought content: Normal thought content present Course Course Course Narrative: 75-year-old female who presents emergency department for evaluation of cloudy vision of her right eye. The symptom occurred around 6:00 a.m. on the morning of presentation. Patient has a similar presentation on 11/29/2020 and was found to have decreased flow in the right ophthalmic?artery and she was treated with tPA. Patient's vital signs revealed an elevated blood pressure of 161/64. Her exam did reveal cloudy vision, but was able to identify objects and she did not have a visual field defect on confrontation. I did order a stroke workup on the patient to include CT scan of the head and a CTA of the head and neck. I will contact Neurology discuss the patient's presentation. Patient received tPA less than 1 month prior and this may be an exclusionary criteria for repeat tPA. 0833: Patient's laboratory evaluation was unremarkable. CT scan of the head revealed no acute stroke or bleed. CTA of the head and neck was interpreted this following by the radiologist: Stable appearing decreased contrast opacification of the right ophthalmic artery beyond the mid right orbit suggesting partial occlusion or a significant flow-limiting stenosis. Stable significant beaded irregularity of the cervical internal carotid arteries bilaterally in keeping with fibromuscular dysplasia . I will discuss this finding with the covering neurologist to see if any further therapy would be beneficial. 0846: I did discuss the patient's presentation with our neurologist, Dr. Chaudhari. He recommended that we discuss further treatment with an beef cattle specialist to see if there is any other intervention recommended however he did agree that the patient might benefit from the Plavix 75 mg once a day. I did discuss the risks and benefits of starting this medication including the risk of increased bleeding. The patient understands this and does agree with the treatment, therefore she was given a dose a Plavix 75 mg orally. 0914: The patient's symptoms have completely resolved. The Dr. Cox is not on-call for the emergency department and he is not available at this time for consult. The patient will be discharged home and referred back to her PCP for further management, for referral to Ophthalmology and for further treatment. I did advise the patient to contact Dr. Henriquez office to see if she can make an appoint as an outpatient within the next 1-2 weeks for re-evaluation. I also told her if her symptoms return she should consider going to a bigger institution such as [facility] who may may not have an beef cattle specialist on-call. MDM - Neuro Symptoms/Deficit Lab Data Result diagrams: 01/04/21 07:16 01/04/21 07:16 Labs: Lab Results 01/04/21 01/04/21 01/04/21 Range/Units 07:16 07:16 07:16 WBC 4.1 L (4.8-10.8) X10*3/uL RBC 3.61 L (4.20-5.50) X10*6/uL Hgb 11.9 L (12.0-16.0) g/dl Hct 34.5 L (37-47) % MCV 95.6 (80-98) fL MCH 33.0 (27.0-33.0) pg MCHC 34.5 (31.0-35.0) g/dl RDW 12.5 (11.0-16.0) % Plt Count 224 (160-400) X10*3/uL MPV 9.7 (9.4-12.3) fL Immature Gran % (Auto) 0.5 H (0.0-0.4) % Neut % (Auto) 68.5 (45-73) % Lymph % (Auto) 15.5 L (20-40) % [place] % (Auto) 11.4 H (2-11) % Eos % (Auto) 3.6 (0-4) % Baso % (Auto) 0.5 (0-2) % Lymph # (Auto) 0.6 L (1.2-4.9) X10*3/uL [place] # (Auto) 0.5 (0.1-1.2) X10*3/uL Eos # (Auto) 0.2 (0.0-0.4) X10*3/uL Baso # (Auto) 0.0 (0.0-0.2) X10*3/uL Abs Immat Gran (auto) 0.02 (0.00-0.03) X10*3/uL Absolute Neuts (auto) 2.8 (2.0-8.3) X10*3/uL Absolute Nucleated RBC 0.000 (0.0-0.012) X10*3/uL Nucleated RBC % (auto) 0.0 (0.0-0.2) /100WBC ESR (0-20) MM/HR PT 12.4 (9.9-13.0) SEC Whole Blood PT (11.1-13.5) sec INR 1.1 (0.9-1.1) Whole Blood INR (0.9-1.1) APTT 31.6 D (24.1-38.0) SEC Sodium 132 L (135-145) mmol/L Potassium 4.3 D (3.3-5.1) mmol/L Chloride 99 (96-108) mmol/L Carbon Dioxide 25 (22-29) mmol/L Anion Gap 12 (12-20) BUN 17 H (9-16) mg/dL Creatinine 0.90 (0.5-1.4) mg/dL Estim Creat Clear Calc 43.3 Estimated GFR > 60 POC Glucose (60-115) mg/dL Random Glucose 110 (60-115) mg/dL Calcium 9.0 (8.4-10.2) mg/dL Total Bilirubin 0.6 (0.0-1.0) mg/dL Direct Bilirubin 0.3 (0.0-0.5) mg/dL AST 42 H (5-31) U/L ALT 37 H (0-31) U/L Alkaline Phosphatase 91 (39-117) U/L Total Protein 6.2 L (6.5-8.0) g/dL Albumin 3.8 (3.5-5.0) g/dL Urine Color Urine Appearance Urine pH (5.0-8.0) Ur Specific [place] (1.005-1.025) Urine Protein (NEG-TRACE) MG/DL Urine Glucose (UA) (NEG) MG/DL Urine Ketones (NEG) MG/DL Urine Blood (NEG) Urine Nitrite (NEG) Ur Leukocyte Esterase (NEG) 0801/04/21 01/04/21 Range/Units 07:16 07:17 07:20 WBC (4.8-10.8) X10*3/uL RBC (4.20-5.50) X10*6/uL Hgb (12.0-16.0) g/dl Hct (37-47) % MCV (80-98) fL MCH (27.0-33.0) pg MCHC (31.0-35.0) g/dl RDW (11.0-16.0) % Plt Count (160-400) X10*3/uL MPV (9.4-12.3) fL Immature Gran % (Auto) (0.0-0.4) % Neut % (Auto) (45-73) % Lymph % (Auto) (20-40) % [place] % (Auto) (2-11) % Eos % (Auto) (0-4) % Baso % (Auto) (0-2) % Lymph # (Auto) (1.2-4.9) X10*3/uL [place] # (Auto) (0.1-1.2) X10*3/uL Eos # (Auto) (0.0-0.4) X10*3/uL Baso # (Auto) (0.0-0.2) X10*3/uL Abs Immat Gran (auto) (0.00-0.03) X10*3/uL Absolute Neuts (auto) (2.0-8.3) X10*3/uL Absolute Nucleated RBC (0.0-0.012) X10*3/uL Nucleated RBC % (auto) (0.0-0.2) /100WBC ESR 13 (0-20) MM/HR PT (9.9-13.0) SEC Whole Blood PT 13.2 (11.1-13.5) sec INR (0.9-1.1) Whole Blood INR 1.1 (0.9-1.1) APTT (24.1-38.0) SEC Sodium (135-145) mmol/L Potassium (3.3-5.1) mmol/L Chloride (96-108) mmol/L Carbon Dioxide (22-29) mmol/L Anion Gap (12-20) BUN (9-16) mg/dL Creatinine (0.5-1.4) mg/dL Estim Creat Clear Calc Estimated GFR POC Glucose 126 H (60-115) mg/dL Random Glucose (60-115) mg/dL Calcium (8.4-10.2) mg/dL Total Bilirubin (0.0-1.0) mg/dL Direct Bilirubin (0.0-0.5) mg/dL AST (5-31) U/L ALT (0-31) U/L Alkaline Phosphatase (39-117) U/L Total Protein (6.5-8.0) g/dL Albumin (3.5-5.0) g/dL Urine Color Urine Appearance Urine pH (5.0-8.0) Ur Specific [place] (1.005-1.025) Urine Protein (NEG-TRACE) MG/DL Urine Glucose (UA) (NEG) MG/DL Urine Ketones (NEG) MG/DL Urine Blood (NEG) Urine Nitrite (NEG) Ur Leukocyte Esterase (NEG) 01/04/21 Range/Units 08:02 WBC (4.8-10.8) X10*3/uL RBC (4.20-5.50) X10*6/uL Hgb (12.0-16.0) g/dl Hct (37-47) % MCV (80-98) fL MCH (27.0-33.0) pg MCHC (31.0-35.0) g/dl RDW (11.0-16.0) % Plt Count (160-400) X10*3/uL MPV (9.4-12.3) fL Immature Gran % (Auto) (0.0-0.4) % Neut % (Auto) (45-73) % Lymph % (Auto) (20-40) % [place] % (Auto) (2-11) % Eos % (Auto) (0-4) % Baso % (Auto) (0-2) % Lymph # (Auto) (1.2-4.9) X10*3/uL [place] # (Auto) (0.1-1.2) X10*3/uL Eos # (Auto) (0.0-0.4) X10*3/uL Baso # (Auto) (0.0-0.2) X10*3/uL Abs Immat Gran (auto) (0.00-0.03) X10*3/uL Absolute Neuts (auto) (2.0-8.3) X10*3/uL Absolute Nucleated RBC (0.0-0.012) X10*3/uL Nucleated RBC % (auto) (0.0-0.2) /100WBC ESR (0-20) MM/HR PT (9.9-13.0) SEC Whole Blood PT (11.1-13.5) sec INR (0.9-1.1) Whole Blood INR (0.9-1.1) APTT (24.1-38.0) SEC Sodium (135-145) mmol/L Potassium (3.3-5.1) mmol/L Chloride (96-108) mmol/L Carbon Dioxide (22-29) mmol/L Anion Gap (12-20) BUN (9-16) mg/dL Creatinine (0.5-1.4) mg/dL Estim Creat Clear Calc Estimated GFR POC Glucose (60-115) mg/dL Random Glucose (60-115) mg/dL Calcium (8.4-10.2) mg/dL Total Bilirubin (0.0-1.0) mg/dL Direct Bilirubin (0.0-0.5) mg/dL AST (5-31) U/L ALT (0-31) U/L Alkaline Phosphatase (39-117) U/L Total Protein (6.5-8.0) g/dL Albumin (3.5-5.0) g/dL Urine Color YELLOW Urine Appearance HAZY Urine pH 7.0 (5.0-8.0) Ur Specific [place] <= 1.005 (1.005-1.025) Urine Protein NEG (NEG-TRACE) MG/DL Urine Glucose (UA) NEG (NEG) MG/DL Urine Ketones NEG (NEG) MG/DL Urine Blood NEG (NEG) Urine Nitrite NEG (NEG) Ur Leukocyte Esterase NEG (NEG) Discharge Plan Discharge Clinical Impression: Change in vision Patient Disposition: Home, Self-Care Additional Instructions: Your change in vision may be caused by a blood clot that transiently blocks the blood flow to the right ophthalmic artery. The CT angiogram of your brain did reveal narrowing of the right ophthalmic artery but no obvious blood clot was seen. The treatment is to reduce the amount of blood clots that your body's making to try to prevent further blood clots from blocking this artery. Plavix as a blood thinner that reduces the stiffness of your platelets. Take Plavix 75 mg, 1 pill once a day. Also, aspirin reduces the stickiness of your platelet and you need to continue taking aspirin 81 mg once a day. We do not have an beef cattle specialist on-call. Call the beef cattle specialist, Dr. Jorge Helton's office to see if you can make a follow-up appointment in 1-2 weeks. He is an beef cattle specialist that often helps out patient that have come to the emergency department. If he is unavailable to see you, ask your PCP to refer you to another beef cattle specialist. Follow-up with your doctor in 2 days. Please return to the emergency department if your symptoms get worse or if you develop any symptoms that are concerning to you. Prescriptions: New clopidogrel [Plavix] 75 mg tablet 75 mg PO DAILY Qty: 30 RF: 0 No Action atorvastatin 40 mg Tablet 40 mg PO BEDTIME Qty: 30 RF: 0 aspirin 81 mg Tablet,Chewable 81 mg PO DAILY Qty: 30 RF: 0 mirabegron 50 mg tablet extended release 24 hr 50 mg PO DAILY RF: 0 esomeprazole magnesium [Nexium 24HR] 20 mg capsule,delayed release(DR/EC) 20 mg PO DAILY RF: 0 Referrals: Jorge Jansen [Physician] - 2 weeks (Recurrence blurred vision right eye. CTA brain revealed the following: Stable appearing decreased contrast opacification of the right ophthalmic artery beyond the mid right orbit suggesting partial occlusion or a significant flow-limiting stenosis. Patient was taking aspirin, she was started on Plavix 75 mg once a day.)
[2021-01-04 07:05] VITALS: BP 161/64; PULSE 79; RESP 15; O2SAT 100
[2021-01-04 07:23] LABS: Prothrombin Time Whole Bld POC 13.2 sec (11.1-13.5); ~PT, ~INR - Anti Coag Clinic 1.1 (0.9-1.1)
[2021-01-04 07:24] LABS: Glucose, Whole Blood 126 mg/dL (60-115)
[2021-01-04 07:25] LABS: MANUAL DIFF FLAG NO
[2021-01-04 07:28] LABS: Basophils Percent Auto 0.5 % (0-2); Eosinophils Absolute Auto 0.2 X10*3/uL (0.0-0.4); Eosinophils Percent Auto 3.6 % (0-4); Hematocrit 34.5 % (37-47); Hemoglobin 11.9 g/dl (12.0-16.0); Imm Gran Abs Auto 0.02 X10*3/uL (0.00-0.03); Imm Gran Pct Auto 0.5 % (0.0-0.4); Lymphocytes Absolute Auto 0.6 X10*3/uL (1.2-4.9); Lymphocytes Percent Auto 15.5 % (20-40); Mean Corpuscular HGB Conc 34.5 g/dl (31.0-35.0); Mean Corpuscular Volume 95.6 fL (80-98); Mean Platelet Volume 9.7 fL (9.4-12.3); Monocytes Absolute Auto 0.5 X10*3/uL (0.1-1.2); Monocytes Percent Auto 11.4 % (2-11); Neutrophils Absolute Auto 2.8 X10*3/uL (2.0-8.3); Neutrophils Percent Auto 68.5 % (45-73); Platelet Count 224 X10*3/uL (160-400); Red Blood Count 3.61 X10*6/uL (4.20-5.50); Red Cell Distribution Width 12.5 % (11.0-16.0); White Blood Count 4.1 X10*3/uL (4.8-10.8)
[2021-01-04 07:34] LABS: INTERNATIONAL NORM RATIO 1.1 (0.9-1.1); Prothrombin Time 12.4 SEC (9.9-13.0)
[2021-01-04 07:36] LABS: Partial Thromboplastin Time 31.6 SEC (24.1-38.0)
[2021-01-04 07:46] LABS: Alanine Aminotransferase 37 U/L (0-31); Albumin Level 3.8 g/dL (3.5-5.0); Alkaline Phosphatase 91 U/L (39-117); Anion Gap 12 (12-20); Aspartate Amino Transferase 42 U/L (5-31); Bilirubin Direct 0.3 mg/dL (0.0-0.5); Bilirubin Total 0.6 mg/dL (0.0-1.0); Blood Urea Nitrogen 17 mg/dL (9-16); Carbon Dioxide 25 mmol/L (22-29); Chloride 99 mmol/L (96-108); Creatinine Clr Calc Pharmacy 43.3; Estimated Glomerular Filt Rate > 60; Glucose Random 110 mg/dL (60-115); Potassium 4.3 mmol/L (3.3-5.1); Sodium 132 mmol/L (135-145); Total Protein 6.2 g/dL (6.5-8.0)
[2021-01-04 07:58] VITALS: BP 143/56; PULSE 74; RESP 18; O2SAT 99
--- NOTE | 2021-01-04 08:02 | ECG_ITS ---
Test Reason : STROKE Blood Pressure : / mmHG Vent. Rate : 077 BPM Atrial Rate : 077 BPM P-R Int : 228 ms QRS Dur : 084 ms QT Int : 390 ms P-R-T Axes : 074 033 061 degrees QTc Int : 441 ms Sinus rhythm with 1st degree A-V block Possible Left atrial enlargement Borderline ECG When compared with ECG of 29-NOV-2020 20:30, No significant change was found Referred By: Edgar White Electronically Signed By:ELIZA RUBIN MD
[2021-01-04 08:11] LABS: Appearance Urine HAZY; Color Urine YELLOW; Glucose Urine UA NEG (NEG); Leukocyte Esterase Urine NEG (NEG); Nitrite Urine NEG (NEG); Specific Gravity - Urine <= 1.005 (1.005-1.025); Urine Blood NEG (NEG); Urine Ketones NEG (NEG); Urine Protein NEG (NEG-TRACE)
[2021-01-04 08:33] LABS: Erythrocyte Sedimentation Rate 13 MM/HR (0-20)
[2021-01-04 09:07] VITALS: BP 140/61; PULSE 72; RESP 18; O2SAT 100
[2021-01-04] MEDS: Clopidogrel Bisulfate 75 MG TABLET PO (09:08)
--- NOTE | 2021-01-04 09:09 | PC.NURSE ---
Patient is alert and oriented without noted distress. Pt denies any pain or sob. Pt states cloudy vision is improving in right eye. Pt is amb to the bathroom and back without assistance and with a steady gate.
--- NOTE | 2021-01-04 09:39 | PC.NURSE ---
Patient is alert and oriented. NO adverse reaction noted to plavix. Pt given discharge instructions with no questions voiced. Peripheral iv removed and pressure bandage applied
== END 2021-01-04 09:41 | disposition home or self-care (01) ==
PROVIDERS: Emergency Provider Emergency Medicine Emergency Medical Services
DX: H53.8 Other visual disturbances (principal); Z86.73 Personal history of transient ischemic attack (TIA), and cerebral infarction without residual deficits
CPT/HCPCS: 36415; 70450; 70496; 70498; 80048; 80076; 81003; 82947; 85025; 85610; 85652; 85730; 93005; 99284; 99285

== ENCOUNTER 2021-01-15 21:16 | Emergency (ER) | payer MEDICARE, OTHER, SELFPAY ==
[2021-01-15 21:39] VITALS: BP 123/84; PULSE 73; RESP 16; TEMP 36.3; O2SAT 98; BMI 20.7
--- NOTE | 2021-01-15 23:52 | ED_ITS ---
HPI - Wound/Laceration General Chief Complaint: Wound/Laceration Stated Complaint: HEEL LAC Source: patient Mode of arrival: ambulatory Limitations: no limitations History of Present Illness HPI narrative: 75-year-old female presents with laceration to the left heel. She was dragging a cooler behind her, and the cooler hit the back of her heel. She is on Plavix and aspirin. She does not report any other symptoms. Onset (ago): hour(s) (Within the hour of arrival) Extremity Location: left: lower leg Place: home Patient tetanus UTD: Yes Context: accidental Associated symptoms: pain Treatments prior to arrival: bandage Related Data Home Medications Medication Instructions Recorded Confirmed esomeprazole magnesium 20 mg 20 mg PO DAILY 07/28/20 11/30/20 capsule,delayed release (Nexium 24HR) mirabegron 50 mg tablet,extended 50 mg PO DAILY tab 07/28/20 11/30/20 release 24 hr Previous Rx's Medication Instructions Recorded aspirin 81 mg chewable tablet 81 mg PO DAILY #30 tab 12/01/20 atorvastatin 40 mg tablet 40 mg PO BEDTIME #30 tab 12/01/20 clopidogrel 75 mg tablet (Plavix) 75 mg PO DAILY #30 tab 01/04/21 Allergies Allergy/AdvReac Type Severity Reaction Status Date / Time Penicillins [PENICILLINS] Allergy Severe THROAT Verified 07/28/20 10:18 SWELLS Dust, Mold, Mites, Bee Sting Allergy Unknown Nasal Uncoded 07/28/20 10:18 congestion Review of Systems Review of Systems: Constitutional: No Fever, No Chills ENT/Mouth: No Ear Pain, No Hoarseness, No sore throat Eyes: No Eye Pain, No Swelling, No Redness, No Foreign Body Cardiovascular: No Chest Pain, No SOB Respiratory: No Cough, No Dyspnea Gastrointestinal: No Nausea, No Vomiting, No Diarrhea, No abdominal Pain Genitourinary: No Dysuria, No Hematuria Musculoskeletal: positive left heel pain, No Myalgias, No Joint Swelling Skin: Positive left heel laceration, No rash Neuro: No Weakness, No Numbness, No Paresthesias, No Loss of Consciousness, No Dizziness, No Headache Psych: No Anxiety/Panic, No Depression Heme/Lymph: no easy bruising, no Lymphadenopathy Endocrine: No Polyuria, No Polydipsia Yes all other systems are reviewed and are negative [facility] Past Medical History Attestation statement: The following information was validated with the patient. Source: old records reviewed Medical History Acid reflux Overactive bladder Syncope Surgical History No pertinent past surgical history Family History Family History Father No problems noted. Mother HTN (hypertension) Stroke Social History Social History Household Members: Spouse Housing: Apartment Do you presently have visiting nurse or other home services: No Alcohol intake: never Patient Tobacco Use Status: Never used Tobacco Advance Directives: Yes Advance Directives on File: Yes Advance Directives Date on File: 05/18/20 service: No Current occupational status: retired Physical Exam Vital Signs: Vital Signs: Last Vital Signs Temp 97.4 F 01/15/21 21:39 Pulse 73 01/15/21 21:39 Resp 16 01/15/21 21:39 BP 123/84 01/15/21 21:39 Pulse Ox 98 01/15/21 21:39 Body Mass Index 20.7 Appearance: Alert. Oriented X3. No acute distress. Eyes: Pupils equal, round and reactive to light. ENT: Pharynx normal. Neck: Normal inspection. Neck supple. CVS: Normal heart rate and rhythm. Pulses normal. Respiratory: No respiratory distress. Breath sounds normal. Abdomen: Soft and nontender. Skin: 3 cm flap laceration to the left heel, otherwise Skin warm and dry. Normal skin color. Normal skin turgor. Extremities: No lower extremity edema. Brisk capillary refill. Equal strength to all extremities. Equal pedal pulses. Neuro: No motor deficit. No sensory deficit. Cranial nerves 2-12 intact. Course Course Course Narrative: 75-year-old female presents with flap laceration to the left heel after a cooler that she was dragging bumped into her heel. Tdap is up-to-date. Please refer to procedure note for full details. Prepped and draped in sterile fashion. Irrigated with copious amounts of normal saline. Cleansed with Betadine. No blood loss. Patient tolerated procedure well. Approximately 30 minute status post laceration repair, patient continues with brisk capillary refill and equal pulses. Patient verbalized understanding of and agrees to plan of care discharge home. MDM - Wound/Laceration Differential Diagnosis Differential diagnosis: Likely laceration Medical Records Attestation: I reviewed the patient's medical records. Procedures Laceration Laceration 1: Site: lower extremity Side (If applicable): left Size (cm): 3 Description: flap Depth: simple, single layer Local Anesthetic: lidocaine 2% and with epi Amount of anesthesia used (mL): 5 Pre-repair: wound explored, irrigated extensively and deep structures intact Skin layer closed with: nylon Size (cm): 4-0 Number of sutures: 8 Technique: simple, interrupted Discharge Plan Discharge Clinical Impression: Laceration Patient Disposition: Home, Self-Care Instructions: Care For Your Stitches (ED), Laceration (ED) Additional Instructions: You were evaluated for laceration on her heel. We placed 8 sutures. Please return in 10-14 days to have sutures removed. If you notice any symptoms of infection please return sooner. Thank you for choosing this emergency department for evaluation. Please follow-up with primary care physician as needed. Return to the emergency department for any new, concerning, or worsening symptoms. Prescriptions: No Action atorvastatin 40 mg Tablet 40 mg PO BEDTIME Qty: 30 RF: 0 aspirin 81 mg Tablet,Chewable 81 mg PO DAILY Qty: 30 RF: 0 clopidogrel [Plavix] 75 mg tablet 75 mg PO DAILY Qty: 30 RF: 0 mirabegron 50 mg tablet extended release 24 hr 50 mg PO DAILY RF: 0 esomeprazole magnesium [Nexium 24HR] 20 mg capsule,delayed release(DR/EC) 20 mg PO DAILY RF: 0
== END 2021-01-16 00:37 | disposition home or self-care (01) ==
PROVIDERS: Emergency Provider Emergency Medicine; PCP Internal Medicine Medical Oncology
DX: S91.312A Laceration without foreign body, left foot, initial encounter (principal); W22.8XXA Striking against or struck by other objects, initial encounter; Y93.9 Activity, unspecified; Y92.9 Unspecified place or not applicable; Y99.9 Unspecified external cause status; Z79.02 Long term (current) use of antithrombotics/antiplatelets; Z79.82 Long term (current) use of aspirin; Z79.01 Long term (current) use of anticoagulants; Z86.73 Personal history of transient ischemic attack (TIA), and cerebral infarction without residual deficits
CPT/HCPCS: 12002; 99283; 99284

== ENCOUNTER 2021-03-14 15:22 | Outpatient (REF) | payer MEDICARE, OTHER, SELFPAY ==
--- NOTE | ~2021-03-14 | US_ITS ---
EXAMINATION: US EXTRACRANIAL CAROTID DUPLEX, BILATERAL CLINICAL INFORMATION: TIA COMPARISON: CTA neck 01/04/2021. TECHNIQUE: Real-time ultrasound and Doppler techniques (integrating B-mode 2-D vascular images, Doppler spectral analysis and color-flow Doppler imaging) were utilized to interrogate the extracranial carotid arteries, the vertebral arteries and proximal subclavian arteries bilaterally. The degree of stenosis is determined by criteria similar to NASCET. FINDINGS: Right Side: 1. There is no atherosclerotic plaque seen in the bifurcation/proximal ICA region. 2. The common carotid artery PSV proximally is 96 cm/s and distally 110 cm/s. 3. The proximal internal carotid artery velocities are 50 cm/s systolic and 14 cm/s diastolic. Note is made of elevated velocity in the distal right cervical internal carotid artery. The vessel at this location has a beaded appearance. 4. The proximal external carotid artery PSV is 76 cm/s. 5. The vertebral artery shows antegrade flow. 6. The subclavian artery waveforms are normal. Left Side: 1. There is no atherosclerotic plaque seen in the bifurcation/proximal ICA region. 2. The common carotid artery PSV proximally is 113 cm/s and distally 114 cm/s. 3. The proximal internal carotid artery velocities are 100 cm/s systolic and 46 cm/s diastolic. Note is made of elevated velocity in the distal left cervical internal carotid artery. The vessel at this location has a beaded appearance. 4. The proximal external carotid artery PSV is 78 cm/s. 5. The vertebral artery shows antegrade flow. 6. The subclavian artery waveforms are normal. US/US carotid duplex BI IMPRESSION: 1. RIGHT: There is no evidence of atherosclerotic cervical internal carotid artery disease. 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 2. LEFT: There is no evidence of atherosclerotic cervical internal carotid artery disease. 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
== END 2021-03-14 15:23 | disposition home or self-care (01) ==
LOC: HO.US 15:22
PROVIDERS: PCP Internal Medicine Medical Oncology; Visit Provider Internal Medicine Medical Oncology
DX: G45.9 Transient cerebral ischemic attack, unspecified (principal); H34.9 Unspecified retinal vascular occlusion
CPT/HCPCS: 93880

== ENCOUNTER → 2021-04-05 13:50 | Outpatient (BNVA) | payer MEDICARE, OTHER, SELFPAY | PROVIDERS: PCP Internal Medicine Medical Oncology; Visit Provider Nurse Practitioner Family | DX: R55 Syncope and collapse (principal); H53.129 Transient visual loss, unspecified eye | CPT/HCPCS: Q3014 ==

== ENCOUNTER → 2021-04-07 09:26 | Outpatient (BNVA) | payer MEDICARE, OTHER, SELFPAY | PROVIDERS: PCP Internal Medicine Medical Oncology; Visit Provider Surgery Vascular Surgery | DX: I77.3 Arterial fibromuscular dysplasia (principal); Z79.82 Long term (current) use of aspirin | CPT/HCPCS: 99202 ==

== ENCOUNTER → 2021-04-13 09:32 | Outpatient (REF) | payer MEDICARE, OTHER, SELFPAY ==
--- NOTE | 2021-04-13 09:36 | HM_ITS ---
Conclusion: 1. Patient was monitored for total period of 12 days and 22 hours 2. Baseline was normal sinus rhythm with average heart rate of 71 beats per minute 3. No significant pauses or bradycardia noted 4. Rare ectopy noted 5. Fourteen supraventricular episodes noted, longest 11 beats at SVT, fastest at 162 beats per minute. 6. No patient reported events MTDD
--- NOTE | 2021-04-13 09:37 | CA_ITS ---
Transthoracic Echocardiogram Patient (Last, First, Middle): Nevaeh Torres, Gender: Female Date of : 1945 Age: 75 Procedure Date: 04/13/2021 Procedure Type: Transthoracic Echocardiogram Location: OP Height: 160.02 cm Weight: 53.07 kg BSA: 1.54 m2 Heart Rate: bpm Production Line Technician: LOKESH Referring MD: Lalit Aguirre MD Welder Helper: Mode Allen MD Symptoms: TIA G45.9 Study Quality: Fair ECG Rhythm: Sinus Conclusions: - Essentially normal study Findings Left Ventricle Normal left ventricular size, thickness, and systolic function. The visually estimated ejection fraction is between 65-70%. Spectral Doppler is indicative of a normal filling pattern. Right Ventricle Normal right ventricular cavity size and systolic function. Atria Both atria are normal in size. Interatrial shunt cannot be excluded. Aortic Valve Normal aortic valve structure and function. There is no aortic valve stenosis. There is no aortic valve regurgitation. Mitral Valve Normal mitral valve structure and function. There is trace mitral valve regurgitation. There is no mitral valve stenosis. Pulmonic Valve The pulmonic valve was not well visualized. Tricuspid Valve Likely normal tricuspid valve structure and function. There is mild tricuspid valve regurgitation. The right ventricular systolic pressure is normal. The right ventricular systolic pressure is 27 mmHg. Normal right atrial pressure. There is no evidence of pulmonary hypertension. Great Vessels All visible segments of the aorta are normal in size. The pulmonary artery was not well visualized. Venous The inferior vena cava is mildly dilated and collapses greater than 50% with inspiration. Pericardium/Pleural There is no evidence of pericardial effusion. Prior Study Comparison No significant change compared to prior study. Measurements 2D Linear Measurements IVSd: 0.95 0.6-0.9/0.6-1.0 cm LVIDd: 3.59 3.9-5.3/4.2-5.9 cm LVIDd Index: 2.33 2.4-3.2/2.2-3.1 cm/m2 LVIDs: 2.46 2.0-3.6 cm LVPWd: 0.84 0.7-1.1 cm Ao Root: 2.60 2.1-3.5 cm LA Diam: 3.00 2.7-3.8/3.0-4.0 cm LAIDs Index: 1.95 1.5-2.3 cm/m2 LV Mass: 114.01 67-162/88-224 g LV Mass Index: 74.03 43-95/49-115 g/m2 LVOT Diam: 2.00 3.0+(-)1.3 cm 2D Systolic Function EF 4C: 68.50 >55% EF 2C: 74.60 >55% EF BiP: 70.20 >55% Mitral Valve MV Pk E: 1.05 MV PK A: 0.79 MV Decel Time: 229.00 E/A: 1.30 PHT: 67.00 MVA PHT: 3.28 Decel Davis: 4.60 Aortic Valve AoV Pk Levon: 1.26 AoV Pk Grad: 6.00 LVOT LVOT Pk Levon: 1.07 LVOT Mn Levon: 0.60 LVOT VTI: 0.26 LVOT Pk Grad: 5.00 LVOT Mn Grad: 2.00 LVOT Diam: 2.00 LVOT Area: 3.14 Diastolic Function MV Pk E: 1.05 MV Pk A: 0.79 E/A: 1.30 Right Ventricle TAPSE (mm): 2.15 Tricuspid Valve TR Pk Levon: 2.46 TR Pk Grad: 24.00 RA Press: 3.00 RVSP: 27.00 Great Vessels Aorta Ao Root-2D: 2.60 2.0-3.7 cm Ao Asc: 2.70 2.1-3.4 cm Updated in Other Vendor System with Status of Final Mode Allen MD electronically signed on 04/20/2021 3:06:44 PM with status of Final
--- NOTE | 2021-04-13 09:37 | CA_ITS ---
INDICATIONS: Retinal Occular Occlusion HT: 5'3' WT: 117 BSA 1.54 BP: 148/78 Media Law Faculty Member: DSG STUDY QUALITY: ECG RHYTHM: M-MODE/2D MEASUREMENTS: LVd: 3.59 cm LVs: 2.46 cm IVSd: 0.9 cm LVPWd: 0.8 cm LVPWs: ASC,Aorta: 2.7 cm OTHER: Effusion: Thrombus: Wall Motion: RVSP: 2.7 mmHg Mitral E/A: 1.31 DOPPLER MEASUREMENTS: AORTIC PP mmHg MF mmHg Velocity: 126 m/s Valve Area: 2.67 cm^2 TRICUSPID: 24 mmHg. MITRAL: 105 RA Vol. IVC: 2.21 cm LA Vol 24.0 ml/m^2 MTDD
== END ==
LOC: HO.CARD 09:32
PROVIDERS: Visit Provider Internal Medicine Medical Oncology
DX: G45.9 Transient cerebral ischemic attack, unspecified (principal); H34.9 Unspecified retinal vascular occlusion; H53.129 Transient visual loss, unspecified eye
CPT/HCPCS: 93246; 93306

== ENCOUNTER 2021-04-28 06:42 | Outpatient (REF) | payer MEDICARE, OTHER, SELFPAY ==
[2021-04-28 06:48] LABS: MANUAL DIFF FLAG NO
[2021-04-28 07:24] LABS: Basophils Percent Auto 0.6 % (0-2); Eosinophils Absolute Auto 0.2 X10*3/uL (0.0-0.4); Eosinophils Percent Auto 5.1 % (0-4); Hematocrit 34.1 % (37.0-47.0); Hemoglobin 11.4 g/dl (12.0-16.0); Imm Gran Abs Auto 0.01 X10*3/uL (0.00-0.03); Imm Gran Pct Auto 0.2 % (0.0-0.4); Lymphocytes Absolute Auto 0.8 X10*3/uL (1.2-4.9); Lymphocytes Percent Auto 17.8 % (20-40); Mean Corpuscular HGB Conc 33.4 g/dl (31.0-35.0); Mean Corpuscular Hemoglobin 32.9 pg (27.0-33.0); Mean Corpuscular Volume 98.6 fL (80.0-98.0); Mean Platelet Volume 10.1 fL (9.4-12.3); Monocytes Absolute Auto 0.5 X10*3/uL (0.1-1.2); Monocytes Percent Auto 10.9 % (2-11); Neutrophils Absolute Auto 3.1 x10*3/uL (2.0-8.3); Neutrophils Percent Auto 65.4 % (45-73); Platelet Count 234 X10*3/uL (160-400); Red Blood Count 3.46 X10*6/uL (4.20-5.50); Red Cell Distribution Width 12.4 % (11.0-16.0); White Blood Count 4.7 X10*3/uL (4.8-10.8)
[2021-04-28 08:00] LABS: Alanine Aminotransferase 31 U/L (0-31); Albumin Level 3.8 g/dL (3.5-5.0); Alkaline Phosphatase 101 U/L (39-117); Anion Gap 11 (12-20); Aspartate Amino Transferase 38 U/L (5-31); Bilirubin Total 0.8 mg/dL (0.0-1.0); Blood Urea Nitrogen 17 mg/dL (9-16); Calcium 9.2 mg/dL (8.4-10.2); Carbon Dioxide 27 mmol/L (22-29); Chloride 97 mmol/L (96-108); Cholesterol 126 mg/dL; Estimated Glomerular Filt Rate > 60; Glucose Fasting 90 mg/dL (60-99); HDL Cholesterol 75 mg/dL; LDL Cholesterol Calculated 44 mg/dl; Potassium 4.5 mmol/L (3.3-5.1); Sodium 130 mmol/L (135-145); Total Protein 6.2 g/dL (6.5-8.0); Triglycerides 35 mg/dL
== END 2021-04-28 06:43 | disposition home or self-care (01) ==
LOC: HO.LAB 06:42
PROVIDERS: PCP Internal Medicine Medical Oncology; Visit Provider Internal Medicine Medical Oncology
DX: G45.9 Transient cerebral ischemic attack, unspecified (principal); K21.9 Gastro-esophageal reflux disease without esophagitis; D72.819 Decreased white blood cell count, unspecified
CPT/HCPCS: 36415; 80053; 80061; 85025

== ENCOUNTER 2021-06-01 06:09 | Outpatient (REF) | payer MEDICARE, OTHER, SELFPAY ==
[2021-06-01 06:20] LABS: MANUAL DIFF FLAG NO
[2021-06-01 07:56] LABS: Basophils Percent Auto 0.5 % (0-2); Eosinophils Absolute Auto 0.2 X10*3/uL (0.0-0.4); Hematocrit 33.7 % (37.0-47.0); Hemoglobin 10.8 g/dl (12.0-16.0); Imm Gran Abs Auto 0.02 X10*3/uL (0.00-0.03); Imm Gran Pct Auto 0.3 % (0.0-0.4); Lymphocytes Percent Auto 16.9 % (20-40); Mean Corpuscular Hemoglobin 32.7 pg (27.0-33.0); Mean Corpuscular Volume 102.1 fL (80.0-98.0); Mean Platelet Volume 9.6 fL (9.4-12.3); Monocytes Absolute Auto 0.5 X10*3/uL (0.1-1.2); Monocytes Percent Auto 8.9 % (2-11); Neutrophils Absolute Auto 4.3 x10*3/uL (2.0-8.3); Neutrophils Percent Auto 70.4 % (45-73); Platelet Count 419 X10*3/uL (160-400); Red Cell Distribution Width 15.9 % (11.0-16.0)
[2021-06-01 08:17] LABS: Alanine Aminotransferase 40 U/L (0-31); Albumin Level 3.9 g/dL (3.5-5.0); Alkaline Phosphatase 96 U/L (39-117); Anion Gap 11 (12-20); Aspartate Amino Transferase 29 U/L (5-31); Bilirubin Total 0.9 mg/dL (0.0-1.0); Blood Urea Nitrogen 27 mg/dL (9-16); Calcium 9.3 mg/dL (8.4-10.2); Carbon Dioxide 29 mmol/L (22-29); Chloride 101 mmol/L (96-108); Estimated Glomerular Filt Rate > 60; Glucose Random 97 mg/dL (60-115); Potassium 4.5 mmol/L (3.3-5.1); Sodium 136 mmol/L (135-145); Total Protein 6.5 g/dL (6.5-8.0)
== END 2021-06-01 06:10 | disposition home or self-care (01) ==
LOC: HO.LAB 06:09
PROVIDERS: PCP Internal Medicine Medical Oncology; Visit Provider Internal Medicine Medical Oncology
DX: D72.819 Decreased white blood cell count, unspecified (principal); E87.0 Hyperosmolality and hypernatremia
CPT/HCPCS: 36415; 80053; 85025

== ENCOUNTER 2021-09-09 06:22 | Outpatient (REF) | payer MEDICARE, OTHER, SELFPAY ==
[2021-09-09 06:49] LABS: MANUAL DIFF FLAG NO
[2021-09-09 07:30] LABS: Basophils Percent Auto 0.3 % (0-2); Eosinophils Absolute Auto 0.1 X10*3/uL (0.0-0.4); Eosinophils Percent Auto 1.2 % (0-4); Hematocrit 36.1 % (37.0-47.0); Imm Gran Abs Auto 0.02 X10*3/uL (0.00-0.03); Imm Gran Pct Auto 0.3 % (0.0-0.4); Lymphocytes Percent Auto 15.9 % (20-40); Mean Corpuscular HGB Conc 33.2 g/dl (31.0-35.0); Mean Corpuscular Hemoglobin 31.9 pg (27.0-33.0); Mean Platelet Volume 10.2 fL (9.4-12.3); Monocytes Absolute Auto 0.5 X10*3/uL (0.1-1.2); Monocytes Percent Auto 7.5 % (2-11); Neutrophils Absolute Auto 4.5 x10*3/uL (2.0-8.3); Neutrophils Percent Auto 74.8 % (45-73); Platelet Count 239 X10*3/uL (160-400); Red Blood Count 3.76 X10*6/uL (4.20-5.50); Red Cell Distribution Width 12.4 % (11.0-16.0)
[2021-09-09 07:51] LABS: Alanine Aminotransferase 20 U/L (0-31); Albumin Level 3.8 g/dL (3.5-5.0); Alkaline Phosphatase 94 U/L (39-117); Anion Gap 12 (12-20); Aspartate Amino Transferase 27 U/L (5-31); Bilirubin Total 0.5 mg/dL (0.0-1.0); Blood Urea Nitrogen 24 mg/dL (9-16); Calcium 8.8 mg/dL (8.4-10.2); Carbon Dioxide 26 mmol/L (22-29); Chloride 93 mmol/L (96-108); Cholesterol 140 mg/dL; Estimated Glomerular Filt Rate > 60; Glucose Fasting 92 mg/dL (60-99); HDL Cholesterol 73 mg/dL; LDL Cholesterol Calculated 56 mg/dl; Potassium 4.3 mmol/L (3.3-5.1); Sodium 127 mmol/L (135-145); Total Protein 6.4 g/dL (6.5-8.0); Triglycerides 56 mg/dL
== END 2021-09-09 06:23 | disposition home or self-care (01) ==
LOC: HO.LAB 06:22
PROVIDERS: PCP Internal Medicine Medical Oncology; Visit Provider Internal Medicine Medical Oncology
DX: I77.3 Arterial fibromuscular dysplasia (principal); D72.819 Decreased white blood cell count, unspecified
CPT/HCPCS: 36415; 80053; 80061; 85025

== ENCOUNTER → 2021-10-03 13:13 | Outpatient (BNVA) | payer MEDICARE, OTHER, SELFPAY | PROVIDERS: PCP Internal Medicine Medical Oncology; Referring Provider Internal Medicine Medical Oncology; Visit Provider Internal Medicine Cardiovascular Disease | DX: I77.3 Arterial fibromuscular dysplasia (principal); G45.3 Amaurosis fugax | CPT/HCPCS: 93005; 99212 ==

== ENCOUNTER 2021-11-29 06:27 | Outpatient (REF) | payer MEDICARE, OTHER, SELFPAY ==
[2021-11-29 07:07] LABS: Blood Urea Nitrogen 24 mg/dL (9-16); Estimated Glomerular Filt Rate 57
== END 2021-11-29 06:28 | disposition home or self-care (01) ==
LOC: HO.LAB 06:27
PROVIDERS: Absent Provider Surgery Vascular Surgery; PCP Internal Medicine Medical Oncology; Visit Provider Internal Medicine Medical Oncology
DX: I71.4 Abdominal aortic aneurysm, without rupture (principal)
CPT/HCPCS: 36415; 82565; 84520

== ENCOUNTER 2021-12-02 09:06 | Outpatient (REF) | payer MEDICARE, OTHER, SELFPAY ==
--- NOTE | ~2021-12-02 | MM_ITS ---
EXAMINATION: MM SCREENING DIGITAL BREAST TOMOSYNTHESIS, BILATERAL CLINICAL INFORMATION: Screening. Asymptomatic. The lifetime risk of breast cancer based on the Tyrer-Cuzick Model is 2%. COMPARISON: Mammography: 11/19/2020, 08/06/2019, 08/07/2018 TECHNIQUE: Digital breast tomosynthesis is performed in both the craniocaudal and mediolateral oblique views along with computer-aided detection (CAD). Synthesized 2D images are generated from the tomosynthesis. FINDINGS: There are scattered areas of fibroglandular density (ACR BI-RADS breast composition Category b). There are no significant masses, abnormal calcifications, or other abnormalities. Parenchymal pattern is similar to prior studies. The axilla and skin contours are unremarkable. MM/MM tomosynthesis screening BI IMPRESSION: No mammographic evidence of malignancy. ASSESSMENT: BI-RADS 1: Negative RECOMMENDATION: Routine annual mammography screening. This patient's information was entered into a reminder system with a target due date for their next mammogram.
== END 2021-12-02 09:07 | disposition home or self-care (01) ==
LOC: HO.MAMMO 09:06
PROVIDERS: Visit Provider Internal Medicine Medical Oncology
DX: Z12.31 Encounter for screening mammogram for malignant neoplasm of breast (principal)
CPT/HCPCS: 77063; 77067

== ENCOUNTER 2022-02-09 06:09 | Outpatient (REF) | payer MEDICARE, OTHER, SELFPAY ==
[2022-02-09 06:26] LABS: MANUAL DIFF FLAG NO
[2022-02-09 07:23] LABS: Basophils Percent Auto 0.5 % (0-2); Eosinophils Absolute Auto 0.1 X10*3/uL (0.0-0.4); Eosinophils Percent Auto 3.3 % (0-4); Hematocrit 34.9 % (37.0-47.0); Hemoglobin 11.7 g/dl (12.0-16.0); Imm Gran Abs Auto 0.01 X10*3/uL (0.00-0.03); Imm Gran Pct Auto 0.2 % (0.0-0.4); Lymphocytes Absolute Auto 1.1 X10*3/uL (1.2-4.9); Lymphocytes Percent Auto 26.4 % (20-40); Mean Corpuscular HGB Conc 33.5 g/dl (31.0-35.0); Mean Corpuscular Hemoglobin 33.1 pg (27.0-33.0); Mean Corpuscular Volume 98.6 fL (80.0-98.0); Mean Platelet Volume 10.8 fL (9.4-12.3); Monocytes Absolute Auto 0.4 X10*3/uL (0.1-1.2); Monocytes Percent Auto 10.4 % (2-11); Neutrophils Absolute Auto 2.5 x10*3/uL (2.0-8.3); Neutrophils Percent Auto 59.2 % (45-73); Platelet Count 229 X10*3/uL (160-400); Red Blood Count 3.54 X10*6/uL (4.20-5.50); Red Cell Distribution Width 12.3 % (11.0-16.0); White Blood Count 4.3 X10*3/uL (4.8-10.8)
[2022-02-09 07:47] LABS: Alanine Aminotransferase 25 U/L (0-31); Albumin Level 3.9 g/dL (3.5-5.0); Alkaline Phosphatase 94 U/L (39-117); Anion Gap 15 (12-20); Aspartate Amino Transferase 37 U/L (5-31); Bilirubin Total 0.8 mg/dL (0.0-1.0); Blood Urea Nitrogen 24 mg/dL (9-16); Calcium 8.9 mg/dL (8.4-10.2); Carbon Dioxide 26 mmol/L (22-29); Chloride 95 mmol/L (96-108); Cholesterol 133 mg/dL; Estimated Glomerular Filt Rate > 60; Glucose Fasting 86 mg/dL (60-99); HDL Cholesterol 76 mg/dL; LDL Cholesterol Calculated 50 mg/dl; Potassium 4.5 mmol/L (3.3-5.1); Sodium 131 mmol/L (135-145); Total Protein 6.5 g/dL (6.5-8.0); Triglycerides 35 mg/dL
== END 2022-02-09 06:10 | disposition home or self-care (01) ==
LOC: HO.LAB 06:09
PROVIDERS: PCP Internal Medicine Medical Oncology; Visit Provider Internal Medicine Medical Oncology
DX: H34.9 Unspecified retinal vascular occlusion (principal); E22.2 Syndrome of inappropriate secretion of antidiuretic hormone; Z85.828 Personal history of other malignant neoplasm of skin
CPT/HCPCS: 36415; 80053; 80061; 85025

== ENCOUNTER 2022-02-24 09:01 | Outpatient (REF) | payer MEDICARE, OTHER, SELFPAY ==
--- NOTE | ~2022-02-24 | CT_ITS ---
EXAMINATION: CT CHEST WITHOUT CONTRAST CLINICAL INFORMATION: Abnormal finding of lung field. Follow-up patchy groundglass disease. COMPARISON: Previous chest x-ray and chest CTA April 2020 TECHNIQUE: Multidetector volumetric CT imaging of the chest was done. Axial MIP volume rendering provided. Sagittal and coronal reformatted images were obtained. This CT examination was performed using dose optimization techniques as appropriate, variously including the following: *Automated exposure control *Adjustment of mA and/or kV according to patient size (this includes techniques or standardized protocols for targeted exams where dose is matched to indication/reason for exam; i.e. extremities or head) *Use of iterative reconstruction technique DLP: 81 mGy-cm FINDINGS: LAW LIBRARIAN: Scoliosis. LUNGS: The lungs are clear. No groundglass opacities or infiltrate is seen. No bronchiectasis, interstitial lung disease or emphysema. No endobronchial or endotracheal lesion. Small right posterior lateral tracheal diverticulum axial image 55 series 5. Mild linear scarring or subsegmental atelectasis in the right middle lobe and left lower lobe. MEDIASTINUM: Normal CORONARY ARTERY CALCIFICATION: Mild PLEURA: There is no pleural effusion. No pleural mass or thickening. AXILLA: No lymphadenopathy. UPPER ABDOMEN: Small stable 1 cm low-attenuation lesion in the right lobe of the liver from 2019 exam suggestive of a cyst. OSSEOUS STRUCTURES: Scoliosis and degenerative changes. CT/CT chest wo IV con IMPRESSION: Linear scarring or subsegmental atelectasis at the lung bases. No infiltrate or groundglass opacity seen. Fleischner guidelines were followed.
== END 2022-02-24 09:02 | disposition home or self-care (01) ==
LOC: HO.CT 09:01
PROVIDERS: PCP Internal Medicine Medical Oncology; Visit Provider Internal Medicine Medical Oncology
DX: R91.8 Other nonspecific abnormal finding of lung field (principal)
CPT/HCPCS: 71250

== ENCOUNTER 2022-09-15 06:27 | Outpatient (REF) | payer MEDICARE, OTHER, SELFPAY ==
[2022-09-15 06:42] LABS: MANUAL DIFF FLAG NO
[2022-09-15 08:02] LABS: Basophils Percent Auto 0.5 % (0-2); Eosinophils Absolute Auto 0.1 X10*3/uL (0.0-0.4); Eosinophils Percent Auto 2.9 % (0-4); Hematocrit 34.5 % (37.0-47.0); Hemoglobin 11.5 g/dl (12.0-16.0); Imm Gran Abs Auto 0.01 X10*3/uL (0.00-0.03); Imm Gran Pct Auto 0.2 % (0.0-0.4); Lymphocytes Percent Auto 23.1 % (20-40); Mean Corpuscular HGB Conc 33.3 g/dl (31.0-35.0); Mean Corpuscular Hemoglobin 32.4 pg (27.0-33.0); Mean Corpuscular Volume 97.2 fL (80.0-98.0); Mean Platelet Volume 10.4 fL (9.4-12.3); Monocytes Absolute Auto 0.5 X10*3/uL (0.1-1.2); Monocytes Percent Auto 10.9 % (2-11); Neutrophils Absolute Auto 2.8 x10*3/uL (2.0-8.3); Neutrophils Percent Auto 62.4 % (45-73); Platelet Count 254 X10*3/uL (160-400); Red Blood Count 3.55 X10*6/uL (4.20-5.50); Red Cell Distribution Width 13.2 % (11.0-16.0); White Blood Count 4.4 X10*3/uL (4.8-10.8)
[2022-09-15 08:57] LABS: Alanine Aminotransferase 29 U/L (0-31); Albumin Level 3.9 g/dL (3.5-5.0); Alkaline Phosphatase 89 U/L (39-117); Anion Gap 11 (12-20); Aspartate Amino Transferase 34 U/L (5-31); Bilirubin Total 0.7 mg/dL (0.0-1.0); Blood Urea Nitrogen 34 mg/dL (9-16); Calcium 8.9 mg/dL (8.4-10.2); Carbon Dioxide 26 mmol/L (22-29); Chloride 99 mmol/L (96-108); Cholesterol 144 mg/dL; Estimated Glomerular Filt Rate 37; Glucose Fasting 84 mg/dL (60-99); HDL Cholesterol 74 mg/dL; LDL Cholesterol Calculated 61 mg/dl; Potassium 5.2 mmol/L (3.3-5.1); Sodium 131 mmol/L (135-145); Total Protein 6.2 g/dL (6.5-8.0); Triglycerides 45 mg/dL; Vitamin D 25-OH Total 41.6 ng/mL (>30)
== END 2022-09-15 06:28 | disposition home or self-care (01) ==
LOC: HO.LAB 06:27
PROVIDERS: PCP Internal Medicine Medical Oncology; Visit Provider Internal Medicine Medical Oncology
DX: H34.9 Unspecified retinal vascular occlusion (principal); M81.0 Age-related osteoporosis without current pathological fracture; K21.9 Gastro-esophageal reflux disease without esophagitis; Z86.73 Personal history of transient ischemic attack (TIA), and cerebral infarction without residual deficits
CPT/HCPCS: 36415; 80053; 80061; 82306; 85025

== ENCOUNTER → 2022-11-15 14:13 | Outpatient (BNVA) | payer MEDICARE, OTHER, SELFPAY | PROVIDERS: PCP Internal Medicine Medical Oncology; Visit Provider Physician Assistant | DX: Z12.11 Encounter for screening for malignant neoplasm of colon (principal); K21.9 Gastro-esophageal reflux disease without esophagitis | CPT/HCPCS: 99202 ==

== ENCOUNTER 2022-12-08 09:29 | Outpatient (REF) | payer MEDICARE, OTHER, SELFPAY ==
--- NOTE | ~2022-12-08 | MM_ITS ---
EXAMINATION: MM SCREENING DIGITAL BREAST TOMOSYNTHESIS, BILATERAL CLINICAL INFORMATION: Screening. Asymptomatic. The lifetime risk of breast cancer based on the Tyrer-Cuzick Model is 8.2%. COMPARISON: Mammography: This study is compared with prior exams dating back to 2019. TECHNIQUE: Digital breast tomosynthesis is performed in both the craniocaudal and mediolateral oblique views along with computer-aided detection (CAD). Synthesized 2D images are generated from the tomosynthesis. FINDINGS: There are scattered areas of fibroglandular density (ACR BI-RADS breast composition Category b). There are no significant masses, abnormal calcifications, or other abnormalities. There is tissue marker present in the superior aspect of the left breast from prior benign percutaneous biopsy. MM/MM tomosynthesis screening BI IMPRESSION: No mammographic evidence of malignancy. ASSESSMENT: BI-RADS BI-RADS 2 - Benign Findings RECOMMENDATION: Routine annual mammography screening. 1 year F/U This examination should not preclude the clinical evaluation of a suspicious palpable abnormality. This patient's information was entered into a reminder system with a target due date for their next mammogram.
== END 2022-12-08 09:30 | disposition home or self-care (01) ==
LOC: HO.MAMMO 09:29
PROVIDERS: PCP Internal Medicine Medical Oncology; Visit Provider Internal Medicine Medical Oncology
DX: Z12.31 Encounter for screening mammogram for malignant neoplasm of breast (principal)
CPT/HCPCS: 77063; 77067

== ENCOUNTER → 2022-12-08 09:45 | Outpatient (BNV) | payer MEDICARE, OTHER, SELFPAY | PROVIDERS: PCP Internal Medicine Medical Oncology; Visit Provider Radiology Diagnostic Radiology | DX: Z12.31 Encounter for screening mammogram for malignant neoplasm of breast (principal) | CPT/HCPCS: 77063; 77067 ==

== ENCOUNTER 2023-01-08 06:50 | Outpatient (REF) | payer MEDICARE, OTHER, SELFPAY ==
[2023-01-08 07:08] LABS: MANUAL DIFF FLAG NO
[2023-01-08 07:16] LABS: Basophils Percent Auto 0.4 % (0-2); Eosinophils Absolute Auto 0.2 X10*3/uL (0.0-0.4); Eosinophils Percent Auto 3.8 % (0-4); Hematocrit 35.2 % (37.0-47.0); Hemoglobin 11.9 g/dl (12.0-16.0); Imm Gran Abs Auto 0.01 X10*3/uL (0.00-0.03); Imm Gran Pct Auto 0.2 % (0.0-0.4); Lymphocytes Absolute Auto 1.3 X10*3/uL (1.2-4.9); Lymphocytes Percent Auto 28.1 % (20-40); Mean Corpuscular HGB Conc 33.8 g/dl (31.0-35.0); Mean Corpuscular Hemoglobin 32.7 pg (27.0-33.0); Mean Corpuscular Volume 96.7 fL (80.0-98.0); Mean Platelet Volume 9.9 fL (9.4-12.3); Monocytes Absolute Auto 0.6 X10*3/uL (0.1-1.2); Monocytes Percent Auto 12.8 % (2-11); Neutrophils Absolute Auto 2.5 x10*3/uL (2.0-8.3); Neutrophils Percent Auto 54.7 % (45-73); Platelet Count 221 X10*3/uL (160-400); Red Blood Count 3.64 X10*6/uL (4.20-5.50); Red Cell Distribution Width 12.6 % (11.0-16.0); White Blood Count 4.5 X10*3/uL (4.8-10.8)
[2023-01-08 10:18] LABS: Alanine Aminotransferase 28 U/L (0-31); Albumin Level 3.8 g/dL (3.5-5.0); Alkaline Phosphatase 84 U/L (39-117); Anion Gap 12 (12-20); Aspartate Amino Transferase 38 U/L (5-31); Bilirubin Total 0.7 mg/dL (0.0-1.0); Blood Urea Nitrogen 28 mg/dL (9-16); Calcium 9.6 mg/dL (8.4-10.2); Carbon Dioxide 27 mmol/L (22-29); Chloride 97 mmol/L (96-108); Cholesterol 140 mg/dL; Estimated Glomerular Filt Rate 49; Glucose Fasting 89 mg/dL (60-99); HDL Cholesterol 78 mg/dL; LDL Cholesterol Calculated 56 mg/dl; Potassium 5.6 mmol/L (3.3-5.1); Sodium 130 mmol/L (135-145); Total Protein 6.8 g/dL (6.5-8.0); Triglycerides 33 mg/dL
== END 2023-01-08 06:51 | disposition home or self-care (01) ==
LOC: HO.LAB 06:50
PROVIDERS: PCP Internal Medicine Medical Oncology; Visit Provider Internal Medicine Medical Oncology
DX: Z00.00 Encounter for general adult medical examination without abnormal findings (principal); D72.819 Decreased white blood cell count, unspecified; K21.9 Gastro-esophageal reflux disease without esophagitis; G45.9 Transient cerebral ischemic attack, unspecified
CPT/HCPCS: 36415; 80053; 80061; 85025

== ENCOUNTER 2023-05-30 06:31 | Outpatient (REF) | payer MEDICARE, OTHER, SELFPAY ==
[2023-05-30 06:43] LABS: MANUAL DIFF FLAG NO
[2023-05-30 07:55] LABS: Basophils Percent Auto 0.7 % (0-2); Eosinophils Absolute Auto 0.2 X10*3/uL (0.0-0.4); Eosinophils Percent Auto 3.5 % (0-4); Hematocrit 35.2 % (37.0-47.0); Hemoglobin 11.9 g/dl (12.0-16.0); Lymphocytes Percent Auto 23.6 % (20-40); Mean Corpuscular HGB Conc 33.8 g/dl (31.0-35.0); Mean Corpuscular Hemoglobin 32.6 pg (27.0-33.0); Mean Corpuscular Volume 96.4 fL (80.0-98.0); Mean Platelet Volume 10.6 fL (9.4-12.3); Monocytes Absolute Auto 0.5 X10*3/uL (0.1-1.2); Monocytes Percent Auto 12.3 % (2-11); Neutrophils Absolute Auto 2.5 x10*3/uL (2.0-8.3); Neutrophils Percent Auto 59.9 % (45-73); Platelet Count 239 X10*3/uL (160-400); Red Blood Count 3.65 X10*6/uL (4.20-5.50); Red Cell Distribution Width 13.1 % (11.0-16.0); White Blood Count 4.2 X10*3/uL (4.8-10.8)
[2023-05-30 08:04] LABS: Alanine Aminotransferase 26 U/L (0-31); Alkaline Phosphatase 90 U/L (39-117); Anion Gap 9 (12-20); Aspartate Amino Transferase 38 U/L (5-31); Bilirubin Total 0.8 mg/dL (0.0-1.0); Blood Urea Nitrogen 25 mg/dL (9-16); Carbon Dioxide 28 mmol/L (22-29); Chloride 97 mmol/L (96-108); Cholesterol 133 mg/dL (<200); Estimated Glomerular Filt Rate > 60; Glucose Random 92 mg/dL (60-115); HDL Cholesterol 79 mg/dL (>40); LDL Cholesterol Calculated 47 mg/dL (<100); Potassium 4.6 mmol/L (3.3-5.1); Sodium 129 mmol/L (135-145); Total Protein 6.9 g/dL (6.5-8.0); Triglycerides 36 mg/dL (<150)
== END 2023-05-30 06:32 | disposition home or self-care (01) ==
LOC: HO.LAB 06:31
PROVIDERS: PCP Internal Medicine Medical Oncology; Visit Provider Internal Medicine Medical Oncology
DX: F41.9 Anxiety disorder, unspecified (principal); K21.9 Gastro-esophageal reflux disease without esophagitis; D72.819 Decreased white blood cell count, unspecified
CPT/HCPCS: 36415; 80053; 80061; 85025

== ENCOUNTER 2023-11-23 06:19 | Outpatient (REF) | payer MEDICARE, OTHER, SELFPAY ==
[2023-11-23 06:39] LABS: MANUAL DIFF FLAG NO
[2023-11-23 07:16] LABS: Basophils Percent Auto 0.4 % (0-2); Eosinophils Absolute Auto 0.1 X10*3/uL (0.0-0.4); Eosinophils Percent Auto 3.1 % (0-4); Hematocrit 35.2 % (37.0-47.0); Hemoglobin 11.9 g/dl (12.0-16.0); Imm Gran Abs Auto 0.01 X10*3/uL (0.00-0.03); Imm Gran Pct Auto 0.2 % (0.0-0.4); Lymphocytes Absolute Auto 1.2 X10*3/uL (1.2-4.9); Lymphocytes Percent Auto 25.8 % (20-40); Mean Corpuscular HGB Conc 33.8 g/dl (31.0-35.0); Mean Corpuscular Hemoglobin 32.8 pg (27.0-33.0); Mean Platelet Volume 10.5 fL (9.4-12.3); Monocytes Absolute Auto 0.6 X10*3/uL (0.1-1.2); Monocytes Percent Auto 12.7 % (2-11); Neutrophils Absolute Auto 2.6 x10*3/uL (2.0-8.3); Neutrophils Percent Auto 57.8 % (45-73); Platelet Count 237 X10*3/uL (160-400); Red Blood Count 3.63 X10*6/uL (4.20-5.50); Red Cell Distribution Width 12.9 % (11.0-16.0); White Blood Count 4.5 X10*3/uL (4.8-10.8)
[2023-11-23 07:45] LABS: Alanine Aminotransferase 25 U/L (0-31); Albumin Level 3.9 g/dL (3.5-5.0); Alkaline Phosphatase 87 U/L (39-117); Anion Gap 12 (12-20); Aspartate Amino Transferase 37 U/L (5-31); Bilirubin Total 0.5 mg/dL (0.0-1.0); Blood Urea Nitrogen 31 mg/dL (9-16); Calcium 9.5 mg/dL (8.4-10.2); Carbon Dioxide 27 mmol/L (22-29); Chloride 101 mmol/L (96-108); Cholesterol 135 mg/dL (<200); Estimated Glomerular Filt Rate 49; Glucose Fasting 85 mg/dL (60-99); HDL Cholesterol 78 mg/dL (>40); LDL Cholesterol Calculated 51 mg/dL (<100); Potassium 4.7 mmol/L (3.3-5.1); Sodium 135 mmol/L (135-145); Total Protein 6.7 g/dL (6.5-8.0); Triglycerides 34 mg/dL (<150)
== END 2023-11-23 06:20 | disposition home or self-care (01) ==
LOC: HO.LAB 06:19
PROVIDERS: PCP Internal Medicine Medical Oncology; Visit Provider Internal Medicine Medical Oncology
DX: F41.9 Anxiety disorder, unspecified (principal); K21.9 Gastro-esophageal reflux disease without esophagitis; D72.819 Decreased white blood cell count, unspecified
CPT/HCPCS: 36415; 80053; 80061; 85025

== ENCOUNTER 2024-03-27 06:16 | Outpatient (REF) | payer MEDICARE, OTHER, SELFPAY ==
[2024-03-27 06:35] LABS: MANUAL DIFF FLAG NO
[2024-03-27 08:03] LABS: Basophils Percent Auto 0.5 % (0-2); Eosinophils Absolute Auto 0.2 X10*3/uL (0.0-0.4); Eosinophils Percent Auto 5.5 % (0-4); Hematocrit 34.2 % (37.0-47.0); Hemoglobin 11.5 g/dl (12.0-16.0); Imm Gran Abs Auto 0.01 X10*3/uL (0.00-0.03); Imm Gran Pct Auto 0.2 % (0.0-0.4); Lymphocytes Percent Auto 23.6 % (20-40); Mean Corpuscular HGB Conc 33.6 g/dl (31.0-35.0); Mean Platelet Volume 10.3 fL (9.4-12.3); Monocytes Absolute Auto 0.5 X10*3/uL (0.1-1.2); Monocytes Percent Auto 12.3 % (2-11); Neutrophils Absolute Auto 2.4 x10*3/uL (2.0-8.3); Neutrophils Percent Auto 57.9 % (45-73); Platelet Count 234 X10*3/uL (160-400); Red Blood Count 3.49 X10*6/uL (4.20-5.50); Red Cell Distribution Width 13.2 % (11.0-16.0); White Blood Count 4.2 X10*3/uL (4.8-10.8)
[2024-03-27 08:50] LABS: Alanine Aminotransferase 27 U/L (0-31); Albumin Level 3.8 g/dL (3.5-5.0); Anion Gap 13 (12-20); Aspartate Amino Transferase 39 U/L (5-31); Bilirubin Total 0.4 mg/dL (0.0-1.0); Blood Urea Nitrogen 26 mg/dL (9-16); Calcium 8.8 mg/dL (8.4-10.2); Carbon Dioxide 27 mmol/L (22-29); Chloride 97 mmol/L (96-108); Cholesterol 138 mg/dL (<200); Estimated Glomerular Filt Rate 56; Glucose Fasting 84 mg/dL (60-99); HDL Cholesterol 75 mg/dL (>40); LDL Cholesterol Calculated 55 mg/dL (<100); Potassium 4.8 mmol/L (3.3-5.1); Sodium 132 mmol/L (135-145); Total Protein 6.4 g/dL (6.5-8.0); Triglycerides 41 mg/dL (<150)
[2024-03-27 08:55] LABS: Alkaline Phosphatase 85 U/L (39-117)
[2024-03-27 09:09] LABS: Vitamin D 25-OH Total 33.4 ng/mL (>30)
== END 2024-03-27 06:17 | disposition home or self-care (01) ==
LOC: HO.LAB 06:16
PROVIDERS: PCP Internal Medicine Medical Oncology; Visit Provider Internal Medicine Medical Oncology
DX: K21.9 Gastro-esophageal reflux disease without esophagitis (principal); D72.819 Decreased white blood cell count, unspecified; E55.9 Vitamin D deficiency, unspecified
CPT/HCPCS: 36415; 80053; 80061; 82306; 85025

== ENCOUNTER 2024-04-17 13:55 | Outpatient (REF) | payer MEDICARE, OTHER, SELFPAY ==
--- NOTE | ~2024-04-17 | XR_ITS ---
EXAMINATION: XR LUMBOSACRAL SPINE CLINICAL INFORMATION: BACK PAIN,HIP PAIN COMPARISON: None available. TECHNIQUE: Three views of the lumbosacral spine. FINDINGS: S-shaped curvature of the lumbar spine with a dextroconvex rotoscoliosis apex at L2 and a levoconvex curvature at L3-4. Multilevel marginal osteophyte formation and decreased intervertebral disc height with vacuum phenomenon at L3-4 and L4-5 levels. No acute cortical disruption. No gross malalignment. No lytic or blastic lesions. Abundant stool. XR/XR lumbar spine 2-3V IMPRESSION: Scoliosis and multilevel spondylosis without acute fracture or gross listhesis. Electronically signed by: Jaylen Bee MD 04/18/2024 08:20 AM PATRICK ALVAREZ
--- NOTE | ~2024-04-17 | XR_ITS ---
EXAMINATION: XR BILATERAL HIPS WITH AP PELVIS CLINICAL INFORMATION: BACK PAIN,HIP PAIN COMPARISON: None available. TECHNIQUE: AP view of the pelvis and single views of each hip were obtained. FINDINGS: No acute cortical disruption or malalignment in either coxofemoral joint. The bony pelvis is grossly intact. S-shaped curvature of the lumbar spine. No lytic or blastic lesions. XR/XR hip BI w PEL1V IMPRESSION: No acute fracture or dislocation in either hip. Electronically signed by: Jaylen Bee MD 04/18/2024 08:18 AM PATRICK ALVAREZ
== END 2024-04-17 13:56 | disposition home or self-care (01) ==
LOC: HO.XRAY 13:55
PROVIDERS: PCP Internal Medicine Medical Oncology; Visit Provider Internal Medicine Medical Oncology
DX: M54.9 Dorsalgia, unspecified (principal); M25.551 Pain in right hip; M25.552 Pain in left hip
CPT/HCPCS: 72100; 73521

== ENCOUNTER → 2024-04-17 14:08 | Outpatient (BNV) | payer MEDICARE, OTHER, SELFPAY | PROVIDERS: PCP Internal Medicine Medical Oncology; Visit Provider Radiology Diagnostic Radiology | DX: M54.9 Dorsalgia, unspecified (principal); M25.551 Pain in right hip; M25.552 Pain in left hip | CPT/HCPCS: 72100; 73521 ==

== ENCOUNTER 2024-07-03 06:15 | Outpatient (REF) | payer MEDICARE, OTHER, SELFPAY ==
--- OUTSIDE RECORDS SUMMARY | 2024-07-03 06:18 | XMS_ITS | Referral Summary ---
Author Organization [facility] Address [address] [place] [address] Care Team Providers Care Tree Killer Name Role Phone Lalit Aguirre Primary Care Provider [phone] Allergies Active Allergy Reactions Criticality Noted Date Comments Bee Venom Protein (Honey Bee) Hives,Itching 05/02/2021 House Dust Rhinorrhea 05/02/2021 MOLD, DUST MITES (POST NASAL DRIP) Mold Unknown 05/11/2022 Penicillin Angioedema High 03/02/2021 Medications esomeprazole (NexIUM) 40 mg capsule Take 40 mg by mouth every morning before breakfast. Active mirabegron (MYRBETRIQ) 50 mg tablet Take 50 mg by mouth once a day. Active atorvastatin (LIPITOR) 40 mg tablet Take 40 mg by mouth every night. Active biotin 1 mg tablet Take 1,000 mcg by mouth once a day. Active cholecalciferol (VITAMIN D3) 1,000 unit tablet Take 1,000 Units by mouth once a day. Active vitamin B complex capsule Take 1 capsule by mouth once a day. Active aspirin 81 mg EC tablet Take 1 tablet (81 mg total) by mouth once a day. 05/13/2022 Active multivitamin tablet Take 1 tablet by mouth once a day. 0 05/13/2022 Active Brilinta 90 mg tablet TAKE 1 TABLET BY MOUTH TWICE A DAY 60 tablet 07/02/2022 Active multivitamin-ir on-folic acid 18-400 mg-mcg tablet Take 1 tablet by mouth. 05/13/2022 Active fluoruracil (CARAC) 0.5 % cream 11/08/2023 Active Active Problems Problem Noted Date Diagnosed Date Hyponatremia 05/18/2021 Assessment & Plan (05/19/2021 11:41 AM EST): Patient has a history of chronic hyponatremia for which she has been counseled on decreasing her water intake and increasing her salt intake. Her baseline from the limited lab information in this system appears to be around 124-126. She had a precipitous drop from 126 to 113, now at 114 s/p fluid restriction and salt tablets. 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 Despite her chronic hyponatremia, this represents a significant acute drop in her serum sodium, so it should be treated quickly to increase her serum sodium by 10 mEq to bring her back to her personal baseline. On 05/18, she received 2x salt tabs (1 g each), 50 cc bolus 3% saline, 2 mcg DDAVP, and 500 cc 3% saline via 6 hour drip. As of 05/19 am, Na was 120. - Recommended another 3% saline drip for a total of 500 cc over 6 hours. This is approximately 80 cc/hr for 6 hours. She should NOT receive greater than 500 cc. This has recommendation has been communicated with the team and appears drip has begun as of writing this note - Check Na q4 and 1-2 hours after drip has stopped - Continue fluid restriction - Ok to continue salt tabs given large Na volume given with drip, unlikely to cause significant change to Na Fibromuscular dysplasia (CMS/HCC) 05/17/2021 Assessment & Plan (05/30/2021 2:37 PM EST): 75F PMH FMD presents to clinic for follow up s/p R ICA dilation and reimplantation by Dr. Morales in Apr 2021. She has been doing well without any issues. Her CDUS today shows mild elevated velocities in the R ICA which we will continue to monitor. She will followup in 6mo with repeat CDUS and renal artery ultrasound as well due to her history of FMD. In the meantime, she can engage in all activities and she is planning on going to [place] for the winter. Continue plavix and aspirin daily. Thank you for allowing us to participate in the care of this pleasant patient, please do not heistate to contact us with additional questions or concerns. Gastroesophageal reflux disease 05/12/2021 Resolved Problems Problem Noted Date Diagnosed Date Resolved Date Anemia 05/11/2022 05/12/2022 Assessment & Plan (05/12/2022 10:03 AM EST): Acute blood loss anemia following left brachial hematoma s/p left brachial hematoma evacuation. Transfuse if hgb < 7 if clinically indicated Hyponatremia 05/10/2022 05/12/2022 Assessment & Plan (05/12/2022 11:28 AM EST): History of FMD now s/p trans-carotid artery revascularization with flow reversal embolic protection. She has a history of chronic hyponatremia on salt tabs and fluid restriction. Prior surgery she increased her water intake which led to sodium dilution from SIADH. Repeat serum osm 251, urine osm 398, urine sodium 67 consistent with SIADH. 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 worker as outpatient -If the patient remains hospitalized goal of sodium correction to 135/24hrs >> Nephrology will sign off, do not hesitate to re-consult us if new nephro concerns comes up Immunizations Name Administration Dates Next Due Hepatitis A Vaccine, Adult Dosage 03/18/2012 Hepatitis A Vaccine, Pediatric/Adolescent Dosage, 2 Dose Schedule 10/02/2012 Influenza, High Dose Seasona l, Preservative Free 03/01/2015 Influenza, Injectable, Quadr ivalent, Contains Preservative 03/09/2016 Influenza, Trivalent, Adjuvanted, PF 03/18/2018 Influenza, Trivalent, MDV, Injectable ,03/19/2018,03/29/2015,03/24,06/16/2013 Influenza, Unspecified 03/27/2021 Typhoid Vi Capsular Polysacc haride Vaccine 04/03/2012 Yellow Fever Vaccine 05/22/2013 Social History Tobacco Use Types Packs/Day Years Used Date Smoking Tobacco: Never Smokeless Tobacco: Never Tobacco Cessation:Counseling Given: Not Answered Alcohol Use Standard Drinks/Week Comments Not Currently 0 (1 standard drink = 0.6 oz pure alcohol) recovering alcoholic x32 years Comments No Sex and Gender Information Value Date Recorded Sex Assigned at Female 05/01/2021 3:28 PM EST Legal Sex Female 6:23 PM EDT Gender Identity Female 05/01/2021 3:28 PM EST Sexual Orientation Straight 05/01/2021 3: 28 PM EST Last Filed Vital Signs Vital Sign Reading Time Taken Comments Blood Pressure 153/79 11/26/2023 1:45 PM EDT Pulse 72 11/26/2023 1:45 PM EDT Temperature 36.6 ??C (97.9 ??F) 05/13/2022 3:00 PM ES T Respiratory Rate 16 11/26/2023 1:45 PM EDT Oxygen Saturation 98% 11/26/2023 1:45 PM EDT Inhaled Oxygen Concentration - - Weight 54.4 kg (120 lb) 11/26/2023 1:45 PM EDT Height 152.4 cm (5') 11/26/2023 1:45 PM EDT Body Mass Index 23.44 11/26/2023 1:45 PM EDT Plan of Treatment Upcoming Encounters Date Type Department Care Team (Late st Contact Info) Description 12/01/2024 1:00 PM EDT Appointment [facility] Vascular Lab [address] [place] [address] 12/01/2024 1:40 PM EDT Follow-Up [facility] Building Vascular Surgery [address] [place] [address] Needle Valve Operator: Jose Mark MD [address] [place] [phone] Medical Devices Implanted Type Area Rn Cvor Device Identifier Shelf Expiration Date Model / Serial / Lot Device Closure Vascular Plug 6fr Angio-Seal Vip - S0 - [id number] Implanted:Qty : 1 on 04/27/2022 by Jose Morales MD at [facility] Implant Right: Groin [employer] [id number] 01/25/2023 [id number] / 0 / [id number] System Stent Carotid [id number] Enroute - [id number] Implanted:Qty : 1 on 05/09/2022 by Jose Morales MD at [facility] Stent Right: Carotid [facility] 12/26/2023 SR-0840-C S / / [id number] System Stent Carotid [id number] Enroute - [id number] Implanted:Qty : 1 on 05/09/2022 by Jose Morales MD at [facility] Stent Right: Carotid [facility] 12/26/2023 SR-0840-C S / / [id number] Insurance MEDICARE [facility] [place] [id number] Advance Directives Documents on File Type Date Recorded Patient Rn Orthopedic Expl anation Health Care Proxy 05/12/2021 2:01 PM Zheng Melissa * Full Code (Latest Code Status on File) Date Activated Date Inactivated Comments 05/09/2022 11:19 AM 05/13/2022 8:15 PM * Full Code Date Activated Date Inactivated Comments 04/27/2022 9:42 AM 04/27/2022 4:47 PM * Full Code Date Activated Date Inactivated Comments 04/27/2022 6:31 AM 04/27/2022 9:42 AM * Full Code Date Activated Date Inactivated Comments 05/17/2021 1:24 PM 05/21/2021 6:29 PM * Full Code Date Activated Date Inactivated Comments 05/17/2021 7:58 AM 05/17/2021 1:24 PM Healthcare Agents on File Name Relationship Healthcare Agent Relationship Communication Zheng [place]ette Spouse Health Care Agent [email or web address] Care Teams Tree Killer Relationship Specialty Start Date End Date Lalit Aguirre [address] [place] [id number] PCP - General Hematology 04/11/21
--- OUTSIDE RECORDS SUMMARY | 2024-07-03 06:18 | XMS_ITS | Encounter Summary ---
Author Organization [facility] Address [address] [place] [address] Care Team Providers Care Assistant To The Vice President Name Role Phone Lalit Aguirre Primary Care Provider [phone] Encounter Details Date Type Department Care Team (Latest Contact Info) Description 01/24/2022 myChart Message [facility] Interventional Radiology [address] [place] [address] Mychart, Generic Provider [address] [place], [place] [id number] CT Angiogram of the head from 12/12/21 Follow Up Social History Tobacco Use Types Packs/Day Years Used Date Smoking Tobacco: Never Smokeless Tobacco: Never Alcohol Use Standard Drinks/Week Comments Not Currently 0 (1 standard drink = 0.6 oz pure alcohol) recovering alcoholic x32 years Comments No Sex and Gender Information Value Date Recorded Sex Assigned at Female 05/01/2021 3:28 PM EST Legal Sex Female 6:23 PM EDT Gender Identity Female 05/01/2021 3:28 PM EST Sexual Orientation Straight 05/01/2021 3: 28 PM EST documented as of this encounter Plan of Treatment Upcoming Encounters Date Type Department Care Team (Late st Contact Info) Description 12/01/2024 1:00 PM EDT Appointment [facility] ACC Vascular Lab [address] [place] [address] 12/01/2024 1:40 PM EDT Follow-Up [facility] ACC Building Vascular Surgery [address] [facility] [place] [address] Ballistician: Jose Mark MD [address] [place] [address] [phone] documented as of this encounter Visit Diagnoses Not on filedocumented in this encounter Care Teams Assistant To The Vice President Relationship Specialty Start Date End Date Lalit Aguirre [address] [place] [id number] PCP - General Hematology 04/11/21 documented as of this encounter
--- OUTSIDE RECORDS SUMMARY | 2024-07-03 06:18 | XMS_ITS | Clinical Summary ---
Author Organization [facility] Address [address] [place] [address] Care Team Providers Care Accounts Receivable Analyst Name Role Phone Lalit Aguirre Primary Care Provider [phone] Allergies Active Allergy Reactions Criticality Noted Date [...] and she is planning on going to [place] for the winter. Continue plavix and aspirin [...] a day can be f/u with her puncher and fastener as outpatient -If the patient remains hospitalized [...] haride Vaccine 04/03/2012 Yellow Fever Vaccine 05/22/2013 Family History Medical History Relation Name Comments Stroke Mother Relation Name Status Comments Mother Social History Tobacco Use Types Packs/Day Years [...] Info) Description 12/01/2024 1:00 PM EDT Appointment [facility] ACC Vascular Lab [address] [place] [address] 12/01/2024 1:40 PM EDT Follow-Up [facility] ACC Building Vascular Surgery [address] [place] [address] Foreign Exchange Dealer: Jose Mark MD [address] [place] [id number] Health Maintenance Due Date Last Done Comments Osteoporosis Screening 11/29/1993 Zoster Vaccines (1 of 2) 11/29/1993 Pneumococcal Vaccine: 65+ Years (1 of 1 - PCV) 11/29/2008 RSV Vaccine (60+ years old and patients) (1 - 1-dose 75+ series) 11/29/2018 COVID-19 Vaccine ( season) 2024 03/09/2022, 02/28/2021, 07/22/2020, Additional history exists Influenza Vaccine (#1) 2024 , 03/27/2021, 03/02/2021, Additional history exists Alcohol/Substance Use Screening 05/28/2024 Depression Screening and Follow-Up 05/28/2024 Fall Risk Screening 05/28/2024 Health Care Proxy Review 05/28/2024 Social Drivers of Health Annual Screening 05/28/2024 DTaP,Tdap,and Td Vaccines (2 - Td or Tdap) 01/11/2028 01/10/2018 Tobacco Screening 05/28/2042 11/26/2023 Statin Therapy Completed 05/02/2021 Hepatitis B Vaccines Aged Out No long er eligible based on patient's age to complete this topic Medical Devices Implanted Type Area Supervisor Pipe Joints Device Identifier Shelf Expiration Date Model / Serial / Lot Device Closure Vascular Plug 6fr Angio-Seal Vip - S0 - [id number] Implanted:Qty : 1 on 04/27/2022 by Jose Morales MD at [facility] Implant Right: Groin [employer] [id number] 01/25/2023 [id number] / 0 / [id number] System Stent Carotid [id number] Enroute - [id number] Implanted:Qty : 1 on 05/09/2022 by Jose Morales MD at [facility] Stent Right: Carotid [facility] 12/26/2023 SR-0840-C S / / [id number] System Stent Carotid [id number] Enroute - [id number] Implanted:Qty : 1 on 05/09/2022 by Jose Morales MD at [facility] Stent Right: Carotid [facility] 12/26/2023 SR-0840-C S / / [id number] Insurance MEDICARE [facility] Advance Directives Documents on File Type Date Recorded Patient Statistics Teacher Expl anation Health Care Proxy 05/12/2021 2:01 [...] Name Relationship Healthcare Agent Relationship Communication Zheng Melissa Spouse Health Care Agent [email or web address] Care Teams Accounts Receivable Analyst Relationship Specialty Start Date End Date Lalit Aguirre [address] [place] [id number] PCP - General Hematology 04/11/21
--- OUTSIDE RECORDS SUMMARY | 2024-07-03 06:18 | XMS_ITS | Encounter Summary ---
Author Organization [facility] Address [address] [place] [address] Care Team Providers Care Power And Recovery Shift Engineer Name Role Phone Lalit Aguirre Primary Care Provider [phone] Encounter Details Date Type Department Care Team (Late st Contact Info) Description 11/22/2021 Orders Only [facility] 2 Rad ACT 1 [address] [place] [address] Anton Sanchez, DO [address] [place] [address] Social History Tobacco Use Types Packs/Day Years [...] Info) Description 12/01/2024 1:00 PM EDT Appointment [facility] ACC Vascular Lab [address] [place] [address] 12/01/2024 1:40 PM EDT Follow-Up [facility] ACC Building Vascular Surgery [address] [place] [address] Fashion Designer: Jose Mark MD [address] [place] [address] [phone] documented as of this encounter Visit Diagnoses Not on filedocumented in this encounter Care Teams Power And Recovery Shift Engineer Relationship Specialty Start Date End Date Lalit Aguirre [address] [place] [phone] PCP - General Hematology 04/11/21 documented as of this encounter
[2024-07-03 06:29] LABS: MANUAL DIFF FLAG NO
[2024-07-03 07:24] LABS: Basophils Percent Auto 0.5 % (0-2); Eosinophils Absolute Auto 0.2 X10*3/uL (0.0-0.4); Eosinophils Percent Auto 3.8 % (0-4); Hematocrit 32.2 % (37.0-47.0); Hemoglobin 11.1 g/dl (12.0-16.0); Imm Gran Abs Auto 0.02 X10*3/uL (0.00-0.03); Imm Gran Pct Auto 0.3 % (0.0-0.4); Lymphocytes Absolute Auto 1.1 X10*3/uL (1.2-4.9); Lymphocytes Percent Auto 19.2 % (20-40); Mean Corpuscular HGB Conc 34.5 g/dl (31.0-35.0); Mean Corpuscular Hemoglobin 32.9 pg (27.0-33.0); Mean Corpuscular Volume 95.5 fL (80.0-98.0); Mean Platelet Volume 9.1 fL (9.4-12.3); Monocytes Absolute Auto 0.7 X10*3/uL (0.1-1.2); Neutrophils Absolute Auto 3.7 x10*3/uL (2.0-8.3); Neutrophils Percent Auto 64.2 % (45-73); Platelet Count 295 X10*3/uL (160-400); Red Blood Count 3.37 X10*6/uL (4.20-5.50); White Blood Count 5.8 X10*3/uL (4.8-10.8)
[2024-07-03 07:56] LABS: Alanine Aminotransferase 24 U/L (0-31); Albumin Level 3.6 g/dL (3.5-5.0); Alkaline Phosphatase 77 U/L (39-117); Anion Gap 11 (12-20); Aspartate Amino Transferase 35 U/L (5-31); Bilirubin Total 0.6 mg/dL (0.0-1.0); Blood Urea Nitrogen 19 mg/dL (9-16); Calcium 8.9 mg/dL (8.4-10.2); Carbon Dioxide 25 mmol/L (22-29); Chloride 94 mmol/L (96-108); Cholesterol 129 mg/dL (<200); Estimated Glomerular Filt Rate > 60; Glucose Fasting 81 mg/dL (60-99); HDL Cholesterol 71 mg/dL (>40); LDL Cholesterol Calculated 49 mg/dL (<100); Potassium 4.2 mmol/L (3.3-5.1); Sodium 126 mmol/L (135-145); Total Protein 6.6 g/dL (6.5-8.0); Triglycerides 45 mg/dL (<150)
[2024-07-03 08:04] LABS: Vitamin D 25-OH Total 33.7 ng/mL (>30)
== END 2024-07-03 06:16 | disposition home or self-care (01) ==
LOC: HO.LAB 06:15
PROVIDERS: PCP Internal Medicine Medical Oncology; Visit Provider Internal Medicine Medical Oncology
DX: K21.9 Gastro-esophageal reflux disease without esophagitis (principal); D72.819 Decreased white blood cell count, unspecified; E55.9 Vitamin D deficiency, unspecified
CPT/HCPCS: 36415; 80053; 80061; 82306; 85025

== ENCOUNTER 2024-08-25 06:13 | Outpatient (REF) | payer MEDICARE, OTHER, SELFPAY ==
[2024-08-25 06:24] LABS: MANUAL DIFF FLAG NO
[2024-08-25 07:08] LABS: Basophils Percent Auto 0.4 % (0-2); Eosinophils Absolute Auto 0.3 X10*3/uL (0.0-0.4); Hematocrit 35.9 % (37.0-47.0); Hemoglobin 11.8 g/dl (12.0-16.0); Imm Gran Abs Auto 0.01 X10*3/uL (0.00-0.03); Imm Gran Pct Auto 0.2 % (0.0-0.4); Lymphocytes Percent Auto 20.2 % (20-40); Mean Corpuscular HGB Conc 32.9 g/dl (31.0-35.0); Mean Corpuscular Hemoglobin 32.1 pg (27.0-33.0); Mean Corpuscular Volume 97.6 fL (80.0-98.0); Mean Platelet Volume 9.8 fL (9.4-12.3); Monocytes Absolute Auto 0.6 X10*3/uL (0.1-1.2); Monocytes Percent Auto 12.3 % (2-11); Neutrophils Absolute Auto 3.1 x10*3/uL (2.0-8.3); Neutrophils Percent Auto 61.9 % (45-73); Platelet Count 240 X10*3/uL (160-400); Red Blood Count 3.68 X10*6/uL (4.20-5.50); Red Cell Distribution Width 12.6 % (11.0-16.0); White Blood Count 5.1 X10*3/uL (4.8-10.8)
[2024-08-25 07:29] LABS: Alanine Aminotransferase 33 U/L (0-31); Albumin Level 3.7 g/dL (3.5-5.0); Alkaline Phosphatase 87 U/L (39-117); Anion Gap 9 (12-20); Aspartate Amino Transferase 40 U/L (5-31); Bilirubin Total 0.6 mg/dL (0.0-1.0); Blood Urea Nitrogen 18 mg/dL (9-16); Calcium 8.6 mg/dL (8.4-10.2); Carbon Dioxide 26 mmol/L (22-29); Chloride 98 mmol/L (96-108); Estimated Glomerular Filt Rate 57; Glucose Random 91 mg/dL (60-115); Potassium 3.9 mmol/L (3.3-5.1); Sodium 129 mmol/L (135-145); Total Protein 6.4 g/dL (6.5-8.0)
== END 2024-08-25 06:14 | disposition home or self-care (01) ==
LOC: HO.LAB 06:13
PROVIDERS: PCP Internal Medicine Medical Oncology; Visit Provider Internal Medicine Medical Oncology
DX: K21.9 Gastro-esophageal reflux disease without esophagitis (principal); D72.819 Decreased white blood cell count, unspecified; N39.0 Urinary tract infection, site not specified
CPT/HCPCS: 36415; 80053; 85025; 87086

== ENCOUNTER 2024-10-08 06:35 | Outpatient (REF) | payer MEDICARE, OTHER, SELFPAY ==
[2024-10-08 07:00] LABS: MANUAL DIFF FLAG NO
[2024-10-08 07:29] LABS: Basophils Percent Auto 0.7 % (0-2); Eosinophils Absolute Auto 0.2 X10*3/uL (0.0-0.4); Eosinophils Percent Auto 3.3 % (0-4); Hematocrit 33.3 % (37.0-47.0); Hemoglobin 11.3 g/dl (12.0-16.0); Imm Gran Abs Auto 0.01 X10*3/uL (0.00-0.03); Imm Gran Pct Auto 0.2 % (0.0-0.4); Lymphocytes Absolute Auto 1.1 X10*3/uL (1.2-4.9); Lymphocytes Percent Auto 23.9 % (20-40); Mean Corpuscular HGB Conc 33.9 g/dl (31.0-35.0); Mean Corpuscular Hemoglobin 32.8 pg (27.0-33.0); Mean Corpuscular Volume 96.5 fL (80.0-98.0); Mean Platelet Volume 9.7 fL (9.4-12.3); Monocytes Absolute Auto 0.5 X10*3/uL (0.1-1.2); Monocytes Percent Auto 11.9 % (2-11); Neutrophils Absolute Auto 2.7 x10*3/uL (2.0-8.3); Platelet Count 226 X10*3/uL (160-400); Red Blood Count 3.45 X10*6/uL (4.20-5.50); Red Cell Distribution Width 12.9 % (11.0-16.0); White Blood Count 4.5 X10*3/uL (4.8-10.8)
[2024-10-08 07:59] LABS: Alanine Aminotransferase 23 U/L (0-31); Albumin Level 3.7 g/dL (3.5-5.0); Alkaline Phosphatase 83 U/L (39-117); Anion Gap 12 (12-20); Aspartate Amino Transferase 30 U/L (5-31); Bilirubin Total 0.5 mg/dL (0.0-1.0); Blood Urea Nitrogen 31 mg/dL (9-16); Calcium 8.7 mg/dL (8.4-10.2); Carbon Dioxide 26 mmol/L (22-29); Chloride 97 mmol/L (96-108); Cholesterol 136 mg/dL (<200); Estimated Glomerular Filt Rate 55; Glucose Fasting 87 mg/dL (60-99); HDL Cholesterol 70 mg/dL (>40); LDL Cholesterol Calculated 55 mg/dL (<100); Potassium 5.4 mmol/L (3.3-5.1); Sodium 130 mmol/L (135-145); Total Protein 6.3 g/dL (6.5-8.0); Triglycerides 56 mg/dL (<150)
[2024-10-08 08:18] LABS: Vitamin D 25-OH Total 26.9 ng/mL (>30)
== END 2024-10-08 06:36 | disposition home or self-care (01) ==
LOC: HO.LAB 06:35
PROVIDERS: PCP Internal Medicine Medical Oncology; Visit Provider Internal Medicine Medical Oncology
DX: K21.9 Gastro-esophageal reflux disease without esophagitis (principal); I77.3 Arterial fibromuscular dysplasia; D72.819 Decreased white blood cell count, unspecified; M81.0 Age-related osteoporosis without current pathological fracture; E55.9 Vitamin D deficiency, unspecified; Z13.6 Encounter for screening for cardiovascular disorders
CPT/HCPCS: 36415; 80053; 80061; 82306; 85025

== ENCOUNTER 2024-10-10 10:09 | Outpatient (REF) | payer MEDICARE, OTHER, SELFPAY ==
--- NOTE | ~2024-10-10 | XR_ITS ---
EXAMINATION: XR CHEST 2 VIEWS HISTORY: CHRONIC COUGH COMPARISON: Comparison is made with the prior examination dated 05/15/2020. FINDINGS: PA and lateral views of the chest are submitted. The lungs are expanded and clear. There is no pleural effusion, pneumothorax, or pulmonary vascular congestion. The heart is normal in size. There is scoliosis at the thoracolumbar junction. XR/XR chest 2V IMPRESSION: No acute cardiopulmonary abnormality. Electronically signed by: Lalit Ferguson MD 10/10/2024 10:41 AM EDT
--- OUTSIDE RECORDS SUMMARY | 2024-10-10 10:28 | XMS_ITS | Encounter Summary ---
Author Organization [facility] Address [address] [place] [address] Care Team Providers Care Splitter Machine Name Role Phone Lalit Aguirre Primary Care Provider [phone] Encounter Details Date Type Department Care Team (Latest Contact Info) Description 01/24/2022 myChart Message [facility] Interventional Radiology [address] [place] [address] Mychart, Generic Provider [address] [place], [place] [id number] [place] Angiogram of the head from 12/12/21 [...] Info) Description 12/01/2024 1:00 PM EDT Appointment [facility] ACC Vascular Lab [address] [place] [address] documented as of this encounter Visit Diagnoses Not on filedocumented in this encounter Care Teams Splitter Machine Relationship Specialty Start Date End Date Lalit Aguirre [address] [address] PCP - General Hematology 04/11/21 documented as of this encounter
--- OUTSIDE RECORDS SUMMARY | 2024-10-10 10:28 | XMS_ITS | Patient Health Record ---
Author Organization Lalit Aguirre III, MD Address [address] [place] [address] Care Team Providers Care Trousseau Consultant Name Role Phone Lalit Aguirre Primary Care Provider [phone] Allergies Allergen (clinical drug ingredient) Drug/Non Drug Allergy documented on EMR Reaction Allergy Type Onset Date Status Mold Unknown Allergy Active Dust Mites Unknown Allergy Active Bee Sting Unknown Allergy Active nitrofurantoin Nitrofurantoin nausea and vomiting Drug Allergy Active Penicillin anaphylaxis Drug Allergy Acti ve Results Component Value Reference Range Notes Urine Culture Reviewed date:08/26/2024 09:37:42 AM Interpretation: Performing Lab:[facility], [address] [place] [phone] Notes/Report: Urine Culture No growth. XR lumbar spine 2-3V Reviewed date:05/21/2024 09:51:32 AM Interpretation: Performing Lab: Notes/Report: [address] [address] XRay Report Signed Patient: Nevaeh Torres MR#: [id number] : 1945 Acct:[id number] Age/Sex: 78 / F ADM Date: 04/17/24 Loc: HO.XRAY Attending Dr: Lalit Aguirre MD Ordering Physician: Lalit Aguirre MD Date of Service: 04/17/24 Procedure(s): XR lumbar spine 2-3V Accession Number(s): [id number] cc: Lalit Aguirre MD EXAMINATION: XR LUMBOSACRAL SPINE CLINICAL INFORMATION: BACK PAIN,HIP PAIN COMPARISON: None available. TECHNIQUE: Three views of the lumbosacral spine. FINDINGS: S-shaped curvature of the lumbar spine with a dextroconvex rotoscoliosis apex at L2 and a levoconvex curvature at L3-4. Multilevel marginal osteophyte formation and decreased intervertebral disc height with vacuum phenomenon at L3-4 and L4-5 levels. No acute cortical disruption. No gross malalignment. No lytic or blastic lesions. Abundant stool. XR/XR lumbar spine 2-3V IMPRESSION: Scoliosis and multilevel spondylosis without acute fracture or gross listhesis. Electronically signed by: Jaylen Bee MD 04/18/2024 08:20 AM EST Dictated By: Jaylen Fernando MD Signed By: <Electronically signed by Jaylen Maynard MD in OV> 04/18/24 0820 DD/ 1420 TD/TT: 04/17/24 1434 Circular Shear Operator: [place] [address] XRay Report Signed Patient: Nevaeh Torres MR#: [id number] : 1945 Acct:[id number] Age/Sex: 78 / F ADM Date: 04/17/24 Loc: HO.XRAY Attending Dr: Lalit Aguirre MD Ordering Physician: Lalit Aguirre MD Date of Service: 04/17/24 Procedure(s): XR lumbar spine 2-3V Accession Number(s): [id number] cc: Lalit Aguirre MD EXAMINATION: XR LUMBOSACRAL SPINE CLINICAL INFORMATION: BACK PAIN,HIP PAIN COMPARISON: None available. TECHNIQUE: Three views of the lumbosacral spine. FINDINGS: S-shaped curvature o f the lumbar spine with a dextroconvex rotoscoliosis apex a t L2 and a levoconvex curvature at L3-4. Multilevel marginal osteophyte formation and decreased intervertebral disc height with vacuum phenomen on at L3-4 and L4-5 levels. No acute cortical disruption. No gross malalignment. No lytic or blastic lesions. Abundant stool. XR/XR lumbar spine 2-3V IMPRESSION: Scoliosis and multilevel spondylosis without acute fracture or gross listhesis. Electronically binh d by: Jaylen Bee MD 04/18/2024 08:20 AM EST Dictated By: Jaylen Horton MD Signed By: <Electronically signed by Jaylen Maynard MD in OV> 04/18/24 0820 DD/ 1420 TD/TT: 04/17/24 1434 Circular Shear Operator: Complete Blood Count Auto Di ff Reviewed date:11/26/2023 04:38:06 PM Interpretation: Performing Lab:[facility], [address] [place] [phone] Notes/Report: White Blood Count 4.5 4.8-10.8 X10*3/uL Red Blood Count 3.63 4.20-5.50 X10*6/uL Hemoglobin 11.9 12.0-16.0 g/dl Hematocrit 35.2 37.0-47.0 % Mean Corpuscular Volume 97.0 80.0-98.0 fL Mean Corpuscular Hemoglobin 32.8 27.0-33.0 pg Mean Corpuscular HGB Conc 33.8 31.0-35.0 g/dl Red Cell Distribution Width 12.9 11.0-16.0 % Platelet Count 237 160-400 X10*3/uL Mean Platelet Volume 10.5 9.4-12.3 fL Neutrophils Percent Auto 57.8 45-73 % Imm Gran Pct Auto 0.2 0.0-0.4 % Lymphocytes Percent Auto 25.8 20-40 % Monocytes Percent Auto 12.7 2-11 % Eosinophils Percent Auto 3.1 0-4 % Basophils Percent Auto 0.4 0-2 % NRBC Pct Auto 0.0 0.0-0.2 /100WBC Neutrophils Absolute Auto 2.6 2.0-8.3 x10*3/uL Imm Gran Abs Auto 0.01 0.00-0.03 X10*3/uL Lymphocytes Absolute Auto 1.2 1.2-4.9 X10*3/uL Monocytes Absolute Auto 0.6 0.1-1.2 X10*3/uL Eosinophils Absolute Auto 0.1 0.0-0.4 X10*3/uL Basophils Absolute Auto 0.0 0.0-0.2 X10*3/uL NRBC Abs Auto 0.000 0.0-0.012 X10*3/uL Comprehensive Bledsoe. Panel Fa st Reviewed date:11/26/2023 04:38:06 PM Interpretation: Performing Lab:[address] [phone] Notes/Report: Sodium 135 135-145 mmol/L Potassium 4.7 3.3-5.1 mmol/L Chloride 101 96-108 mmol/L Carbon Dioxide 27 22-29 mmol/L Anion Gap 12 12-20 Blood Urea Nitrogen 31 9-16 mg/dL Creatinine 1.07 0.5-1.4 mg/dL Estimated Glomerular Filt Rate 49 NOTE: For -[place] individuals, multiply the result by 1.210. Chronic Kidney Disease: Estimated GFR < 60 mL/min/1.73m2 Severe Kidney Disease: Estimated GFR < 15 mL/min/1.73m2 Glucose Fasting 85 60-99 mg/dL Calcium 9.5 8.4-10.2 mg/dL Bilirubin Total 0.5 0.0-1.0 mg/dL Aspartate Amino Transferase 37 5-31 U/L Alanine Aminotransferase 25 0-31 U/L Total Protein 6.7 6.5-8.0 g/dL Albumin Level 3.9 3.5-5.0 g/dL Alkaline Phosphatase 87 39-117 U/L Lipid Panel Reviewed date:11/26/2023 04:38:06 PM Interpretation: Performing Lab:[facility], [address] [place] [phone] Notes/Report: Triglycerides 34 <150 mg/dL Desirable Triglyceride: less than 150 mg/dL Borderline High Triglyceride 150-199 mg/dL High Triglyceride: 200-499 mg/dL Very High Triglyceride: greater than or equal to 5OO mg/dL Cholesterol 135 <200 mg/dL Desirable Cholesterol: less than 200 mg/dL Borderline High Cholesterol: 200-239 mg/dL High Cholesterol: greater than 239 mg/dL LDL Cholesterol Calculated 51 <100 mg/dL Desirable LDL: less than 100 mg/dL Near Optimal/Above Optimal LDL: 110-129 mg/dL Borderline High LDL: 130-159 mg/dL High LDL: 160-189 mg/dL Very High LDL: greater than or equal to 190 mg/dL HDL Cholesterol 78 >40 mg/dL Desirable HDL: greater than 40 mg/dL Note: This HDL assay may give artificially low results in patients with liver disease. Complete Blood Count Auto Di ff Reviewed date:03/28/2024 01:32:12 PM Interpretation: Performing Lab:[facility], [address] [place] [phone] Notes/Report: White Blood Count 4.2 4.8-10.8 X10*3/uL Red Blood Count 3.49 4.20-5.50 X10*6/uL Hemoglobin 11.5 12.0-16.0 g/dl Hematocrit 34.2 37.0-47.0 % Mean Corpuscular Volume 98.0 80.0-98.0 fL Mean Corpuscular Hemoglobin 33.0 27.0-33.0 pg Mean Corpuscular HGB Conc 33.6 31.0-35.0 g/dl Red Cell Distribution Width 13.2 11.0-16.0 % Platelet Count 234 160-400 X10*3/uL Mean Platelet Volume 10.3 9.4-12.3 fL Neutrophils Percent Auto 57.9 45-73 % Imm Gran Pct Auto 0.2 0.0-0.4 % Lymphocytes Percent Auto 23.6 20-40 % Monocytes Percent Auto 12.3 2-11 % Eosinophils Percent Auto 5.5 0-4 % Basophils Percent Auto 0.5 0-2 % NRBC Pct Auto 0.0 0.0-0.2 /100WBC Neutrophils Absolute Auto 2.4 2.0-8.3 x10*3/uL Imm Gran Abs Auto 0.01 0.00-0.03 X10*3/uL Lymphocytes Absolute Auto 1.0 1.2-4.9 X10*3/uL Monocytes Absolute Auto 0.5 0.1-1.2 X10*3/uL Eosinophils Absolute Auto 0.2 0.0-0.4 X10*3/uL Basophils Absolute Auto 0.0 0.0-0.2 X10*3/uL NRBC Abs Auto 0.000 0.0-0.012 X10*3/uL Comprehensive Bledsoe. Panel Fa st Reviewed date:03/28/2024 01:32:12 PM Interpretation: Performing Lab:[facility], [address] [place] [phone] Notes/Report: Sodium 132 135-145 mmol/L Potassium 4.8 3.3-5.1 mmol/L Chloride 97 96-108 mmol/L Carbon Dioxide 27 22-29 mmol/L Anion Gap 13 12-20 Blood Urea Nitrogen 26 9-16 mg/dL Creatinine 0.96 0.5-1.4 mg/dL Estimated Glomerular Filt Rate 56 NOTE: For -[place] individuals, multiply the result by 1.210. Chronic Kidney Disease: Estimated GFR < 60 mL/min/1.73m2 Severe Kidney Disease: Estimated GFR < 15 mL/min/1.73m2 Glucose Fasting 84 60-99 mg/dL Calcium 8.8 8.4-10.2 mg/dL Bilirubin Total 0.4 0.0-1.0 mg/dL Slight Icte roxie. Aspartate Amino Transferase 39 5-31 U/L Alanine Aminotransferase 27 0-31 U/L Total Protein 6.4 6.5-8.0 g/dL Albumin Level 3.8 3.5-5.0 g/dL Alkaline Phosphatase 85 39-117 U/L Lipid Panel Reviewed date:03/28/2024 01:32:12 PM Interpretation: Performing Lab:[facility], [address] [place] [phone] Notes/Report: Triglycerides 41 <150 mg/dL Desirable Triglyceride: less than 150 mg/dL Borderline High Triglyceride 150-199 mg/dL High Triglyceride: 200-499 mg/dL Very High Triglyceride: greater than or equal to 5OO mg/dL Cholesterol 138 <200 mg/dL Desirable Cholesterol: less than 200 mg/dL Borderline High Cholesterol: 200-239 mg/dL High Cholesterol: greater than 239 mg/dL LDL Cholesterol Calculated 55 <100 mg/dL Desirable LDL: less than 100 mg/dL Near Optimal/Above Optimal LDL: 110-129 mg/dL Borderline High LDL: 130-159 mg/dL High LDL: 160-189 mg/dL Very High LDL: greater than or equal to 190 mg/dL HDL Cholesterol 75 >40 mg/dL Desirable HDL: greater than 40 mg/dL Note: This HDL assay may give artificially low results in patients with liver disease. Vitamin D 25-OH Total Reviewed date:03/28/2024 01:32:12 PM Interpretation: Performing Lab:[facility], [address] [place] [phone] Notes/Report: Vitamin D 25-OH Total 33.4 >30 ng/mL Health Based Reference Values* < 20 ng/mL Deficient 20-30 ng/mL Insufficient > 30 ng/mL Sufficient *Melanie KUMAR. N Engl J Med. 2007;357:266-280 Care must be taken in interpreting Vitamin D results from different laboratories and methodologies. Published data demonstrated that results from patients undergoing hemodialysis may show a negative bias when tested with various automated 25-OH vitamin D assays when compared to LC-MS/MS. When testing samples from patients whose predominant form of Vitamin D is Vitamin D2, such as patients receiving Vitamin D2 supplementation, results that are subtherapeutic should be confirmed with another method such as LC-MS/MS. XR hip BI w PEL1V Reviewed date:05/21/2024 09:51:32 AM Interpretation: Performing Lab: Notes/Report: [address] [address] XRay Report Signed Patient: Nevaeh Torres MR#: [id number] : 1945 Acct:[id number] Age/Sex: 78 / F ADM Date: 04/17/24 Loc: [facility] Attending Dr: Lalit Aguirre MD Ordering Physician: Lalit Aguirre MD Date of Service: 04/17/24 Procedure(s): XR hip BI w PEL1V Accession Number(s): [id number] cc: Lalit Aguirre MD EXAMINATION: XR BILATERAL HIPS WITH AP PELVIS CLINICAL INFORMATION: BACK PAIN,HIP PAIN COMPARISON: None available. TECHNIQUE: AP view of the pelvis and single views of each hip were obtained. FINDINGS: No acute cortical disruption or malalignment in either coxofemoral joint. The bony pelvis is grossly intact. S-shaped curvature of the lumbar spine. No lytic or blastic lesions. XR/XR hip BI w PEL1V IMPRESSION: No acute fracture or dislocation in either hip. Electronically signed by: Jaylen Bee MD 04/18/2024 08:18 AM EST RP Dictated By: Jaylen Fernando MD Signed By: <Electronically signed by Jaylen Maynard MD in OV> 04/18/248[address] DD/ 06 TD/TT: 04/17/24 143 Circular Shear Operator: [place] [address] XRay Report Signed Patient: Nevaeh Torres MR#: [id number] : 1945 Acct:[id number] Age/Sex: 78 / F ADM Date: 04/17/24 Loc: HO.XRAY Attending Dr: Lalit Aguirre MD Ordering Physician: Lalit Aguirre MD Date of Service: 04/17/24 Procedure(s): XR hip BI w PEL1V Accession Number(s): [id number] cc: Lalit Aguirre MD EXAMINATION: XR BILATERAL HIPS WI TH AP PELVIS CLINICAL INFORMATION: BACK PAIN,HIP PAIN COMPARISON: None available. TECHNIQUE: AP view of the pelvi s and single views of each hip were obtained. FINDINGS: No acute cortical disruption or malalignment in either coxofemoral joint. The bony pelv is is grossly intact. S-shaped curvature of the lumbar spine. No lyt ic or blastic lesions. XR/XR hip BI w PEL1V IMPRESSION: No acute fracture or dislocation in either hip. Electronically binh d by: Jaylen Bee MD 04/18/2024 08:18 AM EST RP Dictated By: Jaylen Horton MD Signed By: <Electronically signed by Jaylen aMynard MD in OV> 04/18/[address] DD/ 06 TD/TT: 04/17/24 1434 Circular Shear Operator: Complete Blood Count Auto Di ff Reviewed date:07/04/2024 06:10:04 AM Interpretation: Performing Lab:[facility], [address] [place] [phone] Notes/Report: White Blood Count 5.8 4.8-10.8 X10*3/uL Red Blood Count 3.37 4.20-5.50 X10*6/uL Hemoglobin 11.1 12.0-16.0 g/dl Hematocrit 32.2 37.0-47.0 % Mean Corpuscular Volume 95.5 80.0-98.0 fL Mean Corpuscular Hemoglobin 32.9 27.0-33.0 pg Mean Corpuscular HGB Conc 34.5 31.0-35.0 g/dl Red Cell Distribution Width 13.0 11.0-16.0 % Platelet Count 295 160-400 X10*3/uL Mean Platelet Volume 9.1 9.4-12.3 fL Neutrophils Percent Auto 64.2 45-73 % Imm Gran Pct Auto 0.3 0.0-0.4 % Lymphocytes Percent Auto 19.2 20-40 % Monocytes Percent Auto 12.0 2-11 % Eosinophils Percent Auto 3.8 0-4 % Basophils Percent Auto 0.5 0-2 % NRBC Pct Auto 0.0 0.0-0.2 /100WBC Neutrophils Absolute Auto 3.7 2.0-8.3 x10*3/uL Imm Gran Abs Auto 0.02 0.00-0.03 X10*3/uL Lymphocytes Absolute Auto 1.1 1.2-4.9 X10*3/uL Monocytes Absolute Auto 0.7 0.1-1.2 X10*3/uL Eosinophils Absolute Auto 0.2 0.0-0.4 X10*3/uL Basophils Absolute Auto 0.0 0.0-0.2 X10*3/uL NRBC Abs Auto 0.000 0.0-0.012 X10*3/uL Comprehensive Bledsoe. Panel Fa st Reviewed date:07/04/2024 06:10:04 AM Interpretation: Performing Lab:[facility], [address] [place] [phone] Notes/Report: Sodium 126 135-145 mmol/L Potassium 4.2 3.3-5.1 mmol/L Chloride 94 96-108 mmol/L Carbon Dioxide 25 22-29 mmol/L Anion Gap 11 12-20 Blood Urea Nitrogen 19 9-16 mg/dL Creatinine 0.81 0.5-1.4 mg/dL Estimated Glomerular Filt Rate > 60 Chronic Kidney Disease: Estimated GFR < 60 mL/min/1.73m2 Severe Kidney Disease: Estimated GFR < 15 mL/min/1.73m2 Glucose Fasting 81 60-99 mg/dL Calcium 8.9 8.4-10.2 mg/dL Bilirubin Total 0.6 0.0-1.0 mg/dL Aspartate Amino Transferase 35 5-31 U/L Alanine Aminotransferase 24 0-31 U/L Total Protein 6.6 6.5-8.0 g/dL Albumin Level 3.6 3.5-5.0 g/dL Alkaline Phosphatase 77 39-117 U/L Lipid Panel Reviewed date:07/04/2024 06:10:04 AM Interpretation: Performing Lab:[address] [phone] Notes/Report: Triglycerides 45 <150 mg/dL Desirable Triglyceride: less than 150 mg/dL Borderline High Triglyceride 150-199 mg/dL High Triglyceride: 200-499 mg/dL Very High Triglyceride: greater than or equal to 5OO mg/dL Cholesterol 129 <200 mg/dL Desirable Cholesterol: less than 200 mg/dL Borderline High Cholesterol: 200-239 mg/dL High Cholesterol: greater than 239 mg/dL LDL Cholesterol Calculated 49 <100 mg/dL Desirable LDL: less than 100 mg/dL Near Optimal/Above Optimal LDL: 110-129 mg/dL Borderline High LDL: 130-159 mg/dL High LDL: 160-189 mg/dL Very High LDL: greater than or equal to 190 mg/dL HDL Cholesterol 71 >40 mg/dL Desirable HDL: greater than 40 mg/dL Note: This HDL assay may give artificially low results in patients with liver disease. Vitamin D 25-OH Total Reviewed date:07/04/2024 06:10:04 AM Interpretation: Performing Lab:[address] [phone] Notes/Report: Vitamin D 25-OH Total 33.7 >30 ng/mL Health Based Reference Values* < 20 ng/mL Deficient 20-30 ng/mL Insufficient > 30 ng/mL Sufficient *Melanie KUMAR. N Engl J Med. 2007;357:266-280 Care must be taken in interpreting Vitamin D results from different laboratories and methodologies. Published data demonstrated that results from patients undergoing hemodialysis may show a negative bias when tested with various automated 25-OH vitamin D assays when compared to LC-MS/MS. When testing samples from patients whose predominant form of Vitamin D is Vitamin D2, such as patients receiving Vitamin D2 supplementation, results that are subtherapeutic should be confirmed with another method such as LC-MS/MS. Complete Blood Count Auto Di ff Reviewed date:08/26/2024 09:37:42 AM Interpretation: Performing Lab:[facility], [address] [place] [phone] Notes/Report: White Blood Count 5.1 4.8-10.8 X10*3/uL Red Blood Count 3.68 4.20-5.50 X10*6/uL Hemoglobin 11.8 12.0-16.0 g/dl Hematocrit 35.9 37.0-47.0 % Mean Corpuscular Volume 97.6 80.0-98.0 fL Mean Corpuscular Hemoglobin 32.1 27.0-33.0 pg Mean Corpuscular HGB Conc 32.9 31.0-35.0 g/dl Red Cell Distribution Width 12.6 11.0-16.0 % Platelet Count 240 160-400 X10*3/uL Mean Platelet Volume 9.8 9.4-12.3 fL Neutrophils Percent Auto 61.9 45-73 % Imm Gran Pct Auto 0.2 0.0-0.4 % Lymphocytes Percent Auto 20.2 20-40 % Monocytes Percent Auto 12.3 2-11 % Eosinophils Percent Auto 5.0 0-4 % Basophils Percent Auto 0.4 0-2 % NRBC Pct Auto 0.0 0.0-0.2 /100WBC Neutrophils Absolute Auto 3.1 2.0-8.3 x10*3/uL Imm Gran Abs Auto 0.01 0.00-0.03 X10*3/uL Lymphocytes Absolute Auto 1.0 1.2-4.9 X10*3/uL Monocytes Absolute Auto 0.6 0.1-1.2 X10*3/uL Eosinophils Absolute Auto 0.3 0.0-0.4 X10*3/uL Basophils Absolute Auto 0.0 0.0-0.2 X10*3/uL NRBC Abs Auto 0.000 0.0-0.012 X10*3/uL Comprehensive Met. Panel Reviewed date:08/26/2024 09:37:42 AM Interpretation: Performing Lab:[facility], [address] [place] [phone] Notes/Report: Sodium 129 135-145 mmol/L Potassium 3.9 3.3-5.1 mmol/L Chloride 98 96-108 mmol/L Carbon Dioxide 26 22-29 mmol/L Anion Gap 9 12-20 Blood Urea Nitrogen 18 9-16 mg/dL Creatinine 0.94 0.5-1.4 mg/dL Estimated Glomerular Filt Rate 57 Chronic Kidney Disease: Estimated GFR < 60 mL/min/1.73m2 Severe Kidney Disease: Estimated GFR < 15 mL/min/1.73m2 Glucose Random 91 60-115 mg/dL Calcium 8.6 8.4-10.2 mg/dL Bilirubin Total 0.6 0.0-1.0 mg/dL Aspartate Amino Transferase 40 5-31 U/L Alanine Aminotransferase 33 0-31 U/L Total Protein 6.4 6.5-8.0 g/dL Albumin Level 3.7 3.5-5.0 g/dL Alkaline Phosphatase 87 39-117 U/L Complete Blood Count Auto Di ff Reviewed date:10/08/2024 11:36:21 AM Interpretation: Performing Lab:[facility], [address] [place] [phone] Notes/Report: White Blood Count 4.5 4.8-10.8 X10*3/uL Red Blood Count 3.45 4.20-5.50 X10*6/uL Hemoglobin 11.3 12.0-16.0 g/dl Hematocrit 33.3 37.0-47.0 % Mean Corpuscular Volume 96.5 80.0-98.0 fL Mean Corpuscular Hemoglobin 32.8 27.0-33.0 pg Mean Corpuscular HGB Conc 33.9 31.0-35.0 g/dl Red Cell Distribution Width 12.9 11.0-16.0 % Platelet Count 226 160-400 X10*3/uL Mean Platelet Volume 9.7 9.4-12.3 fL Neutrophils Percent Auto 60.0 45-73 % Imm Gran Pct Auto 0.2 0.0-0.4 % Lymphocytes Percent Auto 23.9 20-40 % Monocytes Percent Auto 11.9 2-11 % Eosinophils Percent Auto 3.3 0-4 % Basophils Percent Auto 0.7 0-2 % NRBC Pct Auto 0.0 0.0-0.2 /100WBC Neutrophils Absolute Auto 2.7 2.0-8.3 x10*3/uL Imm Gran Abs Auto 0.01 0.00-0.03 X10*3/uL Lymphocytes Absolute Auto 1.1 1.2-4.9 X10*3/uL Monocytes Absolute Auto 0.5 0.1-1.2 X10*3/uL Eosinophils Absolute Auto 0.2 0.0-0.4 X10*3/uL Basophils Absolute Auto 0.0 0.0-0.2 X10*3/uL NRBC Abs Auto 0.000 0.0-0.012 X10*3/uL Comprehensive Bledsoe. Panel Fa st Reviewed date:10/08/2024 11:36:21 AM Interpretation: Performing Lab:[address] [phone] Notes/Report: Sodium 130 135-145 mmol/L Potassium 5.4 3.3-5.1 mmol/L Chloride 97 96-108 mmol/L Carbon Dioxide 26 22-29 mmol/L Anion Gap 12 12-20 Blood Urea Nitrogen 31 9-16 mg/dL Creatinine 0.98 0.5-1.4 mg/dL Estimated Glomerular Filt Rate 55 Chronic Kidney Disease: Estimated GFR < 60 mL/min/1.73m2 Severe Kidney Disease: Estimated GFR < 15 mL/min/1.73m2 Glucose Fasting 87 60-99 mg/dL Calcium 8.7 8.4-10.2 mg/dL Bilirubin Total 0.5 0.0-1.0 mg/dL Aspartate Amino Transferase 30 5-31 U/L Alanine Aminotransferase 23 0-31 U/L Total Protein 6.3 6.5-8.0 g/dL Albumin Level 3.7 3.5-5.0 g/dL Alkaline Phosphatase 83 39-117 U/L Lipid Panel Reviewed date:10/08/2024 11:36:21 AM Interpretation: Performing Lab:[address] [phone] Notes/Report: Triglycerides 56 <150 mg/dL Desirable Triglyceride: less than 150 mg/dL Borderline High Triglyceride 150-199 mg/dL High Triglyceride: 200-499 mg/dL Very High Triglyceride: greater than or equal to 5OO mg/dL Cholesterol 136 <200 mg/dL Desirable Cholesterol: less than 200 mg/dL Borderline High Cholesterol: 200-239 mg/dL High Cholesterol: greater than 239 mg/dL LDL Cholesterol Calculated 55 <100 mg/dL Desirable LDL: less than 100 mg/dL Near Optimal/Above Optimal LDL: 110-129 mg/dL Borderline High LDL: 130-159 mg/dL High LDL: 160-189 mg/dL Very High LDL: greater than or equal to 190 mg/dL HDL Cholesterol 70 >40 mg/dL Desirable HDL: greater than 40 mg/dL Note: This HDL assay may give artificially low results in patients with liver disease. Vitamin D 25-OH Total Reviewed date:10/08/2024 11:36:21 AM Interpretation: Performing Lab:[facility], [address] [place] [phone] Notes/Report: Vitamin D 25-OH Total 26.9 >30 ng/mL Health Based Reference Values* < 20 ng/mL Deficient 20-30 ng/mL Insufficient > 30 ng/mL Sufficient *Melanie KUMAR. N Engl J Med. 2007;357:266-280 There is no well-established upper level of normal vitamin D levels. Some laboratories use 50 ng/mL as an upper limit of normal. However, toxicity is patient-dependent and may occur at any level. Careful correlation with the patient's presentation is necessary and, if there is concern for vitamin D toxicity, treatment should be considered irrespective of the serum level. Care must be taken in interpreting Vitamin D results from different laboratories and methodologies. Published data demonstrated that results from patients undergoing hemodialysis may show a negative bias when tested with various automated 25-OH vitamin D assays when compared to LC-MS/MS. When testing samples from patients whose predominant form of Vitamin D is Vitamin D2, such as patients receiving Vitamin D2 supplementation, results that are subtherapeutic should be confirmed with another method such as LC-MS/MS. Reason For Referral Reason Consult and Treat He aring Test Diagnosis 1 Hearing loss, unspec ified hearing loss type, unspecified laterality (H91.90) Referral Organization Lalit Aguirre III, MD Referring Provider First Name Lalit Referring Provider Last Name Aguirre Referring Provider Speciality Internal M edicine Referred Provider leah Dyer nd Referred Provider Specialty Audiologists General Notes Margot Peguero 2023 09:28:25 AM EDT > Referral faxed., Margot Peguero 12/06/2023 11:01:45 AM EDT > Called office and left message to check status of referral Referral Priority Routine Referral Appointment Date 11/09/2023 Reason Evaluate and Treat Lower back pain Diagnosis 1 Back pain (M54.9) Referral Organization Lalit Aguirre III, MD Referring Provider First Name Lalit Referring Provider Last Name Carla Referring Provider Speciality Internal M edicine Referred Provider Spine and Giuseppe erwin Lantry Referred Provider Specialty Physical Med flower General Notes Margot Dominguez 05/15/2024 02:42:52 PM > Referral and progress note has been faxed. Referral Priority Routine Referral Appointment Date 06/04/2024 Medications Medication SIG (Take, Route, Frequency, Duration) Notes Start Date End Date Status Esomeprazole Magnesium 40 MG Oral Active Multi Vitamin - 1 tablet Orally Once a day Active Bactrim DS 800-160 MG 1 tablet Orally Tw ice a day 08/20/2024 Active Gas-X Active levoFLOXacin 250 MG 1 tablet Orally Once a day 08/22/2024 Active Aspir-Low 81 MG 1 tablet Orally Once a day Active Myrbetriq 50 MG 1 tablet Orally Once a day Active Vitamin D 1000 UNIT 1 tablet Orally Once a day Active Biotin 1000 MCG 2 tabs Orally Once a day Active Melatonin 5 MG 1 tablet in the even ing Orally Once a day Active Atorvastatin Calcium 40 MG TAKE 1 TABLET BY MOUTH EVERY DAY Active Fluorouracil 5 % 1 application Newsperson al Twice a day Active Citalopram Hydrobromide 10 MG 1 tablet Orally Once a day 02/22/2024 Active Immunizations Vaccine Route Administration Date Status Comme nts Hep A Unknown 10/02/2012 Administered Hepatitis A (adult) Unknown 03/18/2012 Administered Influenza Unknown 06/16/2013 Administered Influenza Unknown 03/29/2015 Administered Influenza no Preserv 3 and > Unknown 03/19/2018 Adminis tered COVID PFIZER Unknown 02/28/2021 Administered Typhoid (ViCPs) Unknown 04/03/2012 Administered Pneumococcal Unknown 09/29/2019 Administered Social History Tobacco Use: Social History Observation Description Date Details (start date - stop date) Never Smoker NA - NA Sex Assigned At : Social History Observation Description Sex Assigned At Female Tobacco Use/Smoking Question Answer Notes Patient is a nonsmoker Additional Findings: Tobacco Non-User Aggressive non-smoker Alcohol Screen Question Answer Notes Did you have a drink containing alcohol in the p ast year? No Points 0 Interpretation Negative Problems Problem Type SNOMED Code ICD Code Onset Dates Problem Status W/U Status Risk Notes Problem 830752641 Back pain (M54.9) Active confirmed Her back pain i s minimal at this time and she will refrain from heavy lifting. Problem [id number] Subcutaneous mass (R22.9) Active confirmed this area will be observed Problem 607359381 GERD (gastroesophag eal reflux disease) (K21.9) Active confirmed Her symptoms ar e well controlled with medication. She is sleeping well and tolerating her diet. 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 Problem 48724365 Anxiety (F41.9) Active confirmed She has coping with her anxiety well. She is maintaining her weight. No new problems have arisen. Problem Vitamin D deficiency (99084587) Vitamin D deficiency, unspecified (E55.9) Active confirmed He was continue d on her vitamin D supplementation in view of her osteopenia. Problem 12334524 Amaurosis fugax (G45.3) Active confirmed She is she is under the care of a retina specialist in blood flow to a retina appears normal at this time. She has had no further episodes of visual loss. Problem Retinal vascular occlusion (17422623) Unspecified retinal vascular occlusion (H34.9) Active confirmed This took place in the recent past and she was anticoagulated. That has now been stopped, but she remains on aspirin. No further episodes have occurred since her last visit. Problem [id number] Vitreous hemorrhage, right eye (H43.11) Active confirmed Her vision has returned to her and her anticoagulation has been stopped. She remains on aspirin. Problem 158510093 Other idiopathic scoliosis, lumbar region (M41.26) Active confirmed She continues t o have mild but intermittent low back pain due to the scoliosis. No change in her regimen was necessary today. Problem Carotid bruit (556108756) Carotid bruit (R09.89) Active confirmed She has had carotid ultrasounds before 50 to 99% occlusion on the right she is going to see her vascular surgeon later this month. I have asked her to call me and let me know what he thinks. Medications were continued. Problem 59929215 Hearing loss (H91.90) Active confirmed She is beginnin g to have difficulty discriminating speech is asked for evaluation by your throat physician. I have made a referral. Problem 653425734 TIA (transient ischemic attack) (G45.9) Active confirmed No further such episodes have occurred. Problem Leukopenia (99454879) Leukopenia, unspecified type (D72.819) Active confirmed Her white blo od cell count remains stable at 4200 and observation will continue.The previous value was 4500. The neutrophils are normal in thhe lymphocytes were slightly low at 1000 and absolute. Problem 704860045 History of basal cell cancer (Z85.828) Active confirmed No new skin cancers are noted on today's examination. Problem Hearing loss, unspecified hearing loss type, unspecified laterality (H91.90) Active confirmed Her hearing los s is unchanged. It is well compensated. There was no barriers to communication today. Problem 917784244 Osteopenia after menopause (M81.0) Active confirmed She was continued on current therapy at this time. Problem 278544375 Acute bilateral low back pain without sciatica (M54.50) Active confirmed She has decreased range of motion of lumbar spine. Review old x-rays show significant lumbar scoliosis. She has been referred to orthopedic surgery for evaluation as well as pain management. Problem 962429768 Fibromuscular dysplasia of carotid artery (I77.3) Active confirmed The right carotid artery was recently repaired and she was told the operation was successful. 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 She is asymptomatic and will remain on her current regimen. She will restrict fluids to 1500 mL daily. Problem 35523160 Urinary tract infection in female (N39.0) Active confirmed She is responding well to the antibiotic. She will call me once if she worsens. Otherwise she will be seen as scheduled. Vital Signs Heart Rate 63 /min 10/10/2024 Temperature 98.4 degrees Fahrenheit 10/10/2024 Blood pressure diastolic 68 mm Hg 10/10/2024 Height 63.5 in 10/10/2024 Blood pressure systolic 138 mm Hg 10/10/2024 Weight 122 lbs 10/10/2024 BMI 21.27 kg/m2 10/10/2024 Encounters Encounter Location Date Provider Diagnosis Lalit Aguirre III, MD [address] [place] [address] [place] [id number] 10/10/2024 Lalit Aguirre GERD (gastroesophage al reflux disease) K21.9 ; Leukopenia, unspecified type D72.819 ; Hypernatremia E87.0 and Chronic cough R05.3 Lalit Aguirre III, MD [address] [place] [address] [place] [id number] 10/24/2023 Lalit Aguirre Anxiety F41.9 ; Back pain M54.9 ; GERD (gastroesophageal reflux disease) K21.9 ; Amaurosis fugax G45.3 ; Syndrome of inappropriate ADH (SIADH) secretion E22.2 and Hearing loss, unspecified hearing loss type, unspecified laterality H91.90 Lalit Aguirre III, MD [address] [place] [address] [place] [id number] 10/26/2023 Lalit Aguirre Back pain M54.9 ; Anxiety F41.9 and GERD (gastroesophageal reflux disease) K21.9 Lalit Aguirre III, MD [address] [place] [address] [place] [id number] 11/12/2023 Lalit Aguirre GERD (gastroesophage al reflux disease) K21.9 ; Leukopenia, unspecified type D72.819 ; Subcutaneous mass R22.9 and Skin cancer C44.90 Lalit Aguirre III, MD [address] [place] [address] [place] [id number] 11/28/2023 Lalit Aguirre GERD (gastroesophage al reflux disease) K21.9 ; Leukopenia, unspecified type D72.819 ; Vitamin D deficiency, unspecified E55.9 ; Hearing loss H91.90 ; Osteopenia after menopause M81.0 ; Syndrome of inappropriate ADH (SIADH) secretion E22.2 ; Fibromuscular dysplasia of carotid artery I77.3 and Amaurosis fugax G45.3 Lalit Aguirre III, MD [address] [place] [address] [place] [id number] 02/22/2024 Lalit Aguirre GERD (gastroesophage al reflux disease) K21.9 ; Depressed mood R45.89 ; Carotid bruit R09.89 ; Osteopenia after menopause M81.0 ; Hearing loss H91.90 ; Amaurosis fugax G45.3 ; Vitreous hemorrhage, right eye H43.11 and Leukopenia, unspecified type D72.819 Lalit Aguirre III, MD [address] [place] [address] [place] [address] 03/31/2024 Lalit Aguirre GERD (gastroesophage al reflux disease) K21.9 ; Fibromuscular dysplasia of carotid artery I77.3 ; Hearing loss H91.90 ; Leukopenia, unspecified type D72.819 ; Osteopenia after menopause M81.0 ; Syndrome of inappropriate ADH (SIADH) secretion E22.2 ; Vitamin D deficiency, unspecified E55.9 and Amaurosis fugax G45.3 Lalit Aguirre III, MD [address] [place] [address] [place] [address] 05/12/2024 Lalit Aguirre GERD (gastroesophage al reflux disease) K21.9 ; Syndrome of inappropriate ADH (SIADH) secretion E22.2 ; Fibromuscular dysplasia of carotid artery I77.3 ; Hearing loss H91.90 ; Leukopenia, unspecified type D72.819 ; Osteopenia after menopause M81.0 ; Acute bilateral low back pain without sciatica M54.50 and Other idiopathic scoliosis, lumbar region M41.26 Lalit Aguirre III, MD [address] [place] [address] [place] [address] 07/07/2024 Lalit Aguirre GERD (gastroesophage al reflux disease) K21.9 ; Syndrome of inappropriate ADH (SIADH) secretion E22.2 ; Fibromuscular dysplasia of carotid artery I77.3 ; Leukopenia, unspecified type D72.819 ; Osteopenia after menopause M81.0 ; Vitamin D deficiency, unspecified E55.9 ; Back pain M54.9 ; Anxiety F41.9 ; History of basal cell cancer Z85.828 ; Hearing loss, unspecified hearing loss type, unspecified laterality H91.90 ; Acute bilateral low back pain without sciatica M54.50 and Other idiopathic scoliosis, lumbar region M41.26 Lalit Aguirre III, MD [address] [place] [address] [place] [id number] 08/21/2024 Lalit Aguirre Urinary tract infect ion in female N39.0 ; GERD (gastroesophageal reflux disease) K21.9 ; Hearing loss H91.90 ; Osteopenia after menopause M81.0 ; Fibromuscular dysplasia of carotid artery I77.3 and Syndrome of inappropriate ADH (SIADH) secretion E22.2 Lalit Aguirre III, MD [address] [place] [address] [place] [id number] 08/22/2024 Lalit Aguirre GERD (gastroesophage al reflux disease) K21.9 ; Urinary tract infection in female N39.0 ; Anxiety F41.9 ; History of basal cell cancer Z85.828 ; Hearing loss H91.90 ; Osteopenia after menopause M81.0 and Amaurosis fugax G45.3 Lalit Aguirre III, MD [address] [place] [address] [place] [id number] 08/26/2024 Lalit Aguirre GERD (gastroesophage al reflux disease) K21.9 ; Urinary tract infection in female N39.0 ; Other idiopathic scoliosis, lumbar region M41.26 ; Acute bilateral low back pain without sciatica M54.50 ; Syndrome of inappropriate ADH (SIADH) secretion E22.2 ; Fibromuscular dysplasia of carotid artery I77.3 and Unspecified retinal vascular occlusion H34.9 Lalit Aguirre III, MD [address] [place] [address] [place] [id number] 02/25/2024 Lalit Aguirre III, MD [address] [place] [address] [place] [id number] 02/27/2024 Lailt Aguirre III, MD [address] [place] [address] [place] [id number] 04/16/2024 Lalit Aguirre Back pain M54.9 and Hip pain M25.559 Lalit Aguirre III, MD [address] [place] [address] [place] [id number] 08/20/2024 Lalit Aguirre Assessments Encounter Date Diagnosis (ICD Code) Assessment Notes Treatment Notes Treatment Clinical Notes 10/10/2024 GERD (gastroesophageal reflux disease) (ICD-10 - K21.9) Her symptoms are well controlled with medication. She is sleeping well and tolerating her diet. 10/24/2023 Back pain (ICD-10 - M54.9) Her back pain is minimal at this time and she will refrain from heavy lifting. 10/24/2023 Anxiety (ICD-10 - F41.9) She has coping with her anxiety well. She is maintaining her weight. No new problems have arisen. 10/26/2023 Back pain (ICD-10 - M54.9) Her back pain is minimal at this time and she will refrain from heavy lifting. 10/26/2023 Anxiety (ICD-10 - F41.9) She has coping with her anxiety well. She is maintaining her weight. No new problems have arisen. 11/12/2023 GERD (gastroesophageal reflux disease) (ICD-10 - K21.9) her reflux symptoms are well controlled with medication. 11/12/2023 Leukopenia, unspecified type (ICD-10 - D72.819) a CBC will be done prior to her next visit. 11/28/2023 GERD (gastroesophageal reflux disease) (ICD-10 - K21.9) her reflux symptoms are well controlled with medication. 11/28/2023 Leukopenia, unspecified type (ICD-10 - D72.819) He is to have a slightly low white blood cell count differential is unremarkable values unchanged. Observation will continue. 02/22/2024 GERD (gastroesophageal reflux disease) (ICD-10 - K21.9) her reflux symptoms are well controlled with medication. 02/22/2024 Depressed mood (ICD-10 - R45.89) I have prescribed citalopram and careful follow-up. He has no intention of harming herself. She is reacting to the recent loss of her . 03/31/2024 GERD (gastroesophageal reflux disease) (ICD-10 - K21.9) Her symptoms are well controlled with medication. She is sleeping well and tolerating her diet. 03/31/2024 Fibromuscular dysplasia of carotid artery (ICD-10 - I77.3) The right carotid artery was recently repaired and she was told the operation was successful. 05/12/2024 GERD (gastroesophageal reflux disease) (ICD-10 - K21.9) Her symptoms are well controlled with medication. She is sleeping well and tolerating her diet. 05/12/2024 Syndrome of inappropriate ADH (SIADH) secretion (ICD-10 - E22.2) Her sodium is normal at 132. She is asymptomatic and will remain on her current regimen. She will restrict fluids to 1500 mL daily. 07/07/2024 GERD (gastroesophageal reflux disease) (ICD-10 - K21.9) Her symptoms are well controlled with medication. She is sleeping well and tolerating her diet. 07/07/2024 Syndrome of inappropriate ADH (SIADH) secretion (ICD-10 - E22.2) Her sodium is normal at 126. She is asymptomatic and will remain on her current regimen. She will restrict fluids to 1500 mL daily. 08/21/2024 Urinary tract infection in female (ICD-10 - N39.0) I have prescribed a broad-spectrum antibiotic. She will notify me immediately if she worsens. 08/22/2024 GERD (gastroesophageal reflux disease) (ICD-10 - K21.9) Her symptoms are well controlled with medication. She is sleeping well and tolerating her diet. 08/22/2024 Urinary tract infection in female (ICD-10 - N39.0) I have prescribed a broad-spectrum antibiotic. She will notify me immediately if she worsens. 08/26/2024 GERD (gastroesophageal reflux disease) (ICD-10 - K21.9) Her symptoms are well controlled with medication. She is sleeping well and tolerating her diet. 08/26/2024 Urinary tract infection in female (ICD-10 - N39.0) She is responding well to the antibiotic. She will call me once if she worsens. Otherwise she will be seen as scheduled. 04/16/2024 Back pain (ICD-10 - M54.9) 10/10/2024 Leukopenia, unspecified type (ICD-10 - D72.819) 10/24/2023 GERD (gastroesophageal reflux disease) (ICD-10 - K21.9) Her reflux symptoms are well-controlled with medication. No change in her therapy is necessary. 10/26/2023 GERD (gastroesophageal reflux disease) (ICD-10 - K21.9) Her reflux symptoms are well-controlled with medication. No change in her therapy is necessary. 11/12/2023 Subcutaneous mass (ICD-10 - R22.9) this area will be observed 11/28/2023 Vitamin D deficiency, unspecified (ICD-10 - E55.9) He was continued on her vitamin D supplementation in view of her osteopenia. 02/22/2024 Carotid bruit (ICD-10 - R09.89) She has had carotid ultrasounds before 50 to 99% occlusion on the right she is going to see her vascular surgeon later this month. I have asked her to call me and let me know what he thinks. Medications were continued. 03/31/2024 Hearing loss (ICD-10 - H91.90) She is beginning to have difficulty discriminating speech is asked for evaluation by your throat physician. I have made a referral. 05/12/2024 Fibromuscular dysplasia of carotid artery (ICD-10 - I77.3) The right carotid artery was recently repaired and she was told the operation was successful. 07/07/2024 Fibromuscular dysplasia of carotid artery (ICD-10 - I77.3) The right carotid artery was recently repaired and she was told the operation was successful. 08/21/2024 GERD (gastroesophageal reflux disease) (ICD-10 - K21.9) Her symptoms are well controlled with medication. She is sleeping well and tolerating her diet. 08/21/2024 Hearing loss (ICD-10 - H91.90) She is beginning to have difficulty discriminating speech is asked for evaluation by your throat physician. I have made a referral. 08/22/2024 Anxiety (ICD-10 - F41.9) She has coping with her anxiety well. She is maintaining her weight. No new problems have arisen. 08/26/2024 Other idiopathic scoliosis, lumbar region (ICD-10 - M41.26) She continues to have mild but intermittent low back pain due to the scoliosis. No change in her regimen was necessary today. 04/16/2024 Hip pain (ICD-10 - M25.559) 10/10/2024 Hypernatremia (ICD-10 - E87.0) 10/24/2023 Amaurosis fugax (ICD-10 - G45.3) She is she is under the care of a retina specialist in blood flow to a retina appears normal at this time. She has had no further episodes of visual loss. 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 11/28/2023 Hearing loss (ICD-10 - H91.90) She is beginning to have difficulty discriminating speech is asked for evaluation by your throat physician. I have made a referral. 02/22/2024 Osteopenia after menopause (ICD-10 - M81.0) She was continued on current therapy at this time. 03/31/2024 Leukopenia, unspecified type (ICD-10 - D72.819) Her white blood cell count remains stable at 4200 and observation will continue. 05/12/2024 Hearing loss (ICD-10 - H91.90) She is beginning to have difficulty discriminating speech is asked for evaluation by your throat physician. I have made a referral. 07/07/2024 Leukopenia, unspecified type (ICD-10 - D72.819) 08/21/2024 Osteopenia after menopause (ICD-10 - M81.0) She was continued on current therapy at this time. 08/22/2024 History of basal cell cancer (ICD-10 - Z85.828) No new skin cancers are noted on today's examination. 08/26/2024 Acute bilateral low back pain without sciatica (ICD-10 - M54.50) She has decreased range of motion of lumbar spine. Review old x-rays show significant lumbar scoliosis. She has been referred to orthopedic surgery for evaluation as well as pain management. 10/10/2024 Chronic cough (ICD-10 - R05.3) 10/24/2023 Syndrome of inappropriate ADH (SIADH) secretion (ICD-10 - E22.2) Her sodium has remains slightly low at 129. She is asymptomatic and will remain on her current regimen. She will restrict fluids to 1500 mL daily. 11/28/2023 Osteopenia after menopause (ICD-10 - M81.0) She was continued on current therapy at this time. 02/22/2024 Hearing loss (ICD-10 - H91.90) She is beginning to have difficulty discriminating speech is asked for evaluation by your throat physician. I have made a referral. 03/31/2024 Osteopenia after menopause (ICD-10 - M81.0) She was continued on current therapy at this time. 05/12/2024 Leukopenia, unspecified type (ICD-10 - D72.819) Her white blood cell count remains stable at 4200 and observation will continue.The previous value was 4500. The neutrophils are normal in thhe lymphocytes were slightly low at 1000 and absolute. 07/07/2024 Osteopenia after menopause (ICD-10 - M81.0) 08/21/2024 Fibromuscular dysplasia of carotid artery (ICD-10 - I77.3) The right carotid artery was recently repaired and she was told the operation was successful. 08/22/2024 Hearing loss (ICD-10 - H91.90) She is beginning to have difficulty discriminating speech is asked for evaluation by your throat physician. I have made a referral. 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 She is asymptomatic and will remain on her current regimen. She will restrict fluids to 1500 mL daily. 10/24/2023 Hearing loss, unspecified hearing loss type, unspecified laterality (ICD-10 - H91.90) 11/28/2023 Syndrome of inappropriate ADH (SIADH) secretion (ICD-10 - E22.2) Her sodium is normal at 140. She is asymptomatic and will remain on her current regimen. She will restrict fluids to 1500 mL daily. 02/22/2024 Amaurosis fugax (ICD-10 - G45.3) She is she is under the care of a retina specialist in blood flow to a retina appears normal at this time. She has had no further episodes of visual loss. 03/31/2024 Syndrome of inappropriate ADH (SIADH) secretion (ICD-10 - E22.2) Her sodium is normal at 132. She is asymptomatic and will remain on her current regimen. She will restrict fluids to 1500 mL daily. 05/12/2024 Osteopenia after menopause (ICD-10 - M81.0) She was continued on current therapy at this time. 07/07/2024 Vitamin D deficiency, unspecified (ICD-10 - E55.9) 08/21/2024 Syndrome of inappropriate ADH (SIADH) secretion (ICD-10 - E22.2) Her sodium is normal at 126. She is asymptomatic and will remain on her current regimen. She will restrict fluids to 1500 mL daily. 08/22/2024 Osteopenia after menopause (ICD-10 - M81.0) She was continued on current therapy at this time. 08/26/2024 Fibromuscular dysplasia of carotid artery (ICD-10 - I77.3) The right carotid artery was recently repaired and she was told the operation was successful. 11/28/2023 Fibromuscular dysplasia of carotid artery (ICD-10 - I77.3) The right carotid artery was recently repaired and she was told the operation was successful. 02/22/2024 Vitreous hemorrhage, right eye (ICD-10 - H43.11) Her vision has returned to her and her anticoagulation has been stopped. She remains on aspirin. 03/31/2024 Vitamin D deficiency, unspecified (ICD-10 - E55.9) 05/12/2024 Acute bilateral low back pain without sciatica (ICD-10 - M54.50) She has decreased range of motion of lumbar spine. Review old x-rays show significant lumbar scoliosis. She has been referred to orthopedic surgery for evaluation as well as pain management. 07/07/2024 Back pain (ICD-10 - M54.9) Her back pain is minimal at this time and she will refrain from heavy lifting. 08/22/2024 Amaurosis fugax (ICD-10 - G45.3) She is she is under the care of a retina specialist in blood flow to a retina appears normal at this time. She has had no further episodes of visual loss. 08/26/2024 Unspecified retinal vascular occlusion (ICD-10 - H34.9) This took place in the recent past and she was anticoagulated. That has now been stopped, but she remains on aspirin. No further episodes have occurred since her last visit. 11/28/2023 Amaurosis fugax (ICD-10 - G45.3) She is she is under the care of a retina specialist in blood flow to a retina appears normal at this time. She has had no further episodes of visual loss. 02/22/2024 Leukopenia, unspecified type (ICD-10 - D72.819) He is to have a slightly low white blood cell count differential is unremarkable values unchanged. Observation will continue. 03/31/2024 Amaurosis fugax (ICD-10 - G45.3) She is she is under the care of a retina specialist in blood flow to a retina appears normal at this time. She has had no further episodes of visual loss. 05/12/2024 Other idiopathic scoliosis, lumbar region (ICD-10 - M41.26) 07/07/2024 Anxiety (ICD-10 - F41.9) She has coping with her anxiety well. She is maintaining her weight. No new problems have arisen. 07/07/2024 History of basal cell cancer (ICD-10 - Z85.828) No new skin cancers are noted on today's examination. 07/07/2024 Hearing loss, unspecified hearing loss type, unspecified laterality (ICD-10 - H91.90) Her hearing loss is unchanged. It is well compensated. There was no barriers to communication today. 07/07/2024 Acute bilateral low back pain without sciatica (ICD-10 - M54.50) She has decreased range of motion of lumbar spine. Review old x-rays show significant lumbar scoliosis. She has been referred to orthopedic surgery for evaluation as well as pain management. 07/07/2024 Other idiopathic scoliosis, lumbar region (ICD-10 - M41.26) She continues to have mild but intermittent low back pain due to the scoliosis. No change in her regimen was necessary today. Plan Of Treatment Pending Test Test Name Order Date PROFILE, FASTING (COMPREHENSIVE METABOLI C) 02/27/2017 PROFILE, FASTING (COMPREHENSIVE METABOLI C) 04/10/2019 PROFILE, FASTING (COMPREHENSIVE METABOLI C) 02/07/2022 PROFILE, FASTING (COMPREHENSIVE METABOLI C) 06/06/2021 PROFILE, FASTING (COMPREHENSIVE METABOLI C) 09/20/2022 PROFILE, FASTING (COMPREHENSIVE METABOLI C) 10/10/2024 PROFILE, FASTING (COMPREHENSIVE METABOLI C) 10/08/2018 PROFILE, FASTING (COMPREHENSIVE METABOLI C) 10/15/2020 PROFILE, FASTING (COMPREHENSIVE METABOLI C) 11/12/2023 PROFILE, FASTING (COMPREHENSIVE METABOLI C) 05/16/2022 PROFILE, FASTING (COMPREHENSIVE METABOLI C) 10/08/2019 PROFILE, FASTING (COMPREHENSIVE METABOLI C) 02/28/2021 PROFILE, FASTING (COMPREHENSIVE METABOLI C) 07/07/2024 PROFILE, FASTING (COMPREHENSIVE METABOLI C) 10/11/2020 PROFILE, FASTING (COMPREHENSIVE METABOLI C) 03/13/2018 PROFILE, FASTING (COMPREHENSIVE METABOLI C) 01/16/2023 PROFILE, FASTING (COMPREHENSIVE METABOLI C) 01/03/2021 PROFILE, FASTING (COMPREHENSIVE METABOLI C) 03/31/2024 PROFILE, RANDOM (COMPREHENSIVE METABOLIC ) 08/22/2024 PROFILE, RANDOM (COMPREHENSIVE METABOLIC ) 11/24/2020 BUN 11/22/2021 CREATININE 11/22/2021 AMYLASE 01/03/2021 AMYLASE 11/24/2020 LIPASE 11/24/2020 LIPID PANEL 01/16/2023 LIPID PANEL 02/27/2017 LIPID PANEL 04/10/2019 LIPID PANEL 01/03/2021 LIPID PANEL 06/06/2021 LIPID PANEL 09/20/2022 LIPID PANEL 10/08/2018 LIPID PANEL 10/15/2020 LIPID PANEL 10/08/2019 LIPID PANEL 10/11/2020 LIPID PANEL 03/13/2018 CBC w DIFF 10/08/2019 CBC w DIFF 10/11/2020 CBC w DIFF 03/13/2018 CBC w DIFF 01/16/2023 CBC w DIFF 02/07/2022 CBC w DIFF 02/27/2017 CBC w DIFF 04/10/2019 CBC w DIFF 01/03/2021 CBC w DIFF 10/10/2024 CBC w DIFF 11/24/2020 CBC w DIFF 06/06/2021 CBC w DIFF 08/22/2024 CBC w DIFF 09/20/2022 CBC w DIFF 10/08/2018 CBC w DIFF 05/16/2022 CBC w DIFF 10/15/2020 CBC w DIFF 02/28/2021 CBC w DIFF 07/07/2024 SED RATE (ESR) 11/24/2020 URINE CULTURE 10/18/2018 XR CHEST 2 VIEW PA & LAT 10/10/2024 MAMMOGRAM DIGITAL BILATERAL SCREEN 06/25 MAMMOGRAM DIGITAL UNILATERAL ROBBIE LT 10/27 MAMMOGRAM DIGITAL UNILATERAL ROBBIE LT 09/2016 MAMMOGRAM DIGITAL UNILATERAL ROBBIE RT 05/2017 Holter Monitor 11/06/2017 VITAMIN D 25-OH TOTAL 03/31/2024 VITAMIN D 25-OH TOTAL 10/08/2019 US BREAST RIGHT 07/26/2017 CBC WITH AUTO DIFF 03/31/2024 CBC WITH AUTO DIFF 11/12/2023 Lipid Panel 02/28/2021 Lipid Panel 07/07/2024 Lipid Panel 03/31/2024 Lipid Panel 10/10/2024 Lipid Panel 11/12/2023 Lipid Panel 05/16/2022 Vitamin D 25-OH Total 05/16/2022 Vitamin D 25-OH Total 07/07/2024 XR hips YANE min 3V 04/16/2024 XR pelvis min 3V 04/16/2024 Next Appt Details Provider Name:Lalit Aguirre, 12/01/2024 02:30:00 PM, [address] [place] [address] [address], [place], [address], Insurance Providers Payer Name Payer Address Payer Phone Subscriber Number Group Number Insured Name Patient Relationship to Insured Coverage Start Date Coverage End Date MEDICARE N[place] [address] [place] [phone] [id number] José Miguel sextonNevaeh Self - patient is the insured [employer] [address] [place] [phone] [id number] Amishse sextonNevaeh Self - patient is the insured Medical (General) History Medical History History ICD Code Back pain M54.9 GERD (gastroesophageal reflux disease) K 21.9 episodic anxiety history of basal cell skin cancer Amaurosis fugax, 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 05/16 21 biopsy of eyelid 2019 lesion removal from eyelid 01/2019 biopsy on leg 11/2018 Mohs surgery bridge of nose Laparascopic Surgery T & A as a child benign breast lump removed 1987 colonoscopy 03/2010 Cataract extraction both eyes 2012 Varicose vein surgery 1964 Hospitalization History Reason Date(Month/Year) No history vission loss 02/10/22 Right carotid surgery, [facility] 04/2021 CVA 11/29/2020 abdominal pain 04/16/2018
--- OUTSIDE RECORDS SUMMARY | 2024-10-10 10:28 | XMS_ITS ---
Author Organization Lalit Aguirre III, MD Address [address] [place] [place] [address] Care Team Providers Care Robot Technician Name Role Phone Lalit Aguirre Primary Care Provider REASON FOR VISIT Follow up Social History Sex Assigned At : Social History Observation Description Sex Assigned At Female Encounters Encounter Location Date Provider Diagnosis Lalit Aguirre III, MD [address] [place] [address] [place] [address] 10/06/2024 Lalit Aguirre Plan Of Treatment Next Appt Details Provider Name:Lalit Aguirre, 12/01/2024 02:30:00 PM, [address] [place] [address] [place], [address], Progress Notes * Nevaeh TORRESDOB:[birth year] (78 yo F)Acc No.[id number]:10/06/2024 Progress Notes Patient:?Nevaeh TORRES Provider:?Lalit Aguirre MD :1945???Age:78 Y???Sex:Female D ate:10/06/2024 Address: [address], [address] [facility] [place], [id number] Subjective: * Chief Complaints: * ???1. Follow up. * Medical History:? Objective: * Vitals:? Assessment: Plan: * Treatment: * Images: * The named appointment provid er may or may not be the originator of this progress note, and it is not deemed complete until electronically signed by the appointment provider. Sign off status: Pending * Provider:?Lalit Aguirre MD Date:?09/25 Generated for Anabella vasquez/Frank/eTransmitting on:?10/10/2024 10:28 AM EDT
--- OUTSIDE RECORDS SUMMARY | 2024-10-10 10:28 | XMS_ITS ---
Author Organization [facility] Address [address] [place] [address] Care Team Providers Care Section Weaver Name Role Phone Lalit Aguirre MD Primary Care Provider Unavailab haley Dorman Jr, Lyndon Nath REASON FOR VISIT esomeprazole Medications Medication SIG (Take, Route, Frequency, Duration) Notes Start Date End Date Status Esomeprazole Magnesium 40 MG TAKE 1 CAPSULE BY MOUTH EVERY DAY for 90 days Active Encounters Encounter Location Date Provider Diagnosis [facility] [address] [facility] [place] [address] 09/08/2024 Lyndon Dorman Jr Plan Of Treatment Medication Medication Name Sig Start Date Stop Date Notes Esomeprazole Magnesium 40 MG TAKE 1 CAPS ULE BY MOUTH EVERY DAY for 90 days Next Appt Details Provider Name:Lyndon delgado Jr, 10/12/2025 10:00:00 AM, [address] [place] [address], [address], [place], [address], Progress Notes * KOKI CARDOZO VDOB:09/1945 (78 yo F)Acc No.[id number]:09/08/2024 Patient:?KOKI CARDOZO V :1945???Age:78 Y???Sex:Female Address:[address] [place], [address] * Refills? Refill Esomeprazole Magnesium Capsule Delayed Release, 40 MG, 90, TAKE 1 CAPSULE BY MOUTH EVERY DAY, 90 days, Refills=3 * true * Date:? Generated for Anabella vasquez/Frank/Akshatitting on:?10/10/2024 10:28 AM EDT
--- OUTSIDE RECORDS SUMMARY | 2024-10-10 10:28 | XMS_ITS ---
Author Organization [facility] Address [address] [place] [address] Care Team Providers Care Loose Hand Packer Name Role Phone Lalit Aguirre MD Primary Care Provider Unavailab Lyndon Barros Jr Unavailable Allergies Allergen (clinical drug ingredient) Drug/Non Drug Allergy documented on EMR Reaction Allergy Type Onset Date Status Penicillin Unknown Drug Allergy Active REASON FOR VISIT Patient presents today for gerd Medications Medication SIG (Take, Route, Frequency, Duration) Notes Start Date End Date Status Esomeprazole Magnesium 40 MG TAKE 1 CAPSULE BY MOUTH EVERY DAY for 90 days Active Atorvastatin Calcium 40 MG 1 tablet Oral ly Once a day for 30 day(s) Active Aspirin 81 81 MG 1 tablet Orally Once a day for 30 day(s) Active Myrbetriq 50 MG 1 tablet Orally Once a day for 30 day(s) Active Citalopram Hydrobromide 10 MG 1 tablet Orally Once a day Active Social History Tobacco Use: Social History Observation Description Date Details (start date - stop date) Never Smoker NA - NA Tobacco Use/Smoking Question Answer Notes Patient is a nonsmoker Alcohol Screen Question Answer Notes Did you have a drink containing alcohol in the p ast year? No Points 0 Interpretation Negative Vital Signs Temperature 97.3 degrees Fahrenheit 10/09/19 25 Blood pressure systolic 001 mm Hg 10/09/19 25 Blood pressure diastolic 01 mm Hg 025 Height 63.5 in 10/08/2024 Weight 118 lbs 10/08/2024 BMI 20.57 kg/m2 10/08/2024 Encounters Encounter Location Date Provider Diagnosis [facility] [address] [place] [address] 10/08/2024 Lyndon Dorman Jr Plan Of Treatment Next Appt Details Provider Name:Lyndon delgado Jr, 10/12/2025 10:00:00 AM, [address], [address], [place], [address], Progress Notes * KOKI CARDOZO VDOB:09/1945 (78 yo F)Acc No.[id number]:10/08/2024 Progress Notes Patient:?KOKI CARDOZO V Provider:?Lyndon Dorman MD :1945???Age:78 Y???Sex:Female D ate:10/08/2024 Address:[address] [place] [address] , [place] Pcp:Lalit Aguirre MD Subjective: * Chief Complaints: * ???1. Patient presents today for gerd. * Medical History:?Retinal art flavia occlusion, Urinary incontinence, Skin cancer, Gastroesophageal reflux disease, Colonoscopy 11/27/17 negative, family history of colon polyps, followup optional based on age, Back pain, Anxiety. * Surgical History:?Varicose v ein surgery , Skin cancer removal , carotid artery surgery x 2 . * Family History:?Father: dece ased.?Mother: , diagnosed with Colon polyps, HTN (hypertension).? No family history colon cancer, liver cancer. * Social History:?Tobacco Use:?Tobacco Use/Smoking?Patient is a?nonsmoker.?Drugs/Alcohol:?Alcohol Screen?Did you have a drink containing alcohol in the past year??No,?Points?0,?Interpretation?Negative.?Miscellaneous:?Marital status: . Occupation: retired. * Medications:?Taking Citalopr am Hydrobromide 10 MG Tablet 1 tablet Orally Once a day , Taking Aspirin 81 81 MG Tablet Chewable 1 tablet Orally Once a day , Taking Myrbetriq 50 MG Tablet Extended Release 24 Hour 1 tablet Orally Once a day , Taking Atorvastatin Calcium 40 MG Tablet 1 tablet Orally Once a day , Taking Esomeprazole Magnesium 40 MG Capsule Delayed Release TAKE 1 CAPSULE BY MOUTH EVERY DAY , Discontinued Omeprazole 20 MG Capsule Delayed Release 1 capsule 1/2 to 1 hour before morning meal Orally Once a day , Medication List reviewed and reconciled with the patient * Allergies:?Penicillin. Objective: * Vitals:?Wt: 118 lbs, Ht: 63. 5 in, BMI: 20.57 Index, BP: 001/01 mm Hg, Temp: 97.3, Wt-k.52. Assessment: Plan: * Treatment: * Preventive Medicine:? ??Urinary Incontinence:?Urinary Incontinence?Assessment:?Present,?Plan of care documented:?No, reason not specified.? ??Screenings:?Fall Risk Screening?Fall Risk Assessment:?One fall with injury in the past year,?Screening:?One fall with injury in the past year,?Assessment:?Not performed, no reason specified,?Plan of Care:?Documented,?Type of fall plan of care:?Balance, strength and gait training or instruction provided.? * * The named appointment provid er may or may not be the originator of this progress note, and it is not deemed complete until electronically signed by the appointment provider. Sign off status: Pending * Provider:?Lyndon Dorman MD Date:?0 10/08/2024 Generated for Anabella vasquez/Frank/Akshatitting on:?10/10/2024 10:28 AM EDT
--- OUTSIDE RECORDS SUMMARY | 2024-10-10 10:28 | XMS_ITS | Clinical Summary ---
Author Organization [facility] Address [address] [facility] [address] [place] [address] Phone Care Team Providers Care Inseminator Name Role Phone Lalit Aguirre MD Primary Care Provider [phone] Allergies Active Allergy Reactions Criticality Noted Date Comments Bee Venom Hives,Itching 05/02/2021 Dust Mite Extract 05/02/2021 Other reaction(s): Rhinorrhea MOLD, DUST MITES (POST NASAL DRIP) Penicillins 06/02/2021 Medications clopidogrel (PLAVIX) 75 MG tablet Take 1 tablet by mouth 1 (one) time each day 04/24/2021 Active esomeprazole (NexIUM) [address] capsule Take 1 capsule by mouth 1 (one) time each day 04/26/2021 Active Myrbetriq 50 MG tablet sustained-relea se 24 hour Take 1 tablet by mouth 1 (one) time each day 04/12/2021 Active sodium chloride 1 g tablet Take 1 g by mouth 3 (three) times a day Active acetaminophen (TYLENOL) 325 MG tablet Take 1 mg by mouth every 6 (six) hours if needed for mild pain Active biotin 1000 MCG tablet Take 1,000 mcg by mouth 1 (one) time each day Take 2 tablets daily Active Cholecalciferol (Vitamin D) 25 MCG (1000 UT) tablet Take 1 capsule by mouth 1 (one) time each day Active aspirin 81 MG chewable tablet Chew 81 mg 1 (one) time each day Active Multiple Vitamin (MULTIVITAMIN ADULT PO) Take 1 tablet by mouth 1 (one) time each day 05/13/2022 Active atorvastatin (LIPITOR) 40 MG tablet Take 40 mg by mouth in the morning. 10/11/2021 Active b complex vitamins capsule Take 1 capsule by mouth 1 (one) time each day Active Active Problems Problem Noted Date Diagnosed Date Hypertension 06/04/2021 Hyponatremia 05/18/2021 Overview (07/27/2021): Last Assessment & Plan: Patient has a history of chronic hyponatremia [...] cause significant change to Na Fibromuscular dysplasia of wall of artery 2020 Overview (07/27/2021): Last Assessment & Plan: 75F PMH FMD presents to clinic for [...] and she is planning on going to [place] for the winter. Continue plavix and aspirin daily. Thank you for allowing us to participate in the care of this pleasant patient, please do not heistate to contact us with additional questions or concerns. Resolved Problems Problem Noted Date Diagnosed Date Resolved Date Hypo-osmolality and hyponatremia 06/04/2021 05/16/2022 Gastroesophageal reflux disease 05/12/2021 07/27/2021 Immunizations Immunization Administration Dates Next Due Hep A, 2 Dose 10/02/2012 Hepatitis A 03/18/2012 Influenza Split High Dose Preservative Free IM 1 Influenza, Quadrivalent, With Preservative 03/09 Influenza, Trivalent, Adjuvanted 03/18/2018 Influenza, Unspecified 03/27/2021 Yellow Fever 05/22/2013 Family History Medical History Relation Comments Cancer Mother Hypertension Mother Stroke Mother Relation Status Comments Mother Social History Tobacco Use Types Packs/Day Years Used Date Smoking Tobacco: Never Smokeless Tobacco: Never Alcohol Use Standard Drinks/Week Comments Not Currently 0 (1 standard drink = 0.6 oz pur e alcohol) Comments Unknown Sex and Gender Information Value Date Recorded Sex Assigned at Not on file Legal Sex Female 4:58 PM EST Gender Identity Not on file Sexual Orientation Not on file Last Filed Vital Signs Vital Sign Reading Time Taken Comments Blood Pressure 136/72 05/16/2022 11:16 AM EST Pulse 80 05/16/2022 11:16 AM EST Temperature - - Respiratory Rate - - Oxygen Saturation 97% 05/16/2022 11:16 AM EST Inhaled Oxygen Concentration - - Weight 56.2 kg (124 lb) 05/16/2022 11:16 AM EST Height 161.3 cm (5' 3.5 ) 05/16/2022 11:16 AM ES T Body Mass Index 21.62 05/16/2022 11:16 AM EST Plan of Treatment Health Maintenance Due Date Last Done Comments Pneumococcal Vaccine: 50+ Years (2 of 2 - PCV) 09/28/2020 09/29/2019 Influenza Vaccine (Season Ended) 2025 03/27/2021, 03/18/2018, 03/09/2016, Additional history exists Pneumococcal Vaccine: Peds (0 to 5 Years) and At-Risk Patients (6 to 49 Years) Discontinued 09/29/2019 Hepatitis B Vaccine Aged Out No longe r eligible based on patient's age to complete this topic Insurance Medicare [facility] Medicare [facility] Care Teams Inseminator Relationship Specialty Start Date End Date Lalit Aguirre MD [address] [place] [address] [phone] [place]IENTE PCP - General Medical Oncology 06/02/21
--- OUTSIDE RECORDS SUMMARY | 2024-10-10 10:29 | XMS_ITS | Clinical Summary ---
Author Organization [facility] Address [address] [place] [address] Care Team Providers Care Rn Pediatric Icu Name Role Phone Lalit Aguirre Primary Care Provider [phone] Allergies Active Allergy Reactions Criticality Noted Date [...] cause significant change to Na Fibromuscular dysplasia 05/17/2021 Assessment & Plan (05/30/2021 2:37 PM [...] and she is planning on going to [place] for the winter. Continue plavix and aspirin [...] a day can be f/u with her commissioner public works as outpatient -If the patient remains hospitalized goal of sodium correction to 135/24hrs >> Nephrology will sign off, do not hesitate to re-consult us if new nephro concerns comes up Immunizations Immunization Administration Dates Next Due Hepatitis A Vaccine, [...] Info) Description 12/01/2024 1:00 PM EDT Appointment [facility] [address] [place] [phone] Health Maintenance Due Date Last Done Comments Medicare AWV 11/29/1946 Osteoporosis Screening 11/29/1993 Pneumococcal Vaccine: 50+ Years (1 of 1 - PCV) 11/29/1993 Zoster Vaccines (1 of 2) 11/29/1993 RSV Vaccine (60+ years old and patients) (1 - 1-dose 75+ series) 11/29/2018 COVID-19 Vaccine ( season) 2024 03/09/2022, 02/28/2021, 07/22/2020, Additional history exists Alcohol/Substance Use Screening 05/28/2024 Depression Screening and Follow-Up 05/28/2024 Fall Risk Screening 05/28/2024 Health Care Proxy Review 05/28/2024 Social Drivers of Health Annual Screening 05/28/2024 Influenza Vaccine (Season Ended) 2025 03/09/2022, 03/27/2021, 03/02/2021, Additional history exists DTaP,Tdap,and Td Vaccines (2 - Td or Tdap) 01/11/2028 01/10/2018 Tobacco Screening 05/28/2042 11/26/2023 Statin Therapy Completed 05/02/2021 Hepatitis B Vaccines Aged Out No long er eligible based on patient's age to complete this topic Medical Devices Implanted Type Area Senior Applications Developer Device Identifier Shelf Expiration Date Model / Serial / Lot Device Closure Vascular Plug 6fr Angio-Seal Vip - S0 - [id number] Implanted:Qty : 1 on 04/27/2022 by Jose Morales MD at [facility] Implant Right: [employer] [id number] 01/25/2023 [id number] / 0 / [id number] System Stent Carotid [id number] Enroute - [id number] Implanted:Qty : 1 on 05/09/2022 by Jose Morales MD at [facility] Stent Right: Carotid [facility] 12/26/2023 SR-0840-C S / / [id number] System Stent Carotid [id number] Enroute - [id number] Implanted:Qty : 1 on 05/09/2022 by Jose Moarles MD at [facility] Stent Right: Carotid [facility] 12/26/2023 SR-0840-C S / / [id number] Insurance MEDICARE [employer] Advance Directives Documents on File Type Date Recorded Patient Thermal Spray Operator Expl anation Health Care Proxy 05/12/2021 2:01 PM Zheng Torres * Full Code (Latest Code Status on [...] Name Relationship Healthcare Agent Relationship Communication Zheng Torres Spouse Health Care Agent [email or web address] Teams Rn Pediatric Icu Relationship Specialty Start Date End Date Lalit Aguirre [address] [place] [id number] PCP - General Hematology 04/11/21
--- OUTSIDE RECORDS SUMMARY | 2024-10-10 10:29 | XMS_ITS | Referral Summary ---
Author Organization [facility] Address [address] [place] [address] Care Team Providers Care Vocational Rehabilitation Specialist Name Role Phone Lalit Aguirre Primary Care Provider [phone] Allergies Active Allergy Reactions Criticality Noted Date [...] and she is planning on going to [place] for the winter. Continue plavix and aspirin [...] a day can be f/u with her pediatric physiatrist as outpatient -If the patient remains hospitalized [...] Info) Description 12/01/2024 1:00 PM EDT Appointment [facility] [address] [place] [id number] Medical Devices Implanted Type Area Optical Lathe Operator Device Identifier Shelf Expiration Date Model / Serial / Lot Device Closure Vascular Plug 6fr Angio-Seal Vip - S0 - [id number] Implanted:Qty : 1 on 04/27/2022 by Jose Morales MD at [facility] Implant Right: Groin [employer] [id number] 01/25/2023 [id number] / 0 / [id number] System Stent Carotid [id number] Enroute - [id number] Implanted:Qty : 1 on 05/09/2022 by Jose Morales MD at [facility] Stent Right: Carotid [facility] 12/26/2023 SR-0840-C S / / [id number] System Stent Carotid [id number] Enroute - [id number] Implanted:Qty : 1 on 05/09/2022 by Jose Morales MD at [facility] Right: [facility] 12/26/2023 SR-0840-C S / / [id number] Insurance MEDICARE [facility] Advance Directives Documents on File Type Date Recorded Patient Worm Grower Expl anation Health Care Proxy 05/12/2021 2:01 [...] Communication Zheng Torres Spouse Health Care Agent [email or web address] Medical Care Teams Vocational Rehabilitation Specialist Relationship Specialty Start Date End Date Lalit Aguirre [address] [place] [id number] PCP - General Hematology 04/11/21
--- OUTSIDE RECORDS SUMMARY | 2024-10-10 10:29 | XMS_ITS ---
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 Name Role Phone Lalit Aguirre Primary Care Provider Allergies Allergen (clinical drug ingredient) Drug/Non Drug Allergy documented on EMR Reaction Allergy Type Onset Date Status Mold Unknown Allergy Active Dust Mites Unknown Allergy Active Bee Sting Unknown Allergy Active nitrofurantoin Nitrofurantoin nausea and vomiting Drug Allergy Active Penicillin anaphylaxis Drug Allergy Acti ve REASON FOR VISIT Follow up, Cough x 4 months Medications Medication SIG (Take, Route, Frequency, Duration) Notes Start Date End Date Status Esomeprazole Magnesium 40 MG Oral Active Bactrim DS 800-160 MG 1 tablet Orally Tw ice a day 08/20/2024 Active levoFLOXacin 250 MG 1 tablet Orally Once a day 08/22/2024 Active Fluorouracil 5 % 1 application Riveting Machine Operator Automatic al Twice a day Active Citalopram Hydrobromide 10 MG 1 tablet Orally Once a day 02/22/2024 Active Myrbetriq 50 MG 1 tablet Orally Once a day Active Vitamin D 1000 UNIT 1 tablet Orally Once a day Active Biotin 1000 MCG 2 tabs Orally Once a day Active Melatonin 5 MG 1 tablet in the even ing Orally Once a day Active Atorvastatin Calcium 40 MG TAKE 1 TABLET BY MOUTH EVERY DAY Active Multi Vitamin - 1 tablet Orally Once a day Active Gas-X Active Aspir-Low 81 MG 1 tablet Orally Once a day Active Social History Tobacco Use: Social History Observation Description Date Details (start date - stop date) Never Smoker NA - NA Sex Assigned At : Social History Observation Description Sex Assigned At Female Tobacco Use/Smoking Question Answer Notes Patient is a nonsmoker Additional Findings: Tobacco Non-User Aggressive non-smoker Vital Signs Temperature 98.4 degrees Fahrenheit 10/11/19 25 Blood pressure systolic 138 mm Hg 10/11/19 25 Blood pressure diastolic 68 mm Hg 025 Heart Rate 63 /min 10/10/2024 Height 63.5 in 10/10/2024 Weight 122 lbs 10/10/2024 BMI 21.27 kg/m2 10/10/2024 Encounters Encounter Location Date Provider Diagnosis Lalit Aguirre III, MD [address] [place] [address] [place] [address] 10/10/2024 Lalit Aguirre GERD (gastroesophage al reflux disease) K21.9 ; Leukopenia, unspecified type D72.819 ; Hypernatremia E87.0 and Chronic cough R05.3 Assessments Encounter Date Diagnosis (ICD Code) Assessment Notes Treat ment Notes Treatment Clinical Notes 10/10/2024 GERD (gastroesophageal reflux disease) (ICD-10 - K21.9) Her symptoms are well controlled with medication. She is sleeping well and tolerating her diet. 10/10/2024 Leukopenia, unspecified type (ICD-10 - D72.819) 10/10/2024 Hypernatremia (ICD-1 0 - E87.0) 10/10/2024 Chronic cough (ICD-1 0 - R05.3) Plan Of Treatment Medication Medication Name Sig Start Date Stop Date Notes Esomeprazole Magnesium 40 MG Oral Bactrim DS 800-160 MG 1 tablet Orally Twice a day 08/21/19 25 levoFLOXacin 250 MG 1 tablet Orally Once a day 08/22/2024 Fluorouracil 5 % 1 application Riveting Machine Operator Automatic al Twice a day Citalopram Hydrobromide 10 MG 1 tablet Orally Once a day 0 02/22/2024 Myrbetriq 50 MG 1 tablet Orally Once a day Vitamin D 1000 UNIT 1 tablet Orally Once a day Biotin 1000 MCG 2 tabs Orally Once a day Melatonin 5 MG 1 tablet in the even ing Orally Once a day Atorvastatin Calcium 40 MG TAKE 1 TABLET BY MOUTH EVERY DAY Multi Vitamin - 1 tablet Orally Once a day Gas-X Aspir-Low 81 MG 1 tablet Orally Once a day Pending Test Test Name Order Date PROFILE, FASTING (COMPREHENSIVE METABOLI C) 10/10/2024 CBC w DIFF 10/10/2024 XR CHEST 2 VIEW PA & LAT 10/10/2024 Lipid Panel 10/10/2024 Next Appt Details Follow Up: As Scheduled, Michelle son: Annual Exam Provider Name:Lalit Aguirre, 12/01/2024 02:30:00 PM, [address] [place] [address] [address], [address], [place], [address], Progress Notes * Nevaeh TORRESDOB:[birth year] (78 yo F)Acc No.[id number]:10/10/2024 Progress Notes Patient:?Nevaeh TORRES Provider:?Lalit Aguirre MD :1945???Age:78 Y???Sex:Female D ate:10/10/2024 Address:[address] [place] [address] , [facility] [id number] Subjective: * Chief Complaints: * ???1. Follow up. 2. Cough x 4 months. * HPI: ???COVID-19 Screening:? on esmeprazole 40, allergies,. ?Questions?Have you had any new onset fever, chills, cough, congestion, sore throat, shortness of breath, muscle aches??No * ROS:?General/Constitutional:?pain?only normal aches and pains.?Chills?denies.?Fatigue?admits.?Fever?denies.?ENT:?Decreased hearing?denies.?Respiratory:?Cough?denies.?Cardiovascular:?Chest pain with exertion?denies.?Dyspnea on exertion?denies.?Shortness of breath?denies.?Gastrointestinal:?Constipation?denies.?Decreased appetite?denies.?Diarrhea?denies.?Heartburn?denies.?Nausea?denies.?Rectal bleeding?denies.?Vomiting?denies.?Hematology:?bruising?denies.?petechiae?denies.?Swollen glands?none have been noted.?Genitourinary:?Frequent urination?denies.?Musculoskeletal:?Muscle aches?denies.?Painful joints?denies.?Sciatica?denies.?Weakness?denies.?Skin:?Itching?denies.?Rash?denies.?Skin lesion(s)?denies.?Neurologic:?Difficulty speaking?denies.?Dizziness?denies.?Headache?denies.?Low back pain?denies.?Psychiatric:?Depressed mood?denies.? * Medical History:?Back pain, GERD (gastroesophageal reflux disease), Episodic anxiety, History of basal cell skin cancer, Amaurosis fugax, right eye, Fibromuscular dysplasia. Right carotid artery. 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 * Hospitalization/Major Diagno stic Procedure:?abdominal pain 04/16/2018, CVA 11/29/2020, Right carotid surgery, [facility] 04/2021, vission loss 02/10/22, No history . * Family History:?Father: dece ased 41 yrs, coronary artery disease, rheumatic fever,.?Mother: 73 yrs, CVA,hypertension,.?Daughter(s): alive, Brain cyst.?2 daughter(s) - healthy. .? Her daughter Ana Lilia is a medical orderly at the [employer] on [place] [place], [place] and is her HCP. Her other daughter, Kristy, is alive and well. She has two grandchildren who are healthy, one had a brain cyst. * Social History:?Tobacco Use:?Tobacco Use/Smoking?Patient is a?nonsmoker ?Additional Findings: Tobacco Non-User?Aggressive non-smoker ???She was born in [facility] and has been to Zheng for 48 years. They have 2 children who are healthy and well. 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 * Medications:?Taking Multi Vi tamin - Tablet 1 tablet Orally Once a day , Taking Gas-X , Taking Aspir-Low 81 MG Tablet Delayed Release 1 tablet Orally Once a day , Taking Myrbetriq 50 MG Tablet Extended Release 24 Hour 1 tablet Orally Once a day , Taking Vitamin D 1000 UNIT Tablet 1 tablet Orally Once a day , Taking Biotin 1000 MCG Tablet 2 tabs Orally Once a day , Taking Melatonin 5 MG Tablet 1 tablet in the evening Orally Once a day , Taking Atorvastatin Calcium 40 MG Tablet TAKE 1 TABLET BY MOUTH EVERY DAY , Taking Fluorouracil 5 % Cream 1 application External Twice a day , Taking Citalopram Hydrobromide 10 MG Tablet 1 tablet Orally Once a day , Taking Esomeprazole Magnesium 40 MG Capsule Delayed Release Oral , Taking Bactrim DS 800-160 MG Tablet 1 tablet Orally Twice a day , Taking levoFLOXacin 250 MG Tablet 1 tablet Orally Once a day , Medication List reviewed and reconciled with the patient * Allergies:?Dust Mites, Bee S ting, Mold, Penicillin: anaphylaxis, Nitrofurantoin: nausea and vomiting - Allergy - Criticality Low. Objective: * Vitals:?Ht: 63.5, Wt:122, BM I:21.27, BP:138/68, HR:63, Temp:98.4, Ht-cm: 161.29, Wt-k.34. * ???Past Orders: Lab:Vitamin D 25-OH Total * Collection Date 10/08/2024 07/03/2024 03/27/2024 Collection Time 06:57 AM 06:28 AM 06:34 AM Order Date 10/08/2024 07/03/2024 03/27/2024 Vitamin D 25-OH Total 26.9?L (Ref Range: >30 ng/mL) 33.7 (Ref Range: >30 ng/mL) 33.4 (Ref Range: >30 ng/mL) * Lab:Lipid Panel * Collection Date 10/08/2024 07/03/2024 03/27/2024 Collection Time 06:57 AM 06:28 AM 06:34 AM Order Date 10/08/2024 07/03/2024 03/27/2024 Triglycerides 56 (Ref Range: <150 mg/dL) 45 (Ref Range: <150 mg/dL) 41 (Ref Range: <150 mg/dL) Cholesterol 136 (Ref Range: <200 mg/dL) 129 (Ref Range: <200 mg/dL) 138 (Ref Range: <200 mg/dL) LDL Cholesterol Calculated 55 (Ref Range: <100 mg/dL) 49 (Ref Range: <100 mg/dL) 55 (Ref Range: <100 mg/dL) HDL Cholesterol 70 (Ref Range: >40 mg/dL) 71 (Ref Range: >40 mg/dL) 75 (Ref Range: >40 mg/dL) * Lab:Comprehensive [place]. Pane l Fast * Collection Date 10/08/2024 07/03/2024 03/27/2024 Collection Time 06:57 AM 06:28 AM 06:34 AM Order Date 10/08/2024 07/03/2024 03/27/2024 Sodium 130?L (Ref Range: 135-145 mmol/L) 126?L (Ref Range: 135-145 mmol/L) 132?L (Ref Range: 135-145 mmol/L) Bilirubin Total 0.5 (Ref Range: 0.0-1.0 mg/dL) 0.6 (Ref Range: 0.0-1.0 mg/dL) 0.4 (Ref Range: 0.0-1.0 mg/dL) Aspartate Amino Transferase 30 (Ref Range: 5-31 U/L) 35?H (Ref Range: 5-31 U/L) 39?H (Ref Range: 5-31 U/L) Alanine Aminotransferase 23 (Ref Range: 0-31 U/L) 24 (Ref Range: 0-31 U/L) 27 (Ref Range: 0-31 U/L) Total Protein 6.3?L (Ref Range: 6.5-8.0 g/dL) 6.6 (Ref Range: 6.5-8.0 g/dL) 6.4?L (Ref Range: 6.5-8.0 g/dL) Albumin Level 3.7 (Ref Range: 3.5-5.0 g/dL) 3.6 (Ref Range: 3.5-5.0 g/dL) 3.8 (Ref Range: 3.5-5.0 g/dL) Alkaline Phosphatase 83 (Ref Range: 39-117 U/L) 77 (Ref Range: 39-117 U/L) 85 (Ref Range: 39-117 U/L) Potassium 5.4?H (Ref Range: 3.3-5.1 mmol/L) 4.2 (Ref Range: 3.3-5.1 mmol/L) 4.8 (Ref Range: 3.3-5.1 mmol/L) Chloride 97 (Ref Range: 96-108 mmol/L) 94?L (Ref Range: 96-108 mmol/L) 97 (Ref Range: 96-108 mmol/L) Carbon Dioxide 26 (Ref Range: 22-29 mmol/L) 25 (Ref Range: 22-29 mmol/L) 27 (Ref Range: 22-29 mmol/L) Anion Gap 12 (Ref Range: 12-20) 11?L (Ref Range: 12-20) 13 (Ref Range: 12-20) Blood Urea Nitrogen 31?H (Ref Range: 9-16 mg/dL) 19?H (Ref Range: 9-16 mg/dL) 26?H (Ref Range: 9-16 mg/dL) Creatinine 0.98 (Ref Range: 0.5-1.4 mg/dL) 0.81 (Ref Range: 0.5-1.4 mg/dL) 0.96 (Ref Range: 0.5-1.4 mg/dL) Estimated Glomerular Filt Rate 55 > 60 56 Glucose Fasting 87 (Ref Range: 60-99 mg/dL) 81 (Ref Range: 60-99 mg/dL) 84 (Ref Range: 60-99 mg/dL) Calcium 8.7 (Ref Range: 8.4-10.2 mg/dL) 8.9 (Ref Range: 8.4-10.2 mg/dL) 8.8 (Ref Range: 8.4-10.2 mg/dL) * Lab:Complete Blood Count Aut o Diff * Collection Date 10/08/2024 08/25/2024 07/03/2024 Collection Time 06:57 AM 06:22 AM 06:28 AM Order Date 10/08/2024 08/25/2024 07/03/2024 White Blood Count 4.5?L (Ref Range: 4.8-10.8 X10*3/uL) 5.1 (Ref Range: 4.8-10.8 X10*3/uL) 5.8 (Ref Range: 4.8-10.8 X10*3/uL) Red Blood Count 3.45?L (Ref Range: 4.20-5.50 X10*6/uL) 3.68?L (Ref Range: 4.20-5.50 X10*6/uL) 3.37?L (Ref Range: 4.20-5.50 X10*6/uL) Hemoglobin 11.3?L (Ref Range: 12.0-16.0 g/dl) 11.8?L (Ref Range: 12.0-16.0 g/dl) 11.1?L (Ref Range: 12.0-16.0 g/dl) Hematocrit 33.3?L (Ref Range: 37.0-47.0 %) 35.9?L (Ref Range: 37.0-47.0 %) 32.2?L (Ref Range: 37.0-47.0 %) Mean Corpuscular Volume 96.5 (Ref Range: 80.0-98.0 fL) 97.6 (Ref Range: 80.0-98.0 fL) 95.5 (Ref Range: 80.0-98.0 fL) Mean Corpuscular Hemoglobin 32.8 (Ref Range: 27.0-33.0 pg) 32.1 (Ref Range: 27.0-33.0 pg) 32.9 (Ref Range: 27.0-33.0 pg) Mean Corpuscular HGB Conc 33.9 (Ref Range: 31.0-35.0 g/dl) 32.9 (Ref Range: 31.0-35.0 g/dl) 34.5 (Ref Range: 31.0-35.0 g/dl) Red Cell Distribution Width 12.9 (Ref Range: 11.0-16.0 %) 12.6 (Ref Range: 11.0-16.0 %) 13.0 (Ref Range: 11.0-16.0 %) Platelet Count 226 (Ref Range: 160-400 X10*3/uL) 240 (Ref Range: 160-400 X10*3/uL) 295 (Ref Range: 160-400 X10*3/uL) Mean Platelet Volume 9.7 (Ref Range: 9.4-12.3 fL) 9.8 (Ref Range: 9.4-12.3 fL) 9.1?L (Ref Range: 9.4-12.3 fL) Neutrophils Percent Auto 60.0 (Ref Range: 45-73 %) 61.9 (Ref Range: 45-73 %) 64.2 (Ref Range: 45-73 %) Imm Gran Pct Auto 0.2 (Ref Range: 0.0-0.4 %) 0.2 (Ref Range: 0.0-0.4 %) 0.3 (Ref Range: 0.0-0.4 %) Lymphocytes Percent Auto 23.9 (Ref Range: 20-40 %) 20.2 (Ref Range: 20-40 %) 19.2?L (Ref Range: 20-40 %) Monocytes Percent Auto 11.9?H (Ref Range: 2-11 %) 12.3?H (Ref Range: 2-11 %) 12.0?H (Ref Range: 2-11 %) Eosinophils Percent Auto 3.3 (Ref Range: 0-4 %) 5.0?H (Ref Range: 0-4 %) 3.8 (Ref Range: 0-4 %) Basophils Percent Auto 0.7 (Ref Range: 0-2 %) 0.4 (Ref Range: 0-2 %) 0.5 (Ref Range: 0-2 %) NRBC Pct Auto 0.0 (Ref Range: 0.0-0.2 /100WBC) 0.0 (Ref Range: 0.0-0.2 /100WBC) 0.0 (Ref Range: 0.0-0.2 /100WBC) Neutrophils Absolute Auto 2.7 (Ref Range: 2.0-8.3 x10*3/uL) 3.1 (Ref Range: 2.0-8.3 x10*3/uL) 3.7 (Ref Range: 2.0-8.3 x10*3/uL) Imm Gran Abs Auto 0.01 (Ref Range: 0.00-0.03 X10*3/uL) 0.01 (Ref Range: 0.00-0.03 X10*3/uL) 0.02 (Ref Range: 0.00-0.03 X10*3/uL) Lymphocytes Absolute Auto 1.1?L (Ref Range: 1.2-4.9 X10*3/uL) 1.0?L (Ref Range: 1.2-4.9 X10*3/uL) 1.1?L (Ref Range: 1.2-4.9 X10*3/uL) Monocytes Absolute Auto 0.5 (Ref Range: 0.1-1.2 X10*3/uL) 0.6 (Ref Range: 0.1-1.2 X10*3/uL) 0.7 (Ref Range: 0.1-1.2 X10*3/uL) Eosinophils Absolute Auto 0.2 (Ref Range: 0.0-0.4 X10*3/uL) 0.3 (Ref Range: 0.0-0.4 X10*3/uL) 0.2 (Ref Range: 0.0-0.4 X10*3/uL) Basophils Absolute Auto 0.0 (Ref Range: 0.0-0.2 X10*3/uL) 0.0 (Ref Range: 0.0-0.2 X10*3/uL) 0.0 (Ref Range: 0.0-0.2 X10*3/uL) NRBC Abs Auto 0.000 (Ref Range: 0.0-0.012 X10*3/uL) 0.000 (Ref Range: 0.0-0.012 X10*3/uL) 0.000 (Ref Range: 0.0-0.012 X10*3/uL) ???Lab:Urine Culture (Order Date - 08/22/2024) (Collection Date & Time - 08/25/2024 06:19 AM)?ValueReference Range?Urine CultureNo growth.- ?Clinical Info: PLEASE FAX COMPLETED RESULTS TO [phone] * Lab:Comprehensive Met. Panel * Collection Date 08/25/2024 05/30/2023 06/01/2021 Collection Time 06:22 AM 06:43 AM 06:18 AM Order Date 08/25/2024 05/30/2023 06/01/2021 Sodium 129?L (Ref Range: 135-145 mmol/L) 129?L (Ref Range: 135-145 mmol/L) 136 (Ref Range: 135-145 mmol/L) Bilirubin Total 0.6 (Ref Range: 0.0-1.0 mg/dL) 0.8 (Ref Range: 0.0-1.0 mg/dL) 0.9 (Ref Range: 0.0-1.0 mg/dL) Aspartate Amino Transferase 40?H (Ref Range: 5-31 U/L) 38?H (Ref Range: 5-31 U/L) 29 (Ref Range: 5-31 U/L) Alanine Aminotransferase 33?H (Ref Range: 0-31 U/L) 26 (Ref Range: 0-31 U/L) 40?H (Ref Range: 0-31 U/L) Total Protein 6.4?L (Ref Range: 6.5-8.0 g/dL) 6.9 (Ref Range: 6.5-8.0 g/dL) 6.5 (Ref Range: 6.5-8.0 g/dL) Albumin Level 3.7 (Ref Range: 3.5-5.0 g/dL) 4.0 (Ref Range: 3.5-5.0 g/dL) 3.9 (Ref Range: 3.5-5.0 g/dL) Alkaline Phosphatase 87 (Ref Range: 39-117 U/L) 90 (Ref Range: 39-117 U/L) 96 (Ref Range: 39-117 U/L) Potassium 3.9 (Ref Range: 3.3-5.1 mmol/L) 4.6 (Ref Range: 3.3-5.1 mmol/L) 4.5 (Ref Range: 3.3-5.1 mmol/L) Chloride 98 (Ref Range: 96-108 mmol/L) 97 (Ref Range: 96-108 mmol/L) 101 (Ref Range: 96-108 mmol/L) Carbon Dioxide 26 (Ref Range: 22-29 mmol/L) 28 (Ref Range: 22-29 mmol/L) 29 (Ref Range: 22-29 mmol/L) Anion Gap 9?L (Ref Range: 12-20) 9?L (Ref Range: 12-20) 11?L (Ref Range: 12-20) Blood Urea Nitrogen 18?H (Ref Range: 9-16 mg/dL) 25?H (Ref Range: 9-16 mg/dL) 27?H (Ref Range: 9-16 mg/dL) Creatinine 0.94 (Ref Range: 0.5-1.4 mg/dL) 0.89 (Ref Range: 0.5-1.4 mg/dL) 0.83 (Ref Range: 0.5-1.4 mg/dL) Estimated Glomerular Filt Rate 57 > 60 > 60 Glucose Random 91 (Ref Range: 60-115 mg/dL) 92 (Ref Range: 60-115 mg/dL) 97 (Ref Range: 60-115 mg/dL) Calcium 8.6 (Ref Range: 8.4-10.2 mg/dL) 9.0 (Ref Range: 8.4-10.2 mg/dL) 9.3 (Ref Range: 8.4-10.2 mg/dL) * Examination: ???General Examination: ?GENERAL APPEARANCE:?pleasant, well nourished, well developed, in no acute distress, calm and relaxed.?HEAD:?atraumatic, normocephalic.?EYES:?eomi, perrla, anicteric, conjugate.?EARS:?normal.?NOSE:?septum intact.?ORAL CAVITY:?normal, unremarkable.?NECK/THYROID:?no jugular venous distention, no carotid bruit, thyroid normal.?LYMPH NODES:?no enlarged lymph nodes,spleen normal.?SKIN:?no suspicious lesions, anicteric.?HEART:?no clicks, gallops, murmurs, or rubs, regular rhythm, S1, S2 normal, no s3, or vascular bruits.?LUNGS:?clear to auscultation .?BREASTS:??no masses palpable bilaterally.?ABDOMEN:?bowel sounds normal, no ascites, no organomegaly, no mass.?RECTAL EXAM:?not examined.?MUSCULOSKELETAL:?extremities unremarkable, no clubbing, cyanosis or edema.?PERIPHERAL PULSES:?normal.?NEUROLOGIC:?alert and oriented, cranial nerves 2-12 grossly intact, deep tendon reflexes 2+ symmetrical, motor strength normal upper and lower extremities, sensory exam intact.?PSYCH:?alert, oriented.? Assessment: * Assessment: 1.?GERD (gastroesophageal re flux disease) - K21.9???Notes :Her symptoms are well controlled with medication. She is sleeping well and tolerating her diet.???2.?Leukopenia, unspecified type - D72.819???3.?Hypernatremia - E87.0???4.?Chronic cough - R05.3??? Plan: * Treatment: 2.?Leukopenia, unspecified t ype?LAB: PROFILE, FASTING (COMPREHENSIVE METABOLIC) ?LAB: CBC w DIFF ?LAB: Lipid Panel 3.?Hypernatremia?LAB: PROFILE, FASTING (COMPREHENSIVE METABOLIC) ?LAB: CBC w DIFF ?LAB: Lipid Panel 4.?Chronic cough?Imaging: XR CHEST 2 VIEW PA & LAT 5.?Others? Continue Multi Vitamin Tablet, -, 1 tablet, Orally, Once a day;?Continue Gas-X;?Continue Aspir-Low Tablet Delayed Release, 81 MG, 1 tablet, Orally, Once a day;?Continue Myrbetriq Tablet Extended Release 24 Hour, 50 MG, 1 tablet, Orally, Once a day;?Continue Vitamin D Tablet, 1000 UNIT, 1 tablet, Orally, Once a day;?Continue Biotin Tablet, 1000 MCG, 2 tabs, Orally, Once a day;?Continue Melatonin Tablet, 5 MG, 1 tablet in the evening, Orally, Once a day;?Continue Atorvastatin Calcium Tablet, 40 MG, TAKE 1 TABLET BY MOUTH EVERY DAY;?Continue Esomeprazole Magnesium Capsule Delayed Release, 40 MG, Oral;?Continue Bactrim DS Tablet, 800-160 MG, 1 tablet, Orally, Twice a day.?? * Preventive Medicine:? ??Counseling:?Care goal follow-up plan:?Counseling for abnormal BMI given?Yes ?Below Normal BMI Follow-up?Dietary education for weight gain, Dietary management education, guidance, and counseling, Feeding regime, Lifestyle education regarding diet, Nutrition / feeding management, Prescribed diet education, Special diet education, Intervention, Order not done: Medical or Other reason not done * Follow Up:?As Scheduled (Michelle son: Annual Exam) * Images: * The named appointment provid er may or may not be the originator of this progress note, and it is not deemed complete until electronically signed by the appointment provider. Sign off status: Pending * Provider:?Lalit Aguirre MD Date:?09/25 Generated for Anabella vasquez/Frank/Dieudonne on:?10/10/2024 10:29 AM EDT History and Physical Notes * HPI (History of Present Illness) Category Sub-Category Detail Notes COVID-19 Screening Questions Have you had any new onset fever, chills, cough, congestion, sore throat, shortness of breath, muscle aches?: No Examination Category Sub-Category Detail Notes General Examination GENERAL APPEARANCE: pleasant , well nourished, well developed, in no acute distress, calm and relaxed HEAD: atraumatic, normocep halic EYES: eomi, perrla, anicte jed, conjugate EARS: normal NOSE: septum intact NECK/THYROID: no jugular venous di stention, no carotid bruit, thyroid normal HEART: no clicks, gallops, murmurs, or rubs, regular rhythm, S1, S2 normal, no s3, or vascular bruits LUNGS: clear to auscultatio n ABDOMEN: bowel sounds normal, no ascites, no organomegaly, no mass NEUROLOGIC: alert and oriented, cranial nerves 2-12 grossly intact, deep tendon reflexes 2+ symmetrical, motor strength normal upper and lower extremities, sensory exam intact SKIN: no suspicious lesion s, anicteric PERIPHERAL PULSES: normal BREASTS: no masses palpable b ilaterally MUSCULOSKELETAL: extremities unremark able, no clubbing, cyanosis or edema LYMPH NODES: no enlarged lymph no julio c,spleen normal RECTAL EXAM: not examined PSYCH: alert, oriented ORAL CAVITY: normal, unremarkable
--- OUTSIDE RECORDS SUMMARY | 2024-10-10 10:29 | XMS_ITS | Patient Health Record ---
Author Organization [facility] Address [address] [place] [address] Care Team Providers Care Vacation Guide Name Role Phone Carla CAMACHO, Lalit Primary Care Provider Lyndon Muller Jr Unavailable [phone] Allergies Allergen (clinical drug ingredient) Drug/Non Drug Allergy documented on EMR Reaction Allergy Type Onset Date Status Penicillin Unknown Drug Allergy Active Reason For Referral No Information Medications Medication SIG (Take, Route, Frequency, Duration) [...] 1 tablet Orally Once a day Active Immunizations Vaccine Route Administration Date Status Comme nts Influenza Unknown 03/02/2021 Administered Influenza Unknown 03/13/2023 Administered Influenza Unknown 02/13/2024 Administered Social History Tobacco Use: Social History [...] Problem Status W/U Status Risk Notes Problem 859849038 Bloating (R14.0) Active confirmed Problem [id number] Gastroesophageal reflux disease, unspecified whether esophagitis present (K21.9) Active confirmed Vital Signs Temperature 97.3 degrees Fahrenheit 10/08/2024 Blood pressure diastolic 01 mm Hg 10/08/2024 Height 63.5 in 10/08/2024 Blood pressure systolic 001 mm Hg 10/08/2024 Weight 118 lbs 10/08/2024 BMI 20.57 kg/m2 10/08/2024 Encounters Encounter Location Date Provider Diagnosis [facility] [address] [place] [address] 10/08/2024 Lyndon Dorman Jr [facility] [address] [place] [address] 07/25/2024 Lyndon Dorman Jr [facility] [address] [place] [address] 09/08/2024 Lyndon Dorman Jr Plan Of Treatment Next Appt Details Provider Name:Lyndon delgado Jr, 10/12/2025 10:00:00 AM, [address], [address], [place], [address], Insurance Providers Payer Name Payer Address Payer Phone Subscriber Number Group Number Insured Name Patient Relationship to Insured Coverage Start Date Coverage End Date MEDICARE OF [place] [address] [place] [address] [id number] KOKI WASHINGTON Self - [facility] is the [facility] [address] [place] [id number] [id number] KOKI WASHINGTON Self - patient is the insured Medical (General) History Medical History History ICD Code Retinal artery occlusion urinary incontinence skin cancer Gastroesophageal reflux disease Colonoscopy 11/27/17 negative, family history of colon polyps, followup optional based on age Back pain Anxiety Surgical History Surgery Date(Month/Year) carotid artery surgery x 2 Skin cancer removal Varicose vein surgery
--- OUTSIDE RECORDS SUMMARY | 2024-10-10 10:29 | XMS_ITS | Encounter Summary ---
Author Organization [facility] Address [address] [place] [address] Care Team Providers Care Cooker Cleaner Name Role Phone Lalit Aguirre Primary Care Provider [phone] Encounter Details Date Type Department Care Team (Late st Contact Info) Description 11/22/2021 Orders Only [facility] [address] [place] [address] Anton Sanchez, DO [address] [place] [address] Social History Tobacco Use Types Packs/Day Years [...] Info) Description 12/01/2024 1:00 PM EDT Appointment [facility] [address] [place] [address] documented as of this encounter Visit Diagnoses Not on filedocumented in this encounter Care Teams Cooker Cleaner Relationship Specialty Start Date End Date Lalit Aguirre [facility] [address] [address] PCP - General Hematology 04/11/21 documented as of this encounter
--- OUTSIDE RECORDS SUMMARY | 2024-10-10 10:29 | XMS_ITS ---
Author Organization [facility] Address [address] [place] [address] [place] [phone] Care Team Providers Care Screed Person Name Role Phone Lalit Aguirre MD Primary Care Provider Unavailab haley Dorman Jr, Lyndon Nath REASON FOR VISIT esomeprazole Medications Medication SIG (Take, Route, Fr equency, Duration) Notes Start Date End Date Status Omeprazole 20 MG 1 capsule 1/2 to 1 h our before morning meal Orally Once a day for 30 days 08/04/2024 Active Encounters Encounter Location Date Provider Diagnosis [facility] [address] [place] [address] [place] [phone] 07/25/2024 Lyndon Dorman Jr Plan Of Treatment Medication Medication Name Sig Start Date Stop Date Notes Omeprazole 20 MG 1 capsule 1/2 to 1 h our before morning meal Orally Once a day for 30 days 08/04/2024 Next Appt Details Provider Name:Lyndon delgado Jr, 10/12/2025 10:00:00 AM, [address] [place] [address], [address], [place], [address], Progress Notes * KOKI CARDOZO VDOB:09/1945 (78 yo F)Acc No.[id number]:07/25/2024 Patient:?KOKI CARDOZO V :1945???Age:78 Y???Sex:Female Address: [place], [address] * Refills? Start Omeprazole Capsule Delayed Release, 20 MG, Orally, 30, 1 capsule 1/2 to 1 hour before morning meal, Once a day, 30 days, Refills=5 * true * Date:? Generated for Anabella vasquez/Frank/Akshatitting on:?10/10/2024 10:28 AM EDT
--- OUTSIDE RECORDS SUMMARY | 2024-10-10 10:29 | XMS_ITS ---
Author Organization Lalit Aguirre III, MD Address [address] [place] [address] Care Team Providers Care Acid Mixer Name Role Phone Lalit Aguirre Primary Care Provider Allergies Allergen (clinical drug ingredient) Drug/Non Drug Allergy documented on EMR Reaction Allergy Type Onset Date Status Mold Unknown Allergy Active Dust Mites Unknown Allergy Active Bee Sting Unknown Allergy Active nitrofurantoin Nitrofurantoin nausea and vomiting Drug Allergy Active Penicillin anaphylaxis Drug Allergy Acti ve REASON FOR VISIT Urinary tract, Syndrome of inappropriate ADH, gerd, Hearing loss, Fibromuscular dysplasia of the carotid artery, Back pain Medications Medication SIG (Take, Route, Frequency, Duration) Notes Start Date End Date Status Biotin 1000 MCG 2 tabs Orally Once a day Active Melatonin 5 MG 1 tablet in the even ing Orally Once a day Active Atorvastatin Calcium 40 MG TAKE 1 TABLET BY MOUTH EVERY DAY Active Fluorouracil 5 % 1 application Instructor Warper al Twice a day Active Citalopram Hydrobromide 10 MG 1 tablet Orally Once a day 02/22/2024 Active Vitamin D 1000 UNIT 1 tablet Orally Once a day Active Multi Vitamin - 1 tablet Orally Once a day Active Gas-X Active Aspir-Low 81 MG 1 tablet Orally Once a day Active Myrbetriq 50 MG 1 tablet Orally Once a day Active Esomeprazole Magnesium 40 MG Oral Active Bactrim DS 800-160 MG 1 tablet Orally Tw ice a day 08/20/2024 Active levoFLOXacin 250 MG 1 tablet Orally Once a day 08/22/2024 Active Social History Tobacco Use: Social History Observation Description Date Details (start date - stop date) Never Smoker NA - NA Sex Assigned At : Social History Observation Description Sex Assigned At Female Tobacco Use/Smoking Question Answer Notes Patient is a nonsmoker Additional Findings: Tobacco Non-User Aggressive non-smoker Vital Signs Height 63.5 in 08/26/2024 Weight 119 lbs 08/26/2024 BMI 20.75 kg/m2 08/26/2024 Encounters Encounter Location Date Provider Diagnosis Lalit Aguirre III, MD [address] [place] [address] [place] [address] 08/26/2024 Lalit Aguirre GERD (gastroesophage al reflux disease) K21.9 ; Urinary tract infection in female N39.0 ; Other idiopathic scoliosis, lumbar region M41.26 ; Acute bilateral low back pain without sciatica M54.50 ; 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 She is sleeping well and tolerating her diet. 08/26/2024 Urinary tract infection in female (ICD-10 - N39.0) She is responding well to the antibiotic. She will call me once if she worsens. Otherwise she will be seen as scheduled. 08/26/2024 Other idiopathic scoliosis, lumbar region (ICD-10 - M41.26) She continues to have mild but intermittent low back pain due to the scoliosis. No change in her regimen was necessary today. 08/26/2024 Acute bilateral low back pain without sciatica (ICD-10 - M54.50) She has decreased range of motion of lumbar spine. Review old x-rays show significant lumbar scoliosis. She has been referred to orthopedic surgery for evaluation as well as pain management. 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 She is asymptomatic and will remain on her current regimen. She will restrict fluids to 1500 mL daily. 08/26/2024 Fibromuscular dysplasia of carotid artery (ICD-10 - I77.3) The right carotid artery was recently repaired and she was told the operation was successful. 08/26/2024 Unspecified retinal vascular occlusion (ICD-10 - H34.9) This took place in the recent past and she was anticoagulated. That has now been stopped, but she remains on aspirin. No further episodes have occurred since her last visit. Plan Of Treatment Medication Medication Name Sig Start Date Stop Date Notes Biotin 1000 MCG 2 tabs Orally Once a day Melatonin 5 MG 1 tablet in the even ing Orally Once a day Atorvastatin Calcium 40 MG TAKE 1 TABLET BY MOUTH EVERY DAY Fluorouracil 5 % 1 application Instructor Warper al Twice a day Citalopram Hydrobromide 10 MG 1 tablet Orally Once a day 0 02/22/2024 Vitamin D 1000 UNIT 1 tablet Orally Once a day Multi Vitamin - 1 tablet Orally Once a day Gas-X Aspir-Low 81 MG 1 tablet Orally Once a day Myrbetriq 50 MG 1 tablet Orally Once a day Esomeprazole Magnesium 40 MG Oral Bactrim DS 800-160 MG 1 tablet Orally Twice a day 08/21/19 25 levoFLOXacin 250 MG 1 tablet Orally Once a day 08/22/2024 Next Appt Details Follow Up: As Scheduled, Michelle son: OV Provider Name:Lalit Aguirre, 12/01/2024 02:30:00 PM, [address] [place] [address] , [place] [address], [place], [address], Progress Notes * Nevaeh TORRESDOB:[birth year] (78 yo F)Acc No.[id number]:08/26/2024 Patient:?Nevaeh TORRES Provider:?Lalit Aguirre MD :1945???Age:78 Y???Sex:Female D ate:08/26/2024 Address:[address] [place] [address] , [facility][NOTE 3], [phone] Subjective: * Chief Complaints: * ???Urinary tractSyndrome of inappropriate ADHGerdHearing lossFibromuscular dysplasia of the carotid arteryBack pain * HPI: ???:?This telehealth visit took place over 15 min. with the patient at home and me in my office.? He gave consent for billing.? She reports that her urinary symptoms have almost completely resolved after several days of levofloxacin.? He has no fever.? She denies any nausea or vomiting.? She is returning to normal life.? ?She is able to consume food and fluid. ?Telehealth?Location of provider rendering services:?{...} [address] [facility] [address] ?Location of patient:?address listed in demographics for today's visit ?Patient identification confirmed using:?Name, ?Telehealth method:?Telephone only. Patient not visible to care provider. ?Consent:?Patient verbally consented to treatment, Patient verbally consented to billing insurance company, Patient informed of any privacy concerns related to method of visit ?Total time spent with patient (mins)?15 * ROS:?General/Constitutional:?pain?only normal aches and pains.?Chills?denies.?Fatigue?admits.?Fever?denies.?ENT:?Decreased hearing?in both ears.?Respiratory:?Cough?denies.?Cardiovascular:?Chest pain with exertion?denies.?Dyspnea on exertion?denies.?Shortness of breath?denies.?Gastrointestinal:?Constipation?occasional.?Decreased appetite?denies.?Diarrhea?denies.?Heartburn?denies.?Nausea?denies.?Rectal bleeding?denies.?Vomiting?denies.?Hematology:?bruising?denies.?petechiae?denies.?Swollen glands?none have been noted.?Genitourinary:?Frequent urination?a small amount.?Musculoskeletal:?Muscle aches?denies.?Painful joints?denies.?Sciatica?denies.?Weakness?denies.?Skin:?Itching?denies.?Rash?denies.?Skin lesion(s)?denies.?Neurologic:?Difficulty speaking?denies.?Dizziness?denies.?Headache?denies.?Low back pain?denies.?Psychiatric:?Depressed mood?which is mild.? * Medical History:? * Surgical History:?Varicose v ein surgery 1964Cataract extraction both eyes 2013colonoscopy enign breast lump removed 1987T & A as a child Laparascopic Surgery Mohs surgery bridge of nose biopsy on leg 11/2018lesion removal from eyelid 01/2019biopsy of eyelid 2019right carotid endarterectomy [facility] 1Repair of branchial pseudoaneurysm and drain placement, Left [id number] history Carotid artery stent placement * Hospitalization/Major Diagno stic Procedure:?abdominal pain 04/16/2018CVA 1Right carotid surgery, [facility] 04/2021vission loss 02/10/22No history * Family History:?Father: dece ased 41 yrs, coronary artery disease, rheumatic fever,.?Mother: 73 yrs, CVA,hypertension,.?Daughter(s): alive, Brain cyst.?2 daughter(s) - healthy. .? Her daughter Ana Lilia is a medical office assistant instructor at the [employer] on [place], [place] and is her HCP. Her other daughter, Kristy, is alive and well. She has two grandchildren who are healthy, one had a brain cyst. * Social History:?Tobacco Use:?Tobacco Use/Smoking?Patient is a?nonsmoker ?Additional Findings: Tobacco Non-User?Aggressive non-smoker ???She was born in [facility] and has been to Zheng for 48 years. They have 2 children who are healthy and well. 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 * Medications:?TakingMulti Vit jeter - Tablet 1 tablet Orally Once a day Gas-X Aspir-Low 81 MG Tablet Delayed Release 1 tablet Orally Once a day Myrbetriq 50 MG Tablet Extended Release 24 Hour 1 tablet Orally Once a day Vitamin D 1000 UNIT Tablet 1 tablet Orally Once a day Biotin 1000 MCG Tablet 2 tabs Orally Once a day Melatonin 5 MG Tablet 1 tablet in the evening Orally Once a day Atorvastatin Calcium 40 MG Tablet TAKE 1 TABLET BY MOUTH EVERY DAY Fluorouracil 5 % Cream 1 application External Twice a day Citalopram Hydrobromide 10 MG Tablet 1 tablet Orally Once a day Esomeprazole Magnesium 40 MG Capsule Delayed Release Oral Bactrim DS 800-160 MG Tablet 1 tablet Orally Twice a day levoFLOXacin 250 MG Tablet 1 tablet Orally Once a day , stop date 08/29/2024Medication List reviewed and reconciled with the patientTaking Multi Vitamin - Tablet 1 tablet Orally Once a day Taking Gas-X Taking Aspir-Low 81 MG Tablet Delayed Release 1 tablet Orally Once a day Taking Myrbetriq 50 MG Tablet Extended Release 24 Hour 1 tablet Orally Once a day Taking Vitamin D 1000 UNIT Tablet 1 tablet Orally Once a day Taking Biotin 1000 MCG Tablet 2 tabs Orally Once a day Taking Melatonin 5 MG Tablet 1 tablet in the evening Orally Once a day Taking Atorvastatin Calcium 40 MG Tablet TAKE 1 TABLET BY MOUTH EVERY DAY Taking Fluorouracil 5 % Cream 1 application External Twice a day Taking Citalopram Hydrobromide 10 MG Tablet 1 tablet Orally Once a day Taking Esomeprazole Magnesium 40 MG Capsule Delayed Release Oral Taking Bactrim DS 800-160 MG Tablet 1 tablet Orally Twice a day Taking levoFLOXacin 250 MG Tablet 1 tablet Orally Once a day , stop date 08/29/2024Medication List reviewed and reconciled with the patient * Allergies:?Dust MitesBee Sti ngMoldPenicillin: anaphylaxisNitrofurantoin: nausea and vomiting - Allergy - Criticality [place][Allergies Verified] Objective: * Vitals:?Ht: 63.5, Wt:119, BM I:20.75, Ht-cm: 161.29, Wt-k.98. * ???Past Orders: ???Lab:Urine Culture (Order Date - 08/22/2024) (Collection Date & Time - 08/25/2024 06:19 AM) ? Value Reference Range ?Urine Culture No growth. - ?Clinical Info: DANIA Tanner FAX COMPLETED RESULTS TO [phone] Lab:Complete Blood Count Aut o Diff * Collection Date 08/25/2024 07/03/2024 03/27/2024 Collection Time 06:22 AM 06:28 AM 06:34 AM Order Date 08/25/2024 07/03/2024 03/27/2024 White Blood Count 5.1 (Ref Range: 4.8-10.8 X10*3/uL) 5.8 (Ref Range: 4.8-10.8 X10*3/uL) 4.2?L (Ref Range: 4.8-10.8 X10*3/uL) Red Blood Count 3.68?L (Ref Range: 4.20-5.50 X10*6/uL) 3.37?L (Ref Range: 4.20-5.50 X10*6/uL) 3.49?L (Ref Range: 4.20-5.50 X10*6/uL) Hemoglobin 11.8?L (Ref Range: 12.0-16.0 g/dl) 11.1?L (Ref Range: 12.0-16.0 g/dl) 11.5?L (Ref Range: 12.0-16.0 g/dl) Hematocrit 35.9?L (Ref Range: 37.0-47.0 %) 32.2?L (Ref Range: 37.0-47.0 %) 34.2?L (Ref Range: 37.0-47.0 %) Mean Corpuscular Volume 97.6 (Ref Range: 80.0-98.0 fL) 95.5 (Ref Range: 80.0-98.0 fL) 98.0 (Ref Range: 80.0-98.0 fL) Mean Corpuscular Hemoglobin 32.1 (Ref Range: 27.0-33.0 pg) 32.9 (Ref Range: 27.0-33.0 pg) 33.0 (Ref Range: 27.0-33.0 pg) Mean Corpuscular HGB Conc 32.9 (Ref Range: 31.0-35.0 g/dl) 34.5 (Ref Range: 31.0-35.0 g/dl) 33.6 (Ref Range: 31.0-35.0 g/dl) Red Cell Distribution Width 12.6 (Ref Range: 11.0-16.0 %) 13.0 (Ref Range: 11.0-16.0 %) 13.2 (Ref Range: 11.0-16.0 %) Platelet Count 240 (Ref Range: 160-400 X10*3/uL) 295 (Ref Range: 160-400 X10*3/uL) 234 (Ref Range: 160-400 X10*3/uL) Mean Platelet Volume 9.8 (Ref Range: 9.4-12.3 fL) 9.1?L (Ref Range: 9.4-12.3 fL) 10.3 (Ref Range: 9.4-12.3 fL) Neutrophils Percent Auto 61.9 (Ref Range: 45-73 %) 64.2 (Ref Range: 45-73 %) 57.9 (Ref Range: 45-73 %) Imm Gran Pct Auto 0.2 (Ref Range: 0.0-0.4 %) 0.3 (Ref Range: 0.0-0.4 %) 0.2 (Ref Range: 0.0-0.4 %) Lymphocytes Percent Auto 20.2 (Ref Range: 20-40 %) 19.2?L (Ref Range: 20-40 %) 23.6 (Ref Range: 20-40 %) Monocytes Percent Auto 12.3?H (Ref Range: 2-11 %) 12.0?H (Ref Range: 2-11 %) 12.3?H (Ref Range: 2-11 %) Eosinophils Percent Auto 5.0?H (Ref Range: 0-4 %) 3.8 (Ref Range: 0-4 %) 5.5?H (Ref Range: 0-4 %) Basophils Percent Auto 0.4 (Ref Range: 0-2 %) 0.5 (Ref Range: 0-2 %) 0.5 (Ref Range: 0-2 %) NRBC Pct Auto 0.0 (Ref Range: 0.0-0.2 /100WBC) 0.0 (Ref Range: 0.0-0.2 /100WBC) 0.0 (Ref Range: 0.0-0.2 /100WBC) Neutrophils Absolute Auto 3.1 (Ref Range: 2.0-8.3 x10*3/uL) 3.7 (Ref Range: 2.0-8.3 x10*3/uL) 2.4 (Ref Range: 2.0-8.3 x10*3/uL) Imm Gran Abs Auto 0.01 (Ref Range: 0.00-0.03 X10*3/uL) 0.02 (Ref Range: 0.00-0.03 X10*3/uL) 0.01 (Ref Range: 0.00-0.03 X10*3/uL) Lymphocytes Absolute Auto 1.0?L (Ref Range: 1.2-4.9 X10*3/uL) 1.1?L (Ref Range: 1.2-4.9 X10*3/uL) 1.0?L (Ref Range: 1.2-4.9 X10*3/uL) Monocytes Absolute Auto 0.6 (Ref Range: 0.1-1.2 X10*3/uL) 0.7 (Ref Range: 0.1-1.2 X10*3/uL) 0.5 (Ref Range: 0.1-1.2 X10*3/uL) Eosinophils Absolute Auto 0.3 (Ref Range: 0.0-0.4 X10*3/uL) 0.2 (Ref Range: 0.0-0.4 X10*3/uL) 0.2 (Ref Range: 0.0-0.4 X10*3/uL) Basophils Absolute Auto 0.0 (Ref Range: 0.0-0.2 X10*3/uL) 0.0 (Ref Range: 0.0-0.2 X10*3/uL) 0.0 (Ref Range: 0.0-0.2 X10*3/uL) NRBC Abs Auto 0.000 (Ref Range: 0.0-0.012 X10*3/uL) 0.000 (Ref Range: 0.0-0.012 X10*3/uL) 0.000 (Ref Range: 0.0-0.012 X10*3/uL) * Lab:Comprehensive Met. Panel * Collection Date [...] mg/dL) 9.3 (Ref Range: 8.4-10.2 mg/dL) * Lab:Comprehensive Isa. Ace l Fast * Collection Date 07/03/2024 03/27/2024 11/23/2023 Collection Time 06:28 AM 06:34 AM 06:38 AM Order Date 07/03/2024 03/27/2024 11/23/2023 Sodium 126?L (Ref Range: 135-145 mmol/L) 132?L (Ref Range: 135-145 mmol/L) 135 (Ref Range: 135-145 mmol/L) Bilirubin Total 0.6 (Ref Range: 0.0-1.0 mg/dL) 0.4 (Ref Range: 0.0-1.0 mg/dL) 0.5 (Ref Range: 0.0-1.0 mg/dL) Aspartate Amino Transferase 35?H (Ref Range: 5-31 U/L) 39?H (Ref Range: 5-31 U/L) 37?H (Ref Range: 5-31 U/L) Alanine Aminotransferase 24 (Ref Range: 0-31 U/L) 27 (Ref Range: 0-31 U/L) 25 (Ref Range: 0-31 U/L) Total Protein 6.6 (Ref Range: 6.5-8.0 g/dL) 6.4?L (Ref Range: 6.5-8.0 g/dL) 6.7 (Ref Range: 6.5-8.0 g/dL) Albumin Level 3.6 (Ref Range: 3.5-5.0 g/dL) 3.8 (Ref Range: 3.5-5.0 g/dL) 3.9 (Ref Range: 3.5-5.0 g/dL) Alkaline Phosphatase 77 (Ref Range: 39-117 U/L) 85 (Ref Range: 39-117 U/L) 87 (Ref Range: 39-117 U/L) Potassium 4.2 (Ref Range: 3.3-5.1 mmol/L) 4.8 (Ref Range: 3.3-5.1 mmol/L) 4.7 (Ref Range: 3.3-5.1 mmol/L) Chloride 94?L (Ref Range: 96-108 mmol/L) 97 (Ref Range: 96-108 mmol/L) 101 (Ref Range: 96-108 mmol/L) Carbon Dioxide 25 (Ref Range: 22-29 mmol/L) 27 (Ref Range: 22-29 mmol/L) 27 (Ref Range: 22-29 mmol/L) Anion Gap 11?L (Ref Range: 12-20) 13 (Ref Range: 12-20) 12 (Ref Range: 12-20) Blood Urea Nitrogen 19?H (Ref Range: 9-16 mg/dL) 26?H (Ref Range: 9-16 mg/dL) 31?H (Ref Range: 9-16 mg/dL) Creatinine 0.81 (Ref Range: 0.5-1.4 mg/dL) 0.96 (Ref Range: 0.5-1.4 mg/dL) 1.07 (Ref Range: 0.5-1.4 mg/dL) Estimated Glomerular Filt Rate > 60 56 49 Glucose Fasting 81 (Ref Range: 60-99 mg/dL) 84 (Ref Range: 60-99 mg/dL) 85 (Ref Range: 60-99 mg/dL) Calcium 8.9 (Ref Range: 8.4-10.2 mg/dL) 8.8 (Ref Range: 8.4-10.2 mg/dL) 9.5 (Ref Range: 8.4-10.2 mg/dL) * Lab:Lipid Panel * Collection Date 07/03/2024 03/27/2024 11/23/2023 Collection Time 06:28 AM 06:34 AM 06:38 AM Order Date 07/03/2024 03/27/2024 11/23/2023 Triglycerides 45 (Ref Range: <150 mg/dL) 41 (Ref Range: <150 mg/dL) 34 (Ref Range: <150 mg/dL) Cholesterol 129 (Ref Range: <200 mg/dL) 138 (Ref Range: <200 mg/dL) 135 (Ref Range: <200 mg/dL) LDL Cholesterol Calculated 49 (Ref Range: <100 mg/dL) 55 (Ref Range: <100 mg/dL) 51 (Ref Range: <100 mg/dL) HDL Cholesterol 71 (Ref Range: >40 mg/dL) 75 (Ref Range: >40 mg/dL) 78 (Ref Range: >40 mg/dL) * Lab:Vitamin D 25-OH Total * Collection Date 07/03/2024 03/27/2024 09/15/2022 Collection Time 06:28 AM 06:34 AM 06:40 AM Order Date 07/03/2024 03/27/2024 09/15/2022 Vitamin D 25-OH Total 33.7 (Ref Range: >30 ng/mL) 33.4 (Ref Range: >30 ng/mL) 41.6 (Ref Range: >30 ng/mL) Assessment: * Assessment: 1.?Urinary tract infection i n female - N39.0 (Primary)???Notes :She is responding well to the antibiotic.? She will call me once if she worsens.? Otherwise she will be seen as scheduled.???2.?GERD (gastroesophageal reflux disease) - K21.9???Notes :Her symptoms are well controlled with medication. She is sleeping well and tolerating her diet.???3.?Other idiopathic scoliosis, lumbar region - M41.26???Notes :She continues to have mild but intermittent low back pain due to the scoliosis. No change in her regimen was necessary today.???4.?Acute bilateral low back pain without sciatica - M54.50???Notes :She has decreased range of motion of lumbar spine. Review old x- rays show significant lumbar scoliosis. 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 She is asymptomatic and will remain on her current regimen. She will restrict fluids to 1500 mL daily.???6.?Fibromuscular dysplasia of carotid artery - I77.3???Notes :The right carotid artery was recently repaired and she was told the operation was successful.???7.?Unspecified retinal vascular occlusion - H34.9???Notes :This took place in the recent past and she was anticoagulated. That has now been stopped, but she remains on aspirin. No further episodes have occurred since her last visit.??? Plan: * Treatment: 2.?Others? Continue Multi Vitamin Tablet, -, 1 tablet, [...] 1 tablet, Orally, Twice a day.?? * Procedure Codes:?04918 SYNCH AUDIO-ONLY EST SF 10 * Follow Up:?As Scheduled ([place] son: OV) * Images: * Sign off status: Completed true * Provider:?Lalit Aguirre MD Date:?05/2024 Generated for Anabella vasquez/Frank/Ritusmitting on:?10/10/2024 10:29 AM EDT History and Physical Notes * HPI (History of Present Illness) Category Sub-Category Detail Notes Telehealth Location of [facility] rendering services:: {...} [address] [facility] [address] [place] [address] Location of patient:: address listed in demographics for today's visit Patient identification confirmed using:: Name, Telehealth method:: Telephone only. Safia ent not visible to care provider. Consent:: Patient verbally c onsented to treatment, Patient verbally consented to billing insurance company, Patient informed of any privacy concerns related to method of visit Total time spent with patient (mins): 15
== END 2024-10-10 10:10 | disposition home or self-care (01) ==
LOC: HO.XRAY 10:09
PROVIDERS: PCP Internal Medicine Medical Oncology; Visit Provider Internal Medicine Medical Oncology
DX: R05.3 Chronic cough (principal)
CPT/HCPCS: 71046

== ENCOUNTER → 2024-10-10 10:13 | Outpatient (BNV) | payer MEDICARE, OTHER, SELFPAY | PROVIDERS: PCP Internal Medicine Medical Oncology; Visit Provider Radiology Diagnostic Radiology | DX: R05.3 Chronic cough (principal) | CPT/HCPCS: 71046 ==

== ENCOUNTER 2024-11-20 13:05 | Outpatient (REF) | payer MEDICARE, OTHER, SELFPAY ==
--- OUTSIDE RECORDS SUMMARY | 2024-11-20 15:41 | XMS_ITS | Clinical Summary ---
Author Organization [facility] Address [address] [facility] [address] [place] [address] Phone Care Team Providers Care Folder And Notcher Name Role Phone Lalit Aguirre MD Primary Care Provider [phone] Allergies Active Allergy Reactions Criticality Noted Date [...] age to complete this topic Insurance Medicare [facility] Medicare [facility] Care Teams Folder And Notcher Relationship Specialty Start Date End Date Lalit Aguirre MD [address] [place] [address] [address] [place] PCP - General Medical Oncology 06/02/21
== END 2024-11-20 13:06 | disposition home or self-care (01) ==
LOC: HO.LNP 13:05
PROVIDERS: Visit Provider Internal Medicine Medical Oncology
DX: R31.9 Hematuria, unspecified (principal)
CPT/HCPCS: 87086

== ENCOUNTER 2024-12-03 14:33 | Outpatient (REF) | payer MEDICARE, OTHER, SELFPAY ==
[2024-12-03 14:46] LABS: MANUAL DIFF FLAG NO
--- OUTSIDE RECORDS SUMMARY | 2024-12-03 15:06 | XMS_ITS | Encounter Summary ---
Author Organization [facility] Address [address] [place] [address] Care Team Providers Care Interior Design Program Chair Name Role Phone Lalit Aguirre Primary Care Provider [phone] Encounter Details Date Type Department Care Team (Latest Contact Info) Description 01/24/2022 [employer] [facility] Interventional Radiology [address] [place] [address] Chayamuni, Generic Provider [facility] [place] [address] [place] Angiogram of the head from 12/12/21 [...] as of this encounter Plan of Treatment Not on file documented as of this encounter Visit Diagnoses Not on filedocumented in this encounter Care Teams Interior Design Program Chair Relationship Specialty Start Date End Date Lalit Aguirre [address] [facility] [address] [place] [address] PCP - General Hematology 04/11/21 documented as of this encounter
--- OUTSIDE RECORDS SUMMARY | 2024-12-03 15:06 | XMS_ITS | Clinical Summary ---
Author Organization [facility] Address [address] [facility] [address] [place] [address] Phone Care Team Providers Care Community Relations Specialist Name Role Phone Lalit Aguirre MD Primary Care Provider [phone] Allergies Active Allergy Reactions Criticality Noted Date [...] and she is planning on going to [place] for the winter. Continue plavix and aspirin [...] 2 - PCV) 09/28/2020 09/29/2019 Influenza Vaccine (#1) 2025 , 03/18/2018, 03/09/2016, Additional history exists Pneumococcal Vaccine: Peds (0 to 5 Years) and At-Risk Patients (6 to 49 Years) Discontinued 09/29/2019 Hepatitis B Vaccine Aged Out No longe r eligible based on patient's age to complete this topic Insurance Medicare [facility] Medicare [facility] Care Teams Community Relations Specialist Relationship Specialty Start Date End Date Lalit gAuirre MD [address] [place] [address] [address] [place] PCP - General Medical Oncology 06/02/21
[2024-12-03 15:12] LABS: Hematocrit 32.1 % (37.0-47.0); Hemoglobin 10.5 g/dl (12.0-16.0); Imm Gran Abs Auto 0.03 X10*3/uL (0.00-0.03); Imm Gran Pct Auto 0.6 % (0.0-0.4); Lymphocytes Absolute Auto 1.1 X10*3/uL (1.2-4.9); Mean Corpuscular HGB Conc 32.7 g/dl (31.0-35.0); Mean Corpuscular Hemoglobin 31.6 pg (27.0-33.0); Mean Corpuscular Volume 96.7 fL (80.0-98.0); NRBC Abs Auto 0.000 X10*3/uL (0.0-0.012); NRBC Pct Auto 0.0 /100WBC (0.0-0.2); Platelet Count 264 X10*3/uL (160-400); Red Blood Count 3.32 X10*6/uL (4.20-5.50); White Blood Count 5.4 X10*3/uL (4.8-10.8)
[2024-12-03 15:36] LABS: Alanine Aminotransferase 44 U/L (0-31); Albumin Level 3.9 g/dL (3.5-5.0); Alkaline Phosphatase 87 U/L (39-117); Anion Gap 9 (12-20); Aspartate Amino Transferase 41 U/L (5-31); Blood Urea Nitrogen 22 mg/dL (9-16); Calcium 8.3 mg/dL (8.4-10.2); Carbon Dioxide 26 mmol/L (22-29); Chloride 97 mmol/L (96-108); Estimated Glomerular Filt Rate 58; Potassium 5.0 mmol/L (3.3-5.1); Sodium 127 mmol/L (135-145); Total Protein 6.3 g/dL (6.5-8.0)
== END 2024-12-03 14:34 | disposition home or self-care (01) ==
LOC: HO.LAB 14:33
PROVIDERS: PCP Internal Medicine Medical Oncology; Visit Provider Internal Medicine Medical Oncology
DX: E87.1 Hypo-osmolality and hyponatremia (principal)
CPT/HCPCS: 36415; 80053; 85025

== ENCOUNTER 2025-02-09 06:10 | Outpatient (REF) | payer MEDICARE, OTHER, SELFPAY ==
--- OUTSIDE RECORDS SUMMARY | 2024-10-23 06:34 | XMS_ITS ---
Author Organization Lalit Aguirre III, MD Address [address] [address] Care Team Providers Care Venetian Blind Machine Operator Name Role Phone Lalit Aguirre Primary Care Provider REASON FOR VISIT UTI Rx Social History Sex Assigned At : Social History Observation Description Sex Assigned At Female Encounters Encounter Location Date Provider Diagnosis Lalit Aguirre III, MD [address] [place] [address] [place] [address] 10/23/2024 Lalit Aguirre Plan Of Treatment Next Appt Details Provider Name:Lalit Aguirre, 02/11/2025 02:00:00 PM, [address] [place] [address] [place], [address], Progress Notes * Nevaeh TORRESDOB:[birth year] (78 yo F)Acc No.[id number]:10/23/2024 Patient: Nevaeh JOHNSON :1945 A ge:78 Y S ex:Female Address:[address], [place], [address] * true * Date: Generated for Anabella vasquez/Frank/Dieudonne on: 0 02/09/2025 06:13 AM EDT
--- OUTSIDE RECORDS SUMMARY | 2024-10-23 08:33 | XMS_ITS ---
Author Organization Lalit Aguirre III, MD Address [address] [place] [address] Care Team Providers Care Occupational Health Specialist Name Role Phone Lalit Aguirre Primary Care Provider [phone] Medications Medication SIG (Take, Route, Fr equency, Duration) Notes Start Date End Date Status levoFLOXacin 250 MG 1 tablet Orally Once a day for 7 days 10/23/2024 10/30/2024 Active Social History Sex Assigned At : Social History Observation Description Sex Assigned At Female Encounters Encounter Location Date Provider Diagnosis Lalit Aguirre III, MD [address] [place] [address] [place] [address] 10/23/2024 Lalit Aguirre Plan Of Treatment Medication Medication Name Sig Start Date Stop Date Notes levoFLOXacin 250 MG 1 tablet Orally Once a day for 7 days 10/23/2024 10/30/2024 Next Appt Details Provider Name:Lalit Aguirre, 02/11/2025 02:00:00 PM, [address] [place] [address] [place], [address], Progress Notes * Nevaeh TORRESDOB:[birth year] (78 yo F)Acc No.[id number]:10/23/2024 Patient: Nevaeh JOHNSON :1945 A ge:78 Y S ex:Female Address: [address], [address] [facility] [place], [address] * Refills Start levoFLOXacin Tablet, 250 MG, Orally, 7 Tablet, 1 tablet, Once a day, 7 days, Refills=0 * true * Date: Generated for Anabella vasquez/Frank/Akshatitting on: 0 02/09/2025 06:12 AM EDT
--- OUTSIDE RECORDS SUMMARY | 2024-11-20 07:00 | XMS_ITS ---
Author Organization Lalit Aguirre III, MD Address [address] [facility] [place] [address] Care Team Providers Care Group Practice Pediatrician Name Role Phone Lalit Aguirre Primary Care [...] Culture Reviewed date:11/22/2024 02:21:15 PM Interpretation: Performing Lab:[facility], [address] [place] [phone] Notes/Report: Urine Culture No growth. REASON FOR [...] 08/20/2024 Active Fluorouracil 5 % 1 application Relay Man al Twice a day Active Citalopram Hydrobromide [...] Date Provider Diagnosis Lalit Aguirre III, MD [address] [place] [address] [place] [address] 11/20/2024 Lalit Aguirre Urinary tract infect ion [...] 08/21/19 25 Fluorouracil 5 % 1 application Relay Man al Twice a day Citalopram Hydrobromide 10 [...] Michelle son: Annual Exam Provider Name:Lalit Aguirre, 02/11/2025 02:00:00 PM, [address] [place] [address] , [address], [place], [address], Progress Notes * Nevaeh TORRESDOB:[birth year] (78 yo F)Acc No.[id number]:11/20/2024 Patient: Nevaeh JOHNSON Provider: Sushil Aguirre MD :1945 A ge:78 Y S ex:Female Date:11/20/2024 Address: [address], [address] [place], [id number] Subjective: * Chief Complaints: * U rinary [...] eyelid 01/2019biopsy of eyelid 2019right carotid endarterectomy [facility] epair of branchial pseudoaneurysm and drain placement, Left [id number] history Carotid artery stent placement * Hospitalization/Major Diagno stic Procedure: a bdominal pain 04/16/2018CVA 1Right carotid surgery, [facility] 04/2021vission loss 02/10/22No history * Family History: F ather: 41 yrs, coronary artery disease, rheumatic fever,. M other: 73 yrs, CVA,hypertension,. D aughter(s): alive, Brain cyst. 2 daughter(s) - healthy. . Her daughter Ana Lilia is a ophthalmic medical technician at the [facility] on [place], [place] and is her HCP. Her other daughter, Kristy, is alive and well. She has two grandchildren who are healthy, one had a brain cyst. * Social History: T obacco Use: T obacco Use/Smoking P atient is a n onsmoker A dditional Findings: Tobacco Non-User A ggressive non-smoker S he was born in [facility] and has been to [place] for 48 years. They have 2 children who are healthy and well. 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 * Medications: T akingMulti Vitamin - Tablet [...] nausea and vomiting - Allergy - Criticality Rey[Allergies Verified] Objective: * Vitals: H t: 63.5, [...] an d sensitivity,PLEASE FAX COMPLETED RESULTS TO [phone] PLEASE FAX COMPLETED RESULTS TO [phone] * Lab:Complete Blood Count Aut o Diff [...] 0.000 (Ref Range: 0.0-0.012 X10*3/uL) * Lab:[facility] * Collection Date 10/08/2024 07/03/2024 [...] - * Procedure Codes: 8 1002 URINE-NO [id number] URINE-NO [id number] MEASURE BLOOD OXYGEN LEVEL * Preventive Medicine: [...] Sign off status: Completed true * Provider: Sushli Aguirre MD Date: 0 11/20/2024 Generated for Cesari ng/Frank/eTransmitting on: 0 02/09/2025 06:12 AM EDT History and Physical Notes * [...]
--- OUTSIDE RECORDS SUMMARY | 2024-12-01 13:00 | XMS_ITS ---
Author Organization Lalit Aguirre III, MD Address [address] [place] [address] Care Team Providers Care Director Of Education Name Role Phone Lalit Aguirre Primary Care Provider [phone] REASON FOR VISIT annual exam Social History Sex Assigned At : Social History Observation Description Sex Assigned At Female Encounters Encounter Location Date Provider Diagnosis Lalit Aguirre III, MD [address] [place] [address] [place] [address] 12/01/2024 Lalit Aguirre Plan Of Treatment Next Appt Details Provider Name:Lalit Aguirre, 02/11/2025 02:00:00 PM, [address] [place] [address] [place], [address], Progress Notes * Nevaeh TORRESDOB:[birth year] (79 yo F)Acc No.[id number]:12/01/2024 Progress Notes Patient: Nevaeh JOHNSON Provider: Sushil Aguirre MD :1945 A ge:79 Y S ex:Female Date:12/01/2024 Address:[address], [address] [facility] [place], [id number] Subjective: * Chief Complaints: * 1 . [...] MD Date: 0 12/01/2024 Generated for Anabella vasquez/Frank/Ritusmitting on: 0 02/09/2025 06:13 AM EDT
--- OUTSIDE RECORDS SUMMARY | 2024-12-03 06:13 | XMS_ITS ---
Author Organization Lalit Aguirre III, MD Address [address] [place] [address] Care Team Providers Care Washing Machine Operator Name Role Phone Lalit Aguirre Primary Care Provider REASON FOR VISIT Labs done at [facility] Social History Sex Assigned At : Social History Observation Description Sex Assigned At Female Encounters Encounter Location Date Provider Diagnosis Lalit Aguirre III, MD [address] [place] [address] [place] [address] 12/03/2024 Lalit Aguirre Hyponatremia E87.1 Assessments Encounter Date Diagnosis (ICD Code) Assessment Notes Treat ment Notes Treatment Clinical Notes 12/03/2024 Hyponatremia (ICD-10 - E87.1) Plan Of Treatment Pending Test Test Name Order Date PROFILE, RANDOM (COMPREHENSIVE METABOLIC ) 12/03/2024 CBC w DIFF 12/03/2024 Next Appt Details Provider Name:Lalit Aguirre, 02/11/2025 02:00:00 PM, [address] [place] [address] [place], [address], Progress Notes * Nevaeh TORRESDOB:[birth year] (79 yo F)Acc No.[id number]:12/03/2024 Patient: Nevaeh JOHNSON :1945 A ge:79 Y S ex:Female Address: [address], [address] [facility] [place], [address] Subjective: * Chief Complaints: * L abs done at [facility] * Medical History: * Surgical History: * Hospitalization/Major Diagno stic Procedure: * Medications: Objective: * Vitals: * Physical Examination: Assessment: * Assessment: 1. H yponatremia - E87.1 Plan: * Treatment: * Procedure Codes: * true * Date: Generated for Anabella vasquez/Frank/Akshatitting on: 0 02/09/2025 06:13 AM EDT
--- OUTSIDE RECORDS SUMMARY | 2025-02-09 06:13 | XMS_ITS | Clinical Summary ---
Author Organization [facility] Address [address] [facility] [address] [place] [address] Phone Care Team Providers Care Reliability Engineer Name Role Phone Lalit Aguirre MD Primary Care Provider [phone] Allergies Active Allergy Reactions Criticality Noted Date [...] age to complete this topic Insurance Medicare [facility] Medicare [facility] Care Teams Reliability Engineer Relationship Specialty Start Date End Date Lalit Aguirre MD [address] [place] [address] [address] [place] PCP - General Medical Oncology 06/02/21
--- OUTSIDE RECORDS SUMMARY | 2025-02-09 06:13 | XMS_ITS | Encounter Summary ---
Author Organization [facility] Address [address] [place] [address] Care Team Providers Care Hand Plug Shaper Name Role Phone Lalit Aguirre Primary Care Provider [phone] Encounter Details Date Type Department Care Team (Latest Contact Info) Description 01/24/2022 [employer] [facility] Interventional Radiology [address] [place] [address] [employer], Generic Provider [facility] [place] [address] CT Angiogram of the head [...] on filedocumented in this encounter Care Teams Hand Plug Shaper Relationship Specialty Start Date End Date Lalit Aguirre [address] [facility] [address] [place] [address] PCP - General Hematology 04/11/21 documented as of this encounter
--- OUTSIDE RECORDS SUMMARY | 2025-02-09 06:14 | XMS_ITS | Clinical Summary ---
Author Organization [facility] Address [address] [place] [address] Care Team Providers Care Systems Analyst Name Role Phone Lalit Aguirre Primary Care Provider [phone] Allergies Active Allergy Reactions Criticality Noted Date [...] fluoruracil (CARAC) 0.5 % cream 11/08/2023 Active citalopram (CeleXA) 10 mg tablet SMARTSI Tablet(s) By Mouth Daily Active Active Problems Problem Noted Date Diagnosed Date Carotid stenosis, symptomatic, with infarction 0 12/01/2024 Dizziness 12/01/2024 Hyponatremia 05/18/2021 Assessment & Plan (05/19/2021 11:41 [...] and she is planning on going to [place] for the winter. 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 -If the patient remains hospitalized goal of sodium correction to 135/24hrs >> Nephrology will sign off, do not hesitate to re-consult us if new nephro concerns comes up Encounters Date Type Department Care Team Description 12/01/2024 2:00 PM EDT Follow-Up [facility] Building Vascular Surgery [address] [place] [address] Attending Pathologist: Donna Melgoza NP Carotid stenosis, symptomatic, with infarction (HCC) (Primary Dx); Dizziness; Hyponatremia 12/01/2024 1:00 PM EDT - 12/01/2024 11:59 PM EDT Hospital Encounter [facility] [address] [place] [address] Carotid stenosis, symptomatic, with infarction (HCC); Stenosis of carotid artery, unspecified laterality Discharge Disposition: Home or Self Care (01) from Last 3 Months Immunizations Immunization Administration Dates Next Due Hepatitis A Vaccine, Adult Dosage 03/18/2012 Hepatitis A Vaccine, Pediatric/Adolescent Dosage, 2 Dose Schedule 10/02/2012 Influenza, High Dose Seasona l, Preservative Free (FLUZONE HIGH-DOSE) 03/01/2015 Influenza, Injectable, Quadr ivalent, Contains Preservative 03/09/2016 Influenza, Trivalent, Adjuva nted, PF (FLUAD) 03/18/2018 Influenza, Trivalent, MDV, Injectable ,03/19/2018,03/29/2015,03/24,06/16/2013 Influenza, [...] Sign Reading Time Taken Comments Blood Pressure 136/68 12/01/2024 1:59 PM EDT Pulse 68 12/01/2024 1:59 PM EDT Temperature 36.6 C (97.9 F) 05/13/2022 3:00 PM EST Respiratory Rate 16 12/01/2024 1:59 PM EDT Oxygen Saturation 100% 12/01/2024 1:59 PM EDT Inhaled Oxygen Concentration - - Weight 56.1 kg (123 lb 9.6 oz) 12/01/2024 1:59 P M EDT Height 152.4 cm (5') 12/01/2024 1:59 PM EDT Body Mass Index 24.14 12/01/2024 1:59 PM EDT Plan of Treatment Health Maintenance Due Date Last Done Comments Medicare AWV 11/29/1946 Osteoporosis Screening 11/29/1993 Pneumococcal Vaccine: 50+ Years (1 of 1 - PCV) 11/29/1993 Zoster Vaccines (1 of 2) 11/29/1993 RSV Vaccine (60+ years old and patients) (1 - 1-dose 75+ series) 11/29/2018 Alcohol/Substance Use Screening 05/28/2024 Depression Screening and Follow-Up 05/28/2024 Fall Risk Screening 05/28/2024 Health Care Proxy Review 05/28/2024 Social Drivers of Health Annual Screening 05/28/2024 Influenza Vaccine (#1) 2025 , 03/09/2022, 03/27/2021, Additional history exists DTaP,Tdap,and Td Vaccines (2 - Td or Tdap) 01/11/2028 01/10/2018 Tobacco Screening 05/28/2042 12/01/2024 Statin Therapy Completed 05/02/2021 COVID-19 Vaccine Completed 09/09/2024, , 03/09/2022, Additional history exists Hepatitis B Vaccines Aged Out No long er eligible based on patient's age to complete this topic Medical Devices Implanted Type Area Scallop Shucker Device Identifier Shelf Expiration Date Model / Serial / Lot Device Closure Vascular Plug 6fr Angio-Seal Vip - S0 - [id number] Implanted:Qty : 1 on 04/27/2022 by Jose Morales MD at [facility] Implant Right: Groin [employer] [id number] 01/25/2023 [id number] 0 / [id number] System Stent Carotid [id number] Enroute - [id number] Implanted:Qty : 1 on 05/09/2022 by Jose Morales MD at [facility] Stent Right: Carotid [employer] [facility] 12/26/2023 SR-0840-[id number] S / / [id number] System Stent Carotid [id number] Enroute - [id number] Implanted:Qty : 1 on 05/09/2022 by Jose Morales MD at [facility] Stent Right: Carotid [employer] [facility] 12/26/2023 SR-0840-C S / / [id number] Procedures * Due to [place] state law, this organization might not be sharing negative HIV tests. Procedure Name Priority Date/Time Associated Diagnosis Comments BASIC METABOLIC PANEL Routine 12/01/2024 2:46 PM EDT Dizziness CAROTID DUPLEX SCAN BILATERAL Routine 12/01/2024 1:52 PM EDT Carotid stenosis, symptomatic, with infarction (HCC) Stenosis of carotid artery, unspecified laterality from Last 3 Months Results * Due to [place] state law, this organization might not be sharing negative HIV tests. * (ABNORMAL) Basic metabolic panel (12/01/2024 2:46 PM EDT) NA 123(L) 135 - 145 mmol/L 12/01/2024 4:00 PM EDT [facility] K 4.7 3.5 - 5.3 mmol/L 12/01/2024 4:00 PM EDT [facility] Cl 92(L) 98 - 107 mmol/L 12/01/2024 4:00 PM EDT [facility] CO2 22 22 - 32 mmol/L 12/01/2024 4:00 PM EDT [facility] BUN 17 7 - 23 mg/dL 12/01/2024 4:00 PM EDT [facility] Creatinine 0.88 0.50 - 1.20 mg/dL 12/01/2024 4:00 PM EDT [facility] Glucose 95 65 - 99 mg/dL 12/01/2024 4:00 PM EDT [facility] Calcium 8.8 8.6 - 10.5 mg/dL 12/01/2024 4:00 PM EDT [facility] Anion Gap 9 5 - 15 12/01/2024 4:00 PM EDT [facility] eGFR 66 >=60 mL/min/1. 73m2 12/01/2024 4:00 PM EDT [facility] Comment:The estimated glomer ular filtration rate (eGFR) is calculated using a new formula developed by the NKF-ASN task force to eliminate race-based correction factors. The new formula uses serum/plasma creatinine, age, and gender to determine eGFR. A value below 60mls/min might indicate kidney disease and will be flagged. For additional information, see Cookie et al, Am J Kidney Dis. 2021;79(2):268- 288, A Unifying Approach for GFR estimation: Recommendations of the NKF-ASN Task Force on Reassessing the Inclusion of Race in Diagnosing Kidney Disease . Blood Structure of peripheral vein / Unknown Venipuncture / Unknown 12/01/2024 2:46 PM EDT 12/01/2024 3:20 PM EDT us Donna Shin NP LAB BLOOD ORDERABLES Final Re sult [facility] [address] [place] [address], [place] * CAROTID DUPLEX SCAN BILATERAL (12/01/2024 1:52 PM EDT) PSV Common Carotid Distal Arterial Left 91.9 cm/s EDV Common Carotid Distal Arterial Left 18.6 cm/s PSV Common Carotid Proximal Arterial Left 126 cm/s EDV Common Carotid Proximal Arterial Left 16.5 cm/s PSV Internal Carotid Distal Arterial Left 141 cm/s EDV Internal Carotid Distal Arterial Left 33.9 cm/s PSV Internal Carotid Middle Arterial Left 105 cm/s EDV Internal Carotid Middle Arterial Left 29.9 cm/s PSV Internal Carotid Proximal Arterial Left 70.2 cm/s EDV Internal Carotid Proximal Arterial Left 19.9 cm/s PSV Vertebral Arterial Left 64.4 cm/s PSV Common Carotid Proximal Arterial Right 118 cm/s EDV Common Carotid Proximal Arterial Right 17.2 cm/s PSV Vertebral Arterial Right 56.1 cm/s PSV External Carotid Arterial Left 73.9 cm/s PSV External Carotid Arterial Right 65.2 cm/s Ratio Prox Internal Carotid Left 0.76 IACMIDRIL 1.14 IACDISTRIL 1.53 PSV Common Carotid Distal Arterial Right 104.00 cm/s EDV Common Carotid Distal Arterial Right 23.50 cm/s [facility] CV RIGHT CAROTID DUPLEX PROXIMAL END OF STENT PSV 91.70 [facility] CV RIGHT CAROTID DUPLEX PROXIMAL END OF STENT EDV 21.20 [facility] CV RIGHT CAROTID DUPLEX PROXIMAL STENT PSV 88.20 [facility] CV RIGHT CAROTID DUPLEX PROXIMAL STENT EDV 20.50 [facility] CV RIGHT CAROTID DUPLEX MID STENT PSV 67.70 [facility] CV RIGHT CAROTID DUPLEX MID STENT EDV 15.50 [facility] CV RIGHT CAROTID DUPLEX DISTAL STENT PSV 31.00 [facility] CV RIGHT CAROTID DUPLEX DISTAL STENT EDV 10.30 Anatomical Region Laterality Modality Carotid Artery Ultrasound Narrative 12/03/2024 1:09 PM EDT The right carotid duplex scan demonstrated minimal to no stenosis of the stented right carotid artery. [place] scale imaging and spectral Doppler velocities were consistent with 0-19% stenosis in the middle third of the right carotid artery stent. The right carotid stent extended from the distal common carotid artery to the distal internal carotid artery. The distal end of the distal right common carotid artery - distal right internal carotid artery stent was not seen due to a high bifurcation of the carotid arteries. The right vertebral flow was antegrade. The left carotid duplex scan showed mild atherosclerotic disease consistent with 1-29% stenosis of the left internal carotid artery. Elevated velocties were noted in the left mid to distal internal carotid artery, which may be secondary to known fibromuscular dysplasia. The left vertebral flow was antegrade. Visualization of the right internal carotid artery stent was limited due to a high bifurcation with the distal end of the stent extending intracranially beyond field of view. When compared to the study dated 11/26/2023, there has been no significant change. Right Carotid Right Vertebral Artery: flow direction: antegrade Right Carotid Stent Inflow: Distal Common Carotid Artery Right Carotid Stent Outflow: Mid Internal Carotid Artery Right Carotid Stent Proximal End: patent Right Carotid Stent Proximal Third: patent Right Carotid Stent Middle Third: patent; 0-19% stenosis Right Carotid Stent Distal Third: patent Right Carotid Stent Distal End: not seen Left Carotid Left Internal Carotid Artery Proximal: 1-29% stenosis; mild plaque Left Vertebral Artery: flow direction: antegrade Tech Comments Hx Right DST CCA - DST ICA stent us Emi RECIO CV VASCULAR PROCEDURES Final Res ult from Last 3 Months Insurance MEDICARE [facility] Advance Directives Documents on File Type Date Recorded Patient Handkerchief Presser Expl [facility] Health Care Proxy 05/12/2021 2:01 PM * Full Code (Latest Code Status on [...] Comments 05/17/2021 7:58 AM 05/17/2021 1:24 PM Care Teams Systems Analyst Relationship Specialty Start Date End Date Lalit Aguirre NPJerald: [phone] [address] [place] [id number] PCP - General Hematology 04/11/21
--- OUTSIDE RECORDS SUMMARY | 2025-02-09 06:14 | XMS_ITS | Patient Health Record ---
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 Role Phone Lalit Aguirre Primary Care Provider Allergies Allergen (clinical drug ingredient) Drug/Non Drug Allergy documented on EMR Reaction Allergy Type Onset Date Status Penicillin anaphylaxis Drug Allergy Acti ve Mold Unknown Allergy Active Dust Mites Unknown Allergy Active Bee Sting Unknown Allergy Active nitrofurantoin Nitrofurantoin nausea and vomiting Drug Allergy Active Results Component Value Reference Range Notes Urine Culture Reviewed date:08/26/2024 09:37:42 AM Interpretation: Performing Lab:[facility], [address] [place] [address] Notes/Report: Urine Culture No growth. URINE DIP STICK Reviewed date:11/20/2024 11:24:04 AM [...] Culture Reviewed date:11/22/2024 02:21:15 PM Interpretation: Performing Lab:[facility], [address] [place] [phone] Notes/Report: Urine Culture No growth. XR lumbar spine 2-3V Reviewed date:05/21/2024 09:51:32 AM Interpretation: Performing Lab: Notes/Report: [address] [address] XRay Report Signed Patient: Nevaeh Torres MR#: [id number] : 1945 Acct:[id number] Age/Sex: 78 / F ADM Date: 04/17/24 Loc: HO.XRAY Attending Dr: Lalit Aguirre MD Ordering Physician: Lalit Aguirre MD Date of Service: 04/17/24 Procedure(s): XR lumbar spine 2-3V Accession Number(s): [id number] cc: Lalit Aguirre MD EXAMINATION: XR LUMBOSACRAL [...] by: Jaylen Bee MD 04/18/2024 08:20 AM [facility] Dictated By: Jaylen Fernando MD Signed By: <Electronically signed by Jaylen Maynard MD in OV> 04/18/24 0820 DD/ 1420 TD/TT: 04/17/24 1434 Photography Colorist: [address] [address] XRay Report Signed Patient: Nevaeh Torres MR#: [id number] : 1945 Acct:[id number] Age/Sex: 78 / F ADM Date: 04/17/24 Loc: HO.XRAY Attending Dr: Lalit Aguirre MD Ordering Physician: Lalit Aguirre MD Date of Service: 04/17/24 Procedure(s): XR lum bar spine 2-3V Accession Number(s): [id number] cc: Lalit Aguirre MD EXAMINATION: XR LUMBOSACRAL [...] by: Jaylen Bee MD 04/18/2024 08:20 AM [facility] Dictated By: Jaylen Horton MD Signed By: <Electronically signed by Jaylen Maynard MD in OV> 04/18/24 0820 DD/ 1420 TD/TT: 04/17/24 1434 Photography Colorist: Complete Blood Count Auto Di ff Reviewed date:03/28/2024 01:32:12 PM Interpretation: Performing Lab:[facility], [address] [place] [phone] Notes/Report: White Blood Count 4.2 4.8-10.8 X10*3/uL [...] NRBC Abs Auto 0.000 0.0-0.012 X10*3/uL Comprehensive [place]. Panel Fa st Reviewed date:03/28/2024 01:32:12 PM Interpretation: Performing Lab:[facility], [address] [place] [phone] Notes/Report: Sodium 132 135-145 mmol/L Potassium 4.8 3.3-5.1 mmol/L Chloride 97 96-108 mmol/L Carbon Dioxide 27 22-29 mmol/L Anion Gap 13 12-20 Blood Urea Nitrogen 26 9-16 mg/dL Creatinine 0.96 0.5-1.4 mg/dL Estimated Glomerular Filt Rate 56 NOTE: For -Grenadian individuals, multiply the result by 1.210. Chronic [...] Panel Reviewed date:03/28/2024 01:32:12 PM Interpretation: Performing Lab:[facility], [address] [place] [phone] Notes/Report: Triglycerides 41 <150 mg/dL Desirable Triglyceride: [...] Total Reviewed date:03/28/2024 01:32:12 PM Interpretation: Performing Lab:[facility], [address] [place] [phone] Notes/Report: Vitamin D 25-OH Total 33.4 >30 [...] date:05/21/2024 09:51:32 AM Interpretation: Performing Lab: Notes/Report: [address] [address] XRay Report Signed Patient: Nevaeh Torres MR#: [id number] : 1945 Acct:[id number] Age/Sex: 78 / F ADM Date: 04/17/24 Loc: HO.XRAY Attending Dr: Lalit Aguirre MD Ordering Physician: Lalit Aguirre MD Date of Service: 04/17/24 Procedure(s): XR hip BI w PEL1V Accession Number(s): [id number] cc: Lalit Aguirre MD EXAMINATION: XR BILATERAL [...] by: Jaylen Bee MD 04/18/2024 08:18 AM [facility] Dictated By: Jaylen Fernando MD Signed By: <Electronically signed by Jaylen Maynard MD in OV> 04/18/24 0818 DD/ 1407 TD/TT: 04/17/24 1434 Photography Colorist: [address] [address] XRay Report Signed Patient: Nevaeh Torres MR#: [id number] : 1945 Acct:[id number] Age/Sex: 78 / F ADM Date: 04/17/24 Loc: HO.XRAY Attending Dr: Lalit Aguirre MD Ordering Physician: Lalit Aguirre MD Date of Service: 04/17/24 Procedure(s): XR hip BI w PEL1V Accession Number(s): [id number] cc: Lalit Aguirre MD EXAMINATION: XR BILATERAL [...] by: Jaylen Bee MD 04/18/2024 08:18 AM [facility] Dictated By: Jaylen Horton MD Signed By: <Electronically signed by Jaylen Maynard MD in OV> 04/18/248[address] DD/ 1407 TD/TT: 04/17/24 1434 Photography Colorist: Complete Blood Count Auto Di ff Reviewed date:07/04/2024 06:10:04 AM Interpretation: Performing Lab:[facility], [address] [place] [phone] Notes/Report: White Blood Count 5.8 4.8-10.8 X10*3/uL [...] NRBC Abs Auto 0.000 0.0-0.012 X10*3/uL Comprehensive [place]. Panel Fa st Reviewed date:07/04/2024 06:10:04 AM Interpretation: Performing Lab:[facility], [address] [place] [phone] Notes/Report: Sodium 126 135-145 mmol/L Potassium 4.2 [...] Panel Reviewed date:07/04/2024 06:10:04 AM Interpretation: Performing Lab:[facility], [address] [place] [phone] Notes/Report: Triglycerides 45 <150 mg/dL Desirable Triglyceride: [...] Total Reviewed date:07/04/2024 06:10:04 AM Interpretation: Performing Lab:[address] [address] Notes/Report: Vitamin D 25-OH Total 33.7 >30 [...] ff Reviewed date:08/26/2024 09:37:42 AM Interpretation: Performing Lab:[address] [address] Notes/Report: White Blood Count 5.1 4.8-10.8 X10*3/uL [...] Panel Reviewed date:08/26/2024 09:37:42 AM Interpretation: Performing Lab:[facility], [address] [place] [phone] Notes/Report: Sodium 129 135-145 mmol/L Potassium 3.9 [...] ff Reviewed date:10/08/2024 11:36:21 AM Interpretation: Performing Lab:[facility], [address] [place] [phone] Notes/Report: White Blood Count 4.5 4.8-10.8 X10*3/uL [...] NRBC Abs Auto 0.000 0.0-0.012 X10*3/uL Comprehensive [place]. Panel Fa st Reviewed date:10/08/2024 11:36:21 AM Interpretation: Performing Lab:[facility], [address] [place] [phone] Notes/Report: Sodium 130 135-145 mmol/L Potassium 5.4 [...] Panel Reviewed date:10/08/2024 11:36:21 AM Interpretation: Performing Lab:[address] [address] Notes/Report: Triglycerides 56 <150 mg/dL Desirable Triglyceride: [...] Total Reviewed date:10/08/2024 11:36:21 AM Interpretation: Performing Lab:[address] [address] Notes/Report: Vitamin D 25-OH Total 26.9 >30 [...] with another method such as LC-MS/MS. XR chest 2V Reviewed date:10/14/2024 11:55:50 AM Interpretation: Performing Lab: Notes/Report: [place] [address] XRay Report Signed Patient: Nevaeh Torres MR#: [id number] : 1945 Acct:[id number] Age/Sex: 78 / F ADM Date: 10/10/24 Loc: KELY Attending Dr: Lalit Aguirre MD Ordering Physician: Lalit Aguirre MD Date of Service: 10/10/24 Procedure(s): XR chest 2V Accession Number(s): [id number] cc: Lalit Aguirre MD EXAMINATION: XR CHEST 2 VIEWS HISTORY: CHRONIC COUGH COMPARISON: Comparison is made with the prior examination dated 05/15/2020. FINDINGS: PA and lateral views of the chest are submitted. The lungs are expanded and clear. There is no pleural effusion, pneumothorax, or pulmonary vascular congestion. The heart is normal in size. There is scoliosis at the thoracolumbar junction. XR/XR chest 2V IMPRESSION: No acute cardiopulmonary abnormality. Electronically signed by: Lalit Ferguson MD 10/10/2024 10:41 AM EDT Dictated By: Lalit Ferguson MD Signed By: <Electronically signed by Lalit Ferguson MD in OV> 10/10/24 1041 DD/ 1013 TD/TT: 10/10/24 1022 Photography Colorist: [address] [address] XRay Report Signed Patient: Nevaeh Torres MR#: [id number] : 1945 Acct:[id number] Age/Sex: 78 / F ADM Date: 10/10/24 Loc: HO.PREET Attending Dr: Lalit Aguirre MD Ordering Physician: Lalit Aguirre MD Date of Service: 10/10/24 Procedure(s): XR corinna st 2V Accession Number(s): [id number] cc: Lalit Aguirre MD EXAMINATION: XR CORINNA ST 2 VIEWS HISTORY: CHRONIC COUGH COMPARISON: Comparis on is made with the prior examination dated 05/15/2020. FINDINGS: PA and lateral views of the chest are submitted. The lungs are expanded and maurilio ar. There is no pleural effusion, pneumothorax, or pulmonary vascular congestion. The heart is normal in size. There is scoliosis at the thoracolumbar junction. XR/XR chest 2V IMPRESSION: No acute cardiopulmonary abnormality. Electronically binh d by: Lalit Ferguson MD 10/10/2024 10:41 AM EDT Dictated By: Lalit Ferguson MD Signed By: <Electronically signed by Lalit Ferguson MD in OV> 10/10/24 1041 DD/ 1013 TD/TT: 10/10/24 1022 Photography Colorist: Complete Blood Count Auto Di ff Reviewed date:12/07/2024 09:38:15 AM Interpretation: Performing Lab:[facility], [address] [place] [phone] Notes/Report: White Blood Count 5.4 4.8-10.8 X10*3/uL Red Blood Count 3.32 4.20-5.50 X10*6/uL Hemoglobin 10.5 12.0-16.0 g/dl Hematocrit 32.1 37.0-47.0 % Mean Corpuscular Volume 96.7 80.0-98.0 fL Mean Corpuscular Hemoglobin 31.6 27.0-33.0 pg Mean Corpuscular HGB Conc 32.7 31.0-35.0 g/dl Red Cell Distribution Width 12.5 11.0-16.0 % Platelet Count 264 160-400 X10*3/uL Mean Platelet Volume 9.7 9.4-12.3 fL Neutrophils Percent Auto 66.1 45-73 % Imm Gran Pct Auto 0.6 0.0-0.4 % Lymphocytes Percent Auto 20.8 20-40 % Monocytes Percent Auto 9.1 2-11 % Eosinophils Percent Auto 3.0 0-4 % Basophils Percent Auto 0.4 0-2 % NRBC Pct Auto 0.0 0.0-0.2 /100WBC Neutrophils Absolute Auto 3.6 2.0-8.3 x10*3/uL Imm Gran Abs Auto 0.03 0.00-0.03 X10*3/uL Lymphocytes Absolute Auto 1.1 1.2-4.9 X10*3/uL Monocytes Absolute Auto 0.5 0.1-1.2 X10*3/uL Eosinophils Absolute Auto 0.2 0.0-0.4 X10*3/uL Basophils Absolute Auto 0.0 0.0-0.2 X10*3/uL NRBC Abs Auto 0.000 0.0-0.012 X10*3/uL Comprehensive Met. Panel Reviewed date:12/07/2024 09:38:15 AM Interpretation: Performing Lab:[facility], [address] [place] [phone] Notes/Report: Sodium 127 135-145 mmol/L Potassium 5.0 3.3-5.1 mmol/L Chloride 97 96-108 mmol/L Carbon Dioxide 26 22-29 mmol/L Anion Gap 9 12-20 Blood Urea Nitrogen 22 9-16 mg/dL Creatinine 0.93 0.5-1.4 mg/dL Estimated Glomerular Filt Rate 58 Chronic Kidney Disease: Estimated GFR < 60 mL/min/1.73m2 Severe Kidney Disease: Estimated GFR < 15 mL/min/1.73m2 Glucose Random 88 60-115 mg/dL Calcium 8.3 8.4-10.2 mg/dL Bilirubin Total 0.3 0.0-1.0 mg/dL Aspartate Amino Transferase 41 5-31 U/L Alanine Aminotransferase 44 0-31 U/L Total Protein 6.3 6.5-8.0 g/dL Albumin Level 3.9 3.5-5.0 g/dL Alkaline Phosphatase 87 39-117 U/L Reason For Referral Reason Evaluate and Treat Lower back pain Diagnosis 1 Back pain (M54.9) Referral Organization Lalit Aguirre III, MD Referring Provider First Name Lalit Referring Provider Last Name Carla Referring Provider Speciality Internal M edicine [facility] Specialty Physical Med icine General Notes D, Margot 05/15/2024 02:42:52 PM > Referral and progress note has been faxed. Referral Priority Routine Referral Appointment Date 06/04/2024 Medications Medication SIG (Take, Route, Frequency, Duration) Notes Start Date End Date Status Melatonin 5 MG 1 tablet in the [...] 1 TABLET BY MOUTH EVERY DAY Active Citalopram Hydrobromide 10 MG TAKE 1 TABLET BY MOUTH EVERY DAY for 90 Active Esomeprazole Magnesium 40 MG Oral Active Bactrim DS 800-160 MG 1 tablet Orally Tw ice a day 08/20/2024 Active Fluorouracil 5 % 1 application Circular Saw Edge Fuser al Twice a day Active Immunizations Vaccine Route Administration [...] Problem Status W/U Status Risk Notes Problem 169647106 Back pain (M54.9) Active confirmed Her back pain i s minimal at this time and she will refrain from heavy lifting. Problem 76081267 Hyponatremia (E87.1) Active confirmed Problem 560895223 GERD (gastroesophag eal reflux disease) (K21.9) Active confirmed Her symptoms ar e well controlled with medication. She is sleeping well and tolerating her diet. 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 Problem 08151140 Anxiety (F41.9) Active confirmed She has coping with her anxiety well. She is maintaining her weight. No new problems have arisen. Problem Vitamin D deficiency (93935661) Vitamin D deficiency, unspecified (E55.9) Active confirmed He was continue d on her vitamin D supplementation in view of her osteopenia. Problem 29637801 Amaurosis fugax (G45.3) Active confirmed She is she is under the care of a retina specialist in blood flow to a retina appears normal at this time. She has had no further episodes of visual loss. Problem Retinal vascular occlusion (07039595) Unspecified retinal vascular occlusion (H34.9) Active confirmed This took place in the recent past and she was anticoagulated. That has now been stopped, but she remains on aspirin. No further episodes have occurred since her last visit. Problem [id number] Vitreous hemorrhage, right eye (H43.11) Active confirmed Her vision has returned to her and her anticoagulation has been stopped. She remains on aspirin. Problem 277961789 Other idiopathic scoliosis, lumbar region (M41.26) Active confirmed She continues t o have mild but intermittent low back pain due to the scoliosis. No change in her regimen was necessary today. Problem Carotid bruit (398414314) Carotid bruit (R09.89) Active confirmed She has had carotid ultrasounds before 50 to 99% occlusion on the right she is going to see her vascular surgeon later this month. I have asked her to call me and let me know what he thinks. Medications were continued. Problem 88525458 Hearing loss (H91.90) Active confirmed She is beginnin g to have difficulty discriminating speech is asked for evaluation by your throat physician. I have made a referral. Problem 530201088 TIA (transient ischemic attack) (G45.9) Active confirmed No further such episodes have occurred. Problem Leukopenia (50909125) Leukopenia, unspecified type (D72.819) Active confirmed Her white blo od cell count is now 4500 with a slight excess of monocytes. She has had no infections. She feels generally healthy and well. This value will be observed. Problem 955993695 History of basal cell cancer (Z85.828) Active confirmed No new skin cancers are noted on today's examination. Problem Hearing loss (06631172) Hearing loss, unspecified hearing loss type, unspecified laterality (H91.90) Active confirmed Her hearing los s is unchanged. It is well compensated. There was no barriers to communication today. Problem 110232405 Osteopenia after menopause (M81.0) Active confirmed She was continued on current therapy at this time. Problem 836181309 Acute bilateral low back pain without sciatica (M54.50) Active confirmed She has decreased range of motion of lumbar spine. Review old x-rays show significant lumbar scoliosis. She has been referred to orthopedic surgery for evaluation as well as pain management. Problem 515417395 Fibromuscular dysplasia of carotid artery (I77.3) Active confirmed The right carotid artery was recently repaired and she was told the operation was successful. 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 She is asymptomatic and will remain on her current regimen. She will restrict fluids to 1500 mL daily. Vital Signs Heart Rate 67 /min 11/20/2024 Temperature 98.6 degrees Fahrenheit 11/20/2024 Respiratory Rate 16 /min 11/20/2024 Oximetry 98 % 11/20/2024 Blood pressure diastolic 63 mm Hg 11/20/2024 Height 63.5 in 11/20/2024 Blood pressure systolic 128 mm Hg 11/20/2024 Weight 122 lbs 11/20/2024 BMI 21.27 kg/m2 11/20/2024 Encounters Encounter Location Date Provider Diagnosis Lalit Aguirre III, MD [address] [place] [address] [address] [place], [place] [address] 02/22/2024 Lalit Aguirre GERD (gastroesophage al reflux disease) K21.9 ; Depressed mood R45.89 ; Carotid bruit R09.89 ; Osteopenia after menopause M81.0 ; Hearing loss H91.90 ; Amaurosis fugax G45.3 ; Vitreous hemorrhage, right eye H43.11 and Leukopenia, unspecified type D72.819 Lalit Aguirre III, MD [address] [place] [address] [place] [address] 03/31/2024 Lalit Aguirre GERD (gastroesophage al reflux disease) K21.9 ; Fibromuscular dysplasia of carotid artery I77.3 ; Hearing loss H91.90 ; Leukopenia, unspecified type D72.819 ; Osteopenia after menopause M81.0 ; Syndrome of inappropriate ADH (SIADH) secretion E22.2 ; Vitamin D deficiency, unspecified E55.9 and Amaurosis fugax G45.3 Lalit Aguirre III, MD [address] [place] [address] [place] [address] 05/12/2024 Lalit Aguirre GERD (gastroesophage al reflux disease) K21.9 ; Syndrome of inappropriate ADH (SIADH) secretion E22.2 ; Fibromuscular dysplasia of carotid artery I77.3 ; Hearing loss H91.90 ; Leukopenia, unspecified type D72.819 ; Osteopenia after menopause M81.0 ; Acute bilateral low back pain without sciatica M54.50 and Other idiopathic scoliosis, lumbar region M41.26 Lalit Aguirre III, MD [address] [place] [address] [place] [address] 07/07/2024 Lalit Aguirre GERD (gastroesophage al reflux [...] lumbar region M41.26 Lalit Aguirre III, MD [address] [place] [address] [place] [address] 08/21/2024 Lalit Aguirre Urinary tract infect ion in female N39.0 ; GERD (gastroesophageal reflux disease) K21.9 ; Hearing loss H91.90 ; Osteopenia after menopause M81.0 ; Fibromuscular dysplasia of carotid artery I77.3 and Syndrome of inappropriate ADH (SIADH) secretion E22.2 Lalit Aguirre III, MD [address] [place] [address] [place] [address] 08/22/2024 Lalit Aguirre GERD (gastroesophage al reflux disease) K21.9 ; Urinary tract infection in female N39.0 ; Anxiety F41.9 ; History of basal cell cancer Z85.828 ; Hearing loss H91.90 ; Osteopenia after menopause M81.0 and Amaurosis fugax G45.3 Lalit Aguirre III, MD [address] [place] [address] [place] [address] 08/26/2024 Lalit Aguirre GERD (gastroesophage al reflux disease) K21.9 ; Urinary tract infection in female N39.0 ; Other idiopathic scoliosis, lumbar region M41.26 ; Acute bilateral low back pain without sciatica M54.50 ; Syndrome of inappropriate ADH (SIADH) secretion E22.2 ; Fibromuscular dysplasia of carotid artery I77.3 and Unspecified retinal vascular occlusion H34.9 Lalit Aguirre III, MD [address] [place] [address] [place] [address] 10/10/2024 Lalit Aguirre GERD (gastroesophage al reflux disease) K21.9 ; Syndrome of inappropriate ADH (SIADH) secretion E22.2 ; Leukopenia, unspecified type D72.819 ; Chronic cough R05.3 ; Back pain M54.9 ; Hearing loss H91.90 ; Osteopenia after menopause M81.0 and Amaurosis fugax G45.3 Lalit Aguirre III, MD [address] [place] [address] [place] [address] 11/20/2024 Lalit Aguirre Urinary tract infect ion in female N39.0 ; Back pain M54.9 ; History of basal cell cancer Z85.828 ; TIA (transient ischemic attack) G45.9 ; Osteopenia after menopause M81.0 and Syndrome of inappropriate ADH (SIADH) secretion E22.2 Lalit Aguirre III, MD [address] [place] [address] [place] [address] 02/25/2024 Lalit Aguirre III, MD [address] [place] [address] [place] [address] 02/27/2024 Lalit Aguirre III, MD [address] [place] [address] [place] [address] 04/16/2024 Lalit Aguirre Back pain M54.9 and Hip pain M25.559 Lalit Aguirre III, MD [address] [place] [address] [place] [address] 08/20/2024 Lalit Aguirre III, MD [address] [place] [address] [place] [address] 10/13/2024 Lalit Aguirre III, MD [address] [place] [address] [place] [address] 10/23/2024 Lalit Aguirre III, MD [address] [place] [address] [place] [address] 10/23/2024 Lalit Aguirre III, MD [address] [place] [address] [place] [address] 12/03/2024 Lalit Aguirre Hyponatremia E87.1 Assessments Encounter Date Diagnosis (ICD Code) Assessment Notes Treatment Notes Treatment Clinical Notes 02/22/2024 GERD (gastroesophageal reflux disease) (ICD-10 - [...] Otherwise she will be seen as scheduled. 10/10/2024 GERD (gastroesophageal reflux disease) (ICD-10 - K21.9) Her symptoms are well controlled with medication. She is sleeping well and tolerating her diet. 10/10/2024 Syndrome of inappropriate ADH (SIADH) secretion (ICD-10 - E22.2) Her sodium is normal at 126. She is asymptomatic and will remain on her current regimen. She will restrict fluids to 1500 mL daily. 11/20/2024 Back pain (ICD-10 - M54.9) Her back pain is minimal at this time and she will refrain from heavy lifting. 11/20/2024 Urinary tract infection in female (ICD-10 - N39.0) She will continue the Pyridium and take the antibiotic. She will telephone immediately if anything worsens. She seems medically stable. 04/16/2024 Back pain (ICD-10 - M54.9) 12/03/2024 Hyponatremia (ICD-10 - E87.1) 02/22/2024 Carotid bruit (ICD-10 - R09.89) She [...] change in her regimen was necessary today. 10/10/2024 Leukopenia, unspecified type (ICD-10 - D72.819) Her white blood cell count is now 4500 with a slight excess of monocytes. She has had no infections. She feels generally healthy and well. This value will be observed. 11/20/2024 History of basal cell cancer (ICD-10 - Z85.828) No new skin cancers are noted on today's examination. 04/16/2024 Hip pain (ICD-10 - M25.559) 02/22/2024 Osteopenia after menopause (ICD-10 - M81.0) [...] management. 10/10/2024 Chronic cough (ICD-10 - R05.3) She reports that for several months she has had a chronic cough.Her pulmonary exam today was unremarkable. It began before the current pollen season. I ordered a chest x-ray to evaluate this problem I recommended various antitussive she can try. We discussed the possibility of nocturnal reflux causing this. 11/20/2024 TIA (transient ischemic attack) (ICD-10 - G45.9) No further such episodes have occurred. 02/22/2024 Hearing loss (ICD-10 - H91.90) She [...] will restrict fluids to 1500 mL daily. 10/10/2024 Back pain (ICD-10 - M54.9) Her back pain is minimal at this time and she will refrain from heavy lifting. 11/20/2024 Osteopenia after menopause (ICD-10 - M81.0) She was continued on current therapy at this time. 02/22/2024 Amaurosis fugax (ICD-10 - G45.3) She [...] she was told the operation was successful. 10/10/2024 Hearing loss (ICD-10 - H91.90) She is beginning to have difficulty discriminating speech is asked for evaluation by your throat physician. I have made a referral. 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 She is asymptomatic and will remain on her current regimen. She will restrict fluids to 1500 mL daily. 02/22/2024 Vitreous hemorrhage, right eye (ICD-10 - [...] episodes have occurred since her last visit. 10/10/2024 Osteopenia after menopause (ICD-10 - M81.0) She was continued on current therapy at this time. 02/22/2024 Leukopenia, unspecified type (ICD-10 - D72.819) [...] her weight. No new problems have arisen. 10/10/2024 Amaurosis fugax (ICD-10 - G45.3) She is she is under the care of a retina specialist in blood flow to a retina appears normal at this time. She has had no further episodes of visual loss. 07/07/2024 History of basal cell cancer (ICD-10 [...] Order Date PROFILE, FASTING (COMPREHENSIVE METABOLI C) 07/07/2024 PROFILE, FASTING (COMPREHENSIVE METABOLI C) 03/13/2018 PROFILE, FASTING (COMPREHENSIVE METABOLI C) 01/16/2023 PROFILE, FASTING (COMPREHENSIVE METABOLI C) 10/10/2024 PROFILE, FASTING (COMPREHENSIVE METABOLI C) 01/03/2021 PROFILE, FASTING (COMPREHENSIVE METABOLI C) 03/31/2024 PROFILE, FASTING (COMPREHENSIVE METABOLI C) 02/27/2017 PROFILE, FASTING (COMPREHENSIVE METABOLI C) 04/10/2019 PROFILE, FASTING (COMPREHENSIVE METABOLI C) 02/07/2022 PROFILE, FASTING (COMPREHENSIVE METABOLI C) 06/06/2021 PROFILE, FASTING (COMPREHENSIVE METABOLI C) 09/20/2022 PROFILE, FASTING (COMPREHENSIVE METABOLI C) 10/08/2018 PROFILE, FASTING (COMPREHENSIVE METABOLI C) 11/12/2023 PROFILE, FASTING (COMPREHENSIVE METABOLI C) 10/15/2020 PROFILE, FASTING (COMPREHENSIVE METABOLI C) 05/16/2022 PROFILE, FASTING (COMPREHENSIVE METABOLI C) 10/11/2020 PROFILE, FASTING (COMPREHENSIVE METABOLI C) 10/08/2019 PROFILE, FASTING (COMPREHENSIVE METABOLI C) 02/28/2021 PROFILE, RANDOM (COMPREHENSIVE METABOLIC ) 11/24/2020 PROFILE, RANDOM (COMPREHENSIVE METABOLIC ) 08/22/2024 PROFILE, RANDOM (COMPREHENSIVE METABOLIC ) 12/03/2024 BUN 11/22/2021 CREATININE 11/22/2021 AMYLASE 01/03/2021 AMYLASE 11/24/2020 LIPASE 11/24/2020 LIPID PANEL 10/11/2020 LIPID PANEL 10/08/2019 LIPID PANEL 03/13/2018 LIPID PANEL 01/16/2023 LIPID PANEL 02/27/2017 LIPID PANEL 04/10/2019 LIPID PANEL 01/03/2021 LIPID PANEL 06/06/2021 LIPID PANEL 09/20/2022 LIPID PANEL 10/08/2018 LIPID PANEL 10/15/2020 CBC w DIFF 05/16/2022 CBC w DIFF 10/08/2018 CBC w DIFF 10/15/2020 CBC w DIFF 02/28/2021 CBC w DIFF 07/07/2024 CBC w DIFF 10/11/2020 CBC w DIFF 10/10/2024 CBC w DIFF 10/08/2019 CBC w DIFF 03/13/2018 CBC w DIFF 01/16/2023 CBC w DIFF 02/07/2022 CBC w DIFF 02/27/2017 CBC w DIFF 04/10/2019 CBC w DIFF 01/03/2021 CBC w DIFF 11/24/2020 CBC w DIFF 06/06/2021 CBC w DIFF 09/20/2022 CBC w DIFF 08/22/2024 CBC w DIFF 12/03/2024 SED RATE (ESR) 11/24/2020 URINE CULTURE 10/18/2018 [...] CBC WITH AUTO DIFF 11/12/2023 Lipid Panel 11/12/2023 Lipid Panel 05/16/2022 Lipid Panel 02/28/2021 Lipid Panel 07/07/2024 Lipid Panel 10/10/2024 Lipid Panel 03/31/2024 Vitamin D 25-OH Total 05/16/2022 Vitamin D 25-OH Total 07/07/2024 XR hips YANE min 3V 04/16/2024 XR pelvis min 3V 04/16/2024 Next Appt Details Provider Name:Lalit Aguirre, 02/11/2025 02:00:00 PM, [address] [place] [address] [address], [address], [place], [id number], Insurance Providers Payer Name Payer Address Payer Phone Subscriber Number Group Number Insured Name Patient Relationship to Insured Coverage Start Date Coverage End Date MEDICARE NGS [address] [facility] [phone] [id number] José Miguel ttNevaeh farley Self - patient is the insured [employer] [address] [place] [id number] Amish Nevaeh sexton Self - patient is the insured Medical [...] rain placement, Left 2022-05-10 right carotid endarterectomy [facility] [[email or web address]] 05/16 21 biopsy of eyelid 2019 lesion removal from eyelid 01/2019 biopsy on leg 11/2018 Mohs surgery bridge of nose Laparascopic Surgery T & A as a child benign breast lump removed 1987 colonoscopy 03/2010 Cataract extraction both eyes 2013 Varicose vein surgery 1964 Hospitalization History Reason Date(Month/Year) No history vission loss 02/10/22 Right carotid surgery, [facility] 04/2021 CVA 11/29/2020 abdominal pain 04/16/2018
--- OUTSIDE RECORDS SUMMARY | 2025-02-09 06:14 | XMS_ITS | Encounter Summary ---
Author Organization [facility] Address [address] [place] [address] Care Team Providers Care State Patrol Officer Name Role Phone Lalit Aguirre Primary Care Provider [phone] Encounter Details Date Type Department Care Team (Late st Contact Info) Description 11/22/2021 Orders Only [facility] 2 Rad [address] 1 [address] [place] [address] Anton Sanchez, [address] [place] [address] Social History Tobacco Use Types Packs/Day Years [...] on filedocumented in this encounter Care Teams State Patrol Officer Relationship Specialty Start Date End Date Lalit Aguirre [address] [facility] [address] [place] [address] PCP - General Hematology 04/11/21 documented as of this encounter
--- OUTSIDE RECORDS SUMMARY | 2025-02-09 06:14 | XMS_ITS | Clinical Summary ---
Author Organization [facility] Address [address] [address] Phone Care Team Providers Care Manager Employment Name Role Phone Lalit Aguirre MD Primary Care Provider [phone] Allergies Active Allergy Reactions Criticality Noted Date Comments House Dust 05/02/2021 Other reaction(s): Rhinorrhea MOLD, DUST MITES (POST NASAL DRIP) Other reaction(s): Rhinorrhea MOLD, DUST MITES (POST NASAL DRIP) Penicillins Anaphylaxis,Angioedema High 03/02/2021 Other reaction(s): throat swelling Venom-Honey Bee Hives,Itching 05/02/2021 Medications aspirin 81 MG EC tablet Take 81 mg by mouth. Active atorvastatin (LIPITOR) 40 MG tablet Take 40 mg by mouth daily. 10/11/2021 Active esomeprazole (NEXIUM) 40 MG capsule Take by mouth daily. 10/04/2021 Active MYRBETRIQ 50 mg Tb24 Take 50 mg by mouth daily. 10/10/2021 Active simethicone (MYLICON,GAS-X) 180 mg capsule Take 180 mg by mouth. Active aspirin-dipyrid amole (AGGRENOX) 25-200 mg per 12 hr capsule Take 1 capsule by mouth 2 (two) times a day. 10/05/2021 Active Active Problems No known active problems Social History Tobacco Use Types Packs/Day Years Used Date Smoking Tobacco: Never Smokeless Tobacco: Never Education Answer Date Recorded Are you interested in more education? Not on bianca e 09/23/2022 Are you concerned about learning? Not on file 09/23/2022 No 09/23/2022 No 09/23/2022 Digital Access Answer Date Recorded No 10/22/2022 No 10/22/2022 No 10/22/2022 Reliable internet access at home? Not on file 10/22/2022 Device with a working camera? Not on file Comments Unknown Sex and Gender Information Value Date Recorded Sex Assigned at Not on file Legal Sex Female 2:23 PM EDT Gender Identity Not on file Sexual Orientation Not on file Last Filed Vital Signs Vital Sign Reading Time Taken Comments Blood Pressure 144/70 10/30/2021 2:45 PM EDT Pulse 89 10/30/2021 2:45 PM EDT Temperature 36.1 C (97 F) 10/30/2021 2:45 PM EDT Respiratory Rate 18 10/30/2021 2:45 PM EDT Oxygen Saturation 95% 10/30/2021 2:45 PM EDT Inhaled Oxygen Concentration - - Weight 53.5 kg (118 lb) 10/30/2021 2:45 PM EDT Height 160 cm (5' 3 ) 10/30/2021 2:45 PM EDT Body Mass Index 20.9 10/30/2021 2:45 PM EDT Plan of Treatment Health Maintenance Due Date Last Done Comments DEPRESSION SCREENING 1955 ZOSTER VACCINES (1 of 2) 11/29/1993 OSTEOPOROSIS SCREENING INITIAL (ONE-TIME) 11/29/2008 RSV VACCINE (1 - 1-dose 75+ series) 11/29/2018 PNEUMOCOCCAL VACCINES (50+ years) (2 of 2 - PCV) 09/28/2020 09/29/2019 INFLUENZA VACCINE (#1) 2024 , 03/02/2021, 03/19/2018, Additional history exists COVID-19 VACCINE ( season) 2025 02/28/2021, 07/22/2020, 07/01/2020 Adult Td,Tdap Booster 01/11/2028 01/10/2018 HEPATITIS A VACCINES Aged Out 10/02/2012, 03/18/2012, 05/28/2011 No longer eligible based on patient's age to complete this topic HIB VACCINES Aged Out No longer eligi ble based on patient's age to complete this topic MENINGOCOCCAL VACCINES (ACWY) Aged Out No longer eligible based on patient's age to complete this topic MENINGOCOCCAL VACCINES (B) Aged Out N o longer eligible based on patient's age to complete this topic Medical Devices Not on file Insurance MEDICARE PART A & B [address] [place], [place] [id number] MEDICARE ENHANCE SUPPLEMENT MEDICARE PART A & B [facility] MEDICARE ENHANCE SUPPLEMENT MEDICARE PART A & B [facility] MEDICARE ENHANCE SUPPLEMENT MEDICARE PART A & B [facility] MEDICARE ENHANCE SUPPLEMENT MEDICARE PART A & B [facility] MEDICARE ENHANCE SUPPLEMENT MEDICARE PART A & B Member Subscriber Plan / Payer (Ef fective 2008-Present) Name:Nevaeh Torres Member ID:[id number] Relation to Subscriber:Self Name:Nevaeh Torres Subscriber ID:[id number] Payer ID:[id number] Group ID:Not on file Type:Medicare Address: [employer] [address] MEDICARE ENHANCE SUPPLEMENT MEDICARE PART A & B [facility] MEDICARE ENHANCE SUPPLEMENT MEDICARE PART A & B [facility] MEDICARE ENHANCE SUPPLEMENT MEDICARE PART A & B [facility] MEDICARE ENHANCE SUPPLEMENT Care Teams Manager Employment Relationship Specialty Start Date End Date Lalit Aguirre MD [address] [place] [address] [phone] PCP - General Medical Oncology 01/05/21 Additional Source Comments The information contained in this document represents components of the legal health record. It is not the complete legal health record.[facility]
--- OUTSIDE RECORDS SUMMARY | 2025-02-09 06:14 | XMS_ITS | Patient Health Record ---
Author Organization [facility] Address [address] [place] [address] Care Team Providers Care Wire Border Assembler Name Role Phone Carla CAMACHO, Lalit Primary Care Provider Lyndon Muller Jr Unavailable [phone] Allergies Allergen (clinical drug ingredient) Drug/Non Drug [...] Problem Status W/U Status Risk Notes Problem 184852199 Bloating (R14.0) Active confirmed Problem [id number] Gastroesophageal reflux disease, unspecified whether esophagitis present (K21.9) Active confirmed Vital Signs Temperature 97.3 degrees Fahrenheit 10/08/2024 Blood pressure diastolic 01 mm Hg 10/08/2024 Height 63.5 in 10/08/2024 Blood pressure systolic 001 mm Hg 10/08/2024 Weight 118 lbs 10/08/2024 BMI 20.57 kg/m2 10/08/2024 Encounters Encounter Location Date Provider Diagnosis [facility] [address] [facility] [address] [place] [phone] 10/08/2024 Lyndon Dorman Jr Gastroesophageal reflux disease, unspecified whether esophagitis present K21.9 [facility] [address] [facility] [address] [place] [phone] 07/25/2024 Lyndon Dorman Jr [facility] [address] [place] [phone] 09/08/2024 Lyndon Dorman Jr Assessments Encounter Date Diagnosis (ICD Code) Assessment Notes Treatment Notes Treatment Clinical Notes Section Notes 10/08/2024 Gastroesophageal reflux disease, unspecified whether esophagitis present (ICD-10 - K21.9) At this time, she is doing well. We discussed diet, lifestyle modifications , and weight management with respect to the treatment of reflux. She will stay on Nexium for the time being and call us if she has problems. Follow-up will be in 1 year. Plan Of Treatment Next Appt Details Provider Name:Lyndon Angelica delgado Jr, 10/12/2025 10:00:00 AM, [address] [place] [address], [facility], [place], [address], Insurance Providers Payer Name Payer Address Payer Phone Subscriber Number Group Number Insured Name Patient Relationship to Insured Coverage Start Date Coverage End Date MEDICARE [place] [address] [place] [address] [id number] K[employer] MARIEKOKI Tanner Self - patient is the [facility] [address] [place] [phone] [id number] [employer] Tanner Self - patient is the insured Medical (General) History Medical History History ICD Code Retinal artery occlusion urinary incontinence skin cancer Gastroesophageal reflux disease Colonoscopy 11/27/17 negative, family history of colon polyps, followup optional based on age Back pain Anxiety Surgical History Surgery Date(Month/Year) carotid artery surgery x 2 Skin cancer removal Varicose vein surgery
[2025-02-09 06:21] LABS: MANUAL DIFF FLAG NO
[2025-02-09 07:24] LABS: Hematocrit 33.9 % (37.0-47.0); Hemoglobin 11.4 g/dl (12.0-16.0); Imm Gran Abs Auto 0.01 X10*3/uL (0.00-0.03); Imm Gran Pct Auto 0.2 % (0.0-0.4); Lymphocytes Absolute Auto 1.2 X10*3/uL (1.2-4.9); Mean Corpuscular HGB Conc 33.6 g/dl (31.0-35.0); Mean Corpuscular Hemoglobin 32.9 pg (27.0-33.0); Mean Corpuscular Volume 97.7 fL (80.0-98.0); NRBC Abs Auto 0.000 X10*3/uL (0.0-0.012); NRBC Pct Auto 0.0 /100WBC (0.0-0.2); Platelet Count 229 X10*3/uL (160-400); Red Blood Count 3.47 X10*6/uL (4.20-5.50); White Blood Count 4.6 X10*3/uL (4.8-10.8)
[2025-02-09 08:02] LABS: Alanine Aminotransferase 22 U/L (0-31); Albumin Level 3.9 g/dL (3.5-5.0); Alkaline Phosphatase 79 U/L (39-117); Anion Gap 11 (12-20); Aspartate Amino Transferase 34 U/L (5-31); Blood Urea Nitrogen 25 mg/dL (9-16); Calcium 8.7 mg/dL (8.4-10.2); Carbon Dioxide 27 mmol/L (22-29); Chloride 101 mmol/L (96-108); Cholesterol 144 mg/dL (<200); Estimated Glomerular Filt Rate 54; HDL Cholesterol 77 mg/dL (>40); Potassium 4.9 mmol/L (3.3-5.1); Sodium 134 mmol/L (135-145); Total Protein 6.6 g/dL (6.5-8.0); Triglycerides 44 mg/dL (<150)
== END 2025-02-09 06:11 | disposition home or self-care (01) ==
LOC: HO.LAB 06:10
PROVIDERS: PCP Internal Medicine Medical Oncology; Visit Provider Internal Medicine Medical Oncology
DX: K21.9 Gastro-esophageal reflux disease without esophagitis (principal); D72.819 Decreased white blood cell count, unspecified; E87.0 Hyperosmolality and hypernatremia; Z13.6 Encounter for screening for cardiovascular disorders
CPT/HCPCS: 36415; 80053; 80061; 85025

== ENCOUNTER 2025-03-25 15:51 | Outpatient (REF) | payer MEDICARE, OTHER, SELFPAY ==
--- OUTSIDE RECORDS SUMMARY | 2024-10-23 06:34 | XMS_ITS ---
Author Organization Lalit Aguirre III, MD Address [address] [place] [address] Care Team Providers Care Communications Professional Name Role Phone Dr. Lalit Aguirre III Primary Care Provider [phone] REASON FOR VISIT UTI Rx Social History Sex Assigned At : Social History Observation Description Sex Assigned At Female Encounters Encounter Location Date Provider Diagnosis Lalit Aguirre III, MD [address] [place] [address] [place] [address] 10/23/2024 Lalit Aguirre Plan Of Treatment Next Appt Details Provider Name:Lalit Aguirre , 05/13/2025 09:30:00 AM, [address] [place] [address] [place], [address], Provider Name:Lalit Aguirre , 02/16/2026 09:00:00 AM, [address] [place] [address] [place], [address], Progress Notes * Nevaeh TORRESDOB:[birth year] (78 yo F)Acc No.[id number]:10/23/2024 Patient: Nevaeh JOHNSON :1945 A ge:78 Y S ex:Female Address: [address], [address] [facility], [address] * true * Date: Generated for Anabella vasquez/Frank/Ritusmitting on: 08:00 PM EDT
--- OUTSIDE RECORDS SUMMARY | 2024-10-23 08:33 | XMS_ITS ---
Author Organization Lalit Aguirre III, MD Address [address] [place] [address] Care Team Providers Care Team Coordinator Name Role Phone Dr. Lalit Aguirre III Primary Care Provider Medications Medication SIG (Take, Route, Fr equency, Duration) Notes Start Date End Date Status levoFLOXacin 250 MG 1 tablet Orally Once a day for 7 days 10/23/2024 10/30/2024 Active Social History Sex Assigned At : Social History Observation Description Sex Assigned At Female Encounters Encounter Location Date Provider Diagnosis Lalit Aguirre III, MD [address] [place] [address] [place] [address] 10/23/2024 Lalit Aguirre Plan Of Treatment Medication Medication Name Sig Start Date Stop Date Notes levoFLOXacin 250 MG 1 tablet Orally Once a day for 7 days 10/23/2024 10/30/2024 Next Appt Details Provider Name:Lalit Aguirre , 05/13/2025 09:30:00 AM, [address] [place] [address] [place], [address], Provider Name:Lalit Aguirre , 02/16/2026 09:00:00 AM, [address] [place] [address] [address], [place], [address], Progress Notes * Nevaeh TORRESDOB:[birth year] (78 yo F)Acc No.[id number]:10/23/2024 Patient: Nevaeh JOHNSON :1945 A ge:78 Y S ex:Female Address: [address], [place], [address] * Refills Start levoFLOXacin Tablet, 250 MG, Orally, 7 Tablet, 1 tablet, Once a day, 7 days, Refills=0 * true * Date: Generated for Anabella vasquez/Frank/Akshatitting on: 07:59 PM EDT
--- OUTSIDE RECORDS SUMMARY | 2024-11-20 07:00 | XMS_ITS ---
Author Organization Lalit Aguirre III, MD Address [address] [place] [address] Care Team Providers Care Intelligence Research Specialist Name Role Phone Dr. Lalit Aguirre [...] Culture Reviewed date:11/22/2024 02:21:15 PM Interpretation: Performing Lab:[facility], [address] [place] [phone] Notes/Report: Urine Culture No growth. REASON FOR [...] 08/20/2024 Active Fluorouracil 5 % 1 application Veneer Measurer al Twice a day Active Citalopram Hydrobromide [...] Date Provider Diagnosis Lalit Aguirre III, MD [address] [place] [address] [place] [address] 11/20/2024 Lalit Aguirre Urinary tract infect ion [...] 08/21/19 25 Fluorouracil 5 % 1 application Veneer Measurer al Twice a day Citalopram Hydrobromide 10 [...] Provider Name:Lalit Aguirre , 05/13/2025 09:30:00 AM, [address] [place] [address] DR, [address], [place], [place], [address], Provider Name:Lalit Aguirre , 02/16/2026 09:00:00 AM, [address] [place] [address] [address], [place], [address], Progress Notes * Nevaeh TORRESDOB:[birth year] (78 yo F)Acc No.[id number]:11/20/2024 Patient: Nevaeh JOHNSON Provider: Sushil Aguirre MD :1945 A ge:78 Y S ex:Female Date:11/20/2024 Address: [address] , [place], [id number] Subjective: * Chief Complaints: * U rinary [...] eyelid 01/2019biopsy of eyelid 2019right carotid endarterectomy [facility] 1Repair of branchial pseudoaneurysm and drain placement, Left [id number] history Carotid artery stent placement * Hospitalization/Major Diagno stic Procedure: a bdominal pain 04/16/2018CVA 1Right carotid surgery, [facility] 04/2021vission loss 02/10/22No history * Family History: F ather: 41 yrs, coronary artery disease, rheumatic fever,. M other: 73 yrs, CVA,hypertension,. D aughter(s): alive, Brain cyst. 2 daughter(s) - healthy. . Her daughter Ana Lilia is a medical laboratory assistant at the [facility] on [place], [place] and is her HCP. Her other daughter, Kristy, is alive and well. She has two grandchildren who are healthy, one had a brain cyst. * Social History: T obacco Use: T obacco Use/Smoking P atient is a n onsmoker A dditional Findings: Tobacco Non-User A ggressive non-smoker S he was born in [facility] and has been to [place] for 48 years. They have 2 children who are healthy and well. 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 * Medications: T akingMulti Vitamin - Tablet [...] an d sensitivity,PLEASE FAX COMPLETED RESULTS TO [phone] PLEASE FAX COMPLETED RESULTS TO [phone] * Lab:Complete Blood Count Aut o Diff [...] - * Procedure Codes: 8 1002 URINE-NO [id number] URINE-NO [id number] MEASURE BLOOD OXYGEN LEVEL * Preventive Medicine: [...] MD Date: 0 11/20/2024 Generated for Anabella vasquez/Frank/eTransmitting on: 1 08:00 PM EDT History and Physical Notes * HPI [...]
--- OUTSIDE RECORDS SUMMARY | 2024-12-01 13:00 | XMS_ITS ---
Author Organization Lalit Aguirre III, MD Address [address] [place] [address] Care Team Providers Care Rent Collector Name Role Phone Dr. Lalit Aguirre III Primary Care Provider REASON FOR VISIT annual exam Social History Sex Assigned At : Social History Observation Description Sex Assigned At Female Encounters Encounter Location Date Provider Diagnosis Lalit Aguirre III, MD [address] [place] [address] [place] [address] 12/01/2024 Lalit Aguirre Plan Of Treatment Next Appt Details Provider Name:Lalit Aguirre , 05/13/2025 09:30:00 AM, [address] [place] [address] [place], [address], Provider Name:Lalit Aguirre , 02/16/2026 09:00:00 AM, [address] [place] [address] [place], [address], Progress Notes * Nevaeh TORRESDOB:[birth year] (79 yo F)Acc No.[id number]:12/01/2024 Progress Notes Patient: Nevaeh JOHNSON Provider: Sushil Aguirre MD :1945 A ge:79 Y S ex:Female Date:12/01/2024 Address: [address], [address] [place], [id number] Subjective: * Chief Complaints: * 1 . [...] 0 12/01/2024 Generated for Anabella vasquez/Frank/Akshatitting on: 08:01 PM EDT
--- OUTSIDE RECORDS SUMMARY | 2024-12-03 06:13 | XMS_ITS ---
Author Organization Lalit Aguirre III, MD Address [address] [place] [address] Care Team Providers Care Band Singer Name Role Phone Dr. Lalit Aguirre III Primary Care Provider REASON FOR VISIT Labs done at [facility] Social History Sex Assigned At : Social History Observation Description Sex Assigned At Female Encounters Encounter Location Date Provider Diagnosis Lalit Aguirre III, MD [address] [place] [address] [place] [address] 12/03/2024 Lalit Aguirre Hyponatremia E87.1 Assessments Encounter Date Diagnosis (ICD Code) Assessment Notes Treat ment Notes Treatment Clinical Notes 12/03/2024 Hyponatremia (ICD-10 - E87.1) Plan Of Treatment Pending Test Test Name Order Date PROFILE, RANDOM (COMPREHENSIVE METABOLIC ) 12/03/2024 CBC w DIFF 12/03/2024 Next Appt Details Provider Name:Lalit Aguirre , 05/13/2025 09:30:00 AM, [address] [place] [address] [place], [address], Provider Name:Lalit Aguirre , 02/16/2026 09:00:00 AM, [address] [place] [address] [address], [place], [address], Progress Notes * Nevaeh TORRESDOB:[birth year] (79 yo F)Acc No.[id number]:12/03/2024 Patient: Nevaeh JOHNSON :1945 A ge:79 Y S ex:Female Address: [address], [place], [address] Subjective: * Chief Complaints: * L abs done at [facility] * Medical History: * Surgical History: * Hospitalization/Major Diagno stic Procedure: * Medications: Objective: * Vitals: * Physical Examination: Assessment: * Assessment: 1. H yponatremia - E87.1 Plan: * Treatment: * Procedure Codes: * true * Date: Generated for Anabella vasquez/Frank/eTransmitting on: 08:00 PM EDT
--- OUTSIDE RECORDS SUMMARY | 2025-02-11 05:00 | XMS_ITS ---
Author Organization Lalit Aguirre III, MD Address [address] [address] Care Team Providers Care Auto Service Advisor Name Role Phone Dr. Lalit Aguirre III [...] Provider Diagnosis Lalit Aguirre III, MD [address] [place] [address] [place] [address] 02/11/2025 Lalit Aguirre GERD (gastroesophage al reflux [...] Provider Name:Lalit Aguirre , 05/13/2025 09:30:00 AM, [address] [place] [address] , [place] [address], [place], [address], Provider Name:Lalit Aguirre 02/16/2026 09:00:00 AM, [address] [place] [address] LEYLA MAGANA, [place], [place], [address], Progress Notes * Nevaeh TORRESDOB:[birth year] (79 yo F)Acc No.[id number]:02/11/2025 Progress Notes Patient: Nevaeh JOHNSON Provider: Sushil Aguirre MD :1945 A ge:79 Y S ex:Female Date:02/11/2025 Address:[address] [place] [address] , [address] [facility] [place], [phone] Subjective: * Chief Complaints: * A nnual [...] eyelid 01/2019biopsy of eyelid 2019right carotid endarterectomy [facility] epair of branchial pseudoaneurysm and drain placement, Left [id number] history Carotid artery stent placement * Hospitalization/Major Diagno stic Procedure: a bdominal pain 04/16/2018CVA 1Right carotid surgery, [facility] 04/2021vission loss 02/10/22No history * Family History: F ather: 41 yrs, coronary artery disease, rheumatic fever,. M other: 73 yrs, CVA,hypertension,. D aughter(s): alive, Brain cyst. 2 daughter(s) - healthy. . Her daughter Ana Lilia is a medical laboratory manager at the [facility] on [place], [place] and is her HCP. Her other [...] N egative S he was born in [facility] and has been to [facility] for 48 years. They have 2 children who are healthy and well. 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 * Medications: T akingMulti Vitamin - Tablet [...] 71 (Ref Range: >40 mg/dL) * Lab:Comprehensive [place]. Pane l Fast * Collection Date 02/09/2025 [...] an d sensitivity,PLEASE FAX COMPLETED RESULTS TO [phone] PLEASE FAX COMPLETED RESULTS TO [phone] * Lab:URINE DIP STICK * Collection Date [...] MD Date: 0 02/11/2025 Generated for Anabella vasquez/Frank/Dieudonne on: 08:01 PM EDT History and Physical Notes * [...]
--- OUTSIDE RECORDS SUMMARY | 2025-02-11 05:39 | XMS_ITS ---
Author Organization Lalit Aguirre III, MD Address [address] [place] [address] Care Team Providers Care Delinquent Notice Machine Operator Name Role Phone Dr. Lalit Aguirre III Primary Care Provider REASON FOR VISIT Mammo Order Social History Sex Assigned At : Social History Observation Description Sex Assigned At Female Encounters Encounter Location Date Provider Diagnosis Lalit Aguirre III, MD [address] [place] [address] [place] [address] 02/11/2025 Lalit Aguirre Screening mammogram, encounter for Z12.31 Assessments Encounter Date Diagnosis (ICD Code) Assessment Notes Treatment Notes Treatment Clinical Notes 02/11/2025 Screening mammogram, encounter for (ICD-10 - Z12.31) Plan Of Treatment Pending Test Test Name Order Date MM tomosynthesis screening BI 02/11/2025 Next Appt Details Provider Name:Lalit Aguirre , 05/13/2025 09:30:00 AM, [address] [place] [address] [place], [address], Provider Name:Lalit Aguirre , 02/16/2026 09:00:00 AM, [address] [place] [address] LE[place], [place], [address], Progress Notes * Nevaeh TORRESDOB:[birth year] (79 yo F)Acc No.[id number]:02/11/2025 Patient: Nevaeh JOHNSON :1945 A ge:79 Y S ex:Female Address: [address], [facility] [place], [address] Subjective: * Chief Complaints: * M ammo Order * Medical History: * Surgical History: * Hospitalization/Major Diagno stic Procedure: * Medications: Objective: * Vitals: * Physical Examination: Assessment: * Assessment: 1. S creening mammogram, encounter for - Z12.31 Plan: * Treatment: * Procedure Codes: * true * Date: Generated for Anabella vasquez/Frank/Ritusmitting on: 08:00 PM EDT
--- OUTSIDE RECORDS SUMMARY | 2025-03-10 06:37 | XMS_ITS ---
Author Organization Lalit Aguirre III, MD Address [address] [place] [address] Care Team Providers Care Rug Inspector Name Role Phone Dr. Lalit Aguirre III Primary Care Provider REASON FOR VISIT Rx Request Social History Sex Assigned At : Social History Observation Description Sex Assigned At Female Encounters Encounter Location Date Provider Diagnosis Lalit Aguirre III, MD [address] [place] [address] [place] [address] 03/10/2025 Lalit Aguirre Plan Of Treatment Next Appt Details Provider Name:Lalit Aguirre , 05/13/2025 09:30:00 AM, [address] [place] [address] [place], [address], Provider Name:Lalit Aguirre , 02/16/2026 09:00:00 AM, [address] [place] [address] [place], [address], Progress Notes * Nevaeh TORRESDOB:[birth year] (79 yo F)Acc No.[id number]:03/10/2025 Patient: Nevaeh JOHNSON :1945 A ge:79 Y S ex:Female Address: [address], [place] [facility], [address] * true * Date: Generated for Anabella vasquez/Frank/Ritusmitting on: 08:01 PM EDT
--- OUTSIDE RECORDS SUMMARY | 2025-03-10 08:16 | XMS_ITS ---
Author Organization Lalit Aguirre III, MD Address [address] [place] [address] Care Team Providers Care Reverse Unit Operator Fisherman Name Role Phone Dr. Lalit Aguirre III Primary Care Provider Medications Medication SIG (Take, Route, Frequency, Duration) Notes Start Date End Date Status Sulfamethoxazole-Trimetho prim 800-160 MG 1 tablet Orally twice a day for 10 days 03/10/2025 03/20/2025 Active Social History Sex Assigned At : Social History Observation Description Sex Assigned At Female Encounters Encounter Location Date Provider Diagnosis Lalit Aguirre III, MD [address] [place] [address] [place] [address] 03/10/2025 Lalit Aguirre Plan Of Treatment Medication Medication Name Sig Start Date Stop Date Notes Sulfamethoxazole-Trimethopri m 800-160 MG 1 tablet Orally twice a day for 10 days 03/10/2025 03/20/2025 Next Appt Details Provider Name:Lalit Aguirre , 05/13/2025 09:30:00 AM, [address] [place] [address] [place], [address], Provider Name:Lalit Aguirre , 02/16/2026 09:00:00 AM, [address] [place] [address] , [facility] [place], [place], [address], Progress Notes * Nevaeh TORRESDOB:[birth year] (79 yo F)Acc No.[id number]:03/10/2025 Patient: Nevaeh JOHNSON :1945 A ge:79 Y S ex:Female Address: [address] , [place], [address] * Refills Start Sulfamethoxazole-Trimethoprim Tablet, 800-160 MG, Orally, 20 Tablet, 1 tablet, twice a day, 10 days, Refills=0 * true * Date: Generated for Anabella vasquez/Frank/Akshatitting on: 08:00 PM EDT
--- OUTSIDE RECORDS SUMMARY | 2025-03-25 10:36 | XMS_ITS ---
Author Organization Lalit Aguirre III, MD Address [address] [place] [address] Care Team Providers Care Mailroom Messenger Name Role Phone Dr. Lalit Aguirre III Primary Care Provider REASON FOR VISIT Rx Request Social History Sex Assigned At : Social History Observation Description Sex Assigned At Female Encounters Encounter Location Date Provider Diagnosis Lalit Aguirre III, MD [address] [place] [address] [place] [address] 03/25/2025 Lalit Aguirre UTI symptoms R39.9 Assessments Encounter Date Diagnosis (ICD Code) Assessment Notes Treatment Notes Treatment Clinical Notes 03/25/2025 UTI symptoms (ICD-10 - R39.9) Plan Of Treatment Pending Test Test Name Order Date URINALYSIS (UA) 03/25/2025 Urine Culture 03/25/2025 Next Appt Details Provider Name:Lalit Aguirre , 05/13/2025 09:30:00 AM, [address] [place] [address] [place], [address], Provider Name:Lalit Aguirre , 02/16/2026 09:00:00 AM, [address] [place] [address] , [address], [place], [address], Progress Notes * Nevaeh TORRESDOB:[birth year] (79 yo F)Acc No.[id number]:03/25/2025 Patient: Nevaeh JOHNSON :1945 A ge:79 Y S ex:Female Address: [place] [address] [facility] [place], [address] Subjective: * Chief Complaints: * R x Request * Medical History: * Surgical History: * Hospitalization/Major Diagno stic Procedure: * Medications: Objective: * Vitals: * Physical Examination: Assessment: * Assessment: 1. U TI symptoms - R39.9 Plan: * Treatment: * Procedure Codes: * * Date:
[2025-03-25 17:44] LABS: Appearance Urine Clear; Glucose Urine UA Negative (Negative); PH 8.0 (5.0-9.0); Specific Gravity - Urine 1.010 (1.005-1.025)
--- OUTSIDE RECORDS SUMMARY | 2025-03-25 20:00 | XMS_ITS | Clinical Summary ---
Author Organization [facility] Address [address] [place] [address] Phone Care Team Providers Care Director Sales And Marketing Name Role Phone Lalit Aguirre MD Primary Care Provider [phone] Allergies Active Allergy Reactions Criticality Noted Date [...] and she is planning on going to [place] for the winter. Continue plavix and aspirin [...] age to complete this topic Insurance Medicare [facility] Medicare [facility] Care Teams Director Sales And Marketing Relationship Specialty Start Date End Date Lalit Aguirre MD [address] [place] [address] [id number] [place] PCP - General Medical Oncology 06/02/21
--- OUTSIDE RECORDS SUMMARY | 2025-03-25 20:01 | XMS_ITS | Patient Health Record ---
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 Lalit Aguirre III [...] Culture Reviewed date:08/26/2024 09:37:42 AM Interpretation: Performing Lab:[facility], [address] [place] [phone] Notes/Report: Urine Culture No growth. URINE DIP [...] Culture Reviewed date:11/22/2024 02:21:15 PM Interpretation: Performing Lab:[facility], [address] [place] [phone] Notes/Report: Urine Culture No growth. XR lumbar spine 2-3V Reviewed date:05/21/2024 09:51:32 AM Interpretation: Performing Lab: Notes/Report: [address] [address] XRay Report Signed Patient: Nevaeh Torres MR#: [id number] : 1945 Acct:[id number] Age/Sex: 78 / F ADM Date: 04/17/24 Loc: HO.XRAY Attending Dr: Lalit Aguirre MD Ordering Physician: Lalit Aguirre MD Date of Service: 04/17/24 Procedure(s): XR lumbar spine 2-3V Accession Number(s): [id number] cc: aLlit Aguirre MD EXAMINATION: XR LUMBOSACRAL SPINE CLINICAL [...] by: Jaylen Bee MD 04/18/2024 08:20 AM [facility] Dictated By: Jaylen Fernando MD Signed By: <Electronically signed by Jaylen Maynard MD in OV> 04/18/24 0820 DD/ 1420 TD/TT: 04/17/24 1434 Sand Filler: [address] [address] XRay Report Signed Patient: Nevaeh Torres MR#: [id number] : 1945 Acct:[id number] Age/Sex: 78 / F ADM Date: 04/17/24 Loc: HO.XRAY Attending Dr: Lalit Aguirre MD Ordering Physician: Lalit Aguirre MD Date of Service: 04/17/24 Procedure(s): XR lum bar spine 2-3V Accession Number(s): [id number] cc: Lalit Aguirre MD EXAMINATION: XR LUMBOSACRAL [...] by: Jaylen Bee MD 04/18/2024 08:20 AM [facility] Dictated By: Jaylen Horton MD Signed By: <Electronically signed by Jaylen Maynard MD in OV> 04/18/24 0820 DD/ 1420 TD/TT: 04/17/24 1434 Sand Filler: Complete Blood Count Auto Di ff Reviewed date:03/28/2024 01:32:12 PM Interpretation: Performing Lab:[facility], [address] [place] [phone] Notes/Report: White Blood Count 4.2 4.8-10.8 X10*3/uL [...] NRBC Abs Auto 0.000 0.0-0.012 X10*3/uL Comprehensive Codorus. Panel Fa st Reviewed date:03/28/2024 01:32:12 PM Interpretation: Performing Lab:[facility], [address] [place] [phone] Notes/Report: Sodium 132 135-145 mmol/L Potassium 4.8 3.3-5.1 mmol/L Chloride 97 96-108 mmol/L Carbon Dioxide 27 22-29 mmol/L Anion Gap 13 12-20 Blood Urea Nitrogen 26 9-16 mg/dL Creatinine 0.96 0.5-1.4 mg/dL Estimated Glomerular Filt Rate 56 NOTE: For -Thai individuals, multiply the result by 1.210. Chronic [...] Panel Reviewed date:03/28/2024 01:32:12 PM Interpretation: Performing Lab:[facility], [address] [place] [phone] Notes/Report: Triglycerides 41 <150 mg/dL Desirable Triglyceride: [...] Total Reviewed date:03/28/2024 01:32:12 PM Interpretation: Performing Lab:[facility], [address] [place] [phone] Notes/Report: Vitamin D 25-OH Total 33.4 >30 [...] date:05/21/2024 09:51:32 AM Interpretation: Performing Lab: Notes/Report: [address] [address] XRay Report Signed Patient: Nevaeh Torres MR#: [id number] : 1945 Acct:[id number] Age/Sex: 78 / F ADM Date: 04/17/24 Loc: HO.XRAY Attending Dr: Lalit Aguirre MD Ordering Physician: Lalit Aguirre MD Date of Service: 04/17/24 Procedure(s): XR hip BI w PEL1V Accession Number(s): [id number] cc: Lalit Aguirre MD EXAMINATION: XR BILATERAL [...] by: Jaylen Bee MD 04/18/2024 08:18 AM [facility] Dictated By: Jaylen Fernando MD Signed By: <Electronically signed by Jaylen Maynard MD in OV> 04/18/24 0818 DD/ 1407 TD/TT: 04/17/24 1434 Sand Filler: [address] [address] XRay Report Signed Patient: Nevaeh Torres MR#: [id number] : 1945 Acct:[id number] Age/Sex: 78 / F ADM Date: 04/17/24 Loc: HO.XRAY Attending Dr: Lalit Aguirre MD Ordering Physician: Lalit Aguirre MD Date of Service: 04/17/24 Procedure(s): XR hip BI w PEL1V Accession Number(s): [id number] cc: Lalit Aguirre MD EXAMINATION: XR BILATERAL [...] Jaylen Bee MD 04/18/2024 08:18 AM EST Dictated By: Jaylen Horton MD Signed By: <Electronically signed by Jaylen Maynard MD in OV> 04/18/24817 DD/ 1407 TD/TT: 04/17/24 1434 Sand Filler: Complete Blood Count Auto Di ff Reviewed date:07/04/2024 06:10:04 AM Interpretation: Performing Lab:[facility], [address] [place] [phone] Notes/Report: White Blood Count 5.8 4.8-10.8 X10*3/uL [...] NRBC Abs Auto 0.000 0.0-0.012 X10*3/uL Comprehensive Codorus. Panel Fa st Reviewed date:07/04/2024 06:10:04 AM Interpretation: Performing Lab:[facility], [address] [place] [phone] Notes/Report: Sodium 126 135-145 mmol/L Potassium 4.2 [...] Panel Reviewed date:07/04/2024 06:10:04 AM Interpretation: Performing Lab:[address] [address] Notes/Report: Triglycerides 45 <150 mg/dL Desirable Triglyceride: [...] Total Reviewed date:07/04/2024 06:10:04 AM Interpretation: Performing Lab:[address] [address] Notes/Report: Vitamin D 25-OH Total 33.7 >30 [...] ff Reviewed date:08/26/2024 09:37:42 AM Interpretation: Performing Lab:[facility], [address] [place] [phone] Notes/Report: White Blood Count 5.1 4.8-10.8 X10*3/uL [...] Panel Reviewed date:08/26/2024 09:37:42 AM Interpretation: Performing Lab:[facility], [address] [place] [address] Notes/Report: Sodium 129 135-145 mmol/L Potassium 3.9 [...] ff Reviewed date:10/08/2024 11:36:21 AM Interpretation: Performing Lab:[facility], [address] [place] [phone] Notes/Report: White Blood Count 4.5 4.8-10.8 X10*3/uL [...] NRBC Abs Auto 0.000 0.0-0.012 X10*3/uL Comprehensive Codorus. Panel Fa st Reviewed date:10/08/2024 11:36:21 AM Interpretation: Performing Lab:[facility], [address] [place] [phone] Notes/Report: Sodium 130 135-145 mmol/L Potassium 5.4 [...] Panel Reviewed date:10/08/2024 11:36:21 AM Interpretation: Performing Lab:[address] [address] Notes/Report: Triglycerides 56 <150 mg/dL Desirable Triglyceride: [...] Total Reviewed date:10/08/2024 11:36:21 AM Interpretation: Performing Lab:[address] [address] Notes/Report: Vitamin D 25-OH Total 26.9 >30 [...] date:10/14/2024 11:55:50 AM Interpretation: Performing Lab: Notes/Report: [place] [address] XRay Report Signed Patient: Nevaeh Torres MR#: [id number] : 1945 Acct:[id number] Age/Sex: 78 / F ADM Date: 10/10/24 Loc: KELY Attending Dr: Lalit Aguirre MD Ordering Physician: Lalit Aguirre MD Date of Service: 10/10/24 Procedure(s): XR chest 2V Accession Number(s): [id number] cc: Lalit Aguirre MD EXAMINATION: XR CHEST [...] 10/10/24 1041 DD/ 1013 TD/TT: 10/10/24 1022 Sand Filler: [address] [address] XRay Report Signed Patient: Nevaeh Torres MR#: [id number] : 1945 Acct:[id number] Age/Sex: 78 / F ADM Date: 10/10/24 Loc: HO.XRAY Attending Dr: Lalit Aguirre MD Ordering Physician: Lalit Aguirre MD Date of Service: 10/10/24 Procedure(s): XR corinna st 2V Accession Number(s): [id number] cc: Lalit Aguirre MD EXAMINATION: XR CHES T 2 VIEWS HISTORY: CHRONIC COUGH COMPARISON: Comparis [...] 10/10/24 1041 DD/ 1013 TD/TT: 10/10/24 1022 Sand Filler: Complete Blood Count Auto Di ff Reviewed date:12/07/2024 09:38:15 AM Interpretation: Performing Lab:[facility], [address] [place] [phone] Notes/Report: White Blood Count 5.4 4.8-10.8 X10*3/uL [...] Panel Reviewed date:12/07/2024 09:38:15 AM Interpretation: Performing Lab:[facility], [address] [place] [phone] Notes/Report: Sodium 127 135-145 mmol/L Potassium 5.0 [...] Complete Blood Count Auto Di ff Reviewed date:02/09/2025 12:37:35 PM Interpretation: Performing Lab:[facility], [address] [place] [address] Notes/Report: White Blood Count 4.6 4.8-10.8 X10*3/uL Red Blood Count 3.47 4.20-5.50 X10*6/uL Hemoglobin 11.4 12.0-16.0 g/dl Hematocrit 33.9 37.0-47.0 % Mean Corpuscular Volume 97.7 80.0-98.0 fL Mean Corpuscular Hemoglobin 32.9 27.0-33.0 pg Mean Corpuscular HGB Conc 33.6 31.0-35.0 g/dl Red Cell Distribution Width 13.1 11.0-16.0 % Platelet Count 229 160-400 X10*3/uL Mean Platelet Volume 10.5 9.4-12.3 fL Neutrophils Percent Auto 56.3 45-73 % Imm Gran Pct Auto 0.2 0.0-0.4 % Lymphocytes Percent Auto 26.9 20-40 % Monocytes Percent Auto 11.1 2-11 % Eosinophils Percent Auto 4.8 0-4 % Basophils Percent Auto 0.7 0-2 % NRBC Pct Auto 0.0 0.0-0.2 /100WBC Neutrophils Absolute Auto 2.6 2.0-8.3 x10*3/uL Imm Gran Abs Auto 0.01 0.00-0.03 X10*3/uL Lymphocytes Absolute Auto 1.2 1.2-4.9 X10*3/uL Monocytes Absolute Auto 0.5 0.1-1.2 X10*3/uL Eosinophils Absolute Auto 0.2 0.0-0.4 X10*3/uL Basophils Absolute Auto 0.0 0.0-0.2 X10*3/uL NRBC Abs Auto 0.000 0.0-0.012 X10*3/uL Comprehensive Codorus. Panel Fa st Reviewed date:02/09/2025 12:37:35 PM Interpretation: Performing Lab:[facility], [address] [place] [phone] Notes/Report: Sodium 134 135-145 mmol/L Potassium 4.9 3.3-5.1 mmol/L Chloride 101 96-108 mmol/L Carbon Dioxide 27 22-29 mmol/L Anion Gap 11 12-20 Blood Urea Nitrogen 25 9-16 mg/dL Creatinine 0.98 0.5-1.4 mg/dL Estimated Glomerular Filt Rate 54 Chronic Kidney Disease: Estimated GFR < 60 mL/min/1.73m2 Severe Kidney Disease: Estimated GFR < 15 mL/min/1.73m2 Glucose Fasting 85 60-99 mg/dL Calcium 8.7 8.4-10.2 mg/dL Bilirubin Total 0.6 0.0-1.0 mg/dL Slight Icte roxie. Aspartate Amino Transferase 34 5-31 U/L Alanine Aminotransferase 22 0-31 U/L Total Protein 6.6 6.5-8.0 g/dL Albumin Level 3.9 3.5-5.0 g/dL Alkaline Phosphatase 79 39-117 U/L Lipid Panel Reviewed date:02/09/2025 12:37:35 PM Interpretation: Performing Lab:[facility], [address] [place] [phone] Notes/Report: Triglycerides 44 <150 mg/dL Desirable Triglyceride: less than 150 mg/dL Borderline High Triglyceride 150-199 mg/dL High Triglyceride: 200-499 mg/dL Very High Triglyceride: greater than or equal to 5OO mg/dL Cholesterol 144 <200 mg/dL Desirable Cholesterol: less than 200 mg/dL Borderline High Cholesterol: 200-239 mg/dL High Cholesterol: greater than 239 mg/dL LDL Cholesterol Calculated 59 <100 mg/dL Desirable LDL: less than 100 mg/dL Near Optimal/Above Optimal LDL: 110-129 mg/dL Borderline High LDL: 130-159 mg/dL High LDL: 160-189 mg/dL Very High LDL: greater than or equal to 190 mg/dL HDL Cholesterol 77 >40 mg/dL Desirable HDL: greater than 40 mg/dL Note: This HDL assay may give artificially low results in patients with liver disease. Urinalysis (Not yet reviewe d by provider) Interpretation: Performing Lab:[facility], [address] [place] [phone] Notes/Report: Color Urine Yellow Appearance Urine Clear PH 8.0 5.0-9.0 Glucose Urine UA Negative Negative mg/dL Urine Blood Negative Negative Specific [place] - Urine 1.010 1.005-1.025 Urine Protein Negative Neg-Trace mg/dL Urine Ketones Negative Negative mg/dL Nitrite Urine Negative Negative Leukocyte Esterase Urine Negative Negative Reason For Referral Reason Evaluate and Treat Lower back pain Diagnosis 1 Back pain (M54.9) Referral Organization Lalit Aguirre III, MD Referring Provider First Name Lalit Referring Provider Last Name Carla Referring Provider Speciality Internal M edicine [facility] Specialty Physical Med icine General Notes D, Margot 05/15/2024 02:42:52 PM > Referral and progress note has been faxed. Referral Priority Routine Referral Appointment Date 06/04/2024 Medications Medication SIG (Take, Route, Frequency, Duration) Notes Start Date End Date Status Multi Vitamin - 1 tablet Orally Once a day Active Melatonin 5 MG 1 tablet in the even ing Orally Once a day Active Myrbetriq 50 MG 1 tablet Orally Once a day Active Aspir-Low 81 MG 1 tablet Orally Once a day Active Gas-X Active Citalopram Hydrobromide 10 MG TAKE 1 TABLET BY MOUTH EVERY DAY Active Atorvastatin Calcium 40 MG TAKE 1 TABLET BY MOUTH EVERY DAY Active Esomeprazole Magnesium 40 MG Oral Active Immunizations Vaccine Route Administration Date Status Comme nts Hep A Unknown 10/02/2012 Administered Hepatitis A (adult) Unknown 03/18/2012 Administered Influenza Unknown 06/16/2013 Administered Influenza Unknown 03/29/2015 Administered Influenza no Preserv 3 and > Unknown 03/19/2018 Adminis tered COVID PFIZER Unknown 02/28/2021 Administered Typhoid (ViCPs) Unknown 04/03/2012 Administered Pneumococcal Unknown 09/29/2019 Administered COVID-19 Moderna SPIKEVAX Unknown 09/09/2024 Administer ed COVID-19 Moderna SPIKEVAX Unknown 02/21/2024 Administer ed Fluzone High-Dose (HD-IIV3) Unknown 03/01/2015 Administ ered Influenza no Preserv 3 and > Unknown 03/24/2014 Adminis tered Yellow Fever Unknown 05/22/2013 Administered Flu-IIv3 Unknown 03/18/2018 Administered Flu-IIv4 Unknown 03/09/2016 Administered COVID Pfizer Bivalent Unknown 03/09/2022 Administered Flu-IIv3 Unknown 02/21/2024 Administered COVID PFIZER Unknown 07/22/2020 Administered COVID PFIZER Unknown 07/01/2020 Administered Comirnaty Pfizer COVID-19 12+ Unknown 02/13/2025 Admini stered Social History Tobacco Use: Social History Observation [...] Problem Status W/U Status Risk Notes Problem 036111478 Back pain (M54.9) Active confirmed Her back pain i s minimal at this time and she will refrain from heavy lifting. Problem 41749248 Hyponatremia (E87.1) Active confirmed Her sodium has improved with treatment to 134 and she is asymptomatic. Problem 976317152 GERD (gastroesophag eal reflux disease) (K21.9) Active confirmed Her symptoms ar e well controlled with medication. She is sleeping well and tolerating her diet. 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 Problem 53632754 Anxiety (F41.9) Active confirmed She has coping with her anxiety well. She is maintaining her weight. No new problems have arisen. Problem Vitamin D deficiency (54903584) Vitamin D deficiency, unspecified (E55.9) Active confirmed He was continue d on her vitamin D supplementation in view of her osteopenia. Problem 57756400 Amaurosis fugax (G45.3) Active confirmed She is she is under the care of a retina specialist in blood flow to a retina appears normal at this time. She has had no further episodes of visual loss. Problem Retinal vascular occlusion (34093426) Unspecified retinal vascular occlusion (H34.9) Active confirmed This took place in the recent past and she was anticoagulated. That has now been stopped, but she remains on aspirin. No further episodes have occurred since her last visit. Problem 481450994465290 Vitreous hemorrhage, right eye (H43.11) Active confirmed Her vision has returned to her and her anticoagulation has been stopped. She remains on aspirin. Problem 338463892 Other idiopathic scoliosis, lumbar region (M41.26) Active confirmed She continues t o have mild but intermittent low back pain due to the scoliosis. No change in her regimen was necessary today. Problem Carotid bruit (380034437) Carotid bruit (R09.89) Active confirmed She has had carotid ultrasounds before 50 to 99% occlusion on the right she is going to see her vascular surgeon later this month. I have asked her to call me and let me know what he thinks. Medications were continued. Problem 32051700 Hearing loss (H91.90) Active confirmed She is beginnin g to have difficulty discriminating speech is asked for evaluation by your throat physician. I have made a referral. Problem 839899500 TIA (transient ischemic attack) (G45.9) Active confirmed No further such episodes have occurred. Problem Leukopenia (54175615) Leukopenia, unspecified type (D72.819) Active confirmed Her white blo od cell count is now 4600. She has had no infections. She feels generally healthy and well. This value will be observed. Problem 553646031 History of basal cell cancer (Z85.828) Active confirmed No new skin cancers are noted on today's examination. Problem Hearing loss (95198760) Hearing loss, unspecified hearing loss type, unspecified laterality (H91.90) Active confirmed Her hearing los s is unchanged. It is well compensated. There was no barriers to communication today. Problem 301011316 Osteopenia after menopause (M81.0) Active confirmed She was continued on current therapy at this time. Problem 233005532 Acute bilateral low back pain without sciatica (M54.50) Active confirmed She has decreased range of motion of lumbar spine. Review old x-rays show significant lumbar scoliosis. She has been referred to orthopedic surgery for evaluation as well as pain management. Problem 043809146 Fibromuscular dysplasia of carotid artery (I77.3) Active confirmed The right carotid artery was recently repaired and she was told the operation was successful. 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 She is asymptomatic and will remain on her current regimen. She will restrict fluids to 1500 mL daily. Vital Signs Heart Rate 67 /min 02/11/2025 Temperature 98.4 degrees Fahrenheit 02/11/2025 Respiratory Rate 16 /min 11/20/2024 Oximetry 98 % 11/20/2024 Blood pressure diastolic 71 mm Hg 02/11/2025 Height 63.5 in 02/11/2025 Blood pressure systolic 133 mm Hg 02/11/2025 Weight 119 lbs 02/11/2025 BMI 20.75 kg/m2 02/11/2025 Encounters Encounter Location Date Provider Diagnosis Lalit Aguirre III, MD [address] [place] [address] [place] [address] 03/31/2024 Lalit Aguirre GERD (gastroesophage al reflux disease) K21.9 ; Fibromuscular dysplasia of carotid artery I77.3 ; Hearing loss H91.90 ; Leukopenia, unspecified type D72.819 ; Osteopenia after menopause M81.0 ; Syndrome of inappropriate ADH (SIADH) secretion E22.2 ; Vitamin D deficiency, unspecified E55.9 and Amaurosis fugax G45.3 Lalit Aguirre III, MD [address] [place] [address] [place] [address] 05/12/2024 Lalit Aguirre GERD (gastroesophage al reflux disease) K21.9 ; Syndrome of inappropriate ADH (SIADH) secretion E22.2 ; Fibromuscular dysplasia of carotid artery I77.3 ; Hearing loss H91.90 ; Leukopenia, unspecified type D72.819 ; Osteopenia after menopause M81.0 ; Acute bilateral low back pain without sciatica M54.50 and Other idiopathic scoliosis, lumbar region M41.26 Lalit Aguirre III, MD [address] [place] [address] [place] [address] 07/07/2024 Lalit Aguirre GERD (gastroesophage al reflux [...] lumbar region M41.26 Lalit Aguirre III, MD [address] [place] [address] [place] [address] 08/21/2024 Lalit Aguirre Urinary tract infect ion in female N39.0 ; GERD (gastroesophageal reflux disease) K21.9 ; Hearing loss H91.90 ; Osteopenia after menopause M81.0 ; Fibromuscular dysplasia of carotid artery I77.3 and Syndrome of inappropriate ADH (SIADH) secretion E22.2 Lalit Aguirre III, MD [address] [place] [address] [place] [address] 08/22/2024 Lalit Aguirre GERD (gastroesophage al reflux disease) K21.9 ; Urinary tract infection in female N39.0 ; Anxiety F41.9 ; History of basal cell cancer Z85.828 ; Hearing loss H91.90 ; Osteopenia after menopause M81.0 and Amaurosis fugax G45.3 Lalit Aguirre III, MD [address] [place] [address] [place] [address] 08/26/2024 Lalit Aguirre GERD (gastroesophage al reflux disease) K21.9 ; Urinary tract infection in female N39.0 ; Other idiopathic scoliosis, lumbar region M41.26 ; Acute bilateral low back pain without sciatica M54.50 ; Syndrome of inappropriate ADH (SIADH) secretion E22.2 ; Fibromuscular dysplasia of carotid artery I77.3 and Unspecified retinal vascular occlusion H34.9 Lalit Aguirre III, MD [address] [place] [address] [place] [address] 10/10/2024 Lalit Aguirre GERD (gastroesophage al reflux disease) K21.9 ; Syndrome of inappropriate ADH (SIADH) secretion E22.2 ; Leukopenia, unspecified type D72.819 ; Chronic cough R05.3 ; Back pain M54.9 ; Hearing loss H91.90 ; Osteopenia after menopause M81.0 and Amaurosis fugax G45.3 Lalit Aguirre III, MD [address] [place] [address] [place] [address] 11/20/2024 Lalit Aguirre Urinary tract infect ion in female N39.0 ; Back pain M54.9 ; History of basal cell cancer Z85.828 ; TIA (transient ischemic attack) G45.9 ; Osteopenia after menopause M81.0 and Syndrome of inappropriate ADH (SIADH) secretion E22.2 Lalit Aguirre III, MD [address] [place] [address] [place] [address] 02/11/2025 Lalit Aguirre GERD (gastroesophage al reflux [...] and Fibromuscular dysplasia of carotid artery I77.3 Lalit Aguirre III, MD [address] [place] [address] [place] [address] 03/25/2025 Lalit Aguirre UTI symptoms R39.9 Lalit Aguirre III, MD [address] [place] [address] [place] [address] 04/16/2024 Lalit Aguirre Back pain M54.9 and Hip pain M25.559 Lalit Aguirre III, MD [address] [place] [address] [place] [address] 08/20/2024 Lalit Aguirre III, MD [address] [place] [address] [place] [address] 10/13/2024 Lalit Aguirre III, MD [address] [place] [address] [place] [address] 10/23/2024 Lalit Aguirre III, MD [address] [place] [address] [place] [address] 10/23/2024 Lalit Aguirre III, MD [address] [place] [address] [place] [address] 12/03/2024 Lailt Aguirre Hyponatremia E87.1 Lalit Aguirre III, MD [address] [place] [address] [place] [address] 02/11/2025 Lalit Aguirre Screening mammogram, encounter for Z12.31 Lalit Aguirre III, MD [address] [place] [address] [address] [address] 03/10/2025 Lalit Aguirre III, MD [address] [place] [address] [address] [address] 03/10/2025 Lalit Aguirre Assessments Encounter Date Diagnosis (ICD Code) Assessment Notes Treatment Notes Treatment Clinical Notes 03/31/2024 GERD (gastroesophageal reflux disease) (ICD-10 - [...] if anything worsens. She seems medically stable. 02/11/2025 GERD (gastroesophageal reflux disease) (ICD-10 - K21.9) Her symptoms are well controlled with medication. She is sleeping well and tolerating her diet. 02/11/2025 History of basal cell cancer (ICD-10 - Z85.828) No new skin cancers are noted on today's examination. 03/25/2025 UTI symptoms (ICD-10 - R39.9) 04/16/2024 Back pain (ICD-10 - M54.9) 12/03/2024 Hyponatremia (ICD-10 - E87.1) 02/11/2025 Screening mammogram, encounter for (ICD-10 - Z12.31) 03/31/2024 Hearing loss (ICD-10 - H91.90) She [...] G45.9) No further such episodes have occurred. 04/16/2024 Hip pain (ICD-10 - M25.559) 03/31/2024 Leukopenia, unspecified type (ICD-10 - D72.819) [...] been stopped. She remains on aspirin. 03/31/2024 Osteopenia after menopause (ICD-10 - M81.0) [...] continued on current therapy at this time. 02/11/2025 Leukopenia, unspecified type (ICD-10 - D72.819) Her white blood cell count is now 4600. She has had no infections. She feels generally healthy and well. This value will be observed. 03/31/2024 Syndrome of inappropriate ADH (SIADH) secretion [...] restrict fluids to 1500 mL daily. 02/11/2025 Acute bilateral low back pain without sciatica (ICD-10 - M54.50) She has decreased range of motion of lumbar spine. Review old x-rays show significant lumbar scoliosis. She has been referred to orthopedic surgery for evaluation as well as pain management. 03/31/2024 Vitamin D deficiency, unspecified (ICD-10 - [...] continued on current therapy at this time. 02/11/2025 Other idiopathic scoliosis, lumbar region (ICD-10 - M41.26) She continues to have mild but intermittent low back pain due to the scoliosis. No change in her regimen was necessary today. 03/31/2024 Amaurosis fugax (ICD-10 - G45.3) She [...] had no further episodes of visual loss. 02/11/2025 Hyponatremia (ICD-10 - E87.1) Her sodium has improved with treatment to 134 and she is asymptomatic. 07/07/2024 History of basal cell cancer (ICD-10 - Z85.828) No new skin cancers are noted on today's examination. 02/11/2025 Hearing loss, unspecified hearing loss type, unspecified laterality (ICD-10 - H91.90) Her hearing loss is unchanged. It is well compensated. There was no barriers to communication today. 07/07/2024 Hearing loss, unspecified hearing loss type, unspecified laterality (ICD-10 - H91.90) Her hearing loss is unchanged. It is well compensated. There was no barriers to communication today. 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 She is asymptomatic and will remain on her current regimen. She will restrict fluids to 1500 mL daily. 07/07/2024 Acute bilateral low back pain without sciatica (ICD-10 - M54.50) She has decreased range of motion of lumbar spine. Review old x-rays show significant lumbar scoliosis. She has been referred to orthopedic surgery for evaluation as well as pain management. 02/11/2025 Fibromuscular dysplasia of carotid artery (ICD-10 - I77.3) The right carotid artery was recently repaired and she was told the operation was successful. 07/07/2024 Other idiopathic scoliosis, lumbar region (ICD-10 - M41.26) She continues to have mild but intermittent low back pain due to the scoliosis. No change in her regimen was necessary today. Plan Of Treatment Pending Test Test Name Order Date PROFILE, FASTING (COMPREHENSIVE METABOLI C) 01/16/2023 PROFILE, [...] C) 10/15/2020 PROFILE, FASTING (COMPREHENSIVE METABOLI C) 10/11/2020 PROFILE, FASTING (COMPREHENSIVE METABOLI C) 05/16/2022 PROFILE, FASTING (COMPREHENSIVE METABOLI C) 10/08/2019 PROFILE, FASTING (COMPREHENSIVE METABOLI C) 02/28/2021 PROFILE, FASTING (COMPREHENSIVE METABOLI C) 07/07/2024 PROFILE, FASTING (COMPREHENSIVE METABOLI C) 03/13/2018 PROFILE, RANDOM (COMPREHENSIVE METABOLIC ) 11/24/2020 PROFILE, RANDOM (COMPREHENSIVE METABOLIC ) 08/22/2024 PROFILE, RANDOM (COMPREHENSIVE METABOLIC ) 02/11/2025 PROFILE, RANDOM (COMPREHENSIVE METABOLIC ) 12/03/2024 BUN 11/22/2021 CREATININE 11/22/2021 AMYLASE 01/03/2021 AMYLASE 11/24/2020 LIPASE 11/24/2020 LIPID PANEL 10/08/2019 LIPID PANEL 03/13/2018 LIPID PANEL 01/16/2023 LIPID PANEL 02/27/2017 LIPID PANEL 04/10/2019 LIPID PANEL 01/03/2021 LIPID PANEL 06/06/2021 LIPID PANEL 09/20/2022 LIPID PANEL 10/08/2018 LIPID PANEL 10/15/2020 LIPID PANEL 10/11/2020 CBC w DIFF 02/28/2021 CBC w DIFF 12/03/2024 CBC w DIFF 07/07/2024 CBC w DIFF 10/10/2024 CBC w DIFF 10/08/2019 CBC w DIFF 10/11/2020 CBC w DIFF 03/13/2018 CBC w DIFF 01/16/2023 CBC w DIFF 02/07/2022 CBC w DIFF 02/27/2017 CBC w DIFF 04/10/2019 CBC w DIFF 01/03/2021 CBC w DIFF 11/24/2020 CBC w DIFF 06/06/2021 CBC w DIFF 09/20/2022 CBC w DIFF 08/22/2024 CBC w DIFF 05/16/2022 CBC w DIFF 10/08/2018 CBC w DIFF 02/11/2025 CBC w DIFF 10/15/2020 SED RATE (ESR) 11/24/2020 URINALYSIS (UA) 03/25/2025 URINE CULTURE 10/18/2018 XR CHEST 2 VIEW PA & LAT 10/10/2024 MAMMOGRAM DIGITAL BILATERAL SCREEN 06/25 MAMMOGRAM DIGITAL UNILATERAL ROBBIE LT 09/2016 MAMMOGRAM DIGITAL UNILATERAL ROBBIE LT 10/27 MAMMOGRAM DIGITAL UNILATERAL ROBBIE RT 05/2017 Holter Monitor 11/06/2017 VITAMIN D 25-OH TOTAL 03/31/2024 VITAMIN D 25-OH TOTAL 10/08/2019 US BREAST RIGHT 07/26/2017 CBC WITH AUTO DIFF 03/31/2024 CBC WITH AUTO DIFF 11/12/2023 Urinalysis 03/25/2025 Lipid Panel 05/16/2022 Lipid Panel 02/28/2021 Lipid Panel 07/07/2024 Lipid Panel 10/10/2024 Lipid Panel 03/31/2024 Lipid Panel 11/12/2023 Vitamin D 25-OH Total 02/11/2025 Vitamin D 25-OH Total 05/16/2022 Vitamin D 25-OH Total 07/07/2024 Urine Culture 03/25/2025 MM tomosynthesis screening BI 02/11/2025 XR hips YANE min 3V 04/16/2024 XR pelvis min 3V 04/16/2024 Next Appt Details Provider Name:Lalit Tanner Carla , 05/13/2025 09:30:00 AM, [address] [place] [address] LEYLA MAGANA, [place], [address], Provider Name:Lalit Tanner Aguirre , 02/16/2026 09:00:00 AM, [address] [place] [address] LEYLA MAGANA, [place], [address], Insurance Providers Payer Name Payer Address Payer Phone Subscriber Number Group Number Insured Name Patient Relationship to Insured Coverage Start Date Coverage End Date MEDICARE NGS [address] [place] [address] [id number] Nevaeh Bone Self - patient is the insured [employer] [address] [place] [phone] [id number] Amish Nevaeh sexton Self - patient is [...] rain placement, Left 2022-05-10 right carotid endarterectomy [facility] 05/16 21 biopsy of eyelid 2019 lesion removal from eyelid 01/2019 biopsy on leg 11/2018 Mohs surgery bridge of nose Laparascopic Surgery T & A as a child benign breast lump removed 1987 colonoscopy 03/2010 Cataract extraction both eyes 2012 Varicose vein surgery 1964 Hospitalization History Reason Date(Month/Year) No history vission loss 02/10/22 Right carotid surgery, [facility] 04/2021 CVA 11/29/2020 abdominal pain 04/16/2018
--- OUTSIDE RECORDS SUMMARY | 2025-03-25 20:01 | XMS_ITS | Encounter Summary ---
Author Organization [facility] Address [address] [place] [address] Care Team Providers Care Nurse Ob Name Role Phone Lalit Aguirre Primary Care Provider [phone] Encounter Details Date Type Department Care Team (Late st Contact Info) Description 11/22/[address] [facility] 2 Rad Act 1 [address] [place] [address] Anton Sanchez, [address] [place] [address] Social History Tobacco Use Types Packs/Day Years [...] on filedocumented in this encounter Care Teams Nurse Ob Relationship Specialty Start Date End Date Lalit Aguirre [address] [facility] [address] [place] [address] PCP - General Hematology 04/11/21 documented as of this encounter
--- OUTSIDE RECORDS SUMMARY | 2025-03-25 20:01 | XMS_ITS | Patient Health Record ---
Author Organization [facility] Address [address] [place] [address] Care Team Providers Care Rehabilitator Name Role Phone Lalit Aguirre MD Primary Care Provider Lyndon Muller Jr Unavailable Allergies Allergen (clinical drug ingredient) Drug/Non Drug Allergy documented on EMR Reaction Allergy Type Onset Date Status Penicillin Unknown Drug Allergy Active Reason For Referral No Information Medications Medication SIG (Take, Route, Frequency, Duration) Notes Start Date End Date Status Esomeprazole Magnesium 40 MG TAKE 1 CAPSULE BY MOUTH EVERY DAY; Duration: 90 days Active Atorvastatin Calcium 40 MG 1 tablet Oral ly Once a day; Duration: 30 day(s) Active Aspirin 81 81 MG 1 tablet Orally Once a day; Duration: 30 day(s) Active Myrbetriq 50 MG 1 tablet Orally Once a day; Duration: 30 day(s) Active Citalopram Hydrobromide 10 MG [...] Problem Status W/U Status Risk Notes Problem Flatulence, eructation and gas pain (539292244) Bloating (R14.0) Active confirmed Problem Gastroesophageal reflux disease (277538678) Gastroesophageal reflux disease, unspecified whether esophagitis present (K21.9) Active confirmed Vital Signs Temperature 97.3 degrees Fahrenheit 10/08/2024 Blood pressure diastolic 01 mm Hg 10/08/2024 Height 63.5 in 10/08/2024 Blood pressure systolic 001 mm Hg 10/08/2024 Weight 118 lbs 10/08/2024 BMI 20.57 kg/m2 10/08/2024 Encounters Encounter Location Date Provider Diagnosis [facility] [address] [place] [address] [place] [address] 10/08/2024 Lyndon Dorman Jr Gastroesophageal reflux disease, unspecified whether esophagitis present K21.9 [facility] [address] [place] [address] 07/25/2024 Lyndon Dorman Jr [facility] [address] [place] [address] 09/08/2024 Lyndon Dorman Jr Assessments Encounter Date [...] Provider Name:Lyndon delgado Jr, 10/12/2025 10:00:00 AM, [address] [place] [address], [place] [address], [place], [address], Insurance Providers Payer Name Payer Address Payer Phone Subscriber Number Group Number Insured Name Patient Relationship to Insured Coverage Start Date Coverage End Date MEDICARE OF [place] [address] [place] [address] [id number] MANUEL ARBOLEDA KOKI Self - patient is the insured [facility] [address] [place] [phone] [id number] KOKI WASHINGTON Self - patient is the [...]
--- OUTSIDE RECORDS SUMMARY | 2025-03-25 20:01 | XMS_ITS | Clinical Summary ---
Author Organization [facility] Address [address] [address] Phone Care Team Providers Care Rig Superintendent Name Role Phone Lalit Aguirre MD Primary Care Provider [phone] Allergies Active Allergy Reactions Criticality Noted Date [...] file Insurance MEDICARE PART A & B [address] [place], [place] [id number] MEDICARE ENHANCE SUPPLEMENT MEDICARE PART A & B [facility] MEDICARE ENHANCE SUPPLEMENT MEDICARE PART A & B [facility] MEDICARE ENHANCE SUPPLEMENT MEDICARE PART A & B [facility] MEDICARE ENHANCE SUPPLEMENT MEDICARE PART A & B [facility] MEDICARE ENHANCE SUPPLEMENT MEDICARE PART A & B Member Subscriber Plan / Payer (Ef fective 2008-Present) Name:Nevaeh Torres Member ID:[id number] Relation to Subscriber:Self Name:Nevaeh Torres Subscriber ID:[id number] Payer ID:[id number] Group ID:Not on file Type:Medicare Address: [employer] [address] MEDICARE ENHANCE SUPPLEMENT MEDICARE PART A & B [facility] MEDICARE ENHANCE SUPPLEMENT MEDICARE PART A & B [facility] MEDICARE ENHANCE SUPPLEMENT MEDICARE PART A & B [facility] MEDICARE ENHANCE SUPPLEMENT Care Teams Rig Superintendent Relationship Specialty Start Date End Date Lalit Aguirre MD [address] [place] [address] [place] [address] PCP - General Medical Oncology 01/05/21 Additional Source Comments The information contained in this document represents components of the legal health record. It is not the complete legal health record.[facility]
--- OUTSIDE RECORDS SUMMARY | 2025-03-25 20:01 | XMS_ITS | Encounter Summary ---
Author Organization [facility] Address [address] [place] [address] Care Team Providers Care Rail Track Layer Name Role Phone Lalit Aguirre Primary Care Provider [phone] Encounter Details Date Type Department Care Team (Latest Contact Info) Description 01/24/[address] [facility] Interventional Radiology [address] [place] [address] [employer], Generic Provider [facility] [address] CT Angiogram of the head [...] on filedocumented in this encounter Care Teams Rail Track Layer Relationship Specialty Start Date End Date Lalit Aguirre [address] [facility] [address] [place] [address] PCP - General Hematology 04/11/21 documented as of this encounter
--- OUTSIDE RECORDS SUMMARY | 2025-03-25 20:01 | XMS_ITS | Clinical Summary ---
Author Organization [facility] Address [address] [place] [address] Care Team Providers Care Funeral Car Chauffeur Name Role Phone Lalit Aguirre Primary Care Provider [phone] Allergies Active Allergy Reactions Criticality Noted Date [...] a day can be f/u with her supervisor fish processing as outpatient -If the patient remains hospitalized [...] Social Drivers of Health Annual Screening 05/28/2024 COVID-19 Vaccine (2024- season) 2025 09/09/2024, 02/21/2024, 03/09/2022, Additional history exists Influenza Vaccine (#1) 2025 , 03/09/2022, 03/27/2021, Additional history exists DTaP,Tdap,and Td Vaccines (2 - Td or Tdap) 01/11/2028 01/10/2018 Tobacco Screening 05/28/2042 12/01/2024 Statin Therapy Completed 05/02/2021 Hepatitis B Vaccines Aged Out No long er eligible based on patient's age to complete this topic Medical Devices Implanted Type Area Occ Med Physician Device Identifier Shelf Expiration Date Model / Serial / Lot Device Closure Vascular Plug 6fr Angio-Seal Vip - S0 - [id number] Implanted:Qty : 1 on 04/27/2022 by Jose Morales MD at [facility] Implant Right: Groin [employer] [id number] 01/25/2023 [id number] / 0 / [id number] System Stent Carotid [id number] Enroute - [id number] Implanted:Qty : 1 on 05/09/2022 by Jose Morales MD at [facility] Stent Right: [facility] 12/26/2023 SR-0840-C S / / [id number] System Stent Carotid [id number] Enroute - [id number] Implanted:Qty : 1 on 05/09/2022 by Jose Morales MD at [facility] Stent Right: [facility] 12/26/2023 SR-0840-C S / / [id number] Insurance MEDICARE [facility] Advance Directives Documents on File Type Date Recorded Patient Quality Improvement Coordinator (Rn) Expl [facility] Care Proxy 05/12/2021 2:01 PM * Full [...] 7:58 AM 05/17/2021 1:24 PM Care Teams Funeral Car Chauffeur Relationship Specialty Start Date End Date Lalit Aguirre [address] [place] [address] PCP - General Hematology 04/11/21
== END 2025-03-25 15:52 | disposition home or self-care (01) ==
LOC: HO.LAB 15:51
PROVIDERS: PCP Internal Medicine Medical Oncology; Visit Provider Internal Medicine Medical Oncology
DX: R39.9 Unspecified symptoms and signs involving the genitourinary system (principal)
CPT/HCPCS: 81003; 87086

== ENCOUNTER 2025-04-01 11:31 | Outpatient (REF) | payer MEDICARE, OTHER, SELFPAY ==
--- OUTSIDE RECORDS SUMMARY | 2024-10-23 07:33 | XMS_ITS ---
Author Organization Lalit Aguirre III, MD Address [address] [place] [address] Care Team Providers Care Veneer Press Operator Name Role Phone Dr. Lalit Aguirre III Primary Care Provider Medications Medication SIG (Take, Route, Fr equency, Duration) Notes Start Date End Date Status levoFLOXacin 250 MG 1 tablet Orally Once a day for 7 days 10/23/2024 10/30/2024 Active Social History Sex Assigned At : Social History Observation Description Sex Assigned At Female Encounters Encounter Location Date Provider Diagnosis Lalit Aguirre III, MD [address] [place] [address] [place] [address] 10/23/2024 Lalit Aguirre Plan Of Treatment Medication Medication Name Sig Start Date Stop Date Notes levoFLOXacin 250 MG 1 tablet Orally Once a day for 7 days 10/23/2024 10/30/2024 Next Appt Details Provider Name:Lalit Aguirre , 05/13/2025 09:30:00 AM, [address] [place] [address] [place], [address], Provider Name:Lalit Aguirre , 02/16/2026 09:00:00 AM, [address] [place] [address] [address], [place], [address], Progress Notes * Nevaeh TORRESDOB:[birth year] (78 yo F)Acc No.[id number]:10/23/2024 Patient: Nevaeh JOHNSON :1945 A ge:78 Y S ex:Female Address: [address], [place], [address] * Refills Start levoFLOXacin Tablet, 250 MG, Orally, 7 Tablet, 1 tablet, Once a day, 7 days, Refills=0 * true * Date: Generated for Anabella vasquez/Frank/Dieudonne on: 06/01/2024 02:09 PM EST
--- OUTSIDE RECORDS SUMMARY | 2024-11-20 06:00 | XMS_ITS ---
Author Organization Lalit Aguirre III, MD Address [address] [place] [address] Care Team Providers Care Patient Scheduling Coordinator Name Role Phone Dr. Lalit Aguirre III Primary Care Provider [phone] Allergies Allergen (clinical drug ingredient) Drug/Non Drug Allergy documented on EMR Reaction Allergy Type Onset Date Status Penicillin anaphylaxis Drug Allergy Acti ve Mold Unknown Allergy Active Dust Mites Unknown Allergy Active Bee Sting Unknown Allergy Active nitrofurantoin Nitrofurantoin nausea and vomiting Drug Allergy Active Results Component Value Reference Range Notes URINE DIP STICK Reviewed date:11/20/2024 11:24:04 AM Interpretation: Performing Lab: Notes/Report: SG 1.010 1.005 - 1.025 pH 5.0 5.0 - 9.0 TALI Negative Negative - NIT Positive Negative - PRO Negative Negative - Trace GLU Negative Negative - KET Negative Negative - UBG 0.2 0.1 - 1.8 YANE Negative 0.2 - 1.3 BLD (+) (-) Negative - Menstrating No Urine Culture Reviewed date:11/22/2024 02:21:15 PM Interpretation: Performing Lab:[facility], [address] [place] [phone] Notes/Report: Urine Culture No growth. REASON FOR VISIT Urinary frequency and dysuria Medications Medication SIG (Take, Route, Frequency, Duration) Notes Start Date End Date Status Esomeprazole Magnesium 40 MG Oral Active Sulfamethoxazole-Trimethop rim 800-160 MG 1 tablet Orally twice a day for 7 days 11/20/2024 11/27/2024 Active Bactrim DS 800-160 MG 1 tablet Orally Tw ice a day 08/20/2024 Active Fluorouracil 5 % 1 application Waste Reclaimer al Twice a day Active Citalopram Hydrobromide 10 MG 1 tablet Orally Once a day 02/22/2024 Active Melatonin 5 MG 1 tablet in the even ing Orally Once a day Active Vitamin D 1000 UNIT 1 tablet Orally Once a day Active Biotin 1000 MCG 2 tabs Orally Once a day Active Aspir-Low 81 MG 1 tablet Orally Once a day Active Myrbetriq 50 MG 1 tablet Orally Once a day Active Multi Vitamin - 1 tablet Orally Once a day Active levoFLOXacin 250 MG 1 tablet Orally Once a day 08/22/2024 Active Gas-X Active Atorvastatin Calcium 40 MG TAKE 1 TABLET BY MOUTH EVERY DAY Active Social History Tobacco Use: Social History Observation Description Date Details (start date - stop date) Never Smoker NA - NA Sex Assigned At : Social History Observation Description Sex Assigned At Female Tobacco Use/Smoking Question Answer Notes Patient is a nonsmoker Additional Findings: Tobacco Non-User Aggressive non-smoker Vital Signs Temperature 98.6 degrees Fahrenheit 11/21/19 25 Blood pressure systolic 128 mm Hg 11/21/19 25 Blood pressure diastolic 63 mm Hg 025 Heart Rate 67 /min 11/20/2024 Respiratory Rate 16 /min 11/20/2024 Height 63.5 in 11/20/2024 Weight 122 lbs 11/20/2024 BMI 21.27 kg/m2 11/20/2024 Oximetry 98 % 11/20/2024 Encounters Encounter Location Date Provider Diagnosis Lalit Aguirre III, MD [address] [place] [address] [place] [address] 11/20/2024 Lalit Aguirre Urinary tract infect ion in female N39.0 ; Back pain M54.9 ; History of basal cell cancer Z85.828 ; TIA (transient ischemic attack) G45.9 ; Osteopenia after menopause M81.0 and 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 She will telephone immediately if anything worsens. She seems medically stable. 11/20/2024 Back pain (ICD-10 - M54.9) Her back pain is minimal at this time and she will refrain from heavy lifting. 11/20/2024 History of basal cell cancer (ICD-10 - Z85.828) No new skin cancers are noted on today's examination. 11/20/2024 TIA (transient ischemic attack) (ICD-10 - G45.9) No further such episodes have occurred. 11/20/2024 Osteopenia after menopause (ICD-10 - M81.0) She was continued on current therapy at this time. 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 She is asymptomatic and will remain on her current regimen. She will restrict fluids to 1500 mL daily. Plan Of Treatment Medication Medication Name Sig Start Date Stop Date Notes Esomeprazole Magnesium 40 MG Oral Sulfamethoxazole-Trimethopri m 800-160 MG 1 tablet Orally twice a day for 7 days 11/20/2024 11/27/2024 Bactrim DS 800-160 MG 1 tablet Orally Twice a day 08/21/19 25 Fluorouracil 5 % 1 application Waste Reclaimer al Twice a day Citalopram Hydrobromide 10 MG 1 tablet Orally Once a day 0 02/22/2024 Melatonin 5 MG 1 tablet in the even ing Orally Once a day Vitamin D 1000 UNIT 1 tablet Orally Once a day Biotin 1000 MCG 2 tabs Orally Once a day Aspir-Low 81 MG 1 tablet Orally Once a day Myrbetriq 50 MG 1 tablet Orally Once a day Multi Vitamin - 1 tablet Orally Once a day levoFLOXacin 250 MG 1 tablet Orally Once a day 08/22/2024 Gas-X Atorvastatin Calcium 40 MG TAKE 1 TABLET BY MOUTH EVERY DAY Next Appt Details Follow Up: As Scheduled, Michelle son: Annual Exam Provider Name:Lalit Aguirre , 05/13/2025 09:30:00 AM, [address] [place] [address] DR, [address], [place], [place], [phone], Provider Name:Lalit Aguirre , 02/16/2026 09:00:00 AM, [address] [place] [address] [address], [place], [phone], Progress Notes * Nevaeh TORRESDOB:[birth year] (78 yo F)Acc No.[id number]:11/20/2024 Patient: Nevaeh JOHNSON Provider: Sushil Aguirre MD :1945 A ge:78 Y S ex:Female Date:11/20/2024 Address: [address] [place], [id number] Subjective: * Chief Complaints: * U rinary frequency and dysuria * HPI: C OVID-19 Screening: She comes to the office today with a three-day history of dysuriaAnd frequency and foul-smelling urine. She has been taking Pyridium which helps soothes the burning.A urine culture was ordered and she was given an antibiotic. She also complains that she has a dental infection in her left maxilla which is making her feel debilitated. A root canal is scheduled by her dentist December 16, 2024. Questions H ave you had any new onset fever, chills, cough, congestion, sore throat, shortness of breath, muscle aches? N o * ROS: G eneral/Constitutional: pain D ysuria. C hills d enies. F atigue a dmits. F ever d enies. E NT: Decreased hearing d enies. R espiratory: Cough d enies. C ardiovascular: Chest pain with exertion d enies. D yspnea on exertion?denies. S hortness of breath d enies. G astrointestinal: Constipation d enies. D ecreased appetite d enies.?Diarrhea d enies. H eartburn d enies. N ausea d enies. R ectal bleeding?denies. V omiting d enies. H ematology: bruising d enies. p etechiae d enies. S wollen glands n one have been noted. G enitourinary: Frequent urination d enies. M usculoskeletal: Muscle aches d enies. P ainful joints d enies. S ciatica d enies. W eakness d enies. S kin: Itching d enies. R beth d enies. S kin lesion(s)?denies. N eurologic: Difficulty speaking d enies. D izziness d enies.?Headache d enies. L ow back pain d enies. P sychiatric: Depressed mood d enies. * Medical History: * Surgical History: V aricose vein surgery 1964Cataract extraction both eyes 2013colonoscopy enign breast lump removed 1987T & A as a child Laparascopic Surgery Mohs surgery bridge of nose biopsy on leg 11/2018lesion removal from eyelid 01/2019biopsy of eyelid 2019right carotid endarterectomy [facility] 1Repair of branchial pseudoaneurysm and drain placement, Left [id number] history Carotid artery stent placement * Hospitalization/Major Diagno stic Procedure: a bdominal pain 04/16/2018CVA 1Right carotid surgery, [facility] 04/2021vission loss 02/10/22No history * Family History: F ather: 41 yrs, coronary artery disease, rheumatic fever,. M other: 73 yrs, CVA,hypertension,. D aughter(s): alive, Brain cyst. 2 daughter(s) - healthy. . Her daughter Ana Lilia is a medical billing and coding specialist at the [employer] on [place], [place] and is her HCP. Her other daughter, Kristy, is alive and well. She has two grandchildren who are healthy, one had a brain cyst. * Social History: T obacco Use: T obacco Use/Smoking P atient is a n onsmoker A dditional Findings: Tobacco Non-User A ggressive non-smoker S he was born in [facility] and has been to [place] for 48 years. They have 2 children who are healthy and well. 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 * Medications: T akingMulti Vitamin - Tablet 1 tablet Orally Once [...] in the evening Orally Once a day Fluorouracil 5 % Cream 1 application External Twice a day Citalopram Hydrobromide 10 MG Tablet 1 tablet Orally Once a day Esomeprazole Magnesium 40 MG Capsule Delayed Release Oral Bactrim DS 800-160 MG Tablet 1 tablet Orally Twice a day levoFLOXacin 250 MG Tablet 1 tablet Orally Once a day Atorvastatin Calcium 40 MG Tablet TAKE 1 TABLET BY MOUTH EVERY DAY Medication List reviewed and reconciled with the patientTaking [...] the evening Orally Once a day Taking Fluorouracil 5 % Cream 1 application External Twice a day Taking Citalopram Hydrobromide 10 MG Tablet 1 tablet Orally Once a day Taking Esomeprazole Magnesium 40 MG Capsule Delayed Release Oral Taking Bactrim DS 800- 160 MG Tablet 1 tablet Orally Twice a day Taking levoFLOXacin 250 MG Tablet 1 tablet Orally Once a day Taking Atorvastatin Calcium 40 MG Tablet TAKE 1 TABLET BY MOUTH EVERY DAY Medication List reviewed and reconciled with the patient * Allergies: D ust MitesBee StingMoldPenicillin: anaphylaxisNitrofurantoin: nausea and vomiting - Allergy - Criticality [place][Allergies Verified] Objective: * Vitals: H t: 63.5, Wt:122, BMI:21.27, BP:128/63, HR:67, RR:16, Temp:98.6, Oxygen sat %:98, Ht-cm: 161.29, Wt-k.34. * P ast Orders: Lab:URINE DIP STICK * Collection Date 11/20/2024 09/20/2022 04/10/2019 Order Date 11/20/2024 09/20/2022 04/10/2019 SG 1.010 (Ref Range: 1.005 - 1.025) 1.010 (Ref Range: 1.005 - 1.025) 1.010 pH 5.0 (Ref Range: 5.0 - 9.0) 6.5 (Ref Range: 5.0 - 9.0) 6 TALI Negative (Ref Range: Negative -) Negative (Ref Range: Negative -) neg NIT Positive (Ref Range: Negative -) Negative (Ref Range: Negative -) neg PRO Negative (Ref Range: Negative - Trace) 15 (Ref Range: Negative - Trace) neg GLU Negative (Ref Range: Negative -) Negative (Ref Range: Negative -) normal KET Negative (Ref Range: Negative -) Negative (Ref Range: Negative -) neg UBG 0.2 (Ref Range: 0.1 - 1.8) 0.2 (Ref Range: 0.1 - 1.8) normal YANE Negative (Ref Range: 0.2 - 1.3) Negative (Ref Range: 0.2 - 1.3) neg BLD (+) (-) (Ref Range: Negative -) Negative (Ref Range: Negative -) neg Menstrating No No no * Lab:Comprehensive Met. Panel * Collection Date 08/25/2024 05/30/2023 06/01/2021 Collection Time 06:22 AM 06:43 AM 06:18 AM Order Date 08/25/2024 05/30/2023 06/01/2021 Sodium 129 L (Ref Range: 135-145 mmol/L) 129 L (Ref Range: 135-145 mmol/L) 136 (Ref Range: 135-145 mmol/L) Bilirubin Total 0.6 (Ref Range: 0.0-1.0 mg/dL) 0.8 (Ref Range: 0.0-1.0 mg/dL) 0.9 (Ref Range: 0.0-1.0 mg/dL) Aspartate Amino Transferase 40 H (Ref Range: 5-31 U/L) 38 H (Ref Range: 5-31 U/L) 29 (Ref Range: 5-31 U/L) Alanine Aminotransferase 33 H (Ref Range: 0-31 U/L) 26 (Ref Range: 0-31 U/L) 40 H (Ref Range: 0-31 U/L) Total Protein 6.4 L (Ref Range: 6.5-8.0 g/dL) 6.9 (Ref Range: [...] 29 (Ref Range: 22-29 mmol/L) Anion Gap 9 L (Ref Range: 12-20) 9 L (Ref Range: 12-20) 11 L (Ref Range: 12-20) Blood Urea Nitrogen 18 H (Ref Range: 9-16 mg/dL) 25 H (Ref Range: 9-16 mg/dL) 27 H (Ref Range: 9-16 mg/dL) Creatinine 0.94 (Ref Range: 0.5-1.4 mg/dL) 0.89 (Ref Range: 0.5-1.4 mg/dL) 0.83 (Ref Range: 0.5-1.4 mg/dL) Estimated Glomerular Filt Rate 57 > 60 > 60 Glucose Random 91 (Ref Range: 60-115 mg/dL) 92 (Ref Range: 60-115 mg/dL) 97 (Ref Range: 60-115 mg/dL) Calcium 8.6 (Ref Range: 8.4-10.2 mg/dL) 9.0 (Ref Range: 8.4-10.2 mg/dL) 9.3 (Ref Range: 8.4-10.2 mg/dL) * Lab:Urine Culture * Collection Date 11/20/2024 08/25/2024 Collection Time 12:00 PM 06:19 AM Order Date 11/20/2024 08/22/2024 Urine Culture No growth. No growth. Clinical Info: Please do culture an d sensitivity,PLEASE FAX COMPLETED RESULTS TO [phone] PLEASE FAX COMPLETED RESULTS TO [phone] * Lab:Complete Blood Count Aut o Diff * Collection Date 10/08/2024 08/25/2024 07/03/2024 Collection Time 06:57 AM 06:22 AM 06:28 AM Order Date 10/08/2024 08/25/2024 07/03/2024 White Blood Count 4.5 L (Ref Range: 4.8-10.8 X10*3/uL) 5.1 (Ref Range: 4.8-10.8 X10*3/uL) 5.8 (Ref Range: 4.8-10.8 X10*3/uL) Red Blood Count 3.45 L (Ref Range: 4.20-5.50 X10*6/uL) 3.68 L (Ref Range: 4.20-5.50 X10*6/uL) 3.37 L (Ref Range: 4.20-5.50 X10*6/uL) Hemoglobin 11.3 L (Ref Range: 12.0-16.0 g/dl) 11.8 L (Ref Range: 12.0-16.0 g/dl) 11.1 L (Ref Range: 12.0-16.0 g/dl) Hematocrit 33.3 L (Ref Range: 37.0-47.0 %) 35.9 L (Ref Range: 37.0-47.0 %) 32.2 L (Ref Range: 37.0-47.0 %) Mean Corpuscular Volume [...] 9.4-12.3 fL) 9.8 (Ref Range: 9.4-12.3 fL) 9.1 L (Ref Range: 9.4-12.3 fL) Neutrophils Percent Auto 60.0 (Ref Range: 45-73 %) 61.9 (Ref Range: 45-73 %) 64.2 (Ref Range: 45-73 %) Imm Gran Pct Auto 0.2 (Ref Range: 0.0-0.4 %) 0.2 (Ref Range: 0.0-0.4 %) 0.3 (Ref Range: 0.0-0.4 %) Lymphocytes Percent Auto 23.9 (Ref Range: 20-40 %) 20.2 (Ref Range: 20-40 %) 19.2 L (Ref Range: 20-40 %) Monocytes Percent Auto 11.9 H (Ref Range: 2-11 %) 12.3 H (Ref Range: 2-11 %) 12.0 H (Ref Range: 2-11 %) Eosinophils Percent Auto 3.3 (Ref Range: 0-4 %) 5.0 H (Ref Range: 0-4 %) 3.8 (Ref Range: [...] (Ref Range: 0.00-0.03 X10*3/uL) Lymphocytes Absolute Auto 1.1 L (Ref Range: 1.2-4.9 X10*3/uL) 1.0 L (Ref Range: 1.2-4.9 X10*3/uL) 1.1 L (Ref Range: 1.2-4.9 X10*3/uL) Monocytes Absolute Auto [...] X10*3/uL) 0.000 (Ref Range: 0.0-0.012 X10*3/uL) * Lab:[facility]cretia Obrien * Collection Date 10/08/2024 07/03/2024 03/27/2024 Collection Time 06:57 AM 06:28 AM 06:34 AM Order Date 10/08/2024 07/03/2024 03/27/2024 Sodium 130 L (Ref Range: 135-145 mmol/L) 126 L (Ref Range: 135-145 mmol/L) 132 L (Ref Range: 135-145 mmol/L) Bilirubin Total 0.5 (Ref Range: 0.0-1.0 mg/dL) 0.6 (Ref Range: 0.0-1.0 mg/dL) 0.4 (Ref Range: 0.0-1.0 mg/dL) Aspartate Amino Transferase 30 (Ref Range: 5-31 U/L) 35 H (Ref Range: 5-31 U/L) 39 H (Ref Range: 5-31 U/L) Alanine Aminotransferase 23 (Ref Range: 0-31 U/L) 24 (Ref Range: 0-31 U/L) 27 (Ref Range: 0-31 U/L) Total Protein 6.3 L (Ref Range: 6.5-8.0 g/dL) 6.6 (Ref Range: 6.5-8.0 g/dL) 6.4 L (Ref Range: 6.5-8.0 g/dL) Albumin Level 3.7 (Ref Range: 3.5-5.0 g/dL) 3.6 (Ref Range: 3.5-5.0 g/dL) 3.8 (Ref Range: 3.5-5.0 g/dL) Alkaline Phosphatase 83 (Ref Range: 39-117 U/L) 77 (Ref Range: 39-117 U/L) 85 (Ref Range: 39-117 U/L) Potassium 5.4 H (Ref Range: 3.3-5.1 mmol/L) 4.2 (Ref Range: 3.3-5.1 mmol/L) 4.8 (Ref Range: 3.3-5.1 mmol/L) Chloride 97 (Ref Range: 96-108 mmol/L) 94 L (Ref Range: 96-108 mmol/L) 97 (Ref Range: 96-108 mmol/L) Carbon Dioxide 26 (Ref Range: 22-29 mmol/L) 25 (Ref Range: 22-29 mmol/L) 27 (Ref Range: 22-29 mmol/L) Anion Gap 12 (Ref Range: 12-20) 11 L (Ref Range: 12-20) 13 (Ref Range: 12-20) Blood Urea Nitrogen 31 H (Ref Range: 9-16 mg/dL) 19 H (Ref Range: 9-16 mg/dL) 26 H (Ref Range: 9-16 mg/dL) Creatinine 0.98 (Ref Range: 0.5-1.4 mg/dL) 0.81 (Ref Range: 0.5-1.4 mg/dL) 0.96 (Ref Range: 0.5-1.4 mg/dL) Estimated Glomerular Filt Rate 55 > 60 56 Glucose Fasting 87 (Ref Range: 60-99 mg/dL) 81 (Ref Range: 60-99 mg/dL) 84 (Ref Range: 60-99 mg/dL) Calcium 8.7 (Ref Range: 8.4-10.2 mg/dL) 8.9 (Ref Range: 8.4-10.2 mg/dL) 8.8 (Ref Range: 8.4-10.2 mg/dL) * Lab:Lipid Panel * Collection Date 10/08/2024 [...] mg/dL) 75 (Ref Range: >40 mg/dL) * Lab:Vitamin D 25-OH Total * Collection Date 10/08/2024 07/03/2024 03/27/2024 Collection Time 06:57 AM 06:28 AM 06:34 AM Order Date 10/08/2024 07/03/2024 03/27/2024 Vitamin D 25-OH Total 26.9 L (Ref Range: >30 ng/mL) 33.7 (Ref Range: >30 ng/mL) 33.4 (Ref Range: >30 ng/mL) ???Imaging:XR chest 2V (Order Date - 10/10/2024) (Performed Date - 10/10/2024) * Examination: G eneral Examination: GENERAL APPEARANCE: p leasant, well nourished, well developed, in no acute distress, calm and relaxed, elderly woman. HEAD: a traumatic, normocephalic. EYES: e annabelle, perrla, anicteric, conjugate. EARS: n ormal with hearing loss. NOSE: s eptum intact. ORAL CAVITY: n ormal, unremarkable. NECK/THYROID: n o jugular venous distention, no carotid bruit, thyroid normal. LYMPH NODES: n o enlarged lymph nodes,spleen normal. SKIN: n o suspicious lesions, anicteric. HEART: n o clicks, gallops, murmurs, or rubs, regular rhythm, S1, S2 normal, no s3, or vascular bruits. LUNGS: c lear to auscultation . BREASTS: N ot examined. ABDOMEN: b owel sounds normal, no ascites, no organomegaly, no mass. RECTAL EXAM: n ot examined. MUSCULOSKELETAL: e xtremities unremarkable, no clubbing, cyanosis or edema. PERIPHERAL PULSES: n ormal. NEUROLOGIC: a lert and oriented, cranial nerves 2-12 grossly intact, deep tendon reflexes 2+ symmetrical, motor strength normal upper and lower extremities, sensory exam intact. PSYCH: a lert, oriented. Assessment: * Assessment: 1. U rinary tract infection in female - N39.0 (Primary) N otes :She will continue the Pyridium and take the antibiotic. She will telephone immediately if anything worsens. She seems medically stable. 2 . B ack pain - M54.9 N otes :Her back pain is minimal at this time and she will refrain from heavy lifting. 3 . H istory of basal cell cancer - Z85.828 N otes :No new skin cancers are noted on today's examination. 4 . T IA (transient ischemic attack) - G45.9 N otes :No further such episodes have occurred. 5 . O steopenia after menopause - M81.0 N otes :She was continued on current therapy at this time. 6 . 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 She is asymptomatic and will remain on her current regimen. She will restrict fluids to 1500 mL daily. Plan: * Treatment: * Labs: * L ab: URINE DIP STICK (Collection Date & Time - 11/20/2024) Value Reference Range S G 1.010 1.005 - 1.025 * p H 5.0 5.0 - 9.0 * L EU Negative Negative - * N IT Positive Negative - * P RO Negative Negative - Trace * G OMER Negative Negative - * K ET Negative Negative - * U BG 0.2 0.1 - 1.8 * B IL Negative 0.2 - 1.3 * B LD (+) (-) Negative - * M enstrating No ?Lab: Urine Culture (Collection Date & Time - 11/20/2024 12:00 PM)* Value Reference Range U rine Culture No growth. - * Procedure Codes: 8 1002 URINE-NO [id number] URINE-NO [id number] MEASURE BLOOD OXYGEN LEVEL * Preventive Medicine: Counseling: C are goal follow-up plan: Counseling for abnormal BMI given Y es Below Normal BMI Follow-up D ietary education for weight gain, Dietary management education, guidance, and counseling, Feeding regime, Lifestyle education regarding diet, Nutrition / feeding management, Prescribed diet education, Special diet education, Intervention, Order not done: Medical or Other reason not done * Follow Up: A s Scheduled (Reason: Annual Exam) * Images: * Sign off status: Completed true * Provider: Sushil Aguirre MD Date: 0 11/20/2024 Generated for Anabella vasquez/Frank/Claudiaransmitting on: 06/01/2024 02:09 PM EST History and Physical Notes * HPI (History of Present Illness) Category Sub-Category Detail Notes COVID-19 Screening Questions Have you had any new onset fever, chills, cough, congestion, sore throat, shortness of breath, muscle aches?: No Examination Category Sub-Category Detail Notes General Examination GENERAL APPEARANCE: pleasant , well nourished, well developed, in no acute distress, calm and relaxed, elderly woman HEAD: atraumatic, normocep halic EYES: eomi, perrla, anicte jed, conjugate EARS: normal with hearing loss NOSE: septum intact NECK/THYROID: no jugular venous [...] lesion s, anicteric PERIPHERAL PULSES: normal BREASTS: Not examined MUSCULOSKELETAL: extremities unremark able, no clubbing, cyanosis or edema LYMPH NODES: no enlarged lymph no julio c,spleen normal RECTAL EXAM: not examined PSYCH: alert, oriented ORAL CAVITY: normal, unremarkable
--- OUTSIDE RECORDS SUMMARY | 2024-12-01 12:00 | XMS_ITS ---
Author Organization Lalit Aguirre III, MD Address [address] [place] [address] Care Team Providers Care Body Welder Name Role Phone Dr. Lalit Aguirre III Primary Care Provider REASON FOR VISIT annual exam Social History Sex Assigned At : Social History Observation Description Sex Assigned At Female Encounters Encounter Location Date Provider Diagnosis Lalit Aguirre III, MD [address] [place] [address] [place] [address] 12/01/2024 Lalit Aguirre Plan Of Treatment Next Appt Details Provider Name:Lalit Aguirre , 05/13/2025 09:30:00 AM, [address] [place] [address] [place], [address], Provider Name:Lalit Aguirre , 02/16/2026 09:00:00 AM, [address] [place] [address] [place], [address], Progress Notes * Nevaeh TORRESDOB:[birth year] (79 yo F)Acc No.[id number]:12/01/2024 Progress Notes Patient: Nevaeh JOHNSON Provider: Sushil Aguirre MD :1945 A ge:79 Y S ex:Female Date:12/01/2024 Address: [address], [address] [place], [id number] Subjective: * Chief Complaints: * 1 . Annual exam. * Medical History: Objective: * Vitals: Assessment: Plan: * Treatment: * Images: * The named appointment provid er may or may not be the originator of this progress note, and it is not deemed complete until electronically signed by the appointment provider. Sign off status: Pending * Provider: Sushil Aguirre MD Date: 0 12/01/2024 Generated for Anabella vasquez/Frank/Akshatitting on: 06/01/2024 02:10 PM EST
--- OUTSIDE RECORDS SUMMARY | 2024-12-03 05:13 | XMS_ITS ---
Author Organization Lalit Aguirre III, MD Address [address] [place] [address] Care Team Providers Care Business Process Lead Name Role Phone Dr. Lalit Aguirre III Primary Care Provider REASON FOR VISIT Labs done at [facility] Social History Sex Assigned At : Social History Observation Description Sex Assigned At Female Encounters Encounter Location Date Provider Diagnosis Lalit Aguirre III, MD [address] [place] [address] [place] [address] 12/03/2024 Lalit Aguirre Hyponatremia E87.1 Assessments Encounter Date Diagnosis (ICD Code) Assessment Notes Treat ment Notes Treatment Clinical Notes 12/03/2024 Hyponatremia (ICD-10 - E87.1) Plan Of Treatment Pending Test Test Name Order Date PROFILE, RANDOM (COMPREHENSIVE METABOLIC ) 12/03/2024 CBC w DIFF 12/03/2024 Next Appt Details Provider Name:Lalit Aguirre , 05/13/2025 09:30:00 AM, [address] [place] [address] [place], [address], Provider Name:Lalit Aguirre , 02/16/2026 09:00:00 AM, [address] [place] [address] [address], [place], [address], Progress Notes * Nevaeh TORRESDOB:[birth year] (79 yo F)Acc No.[id number]:12/03/2024 Patient: Nevaeh JOHNSON :1945 A ge:79 Y S ex:Female Address: [address], [place], [address] Subjective: * Chief Complaints: * L abs done at [facility] * Medical History: * Surgical History: * Hospitalization/Major Diagno stic Procedure: * Medications: Objective: * Vitals: * Physical Examination: Assessment: * Assessment: 1. H yponatremia - E87.1 Plan: * Treatment: * Procedure Codes: * true * Date: Generated for Anabella vasquez/Frank/Ritusmitting on: 06/01/2024 02:09 PM EST
--- OUTSIDE RECORDS SUMMARY | 2025-02-11 04:00 | XMS_ITS ---
Author Organization Lalit Aguirre III, MD Address [address] [facility] [place] [address] Care Team Providers Care Flower Arranger Name Role Phone Dr. Lalit Aguirre III Primary Care Provider [phone] Allergies Allergen (clinical drug ingredient) Drug/Non Drug [...] Date Provider Diagnosis Lalit Aguirre III, MD [address] [place] [address] [place] [address] 02/11/2025 Lalit Aguirre GERD (gastroesophage al reflux [...] Provider Name:Lalit Aguirre , 05/13/2025 09:30:00 AM, [address] [place] [address] , [place] [address], [place], [address], Provider Name:Lalit Aguirre 02/16/2026 09:00:00 AM, [address] [place] [address] [address], [place], [place], [address], Progress Notes * Nevaeh TORRESDOB:[birth year] (79 yo F)Acc No.[id number]:02/11/2025 Progress Notes Patient: Nevaeh JOHNSON Provider: Sushil Aguirre MD :1945 A ge:79 Y S ex:Female Date:02/11/2025 Address:[address] [place] [address] , [address] [facility] [place], [id number] Subjective: * Chief Complaints: * A nnual [...] eyelid 01/2019biopsy of eyelid 2019right carotid endarterectomy [facility] 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 M other: 73 yrs, CVA,hypertension,. D aughter(s): alive, Brain cyst. 2 daughter(s) - healthy. . Her daughter Ana Lilia is a center medical and lab director at the [facility] on [place], [place] and is her HCP. Her other [...] N egative S he was born in [facility] and has been to [facility] for 48 years. They have 2 children who are healthy and well. 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 * Medications: T akingMulti Vitamin - Tablet [...] 71 (Ref Range: >40 mg/dL) * Lab:Comprehensive [place]. Pane l Fast * Collection Date 02/09/2025 [...] an d sensitivity,PLEASE FAX COMPLETED RESULTS TO [phone] PLEASE FAX COMPLETED RESULTS TO [phone] * Lab:URINE DIP STICK * Collection Date [...] 0 02/11/2025 Generated for Anabella vasquez/Frank/Akshatitting on: 06/01/2024 02:11 PM EST History and Physical Notes * [...]
--- OUTSIDE RECORDS SUMMARY | 2025-02-11 04:39 | XMS_ITS ---
Author Organization Lalit Aguirre III, MD Address [address] [facility] [place] [address] Care Team Providers Care Drafter Geophysical Name Role Phone Dr. Lalit Agiurre III Primary Care Provider REASON FOR VISIT Mammo Order Social History Sex Assigned At : Social History Observation Description Sex Assigned At Female Encounters Encounter Location Date Provider Diagnosis Lalit Aguirre III, MD [address] [place] [address] [place] [address] 02/11/2025 Lalit Aguirre Screening mammogram, encounter for Z12.31 Assessments Encounter Date Diagnosis (ICD Code) Assessment Notes Treatment Notes Treatment Clinical Notes 02/11/2025 Screening mammogram, encounter for (ICD-10 - Z12.31) Plan Of Treatment Pending Test Test Name Order Date MM tomosynthesis screening BI 02/11/2025 Next Appt Details Provider Name:Lalit Aguirre , 05/13/2025 09:30:00 AM, [address] [place] [address] [place], [address], Provider Name:Lalit Aguirre , 02/16/2026 09:00:00 AM, [address] [place] [address] , LEYLA Lozoya, [place], [address], Progress Notes * Nevaeh TORRESDOB:[birth year] (79 yo F)Acc No.[id number]:02/11/2025 Patient: Nevaeh JOHNSON :1945 A ge:79 Y S ex:Female Address: [address], [facility] [place], [address] Subjective: * Chief Complaints: * M ammo Order * Medical History: * Surgical History: * Hospitalization/Major Diagno stic Procedure: * Medications: Objective: * Vitals: * Physical Examination: Assessment: * Assessment: 1. S creening mammogram, encounter for - Z12.31 Plan: * Treatment: * Procedure Codes: * true * Date: Generated for Anabella vasquez/Frank/Akshatitting on: 06/01/2024 02:09 PM EST
--- OUTSIDE RECORDS SUMMARY | 2025-03-10 05:37 | XMS_ITS ---
Author Organization Lalit Aguirre III, MD Address [address] [place] [address] Care Team Providers Care Cdl Team Truck Driver Name Role Phone Dr. Lalit Aguirre III Primary Care Provider REASON FOR VISIT Rx Request Social History Sex Assigned At : Social History Observation Description Sex Assigned At Female Encounters Encounter Location Date Provider Diagnosis Lalit Aguirre III, MD [address] [place] [address] [place] [address] 03/10/2025 Lalit Aguirre Plan Of Treatment Next Appt Details Provider Name:Lalit Aguirre , 05/13/2025 09:30:00 AM, [address] [place] [address] [place], [address], Provider Name:Lalit Aguirre , 02/16/2026 09:00:00 AM, [address] [place] [address] [place], [address], Progress Notes * Nevaeh TORRESDOB:[birth year] (79 yo F)Acc No.[id number]:03/10/2025 Patient: Nevaeh JOHNSON :1945 A ge:79 Y S ex:Female Address: [address], [address] [facility] [place], [address] * true * Date: Generated for Anabella vasquez/Frank/Dieudonne on: 06/01/2024 02:10 PM EST
--- OUTSIDE RECORDS SUMMARY | 2025-03-10 07:16 | XMS_ITS ---
Author Organization Lalit Aguirre III, MD Address [address] [place] [address] Care Team Providers Care Knitting Machine Operator Helper Name Role Phone Dr. Lalit Aguirre III Primary Care Provider Medications Medication SIG (Take, Route, Frequency, Duration) Notes Start Date End Date Status Sulfamethoxazole-Trimetho prim 800-160 MG 1 tablet Orally twice a day for 10 days 03/10/2025 03/20/2025 Active Social History Sex Assigned At : Social History Observation Description Sex Assigned At Female Encounters Encounter Location Date Provider Diagnosis Lalit Aguirre III, MD [address] [place] [address] [place] [address] 03/10/2025 Lalit Aguirre Plan Of Treatment Medication Medication Name Sig Start Date Stop Date Notes Sulfamethoxazole-Trimethopri m 800-160 MG 1 tablet Orally twice a day for 10 days 03/10/2025 03/20/2025 Next Appt Details Provider Name:Lalit Aguirre , 05/13/2025 09:30:00 AM, [address] [place] [address] [place], [address], Provider Name:Lalit Aguirre , 02/16/2026 09:00:00 AM, [address] [place] [address] , [facility] [place], [place], [address], Progress Notes * Nevaeh TORRESDOB:[birth year] (79 yo F)Acc No.[id number]:03/10/2025 Patient: Nevaeh JOHNSON :1945 A ge:79 Y S ex:Female Address: [address] MAG[address], [place], [address] * Refills Start Sulfamethoxazole-Trimethoprim Tablet, 800-160 MG, Orally, 20 Tablet, 1 tablet, twice a day, 10 days, Refills=0 * true * Date: Generated for Anabella vasquez/Frank/Akshatitting on: 06/01/2024 02:09 PM EST
--- OUTSIDE RECORDS SUMMARY | 2025-03-25 09:36 | XMS_ITS ---
Author Organization Lalit Aguirre III, MD Address [address] [facility] [address] Care Team Providers Care Breeding Manager Name Role Phone Dr. Lalit Aguirre III Primary Care Provider Results Component Value Reference Range Notes Urine Culture Reviewed date:03/29/2025 07:36:42 AM Interpretation: Performing Lab:[facility], [address] [place] [phone] Notes/Report: Urine Culture Report Result Urine Culture < 10,000 cfu/ml REASON FOR VISIT Rx Request Social History Sex Assigned At : Social History Observation Description Sex Assigned At Female Encounters Encounter Location Date Provider Diagnosis Lalit Aguirre III, MD [address] [place] [address] [place] [address] 03/25/2025 Lalit Aguirre UTI symptoms R39.9 Assessments Encounter Date Diagnosis (ICD Code) Assessment Notes Treatment Notes Treatment Clinical Notes 03/25/2025 UTI symptoms (ICD-10 - R39.9) Plan Of Treatment Pending Test Test Name Order Date URINALYSIS (UA) 03/25/2025 Next Appt Details Provider Name:Lalit Aguirre , 05/13/2025 09:30:00 AM, [address] [place] [address] [address], [place], [address], Provider Name:Lalit Aguirre , 02/16/2026 09:00:00 AM, [address] [place] [address] [address] MAG[place], [place], [address], Progress Notes * Nevaeh TORRESDOB:[birth year] (79 yo F)Acc No.[id number]:03/25/2025 Patient: Nevaeh JOHSNON :1945 A ge:79 Y S ex:Female Address: [address], [place], [address] Subjective: * Chief Complaints: * R x [...]
--- OUTSIDE RECORDS SUMMARY | 2025-03-26 04:17 | XMS_ITS ---
Author Organization Lalit Aguirre III, MD Address [address] [facility] [place] [address] Care Team Providers Care Bleacher [employer] Name Role Phone Dr. Lalit Aguirre III Primary Care Provider [phone] REASON FOR VISIT told patient to call Social History Sex Assigned At : Social History Observation Description Sex Assigned At Female Encounters Encounter Location Date Provider Diagnosis Lalit Aguirre III, MD [address] [place] [address] [place] [address] 03/26/2025 Lalit Aguirre Plan Of Treatment Next Appt Details Provider Name:Lalit Aguirre , 05/13/2025 09:30:00 AM, [address] [place] [address] [place], [address], Provider Name:Lalit Aguirre , 02/16/2026 09:00:00 AM, [address] [place] [address] [place], [address], Progress Notes * Nevaeh TORRESDOB:[birth year] (79 yo F)Acc No.[id number]:03/26/2025 Patient: Nevaeh JOHNSON :1945 A ge:79 Y S ex:Female Address: [address], [address] [facility] [place], [address] * true * Date: Generated for Anabella vasquez/Frank/Ritusmitting on: 06/01/2024 02:10 PM EST
--- OUTSIDE RECORDS SUMMARY | 2025-04-01 14:09 | XMS_ITS | Clinical Summary ---
Author Organization [facility] Address [address] [facility] [address] [place] [address] Phone Care Team Providers Care Curriculum Assistant Principal Name Role Phone Lalit Aguirre MD Primary Care Provider [phone] Allergies Active Allergy Reactions Criticality Noted Date [...] and she is planning on going to [place] for the winter. Continue plavix and aspirin [...] age to complete this topic Insurance Medicare [facility] Medicare [facility] Care Teams Curriculum Assistant Principal Relationship Specialty Start Date End Date Lalit Aguirre MD [address] [place] [address] [address] [place] PCP - General Medical Oncology 06/02/21
--- OUTSIDE RECORDS SUMMARY | 2025-04-01 14:10 | XMS_ITS | Encounter Summary ---
Author Organization [facility] Address [address] [place] [address] Care Team Providers Care Fur Stretcher Name Role Phone Lalit Aguirre Primary Care Provider [phone] Encounter Details Date Type Department Care Team (Late st Contact Info) Description 11/22/2021 Orders Only [facility] 2 Rad Act 1 [address] [place] [address] Anton Sanchez, [address] [place] [address] Social History Tobacco Use Types Packs/Day Years [...] on filedocumented in this encounter Care Teams Fur Stretcher Relationship Specialty Start Date End Date Lalit Aguirre [address] [facility] [address] [place] [address] PCP - General Hematology 04/11/21 documented as of this encounter
--- OUTSIDE RECORDS SUMMARY | 2025-04-01 14:10 | XMS_ITS | Clinical Summary ---
Author Organization [facility] Address [address] [place] [address] Care Team Providers Care Security Systems Integrator Name Role Phone Lalit Aguirre Primary Care Provider [phone] Allergies Active Allergy Reactions Criticality Noted Date [...] and she is planning on going to [place] for the winter. Continue plavix and aspirin [...] a day can be f/u with her change booth attendant as outpatient -If the patient remains hospitalized [...] this topic Medical Devices Implanted Type Area Barrel Reamer Device Identifier Shelf Expiration Date Model / Serial / Lot Device Closure Vascular Plug 6fr Angio-Seal Vip - S0 - [id number] Implanted:Qty : 1 on 04/27/2022 by Jose Morales MD at [facility] Implant Right: Groin [employer] [id number] 01/25/2023 [id number] / 0 / [id number] System Stent Carotid [id number] Enroute - [id number] Implanted:Qty : 1 on 05/09/2022 by Jose Morales MD at [facility] Stent Right: [facility] 12/26/2023 SR-0840-C S / / [id number] System Stent Carotid [id number] Enroute - [id number] Implanted:Qty : 1 on 05/09/2022 by Jose Morales MD at [facility] Stent Right: [facility] 12/26/2023 SR-0840-C S / / [id number] Insurance MEDICARE [facility] Advance Directives Documents on File Type Date Recorded Patient Foam Dispenser Expl [facility] Care Proxy 05/12/2021 2:01 PM * Full [...] 7:58 AM 05/17/2021 1:24 PM Care Teams Security Systems Integrator Relationship Specialty Start Date End Date Lalit Aguirre [address] [place] [address] PCP - General Hematology 04/11/21
--- OUTSIDE RECORDS SUMMARY | 2025-04-01 14:10 | XMS_ITS | Encounter Summary ---
Author Organization [facility] Address [address] [place] [address] Care Team Providers Care Procedures Rn Name Role Phone Lalit Aguirre Primary Care Provider [phone] Encounter Details Date Type Department Care Team (Latest Contact Info) Description 01/24/2022 [employer] [facility] Interventional Radiology [address] [place] [address] [employer], Generic Provider [facility] [place] [address] CT Angiogram of the head [...] on filedocumented in this encounter Care Teams Procedures Rn Relationship Specialty Start Date End Date Lalit Aguirre 12[address] [facility] [address] [place] [address] PCP - General Hematology 04/11/21 documented as of this encounter
--- OUTSIDE RECORDS SUMMARY | 2025-04-01 14:10 | XMS_ITS | Clinical Summary ---
Author Organization [facility] Address [address] [address] Phone Care Team Providers Care Fruit Loader Name Role Phone Lalit Aguirre MD Primary Care Provider [phone] Allergies Active Allergy Reactions Criticality Noted Date [...] file Insurance MEDICARE PART A & B [address] [place], [place] [address] MEDICARE ENHANCE SUPPLEMENT MEDICARE PART A & B [facility] MEDICARE ENHANCE SUPPLEMENT MEDICARE PART A & B [facility] MEDICARE ENHANCE SUPPLEMENT MEDICARE PART A & B [facility] MEDICARE ENHANCE SUPPLEMENT [facility] Address: [address] [place] [address] MEDICARE PART A & B [facility] MEDICARE ENHANCE SUPPLEMENT MEDICARE PART A & B Member Subscriber Plan / Payer (Ef fective 2008-Present) Name:Nevaeh Torres Member ID:[id number] Relation to Subscriber:Self Name:Nevaeh Torres Subscriber ID:[id number] Payer ID:[id number] Group ID:Not on file Type:Medicare Address: [employer] [address] MEDICARE ENHANCE SUPPLEMENT MEDICARE PART A & B [facility] MEDICARE ENHANCE SUPPLEMENT MEDICARE PART A & B [facility] MEDICARE ENHANCE SUPPLEMENT [facility] Address: [address] [place] [id number] MEDICARE PART A & B [facility] MEDICARE ENHANCE SUPPLEMENT Care Teams Fruit Loader Relationship Specialty Start Date End Date Lalit Aguirre MD [address] [place] [address] [place] [address] PCP - General Medical Oncology 01/05/21 Additional Source Comments The information contained in this document represents components of the legal health record. It is not the complete legal health record.[facility]
--- OUTSIDE RECORDS SUMMARY | 2025-04-01 14:10 | XMS_ITS | Patient Health Record ---
Author Organization [facility] Address [address] [place] [address] Care Team Providers Care Senior Drafter Name Role Phone Lalti Aguirre MD Primary Care Provider Lyndon Muller [...] Notes Problem Flatulence, eructation and gas pain (300085464) Bloating (R14.0) Active confirmed Problem Gastroesophageal reflux disease (764508377) Gastroesophageal reflux disease, unspecified whether esophagitis present (K21.9) Active confirmed Vital Signs Temperature 97.3 degrees Fahrenheit 10/08/2024 Blood pressure diastolic 01 mm Hg 10/08/2024 Height 63.5 in 10/08/2024 Blood pressure systolic 001 mm Hg 10/08/2024 Weight 118 lbs 10/08/2024 BMI 20.57 kg/m2 10/08/2024 Encounters Encounter Location Date Provider Diagnosis [facility] [address] [place] [address] [place] [address] 10/08/2024 Lyndon Dorman Jr Gastroesophageal reflux disease, unspecified whether esophagitis present K21.9 [facility] [address] [place] [address] 07/25/2024 Lyndon Dorman Jr [facility] [address] [place] [address] 09/08/2024 Lyndon Dorman Jr Assessments Encounter Date [...] Provider Name:Lyndon delgado Jr, 10/12/2025 10:00:00 AM, [address] [place] [address], [place] [address], [place], [address], Insurance Providers Payer Name Payer Address Payer Phone Subscriber Number Group Number Insured Name Patient Relationship to Insured Coverage Start Date Coverage End Date MEDICARE OF [place] [address] [place] [address] [id number] MANUEL ARBOLEDA KOKI Self - patient is the insured [facility] [address] [place] [id number] KOKI WASHINGTON Self - patient is the [...]
--- OUTSIDE RECORDS SUMMARY | 2025-04-01 14:10 | XMS_ITS | Patient Health Record ---
Author Organization Lalit Aguirre III, MD Address [address] [place] [address] Care Team Providers Care Environmental Monitoring Technician Name Role Phone Dr. Lalit Aguirre III [...] Culture Reviewed date:08/26/2024 09:37:42 AM Interpretation: Performing Lab:[facility], [address] [place] [phone] Notes/Report: Urine Culture No growth. URINE DIP [...] Culture Reviewed date:11/22/2024 02:21:15 PM Interpretation: Performing Lab:[facility], [address] [place] [address] Notes/Report: Urine Culture No growth. XR lumbar spine 2-3V Reviewed date:05/21/2024 09:51:32 AM Interpretation: Performing Lab: Notes/Report: [address] [address] XRay Report Signed Patient: Nevaeh Torres MR#: [id number] : 1945 Acct:[id number] Age/Sex: 78 / F ADM Date: 04/17/24 Loc: HO.XRAY Attending Dr: Lalit Aguirre MD Ordering Physician: Lalit Aguirre MD Date of Service: 04/17/24 Procedure(s): XR lumbar spine 2-3V Accession Number(s): [id number] cc: Lalit Aguirre MD EXAMINATION: XR LUMBOSACRAL [...] by: Jaylen Bee MD 04/18/2024 08:20 AM [facility] [place]ict[place] By: Jaylen Fernando MD Signed By: <Electronically signed by Jaylen Maynard MD in OV> 04/18/24 0820 DD/ 1420 TD/TT: 04/17/24 1434 Trust Manager: [address] [address] XRay Report Signed Patient: Nevaeh Torres MR#: [id number] : 1945 Acct:[id number] Age/Sex: 78 / F ADM Date: 04/17/24 Loc: HO.XRAY Attending Dr: Lalit Aguirre MD Ordering Physician: Lalit Aguirre MD Date of Service: 04/17/24 Procedure(s): XR lum bar spine 2-3V Accession Number(s): [id number] cc: Lalit Aguirre MD EXAMINATION: XR LUMBOSACRAL [...] by: Jaylen Bee MD 04/18/2024 08:20 AM [facility] [place]ictated By: Jaylen Horton MD Signed By: <Electronically signed by Jaylen Maynard MD in OV> 04/18/24 0820 DD/ 1420 TD/TT: 04/17/24 1434 Trust Manager: Urine Culture Reviewed date:03/29/2025 07:36:42 AM Interpretation: Performing Lab:[facility], [address] [place] [phone] Notes/Report: Urine Culture Report Result Urine Culture < 10,000 cfu/ml XR hip BI w PEL1V Reviewed date:05/21/2024 09:51:32 AM Interpretation: Performing Lab: Notes/Report: [address] [address] XRay Report Signed Patient: Nevaeh Torres MR#: [id number] : 1945 Acct:[id number] Age/Sex: 78 / F ADM Date: 04/17/24 Loc: HO.XRAY Attending Dr: Lalit Aguirre MD Ordering Physician: Lalit Aguirre MD Date of Service: 04/17/24 Procedure(s): XR hip BI w PEL1V Accession Number(s): [id number] cc: Lalit Aguirre MD EXAMINATION: XR BILATERAL [...] 04/18/2024 08:18 AM EST Dictated By: Jaylen Fernando MD Signed By: <Electronically signed by Jaylen Maynard MD in OV> 04/18/24 0818 DD/ 1407 TD/TT: 04/17/24 1434 Trust Manager: [place] [address] XRay Report Signed Patient: Nevaeh Torres MR#: [id number] : 1945 Acct:[id number] Age/Sex: 78 / F ADM Date: 04/17/24 Loc: HO.XRAY Attending Dr: Lalit Aguirre MD Ordering Physician: Lalit Aguirre MD Date of Service: 04/17/24 Procedure(s): XR hip BI w PEL1V Accession Number(s): [id number] cc: Lalit Aguirre MD EXAMINATION: XR BILATERAL [...] 04/18/24 0818 DD/ 1407 TD/TT: 04/17/24 1434 Trust Manager: Complete Blood Count Auto Di ff Reviewed date:07/04/2024 06:10:04 AM Interpretation: Performing Lab:[facility], [address] [place] [phone] Notes/Report: White Blood Count 5.8 4.8-10.8 X10*3/uL [...] NRBC Abs Auto 0.000 0.0-0.012 X10*3/uL Comprehensive Moody. Panel Fa Reviewed date:07/04/2024 06:10:04 AM Interpretation: Performing Lab:[facility], [address] [place] [address] Notes/Report: Sodium 126 135-145 mmol/L Potassium 4.2 [...] Panel Reviewed date:07/04/2024 06:10:04 AM Interpretation: Performing Lab:[facility], [address] [place] [address] Notes/Report: Triglycerides 45 <150 mg/dL Desirable Triglyceride: [...] Total Reviewed date:07/04/2024 06:10:04 AM Interpretation: Performing Lab:[facility], [address] [place] [phone] Notes/Report: Vitamin D 25-OH Total 33.7 >30 [...] ff Reviewed date:08/26/2024 09:37:42 AM Interpretation: Performing Lab:[facility], [address] [place] [phone] Notes/Report: White Blood Count 5.1 4.8-10.8 X10*3/uL [...] Panel Reviewed date:08/26/2024 09:37:42 AM Interpretation: Performing Lab:[address] [phone] Notes/Report: Sodium 129 135-145 mmol/L Potassium 3.9 [...] ff Reviewed date:10/08/2024 11:36:21 AM Interpretation: Performing Lab:[address] [address] Notes/Report: White Blood Count 4.5 4.8-10.8 X10*3/uL [...] NRBC Abs Auto 0.000 0.0-0.012 X10*3/uL Comprehensive Moody. Panel Fa st Reviewed date:10/08/2024 11:36:21 AM Interpretation: Performing Lab:[facility], [address] [place] [address] Notes/Report: Sodium 130 135-145 mmol/L Potassium 5.4 [...] Panel Reviewed date:10/08/2024 11:36:21 AM Interpretation: Performing Lab:[facility], [address] [place] [phone] Notes/Report: Triglycerides 56 <150 mg/dL Desirable Triglyceride: [...] Total Reviewed date:10/08/2024 11:36:21 AM Interpretation: Performing Lab:[facility], [address] [place] [phone] Notes/Report: Vitamin D 25-OH Total 26.9 >30 [...] date:10/14/2024 11:55:50 AM Interpretation: Performing Lab: Notes/Report: [address] [address] XRay Report Signed Patient: Nevaeh Torres MR#: [id number] : 1945 Acct:[id number] Age/Sex: 78 / F ADM Date: 10/10/24 Loc: [facility] Attending Dr: Lalit Aguirre MD Ordering Physician: Lalit Aguirre MD Date of Service: 10/10/24 Procedure(s): XR chest 2V Accession Number(s): [id number] cc: Lalit Aguirre MD EXAMINATION: XR CHEST [...] 10/10/24 1041 DD/ 1013 TD/TT: 10/10/24 1022 Trust Manager: [address] [address] XRay Report Signed Patient: Nevaeh Torres MR#: [id number] : 1945 Acct:[id number] Age/Sex: 78 / F ADM Date: 10/10/24 Loc: K[facility] Attending Dr: Lalit Aguirre MD Ordering Physician: Lalit Aguirre MD Date of Service: 10/10/24 Procedure(s): XR corinna st 2V Accession Number(s): [id number] cc: Lalit Aguirre MD EXAMINATION: XR CHES [...] Lalit Ferguson MD 10/10/2024 10:41 AM EDT RP Dictated By: Lalit Ferguson MD Signed By: <Electronically signed by Lalit Ferguson MD in OV> 10/10/24 1041 DD/ 1013 TD/TT: 10/10/24 1022 Trust Manager: Complete Blood Count Auto Di ff Reviewed date:12/07/2024 09:38:15 AM Interpretation: Performing Lab:[facility], [address] [place] [phone] Notes/Report: White Blood Count 5.4 4.8-10.8 X10*3/uL [...] Panel Reviewed date:12/07/2024 09:38:15 AM Interpretation: Performing Lab:[address] [address] Notes/Report: Sodium 127 135-145 mmol/L Potassium 5.0 [...] ff Reviewed date:02/09/2025 12:37:35 PM Interpretation: Performing Lab:[address], [place] [address] Notes/Report: White Blood Count 4.6 4.8-10.8 X10*3/uL [...] NRBC Abs Auto 0.000 0.0-0.012 X10*3/uL Comprehensive Moody. Panel Fa st Reviewed date:02/09/2025 12:37:35 PM Interpretation: Performing Lab:[facility], [address] [place] [address] Notes/Report: Sodium 134 135-145 mmol/L Potassium 4.9 [...] Panel Reviewed date:02/09/2025 12:37:35 PM Interpretation: Performing Lab:[facility], [address] [place] [address] Notes/Report: Triglycerides 44 <150 mg/dL Desirable Triglyceride: [...] results in patients with liver disease. Urinalysis Reviewed date:03/29/2025 07:36:42 AM Interpretation: Performing Lab:[address] [address] Notes/Report: Color Urine Yellow Appearance Urine Clear PH 8.0 5.0-9.0 Glucose Urine UA Negative Negative mg/dL Urine Blood Negative Negative Specific Walker - Urine 1.010 1.005-1.025 Urine Protein Negative [...] M edicine Referred Provider Spine and Sp yaima [place] Referred Provider Specialty Physical Med icine General [...] Problem Status W/U Status Risk Notes Problem 496579811 Back pain (M54.9) Active confirmed Her back pain i s minimal at this time and she will refrain from heavy lifting. Problem 87442239 Hyponatremia (E87.1) Active confirmed Her sodium has improved with treatment to 134 and she is asymptomatic. Problem 865081231 GERD (gastroesophag eal reflux disease) (K21.9) Active confirmed Her symptoms ar e well controlled with medication. She is sleeping well and tolerating her diet. 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 Problem 59192494 Anxiety (F41.9) Active confirmed She has coping with her anxiety well. She is maintaining her weight. No new problems have arisen. Problem Vitamin D deficiency (35558723) Vitamin D deficiency, unspecified (E55.9) Active confirmed He was continue d on her vitamin D supplementation in view of her osteopenia. Problem 60324028 Amaurosis fugax (G45.3) Active confirmed She is she is under the care of a retina specialist in blood flow to a retina appears normal at this time. She has had no further episodes of visual loss. Problem Retinal vascular occlusion (28382777) Unspecified retinal vascular occlusion (H34.9) Active confirmed This took place in the recent past and she was anticoagulated. That has now been stopped, but she remains on aspirin. No further episodes have occurred since her last visit. Problem 316984892342954 Vitreous hemorrhage, right eye (H43.11) Active confirmed Her vision has returned to her and her anticoagulation has been stopped. She remains on aspirin. Problem 730660846 Other idiopathic scoliosis, lumbar region (M41.26) Active confirmed She continues t o have mild but intermittent low back pain due to the scoliosis. No change in her regimen was necessary today. Problem Carotid bruit (915613136) Carotid bruit (R09.89) Active confirmed She has had carotid ultrasounds before 50 to 99% occlusion on the right she is going to see her vascular surgeon later this month. I have asked her to call me and let me know what he thinks. Medications were continued. Problem 27327824 Hearing loss (H91.90) Active confirmed She is beginnin g to have difficulty discriminating speech is asked for evaluation by your throat physician. I have made a referral. Problem 232452610 TIA (transient ischemic attack) (G45.9) Active confirmed No further such episodes have occurred. Problem Leukopenia (50691249) Leukopenia, unspecified type (D72.819) Active confirmed Her white blo od cell count is now 4600. She has had no infections. She feels generally healthy and well. This value will be observed. Problem 340315958 History of basal cell cancer (Z85.828) Active confirmed No new skin cancers are noted on today's examination. Problem Hearing loss (60394994) Hearing loss, unspecified hearing loss type, unspecified laterality (H91.90) Active confirmed Her hearing los s is unchanged. It is well compensated. There was no barriers to communication today. Problem 763515928 Osteopenia after menopause (M81.0) Active confirmed She was continued on current therapy at this time. Problem 193083734 Acute bilateral low back pain without sciatica (M54.50) Active confirmed She has decreased range of motion of lumbar spine. Review old x-rays show significant lumbar scoliosis. She has been referred to orthopedic surgery for evaluation as well as pain management. Problem 253614566 Fibromuscular dysplasia of carotid artery (I77.3) Active confirmed The right carotid artery was recently repaired and she was told the operation was successful. 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) [...] Provider Diagnosis Lalit Aguirre III, MD [address] [place] [address] [place] [address] 05/12/2024 Lalit Aguirre GERD (gastroesophage al reflux disease) K21.9 ; Syndrome of inappropriate ADH (SIADH) secretion E22.2 ; Fibromuscular dysplasia of carotid artery I77.3 ; Hearing loss H91.90 ; Leukopenia, unspecified type D72.819 ; Osteopenia after menopause M81.0 ; Acute bilateral low back pain without sciatica M54.50 and Other idiopathic scoliosis, lumbar region M41.26 Lalit Aguirre III, MD [address] [place] [address] [place] [phone] 07/07/2024 Lalit Aguirre GERD (gastroesophage al reflux [...] lumbar region M41.26 Lalit Aguirre III, MD [address] [place] [address] [place] [address] 08/21/2024 Lalit Aguirre Urinary tract infect ion in female N39.0 ; GERD (gastroesophageal reflux disease) K21.9 ; Hearing loss H91.90 ; Osteopenia after menopause M81.0 ; Fibromuscular dysplasia of carotid artery I77.3 and Syndrome of inappropriate ADH (SIADH) secretion E22.2 Lalit Aguirre III, MD [address] [place] [address] [place] [address] 08/22/2024 Lalit Aguirre GERD (gastroesophage al reflux disease) K21.9 ; Urinary tract infection in female N39.0 ; Anxiety F41.9 ; History of basal cell cancer Z85.828 ; Hearing loss H91.90 ; Osteopenia after menopause M81.0 and Amaurosis fugax G45.3 Lalit Aguirre III, MD [address] [place] [address] [place] [address] 08/26/2024 Lalit Aguirre GERD (gastroesophage al reflux disease) K21.9 ; Urinary tract infection in female N39.0 ; Other idiopathic scoliosis, lumbar region M41.26 ; Acute bilateral low back pain without sciatica M54.50 ; Syndrome of inappropriate ADH (SIADH) secretion E22.2 ; Fibromuscular dysplasia of carotid artery I77.3 and Unspecified retinal vascular occlusion H34.9 Lalit Aguirre III, MD [address] [place] [address] [place] [address] 10/10/2024 Lalit Aguirre GERD (gastroesophage al reflux disease) K21.9 ; Syndrome of inappropriate ADH (SIADH) secretion E22.2 ; Leukopenia, unspecified type D72.819 ; Chronic cough R05.3 ; Back pain M54.9 ; Hearing loss H91.90 ; Osteopenia after menopause M81.0 and Amaurosis fugax G45.3 Lalit Aguirre III, MD [address] [place] [address] [place] [address] 11/20/2024 Lalit Aguirre Urinary tract infect ion in female N39.0 ; Back pain M54.9 ; History of basal cell cancer Z85.828 ; TIA (transient ischemic attack) G45.9 ; Osteopenia after menopause M81.0 and Syndrome of inappropriate ADH (SIADH) secretion E22.2 Lalit Aguirre III, MD [address] [place] [address] [place] [address] 02/11/2025 Lalit Aguirre GERD (gastroesophage al reflux [...] carotid artery I77.3 Lalit Aguirre III, MD [address] [place] [address] [place] [address] 04/16/2024 Lalit Aguirre Back pain M54.9 and Hip pain M25.559 Lalit Aguirre III, MD [address] [place] [address] [place] [address] 08/20/2024 Lalit Aguirre III, MD [address] [place] [address] [place] [address] 10/13/2024 Lalit Aguirre III, MD [address] [place] [address] [place] [address] 10/23/2024 Lalit Aguirre III, MD [address] [place] [address] [place] [address] 10/23/2024 Lalit Aguirre III, MD [address] [place] [address] [place] [address] 12/03/2024 Lalit Aguirre Hyponatremia E87.1 Lalit Aguirre III, MD [address] [place] [address] [place] [address] 02/11/2025 Lalit Aguirre Screening mammogram, encounter for Z12.31 Lalit Aguirre III, MD [address] [place] [address] [place] [address] 03/10/2025 Lalit Aguirre III, MD [address] [place] [address] [place] [address] 03/10/2025 Lalit Aguirre III, MD [address] [place] [address] [place] [address] 03/25/2025 Lalit Aguirre UTI symptoms R39.9 Lalit Aguirre III, MD [address] [place] [address] [place] [address] 03/26/2025 Lalit Aguirre Assessments Encounter Date Diagnosis (ICD Code) Assessment Notes Treatment Notes Treatment Clinical Notes 05/12/2024 GERD (gastroesophageal reflux disease) (ICD-10 - [...] cancers are noted on today's examination. 04/16/2024 Back pain (ICD-10 - M54.9) 12/03/2024 Hyponatremia (ICD-10 - E87.1) 02/11/2025 Screening mammogram, encounter for (ICD-10 - Z12.31) 03/25/2025 UTI symptoms (ICD-10 - R39.9) 05/12/2024 Fibromuscular dysplasia of carotid artery (ICD-10 [...] occurred. 04/16/2024 Hip pain (ICD-10 - M25.559) 05/12/2024 Hearing loss (ICD-10 - H91.90) She [...] has been stopped. She remains on aspirin. 05/12/2024 Leukopenia, unspecified type (ICD-10 - D72.819) [...] and well. This value will be observed. 05/12/2024 Osteopenia after menopause (ICD-10 - M81.0) [...] for evaluation as well as pain management. 05/12/2024 Acute bilateral low back pain without [...] change in her regimen was necessary today. 05/12/2024 Other idiopathic scoliosis, lumbar region (ICD-10 [...] C) 04/10/2019 PROFILE, FASTING (COMPREHENSIVE METABOLI C) 10/11/2020 PROFILE, FASTING (COMPREHENSIVE METABOLI C) 02/07/2022 PROFILE, [...] ) 11/24/2020 PROFILE, RANDOM (COMPREHENSIVE METABOLIC ) 12/03/2024 PROFILE, RANDOM (COMPREHENSIVE METABOLIC ) 08/22/2024 PROFILE, RANDOM (COMPREHENSIVE METABOLIC ) 02/11/2025 BUN 11/22/2021 CREATININE 11/22/2021 AMYLASE 01/03/2021 AMYLASE 11/24/2020 LIPASE 11/24/2020 LIPID PANEL 10/08/2019 LIPID PANEL 03/13/2018 LIPID PANEL 01/16/2023 LIPID PANEL 02/27/2017 LIPID PANEL 04/10/2019 LIPID PANEL 10/11/2020 LIPID PANEL 01/03/2021 LIPID PANEL 06/06/2021 LIPID PANEL 09/20/2022 LIPID PANEL 10/08/2018 LIPID PANEL 10/15/2020 CBC w DIFF 02/28/2021 CBC w DIFF 07/07/2024 CBC w DIFF 10/10/2024 CBC w DIFF 10/08/2019 CBC w DIFF 03/13/2018 CBC w DIFF 01/16/2023 CBC w DIFF 02/07/2022 CBC w DIFF 02/27/2017 CBC w DIFF 12/03/2024 CBC w DIFF 04/10/2019 CBC w DIFF 10/11/2020 CBC w DIFF 01/03/2021 CBC w DIFF [...] LT 10/27 MAMMOGRAM DIGITAL UNILATERAL ROBBIE RT 03/05/2017 Holter Monitor 11/06/2017 VITAMIN D 25-OH TOTAL 03/31/2024 VITAMIN D 25-OH TOTAL 10/08/2019 US BREAST RIGHT 07/26/2017 CBC WITH AUTO DIFF 03/31/2024 CBC WITH AUTO DIFF 11/12/2023 Lipid Panel 05/16/2022 Lipid Panel 02/28/2021 Lipid Panel 07/07/2024 Lipid Panel 10/10/2024 Lipid Panel 03/31/2024 Lipid Panel 11/12/2023 Vitamin D 25-OH Total 02/11/2025 Vitamin D 25-OH Total 05/16/2022 Vitamin D 25-OH Total 07/07/2024 MM tomosynthesis screening BI 02/11/2025 XR hips YANE min 3V 04/16/2024 XR pelvis min 3V 04/16/2024 Next Appt Details Provider Name:Lalit Aguirre , 05/13/2025 09:30:00 AM, [address] [place] [address] [address], [place], [address], Provider Name:Lalit Aguirre , 02/16/2026 09:00:00 AM, [address] [place] [address] [address], [place], [address], Insurance Providers Payer Name Payer Address Payer Phone Subscriber Number Group Number Insured Name Patient Relationship to Insured Coverage Start Date Coverage End Date MEDICARE NGS [address] [place] [address] [id number] Amish Nevaeh sexton Self - patient is the insured [employer] [address] [place] [id number] Amishse donohueNevaeh farley Self - patient is the insured Medical [...] rain placement, Left 2022-05-10 [facility] 21 biopsy of eyelid 2019 lesion removal from eyelid 01/2019 biopsy on leg 11/2018 Mohs surgery bridge of nose Laparascopic Surgery T & A as a child benign breast lump removed 1987 colonoscopy 03/2010 Cataract extraction both eyes 2012 Varicose vein surgery 1964 Hospitalization History Reason Date(Month/Year) No history vission loss 02/10/22 Right carotid surgery, [facility] 04/2021 CVA 11/29/2020 abdominal pain 04/16/2018
== END 2025-04-01 11:32 | disposition home or self-care (01) ==
LOC: HO.MAMMO 11:31
PROVIDERS: PCP Internal Medicine Medical Oncology; Visit Provider Internal Medicine Medical Oncology
DX: Z12.31 Encounter for screening mammogram for malignant neoplasm of breast (principal)
CPT/HCPCS: 77063; 77067

== ENCOUNTER → 2025-04-01 11:45 | Outpatient (BNV) | payer MEDICARE, OTHER, SELFPAY | PROVIDERS: PCP Internal Medicine Medical Oncology; Visit Provider Internal Medicine | DX: Z12.31 Encounter for screening mammogram for malignant neoplasm of breast (principal) | CPT/HCPCS: 77063; 77067 ==

== ENCOUNTER 2025-05-11 07:07 | Outpatient (REF) | payer MEDICARE, OTHER, SELFPAY ==
--- OUTSIDE RECORDS SUMMARY | 2024-10-23 07:33 | XMS_ITS ---
Author Organization Lalit Aguirre III, MD Address [address] [place] [address] Care Team Providers Care Emission Specialist Name Role Phone Dr. Lalit Aguirre III Primary Care Provider [phone] Medications Medication SIG (Take, Route, Fr equency, Duration) Notes Start Date End Date Status levoFLOXacin 250 MG 1 tablet Orally Once a day for 7 days 10/23/2024 10/30/2024 Active Social History Sex Assigned At : Social History Observation Description Sex Assigned At Female Encounters Encounter Location Date Provider Diagnosis Lalit Aguirre III, MD [address] [place] [address] [place] [address] 10/23/2024 Lalit Aguirre Plan Of Treatment Medication Medication Name Sig Start Date Stop Date Notes levoFLOXacin 250 MG 1 tablet Orally Once a day for 7 days 10/23/2024 10/30/2024 Next Appt Details Provider Name:Lalit Aguirre , 05/13/2025 09:30:00 AM, [address] [place] [address] [place], [address], Provider Name:Lalit Aguirre , 02/16/2026 09:00:00 AM, [address] [place] [address] [address], [place], [address], Progress Notes * Nevaeh TORRESDOB:[birth year] (78 yo F)Acc No.[id number]:10/23/2024 Patient: Nevaeh JOHNSON :1945 A ge:78 Y S ex:Female Address: [address], [place], [address] * Refills Start levoFLOXacin Tablet, 250 MG, Orally, 7 Tablet, 1 tablet, Once a day, 7 days, Refills=0 * true * Date: Generated for Anabella vasquez/Frank/Dieudonne on: 07/12/2024 07:10 AM EST
--- OUTSIDE RECORDS SUMMARY | 2024-11-20 06:00 | XMS_ITS ---
Author Organization Lalit Aguirre III, MD Address [address] [place] [address] Care Team Providers Care Art Professor Name Role Phone Dr. Lalit Aguirre III Primary Care Provider Allergies Allergen (clinical drug [...] Culture Reviewed date:11/22/2024 02:21:15 PM Interpretation: Performing Lab:[facility], [place], [address] [place] [phone] Notes/Report: Urine Culture No growth. 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 al Twice a day Active Citalopram Hydrobromide [...] Date Provider Diagnosis Lalit Aguirre III, MD [address] [place] [address] [place] [phone] 11/20/2024 Lalit Aguirre Urinary tract infect ion [...] 08/21/19 25 Fluorouracil 5 % 1 application Salvage W[employer] Inspector al Twice a day Citalopram Hydrobromide 10 [...] Provider Name:Lalit Aguirre , 05/13/2025 09:30:00 AM, [address] [place] [address] DR, [address], [place], [place], [phone], Provider Name:Lalit Aguirre , 02/16/2026 09:00:00 AM, [address] [place] [address] [address], [place], [phone], Progress Notes * Nevaeh TORRESDOB:[birth year] (78 yo F)Acc No.[id number]:11/20/2024 Patient: Nevaeh JOHNSON Provider: Sushil Aguirre MD :1945 A ge:78 Y S ex:Female Date:11/20/2024 Address: [address] , [place], [id number] Subjective: * Chief Complaints: * U rinary [...] eyelid 01/2019biopsy of eyelid 2019right carotid endarterectomy [facility] 1Repair of branchial pseudoaneurysm and drain placement, Left [id number] history Carotid artery stent placement * Hospitalization/Major Diagno stic Procedure: a bdominal pain 04/16/2018CVA 1Right carotid surgery, [facility] 04/2021vission loss 02/10/22No history * Family History: F ather: 41 yrs, coronary artery disease, rheumatic fever,. M other: 73 yrs, CVA,hypertension,. D aughter(s): alive, Brain cyst. 2 daughter(s) - healthy. . Her daughter Ana Lilia is a medical office professional instructor at the [employer] on [place], [place] and is her HCP. Her other daughter, Kristy, is alive and well. She has two grandchildren who are healthy, one had a brain cyst. * Social History: T obacco Use: T obacco Use/Smoking P atient is a n onsmoker A dditional Findings: Tobacco Non-User A ggressive non-smoker S he was born in [facility] and has been to [place] for 48 years. They have 2 children who are healthy and well. 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 * Medications: T akingMulti Vitamin - Tablet [...] an d sensitivity,PLEASE FAX COMPLETED RESULTS TO [phone] PLEASE FAX COMPLETED RESULTS TO [phone] * Lab:Complete Blood Count Aut o Diff [...] - * Procedure Codes: 8 1002 URINE-NO [id number] URINE-NO [id number] MEASURE BLOOD OXYGEN LEVEL * Preventive Medicine: [...] 0 11/20/2024 Generated for Anabella vasquez/Frank/Claudiaransmitting on: 1 07/12/2024 07:11 AM EST History and Physical Notes * HPI [...]
--- OUTSIDE RECORDS SUMMARY | 2024-12-01 12:00 | XMS_ITS ---
Author Organization Lalit Aguirre III, MD Address [address] [facility] [place] [address] Care Team Providers Care Lock And Dam Repairer Name Role Phone Dr. Lalit Aguirre III Primary Care Provider REASON FOR VISIT annual exam Social History Sex Assigned At : Social History Observation Description Sex Assigned At Female Encounters Encounter Location Date Provider Diagnosis Lalit Aguirre III, MD [address] [place] [address] [place] [address] 12/01/2024 Lalit Aguirre Plan Of Treatment Next Appt Details Provider Name:Lalit Aguirre , 05/13/2025 09:30:00 AM, [address] [place] [address] [place], [address], Provider Name:Lalit Aguirre , 02/16/2026 09:00:00 AM, [address] [place] [address] [place], [address], Progress Notes * Nevaeh TORRESDOB:[birth year] (79 yo F)Acc No.[id number]:12/01/2024 Progress Notes Patient: Nevaeh JOHNSON Provider: Sushil Aguirre MD :1945 A ge:79 Y S ex:Female Date:12/01/2024 Address: [address], [address] [place], [id number] Subjective: * Chief Complaints: * 1 . [...] 0 12/01/2024 Generated for Anabella vasquez/Frank/Akshatitting on: 1 07/12/2024 07:12 AM EST
--- OUTSIDE RECORDS SUMMARY | 2024-12-03 05:13 | XMS_ITS ---
Author Organization Lalit Aguirre III, MD Address [address] [place] [address] Care Team Providers Care Mortician Investigator Name Role Phone Dr. Lalit Aguirre III Primary Care Provider [phone] REASON FOR VISIT Labs done at [facility] Social History Sex Assigned At : Social History Observation Description Sex Assigned At Female Encounters Encounter Location Date Provider Diagnosis Lalit Aguirre III, MD [address] [place] [address] [place] [address] 12/03/2024 Lalit Aguirre Hyponatremia E87.1 Assessments Encounter Date Diagnosis (ICD Code) Assessment Notes Treat ment Notes Treatment Clinical Notes 12/03/2024 Hyponatremia (ICD-10 - E87.1) Plan Of Treatment Pending Test Test Name Order Date PROFILE, RANDOM (COMPREHENSIVE METABOLIC ) 12/03/2024 CBC w DIFF 12/03/2024 Next Appt Details Provider Name:Lalit Aguirre , 05/13/2025 09:30:00 AM, [address] [place] [address] [place], [address], Provider Name:Lalit Aguirre , 02/16/2026 09:00:00 AM, [address] [place] [address] [address], [place], [address], Progress Notes * Nevaeh TORRESDOB:[birth year] (79 yo F)Acc No.[id number]:12/03/2024 Patient: Nevaeh JOHNSON :1945 A ge:79 Y S ex:Female Address: [address], [place], [address] Subjective: * Chief Complaints: * L abs done at [facility] * Medical History: * Surgical History: * Hospitalization/Major Diagno stic Procedure: * Medications: Objective: * Vitals: * Physical Examination: Assessment: * Assessment: 1. H yponatremia - E87.1 Plan: * Treatment: * Procedure Codes: * true * Date: Generated for Anabella vasquez/Frank/Ritusmitting on: 07/12/2024 07:11 AM EST
--- OUTSIDE RECORDS SUMMARY | 2025-02-11 04:00 | XMS_ITS ---
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 Lalit Aguirre III Primary Care Provider Allergies Allergen (clinical drug ingredient) Drug/Non Drug Allergy documented on EMR Reaction Allergy Type Onset Date Status Penicillin anaphylaxis Drug Allergy Acti ve Mold Unknown Allergy Active Dust Mites Unknown Allergy Active Bee Sting Unknown Allergy Active nitrofurantoin Nitrofurantoin nausea and vomiting Drug Allergy Active REASON FOR VISIT annual exam, Due for mammogram Medications Medication SIG (Take, Route, Frequency, Duration) Notes Start Date End Date Status Melatonin 5 MG 1 tablet in the even ing Orally Once a day Active Myrbetriq 50 MG 1 tablet Orally Once a day Active Citalopram Hydrobromide 10 MG TAKE 1 TABLET BY MOUTH EVERY DAY Active Atorvastatin Calcium 40 MG TAKE 1 TABLET BY MOUTH EVERY DAY Active Esomeprazole Magnesium 40 MG Oral Active Multi Vitamin - 1 tablet Orally Once a day Active Aspir-Low 81 MG 1 tablet Orally Once a day Active Gas-X Active Social History Tobacco Use: Social History Observation Description Date Details (start date - stop date) Never Smoker NA - NA Sex Assigned At : Social History Observation Description Sex Assigned At Female Tobacco Control (Standard) Question Answer Notes Tobacco use: Nonsmoker Additional Findings: Tobacco non-user Aggressive nonsmoker AUDIT-C (Standard) Question Answer Notes Did you have a drink containing alcohol in the p ast year? No Points 0 Interpretation Negative Vital Signs Temperature 98.4 degrees Fahrenheit 02/12/20 25 Blood pressure systolic 133 mm Hg 02/12/20 25 Blood pressure diastolic 71 mm Hg 025 Heart Rate 67 /min 02/11/2025 Height 63.5 in 02/11/2025 Weight 119 lbs 02/11/2025 BMI 20.75 kg/m2 02/11/2025 Encounters Encounter Location Date Provider Diagnosis Lalit Aguirre III, MD [address] [place] [address] [place] [id number] 02/11/2025 Lalit Aguirre GERD (gastroesophage al reflux disease) K21.9 ; History of basal cell cancer Z85.828 ; TIA (transient ischemic attack) G45.9 ; Vitreous hemorrhage, right eye H43.11 ; Leukopenia, unspecified type D72.819 ; Acute bilateral low back pain without sciatica M54.50 ; Other idiopathic scoliosis, lumbar region M41.26 ; Hyponatremia E87.1 ; Hearing loss, unspecified hearing loss type, unspecified laterality H91.90 ; 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 She is sleeping well and tolerating her diet. 02/11/2025 History of basal cell cancer (ICD-10 - Z85.828) No new skin cancers are noted on today's examination. 02/11/2025 TIA (transient ischemic attack) (ICD-10 - G45.9) No further such episodes have occurred. 02/11/2025 Vitreous hemorrhage, right eye (ICD-10 - H43.11) Her vision has returned to her and her anticoagulation has been stopped. She remains on aspirin. 02/11/2025 Leukopenia, unspecified type (ICD-10 - D72.819) Her white blood cell count is now 4600. She has had no infections. She feels generally healthy and well. This value will be observed. 02/11/2025 Acute bilateral low back pain without sciatica (ICD-10 - M54.50) She has decreased range of motion of lumbar spine. Review old x-rays show significant lumbar scoliosis. She has been referred to orthopedic surgery for evaluation as well as pain management. 02/11/2025 Other idiopathic scoliosis, lumbar region (ICD-10 - M41.26) She continues to have mild but intermittent low back pain due to the scoliosis. No change in her regimen was necessary today. 02/11/2025 Hyponatremia (ICD-10 - E87.1) Her sodium has improved with treatment to 134 and she is asymptomatic. 02/11/2025 Hearing loss, unspecified hearing loss type, unspecified laterality (ICD-10 - H91.90) Her hearing loss is unchanged. It is well compensated. There was no barriers to communication today. 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 She is asymptomatic and will remain on her current regimen. She will restrict fluids to 1500 mL daily. 02/11/2025 Fibromuscular dysplasia of carotid artery (ICD-10 - I77.3) The right carotid artery was recently repaired and she was told the operation was successful. Plan Of Treatment Medication Medication Name Sig Start Date Stop Date Notes Melatonin 5 MG 1 tablet in the even ing Orally Once a day Myrbetriq 50 MG 1 tablet Orally Once a day Citalopram Hydrobromide 10 MG TAKE 1 TAB LET BY MOUTH EVERY DAY Atorvastatin Calcium 40 MG TAKE 1 TABLET BY MOUTH EVERY DAY Esomeprazole Magnesium 40 MG Oral Multi Vitamin - 1 tablet Orally Once a day Aspir-Low 81 MG 1 tablet Orally Once a day Gas-X Pending Test Test Name Order Date PROFILE, RANDOM (COMPREHENSIVE METABOLIC ) 02/11/2025 CBC w DIFF 02/11/2025 Vitamin D 25-OH Total 02/11/2025 Next Appt Details Follow Up: 3 Months, Reason: OV Provider Name:Lalit Aguirre , 05/13/2025 09:30:00 AM, [address] [place] [address] , [place] [address], [place], [phone], Provider Name:Lalit Aguirre 02/16/2026 09:00:00 AM, [address] [place] [address] LEYLA MAGANA, STEFFANIE, [place], [phone], Progress Notes * Nevaeh TORRESDOB:[birth year] (79 yo F)Acc No.[id number]:02/11/2025 Progress Notes Patient: Nevaeh JOHNSON Provider: Sushil Aguirre MD :1945 A ge:79 Y S ex:Female Date:02/11/2025 Address:[address] [place] [address] , [address] [facility] [place], [id number] Subjective: * Chief Complaints: * A nnual examDue for mammogram * HPI: D epression Screening: PHQ-9 L ittle interest or pleasure in doing things?Several days F eeling down, depressed, or hopeless N ot at all T rouble falling or staying asleep, or sleeping too much N ot at all F eeling tired or having little energy S everal days P oor appetite or overeating N ot at all F eeling bad about yourself or that you are a failure, or have let yourself or your family down N ot at all T rouble concentrating on things, such as reading the newspaper or watching television N ot at all M oving or speaking so slowly that other people could have noticed; or the opposite, being so fidgety or restless that you have been moving around a lot more than usual N ot at all T houghts that you would be better off or of hurting yourself in some way N ot at all T otal Score 2 I nterpretation M inimal Depression C OVID-19 Screening: She returns to the office at the age of 79 for her annual visit. Comprehensive blood work was available and was reviewed with her.She weighs 119 pounds, down a couple. Her body mass index is 21. She says she feels well and has a decent appetite.Her sodium is much improved at 134.? Her lipids are in their target range. Her exam was unremarkable. No changes in her regimen were needed. She will be seen back in 3 months. He reports no change in her vision. Questions H ave you had any new onset fever, chills, cough, congestion, sore throat, shortness of breath, muscle aches? N o F all Risk Screening: Fall History H ave you had any falls with injury in the past year? Y es H ave you had two or more falls in the past year? Y es F all Risk Assessment: T wo or more falls without injury in the past year S ALLIE Questions: SDOH Questions I n the past year have you been worried about losing your housing? N o I n the past year have you or any family members you live with been unable to get any of the following when it was really needed? Check all that apply: N one * ROS: G eneral/Constitutional: pain o nly normal aches and pains. C hills d enies.?Fatigue a dmits. F ever d enies. E [...] pain d enies. P sychiatric: Depressed mood A nxious. * Medical History: * Surgical History: V aricose vein surgery 1964Cataract extraction both eyes 2013colonoscopy enign breast lump removed 1987T & A as a child Laparascopic Surgery Mohs surgery bridge of nose biopsy on leg 11/2018lesion removal from eyelid 01/2019biopsy of eyelid 2019right carotid endarterectomy [facility] epair of branchial pseudoaneurysm and drain placement, Left [id number] history Carotid artery stent placement * Hospitalization/Major Diagno stic Procedure: a bdominal pain 04/16/2018CVA 1Right carotid surgery, [facility] 04/2021vission loss 02/10/22No history * Family History: F ather: 41 yrs, coronary artery disease, rheumatic fever,. M other: 73 yrs, CVA,hypertension,. D aughter(s): alive, Brain cyst. 2 daughter(s) - healthy. . Her daughter Ana Lilia is a medical screener at the [facility] [facility] on [place], [place] and is her HCP. Her other daughter, Kristy, is alive and well. She has two grandchildren who are healthy, one had a brain cyst. * Social History: T obacco Use: T obacco Control (Standard) T obacco use: N onsmoker A dditional Findings: Tobacco non-user A ggressive nonsmoker D rugs/Alcohol: D rugs H ave you used drugs other than those for medical reasons in the past 12 months? N o D rug/Alcohol: A ODETTE-C (Standard) D id you have a drink containing alcohol in the past year? N o P oints 0 I nterpretation N egative S he was born in [facility] [place] and has been to [facility] for 48 years. They have 2 children who are healthy and well. 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 * Medications: T akingMulti Vitamin - Tablet 1 tablet Orally Once a day Gas-X Aspir-Low 81 MG Tablet Delayed Release 1 tablet Orally Once a day Myrbetriq 50 MG Tablet Extended Release 24 Hour 1 tablet Orally Once a day Melatonin 5 MG Tablet 1 tablet in the evening Orally Once a day Esomeprazole Magnesium 40 MG Capsule Delayed Release Oral Atorvastatin Calcium 40 MG Tablet TAKE 1 TABLET BY MOUTH EVERY DAY Citalopram Hydrobromide 10 MG Tablet TAKE 1 TABLET BY MOUTH EVERY DAY Taking Multi Vitamin - Tablet 1 tablet Orally Once a day Taking Gas-X Taking Aspir-Low 81 MG Tablet Delayed Release 1 tablet Orally Once a day Taking Myrbetriq 50 MG Tablet Extended Release 24 Hour 1 tablet Orally Once a day Taking Melatonin 5 MG Tablet 1 tablet in the evening Orally Once a day Taking Esomeprazole Magnesium 40 MG Capsule Delayed Release Oral Taking Atorvastatin Calcium 40 MG Tablet TAKE 1 TABLET BY MOUTH EVERY DAY Taking Citalopram Hydrobromide 10 MG Tablet TAKE 1 TABLET BY MOUTH EVERY DAY DiscontinuedVitamin D 1000 UNIT Tablet 1 tablet Orally Once a day Biotin 1000 MCG Tablet 2 tabs Orally Once a day Fluorouracil 5 % Cream 1 application External Twice a day levoFLOXacin 250 MG Tablet 1 tablet Orally Once a day Bactrim DS 800-160 MG Tablet 1 tablet Orally Twice a day Medication List reviewed and reconciled with the patientDiscontinued Vitamin D 1000 UNIT Tablet 1 tablet Orally Once a day Discontinued Biotin 1000 MCG Tablet 2 tabs Orally Once a day Discontinued Fluorouracil 5 % Cream 1 application External Twice a day Discontinued levoFLOXacin 250 MG Tablet 1 tablet Orally Once a day Discontinued Bactrim DS 800-160 MG Tablet 1 tablet Orally Twice a day Medication List reviewed and reconciled with the patient * Allergies: D ust MitesBee StingMoldPenicillin: anaphylaxisNitrofurantoin: nausea and vomiting - Allergy - Criticality [place][Allergies Verified] Objective: * Vitals: H t: 63.5, Wt:119, BMI:20.75, BP:133/71, HR:67, Temp:98.4, Ht-cm: 161.29, Wt-k.98. * P ast Orders: Lab:Lipid Panel * Collection Date 02/09/2025 10/08/2024 07/03/2024 Collection Time 06:19 AM 06:57 AM 06:28 AM Order Date 02/09/2025 10/08/2024 07/03/2024 Triglycerides 44 (Ref Range: <150 mg/dL) 56 (Ref Range: <150 mg/dL) 45 (Ref Range: <150 mg/dL) Cholesterol 144 (Ref Range: <200 mg/dL) 136 (Ref Range: <200 mg/dL) 129 (Ref Range: <200 mg/dL) LDL Cholesterol Calculated 59 (Ref Range: <100 mg/dL) 55 (Ref Range: <100 mg/dL) 49 (Ref Range: <100 mg/dL) HDL Cholesterol 77 (Ref Range: >40 mg/dL) 70 (Ref Range: >40 mg/dL) 71 (Ref Range: >40 mg/dL) * Lab:Comprehensive [place]. Pane l Fast * Collection Date 02/09/2025 10/08/2024 07/03/2024 Collection Time 06:19 AM 06:57 AM 06:28 AM Order Date 02/09/2025 10/08/2024 07/03/2024 Sodium 134 L (Ref Range: 135-145 mmol/L) 130 L (Ref Range: 135-145 mmol/L) 126 L (Ref Range: 135-145 mmol/L) Bilirubin Total 0.6 (Ref Range: 0.0-1.0 mg/dL) 0.5 (Ref Range: 0.0-1.0 mg/dL) 0.6 (Ref Range: 0.0-1.0 mg/dL) Aspartate Amino Transferase 34 H (Ref Range: 5-31 U/L) 30 (Ref Range: 5-31 U/L) 35 H (Ref Range: 5-31 U/L) Alanine Aminotransferase 22 (Ref Range: 0-31 U/L) 23 (Ref Range: 0-31 U/L) 24 (Ref Range: 0-31 U/L) Total Protein 6.6 (Ref Range: 6.5-8.0 g/dL) 6.3 L (Ref Range: 6.5-8.0 g/dL) 6.6 (Ref Range: 6.5-8.0 g/dL) Albumin Level 3.9 (Ref Range: 3.5-5.0 g/dL) 3.7 (Ref Range: 3.5-5.0 g/dL) 3.6 (Ref Range: 3.5-5.0 g/dL) Alkaline Phosphatase 79 (Ref Range: 39-117 U/L) 83 (Ref Range: 39-117 U/L) 77 (Ref Range: 39-117 U/L) Potassium 4.9 (Ref Range: 3.3-5.1 mmol/L) 5.4 H (Ref Range: 3.3-5.1 mmol/L) 4.2 (Ref Range: 3.3-5.1 mmol/L) Chloride 101 (Ref Range: 96-108 mmol/L) 97 (Ref Range: 96-108 mmol/L) 94 L (Ref Range: 96-108 mmol/L) Carbon Dioxide 27 (Ref Range: 22-29 mmol/L) 26 (Ref Range: 22-29 mmol/L) 25 (Ref Range: 22-29 mmol/L) Anion Gap 11 L (Ref Range: 12-20) 12 (Ref Range: 12-20) 11 L (Ref Range: 12-20) Blood Urea Nitrogen 25 H (Ref Range: 9-16 mg/dL) 31 H (Ref Range: 9-16 mg/dL) 19 H (Ref Range: 9-16 mg/dL) Creatinine 0.98 (Ref Range: 0.5-1.4 mg/dL) 0.98 (Ref Range: 0.5-1.4 mg/dL) 0.81 (Ref Range: 0.5-1.4 mg/dL) Estimated Glomerular Filt Rate 54 55 > 60 Glucose Fasting 85 (Ref Range: 60-99 mg/dL) 87 (Ref Range: 60-99 mg/dL) 81 (Ref Range: 60-99 mg/dL) Calcium 8.7 (Ref Range: 8.4-10.2 mg/dL) 8.7 (Ref Range: 8.4-10.2 mg/dL) 8.9 (Ref Range: 8.4-10.2 mg/dL) * Lab:Complete Blood Count Aut o Diff * Collection Date 02/09/2025 12/03/2024 10/08/2024 Collection Time 06:19 AM 02:45 PM 06:57 AM Order Date 02/09/2025 12/03/2024 10/08/2024 White Blood Count 4.6 L (Ref Range: 4.8-10.8 X10*3/uL) 5.4 (Ref Range: 4.8-10.8 X10*3/uL) 4.5 L (Ref Range: 4.8-10.8 X10*3/uL) Red Blood Count 3.47 L (Ref Range: 4.20-5.50 X10*6/uL) 3.32 L (Ref Range: 4.20-5.50 X10*6/uL) 3.45 L (Ref Range: 4.20-5.50 X10*6/uL) Hemoglobin 11.4 L (Ref Range: 12.0-16.0 g/dl) 10.5 L (Ref Range: 12.0-16.0 g/dl) 11.3 L (Ref Range: 12.0-16.0 g/dl) Hematocrit 33.9 L (Ref Range: 37.0-47.0 %) 32.1 L (Ref Range: 37.0-47.0 %) 33.3 L (Ref Range: 37.0-47.0 %) Mean Corpuscular Volume 97.7 (Ref Range: 80.0-98.0 fL) 96.7 (Ref Range: 80.0-98.0 fL) 96.5 (Ref Range: 80.0-98.0 fL) Mean Corpuscular Hemoglobin 32.9 (Ref Range: 27.0-33.0 pg) 31.6 (Ref Range: 27.0-33.0 pg) 32.8 (Ref Range: 27.0-33.0 pg) Mean Corpuscular HGB Conc 33.6 (Ref Range: 31.0-35.0 g/dl) 32.7 (Ref Range: 31.0-35.0 g/dl) 33.9 (Ref Range: 31.0-35.0 g/dl) Red Cell Distribution Width 13.1 (Ref Range: 11.0-16.0 %) 12.5 (Ref Range: 11.0-16.0 %) 12.9 (Ref Range: 11.0-16.0 %) Platelet Count 229 (Ref Range: 160-400 X10*3/uL) 264 (Ref Range: 160-400 X10*3/uL) 226 (Ref Range: 160-400 X10*3/uL) Mean Platelet Volume 10.5 (Ref Range: 9.4-12.3 fL) 9.7 (Ref Range: 9.4-12.3 fL) 9.7 (Ref Range: 9.4-12.3 fL) Neutrophils Percent Auto 56.3 (Ref Range: 45-73 %) 66.1 (Ref Range: 45-73 %) 60.0 (Ref Range: 45-73 %) Imm Gran Pct Auto 0.2 (Ref Range: 0.0-0.4 %) 0.6 H (Ref Range: 0.0-0.4 %) 0.2 (Ref Range: 0.0-0.4 %) Lymphocytes Percent Auto 26.9 (Ref Range: 20-40 %) 20.8 (Ref Range: 20-40 %) 23.9 (Ref Range: 20-40 %) Monocytes Percent Auto 11.1 H (Ref Range: 2-11 %) 9.1 (Ref Range: 2-11 %) 11.9 H (Ref Range: 2-11 %) Eosinophils Percent Auto 4.8 H (Ref Range: 0-4 %) 3.0 (Ref Range: 0-4 %) 3.3 (Ref Range: 0-4 %) Basophils Percent Auto 0.7 (Ref Range: 0-2 %) 0.4 (Ref Range: 0-2 %) 0.7 (Ref Range: 0-2 %) NRBC Pct Auto 0.0 (Ref Range: 0.0-0.2 /100WBC) 0.0 (Ref Range: 0.0-0.2 /100WBC) 0.0 (Ref Range: 0.0-0.2 /100WBC) Neutrophils Absolute Auto 2.6 (Ref Range: 2.0-8.3 x10*3/uL) 3.6 (Ref Range: 2.0-8.3 x10*3/uL) 2.7 (Ref Range: 2.0-8.3 x10*3/uL) Imm Gran Abs Auto 0.01 (Ref Range: 0.00-0.03 X10*3/uL) 0.03 (Ref Range: 0.00-0.03 X10*3/uL) 0.01 (Ref Range: 0.00-0.03 X10*3/uL) Lymphocytes Absolute Auto 1.2 (Ref Range: 1.2-4.9 X10*3/uL) 1.1 L (Ref Range: 1.2-4.9 X10*3/uL) 1.1 L (Ref Range: 1.2-4.9 X10*3/uL) Monocytes Absolute Auto 0.5 (Ref Range: 0.1-1.2 X10*3/uL) 0.5 (Ref Range: 0.1-1.2 X10*3/uL) 0.5 (Ref Range: 0.1-1.2 X10*3/uL) Eosinophils Absolute Auto 0.2 (Ref Range: 0.0-0.4 X10*3/uL) 0.2 (Ref Range: 0.0-0.4 X10*3/uL) 0.2 (Ref Range: 0.0-0.4 X10*3/uL) Basophils Absolute Auto 0.0 (Ref Range: 0.0-0.2 X10*3/uL) 0.0 (Ref Range: 0.0-0.2 X10*3/uL) 0.0 (Ref Range: 0.0-0.2 X10*3/uL) NRBC Abs Auto 0.000 (Ref Range: 0.0-0.012 X10*3/uL) 0.000 (Ref Range: 0.0-0.012 X10*3/uL) 0.000 (Ref Range: 0.0-0.012 X10*3/uL) * Lab:Comprehensive Met. Panel * Collection Date 12/03/2024 08/25/2024 05/30/2023 Collection Time 02:45 PM 06:22 AM 06:43 AM Order Date 12/03/2024 08/25/2024 05/30/2023 Sodium 127 L (Ref Range: 135-145 mmol/L) 129 L (Ref Range: 135-145 mmol/L) 129 L (Ref Range: 135-145 mmol/L) Bilirubin Total 0.3 (Ref Range: 0.0-1.0 mg/dL) 0.6 (Ref Range: 0.0-1.0 mg/dL) 0.8 (Ref Range: 0.0-1.0 mg/dL) Aspartate Amino Transferase 41 H (Ref Range: 5-31 U/L) 40 H (Ref Range: 5-31 U/L) 38 H (Ref Range: 5-31 U/L) Alanine Aminotransferase 44 H (Ref Range: 0-31 U/L) 33 H (Ref Range: 0-31 U/L) 26 (Ref Range: 0-31 U/L) Total Protein 6.3 L (Ref Range: 6.5-8.0 g/dL) 6.4 L (Ref Range: 6.5-8.0 g/dL) 6.9 (Ref Range: 6.5-8.0 g/dL) Albumin Level 3.9 (Ref Range: 3.5-5.0 g/dL) 3.7 (Ref Range: 3.5-5.0 g/dL) 4.0 (Ref Range: 3.5-5.0 g/dL) Alkaline Phosphatase 87 (Ref Range: 39-117 U/L) 87 (Ref Range: 39-117 U/L) 90 (Ref Range: 39-117 U/L) Potassium 5.0 (Ref Range: 3.3-5.1 mmol/L) 3.9 (Ref Range: 3.3-5.1 mmol/L) 4.6 (Ref Range: 3.3-5.1 mmol/L) Chloride 97 (Ref Range: 96-108 mmol/L) 98 (Ref Range: 96-108 mmol/L) 97 (Ref Range: 96-108 mmol/L) Carbon Dioxide 26 (Ref Range: 22-29 mmol/L) 26 (Ref Range: 22-29 mmol/L) 28 (Ref Range: 22-29 mmol/L) Anion Gap 9 L (Ref Range: 12-20) 9 L (Ref Range: 12-20) 9 L (Ref Range: 12-20) Blood Urea Nitrogen 22 H (Ref Range: 9-16 mg/dL) 18 H (Ref Range: 9-16 mg/dL) 25 H (Ref Range: 9-16 mg/dL) Creatinine 0.93 (Ref Range: 0.5-1.4 mg/dL) 0.94 (Ref Range: 0.5-1.4 mg/dL) 0.89 (Ref Range: 0.5-1.4 mg/dL) Estimated Glomerular Filt Rate 58 57 > 60 Glucose Random 88 (Ref Range: 60-115 mg/dL) 91 (Ref Range: 60-115 mg/dL) 92 (Ref Range: 60-115 mg/dL) Calcium 8.3 L (Ref Range: 8.4-10.2 mg/dL) 8.6 (Ref Range: 8.4-10.2 mg/dL) 9.0 (Ref Range: 8.4-10.2 mg/dL) * Lab:Urine Culture * Collection Date 11/20/2024 08/25/2024 Collection Time 12:00 PM 06:19 AM Order Date 11/20/2024 08/22/2024 Urine Culture No growth. No growth. Clinical Info: Please do culture an d sensitivity,PLEASE FAX COMPLETED RESULTS TO [phone] PLEASE FAX COMPLETED RESULTS TO [phone] * Lab:URINE DIP STICK * Collection Date 11/20/2024 [...] -) neg Menstrating No No no * Examination: G eneral Examination: GENERAL APPEARANCE: p leasant, well nourished, well developed, in no acute distress, calm and relaxed: elderly woman. HEAD: a traumatic, normocephalic. EYES: e annabelle, perrla, anicteric, conjugate. EARS: n ormal. NOSE: s eptum intact. ORAL CAVITY: n ormal, unremarkable. NECK/THYROID: n o jugular venous distention, no carotid bruit, thyroid normal, Healed surgical scar over carotid artery. LYMPH NODES: n o enlarged lymph nodes,spleen [...] e xtremities unremarkable, no clubbing, cyanosis or edema, 1 cm ganglion cyst over the right radius right wrist. PERIPHERAL PULSES: n ormal. NEUROLOGIC: a lert and oriented, cranial nerves 2-12 grossly intact, deep tendon reflexes 2+ symmetrical, motor strength normal upper and lower extremities, sensory exam intact. PSYCH: a lert, oriented. Assessment: * Assessment: 1. G ERD (gastroesophageal reflux disease) - K21.9 (Primary) N otes :Her symptoms are well controlled with medication. She is sleeping well and tolerating her diet. 2 . H istory of basal cell cancer - Z85.828 N otes :No new skin cancers are noted on today's examination. 3 . T IA (transient ischemic attack) - G45.9 N otes :No further such episodes have occurred. 4 . V itreous hemorrhage, right eye - H43.11 N otes :Her vision has returned to her and her anticoagulation has been stopped. She remains on aspirin. 5 . L eukopenia, unspecified type - D72.819 N otes :Her white blood cell count is now 4600. She has had no infections. She feels generally healthy and well. This value will be observed. 6 . A cute bilateral low back pain without sciatica - M54.50 N otes :She has decreased range of motion of lumbar spine. Review old x-rays show significant lumbar scoliosis. She has been referred to orthopedic surgery for evaluation as well as pain management. 7 . O ther idiopathic scoliosis, lumbar region - M41.26 N otes :She continues to have mild but intermittent low back pain due to the scoliosis. No change in her regimen was necessary today. 8 . H yponatremia - E87.1 N otes :Her sodium has improved with treatment to 134 and she is asymptomatic. 9 . H earing loss, unspecified hearing loss type, unspecified laterality - H91.90 N otes :Her hearing loss is unchanged. It is well compensated. There was no barriers to communication today. 1 0. S yndrome of inappropriate ADH (SIADH) secretion - E22.2 N otes :Her sodium is normal at 134. She is asymptomatic and will remain on her current regimen. She will restrict fluids to 1500 mL daily. 1 1. F ibromuscular dysplasia of carotid artery - I77.3 N otes :The right carotid artery was recently repaired and she was told the operation was successful. Plan: * Treatment: 2. L eukopenia, unspecified type L AB: CBC w DIFF 3. H yponatremia L AB: PROFILE, RANDOM (COMPREHENSIVE METABOLIC) L AB: CBC w DIFF L AB: Vitamin D 25-OH Total 4. O thers Continue Multi Vitamin Tablet, -, 1 tablet, Orally, Once a day; C ontinue Gas-X; C ontinue Aspir-Low Tablet Delayed Release, 81 MG, 1 tablet, Orally, Once a day; C ontinue Myrbetriq Tablet Extended Release 24 Hour, 50 MG, 1 tablet, Orally, Once a day; C ontinue Melatonin Tablet, 5 MG, 1 tablet in the evening, Orally, Once a day; C ontinue Esomeprazole Magnesium Capsule Delayed Release, 40 MG, Oral; C ontinue Atorvastatin Calcium Tablet, 40 MG, TAKE 1 TABLET BY MOUTH EVERY DAY; C ontinue Citalopram Hydrobromide Tablet, 10 MG, TAKE 1 TABLET BY MOUTH EVERY DAY. ? * Procedure Codes: * Follow Up: 3 Months (Reason: OV) * Images: * Sign off status: Completed true * Provider: Sushil Aguirre MD Date: 0 02/11/2025 Generated for Anabella vasquez/Frank/Akshatitting on: 1 07/12/2024 07:12 AM EST History and Physical Notes * HPI (History of Present Illness) Category Sub-Category Detail Notes Depression Screening PHQ-9 Little inte rest or pleasure in doing things: Several days Feeling down, depressed, or hopeless: No t at all Trouble falling or staying asleep, or sl eeping too much: Not at all Feeling tired or having little energy: S everal days Poor appetite or overeating: Not at all Feeling bad about yourself o r that you are a failure, or have let yourself or your family down: Not at all Trouble concentrating on thi ngs, such as reading the newspaper or watching television: Not at all Moving or speaking so slowly that other people could have noticed; or the opposite, being so fidgety or restless that you have been moving around a lot more than usual: Not at all Thoughts that you would be b abdiaziz off or of hurting yourself in some way: Not at all Total Score: 2 Interpretation: Minimal Depression Fall Risk Screening Fall History Have you had any falls with injury in the past year?: Yes Have you had two or more falls in the st year?: Yes Fall Risk Assessment:: Two or more falls without injury in the past year COVID-19 Screening Questions Have you had any new onset fever, chills, cough, congestion, sore throat, shortness of breath, muscle aches?: No SDOH Questions SDOH Questions In the past year have you been worried about losing your housing?: No In the past year have you or any family members you live with been unable to get any of the following when it was really needed? Check all that apply:: None Examination Category Sub-Category Detail Notes General Examination GENERAL APPEARANCE: pleasant , well nourished, well developed, in no acute distress, calm and relaxed: elderly woman HEAD: atraumatic, normocep halic EYES: eomi, perrla, anicte jed, conjugate EARS: normal NOSE: septum intact NECK/THYROID: no jugular venous di stention, no carotid bruit, thyroid normal, Healed surgical scar over carotid artery HEART: no clicks, gallops, murmurs, or rubs, [...] extremities unremark able, no clubbing, cyanosis or edema, 1 cm ganglion cyst over the right radius right wrist LYMPH NODES: no enlarged lymph no julio c,spleen normal RECTAL EXAM: not examined PSYCH: alert, oriented ORAL CAVITY: normal, unremarkable
--- OUTSIDE RECORDS SUMMARY | 2025-02-11 04:39 | XMS_ITS ---
Author Organization Lalit Aguirre III, MD Address [address] [facility] [place] [address] Care Team Providers Care Intermediate Accountant Name Role Phone Dr. Lalit gAuirre III Primary Care Provider REASON FOR VISIT Mammo Order Social History Sex Assigned At : Social History Observation Description Sex Assigned At Female Encounters Encounter Location Date Provider Diagnosis Lalit Aguirre III, MD [address] [place] [address] [place] [address] 02/11/2025 Lalit Aguirre Screening mammogram, encounter for Z12.31 Assessments Encounter Date Diagnosis (ICD Code) Assessment Notes Treatment Notes Treatment Clinical Notes 02/11/2025 Screening mammogram, encounter for (ICD-10 - Z12.31) Plan Of Treatment Pending Test Test Name Order Date MM tomosynthesis screening BI 02/11/2025 Next Appt Details Provider Name:Lalit Aguirre , 05/13/2025 09:30:00 AM, [address] [place] [address] [place], [address], Provider Name:Lalit Aguirre , 02/16/2026 09:00:00 AM, [address] [place] [address] , [place] [place], [place], [address], Progress Notes * Nevaeh TORRESDOB:[birth year] (79 yo F)Acc No.[id number]:02/11/2025 Patient: Nevaeh JOHNSON :1945 A ge:79 Y S ex:Female Address: [address], [facility] [place], [address] Subjective: * Chief Complaints: * M ammo Order * Medical History: * Surgical History: * Hospitalization/Major Diagno stic Procedure: * Medications: Objective: * Vitals: * Physical Examination: Assessment: * Assessment: 1. S creening mammogram, encounter for - Z12.31 Plan: * Treatment: * Procedure Codes: * true * Date: Generated for Anabella vasquez/Frank/Akshatitting on: 07/12/2024 07:11 AM EST
--- OUTSIDE RECORDS SUMMARY | 2025-03-10 05:37 | XMS_ITS ---
Author Organization Lalit Aguirre III, MD Address [address] [facility] [place] [address] Care Team Providers Care Nail Expert Name Role Phone Dr. Lalit Aguirre III Primary Care Provider [phone] REASON FOR VISIT Rx Request Social History Sex Assigned At : Social History Observation Description Sex Assigned At Female Encounters Encounter Location Date Provider Diagnosis Lalit Aguirre III, MD [address] [place] [address] [place] [address] 03/10/2025 Lalit Aguirre Plan Of Treatment Next Appt Details Provider Name:Lalit Aguirre , 05/13/2025 09:30:00 AM, [address] [place] [address] [place], [address], Provider Name:Lalit gAuirre , 02/16/2026 09:00:00 AM, [address] [place] [address] [place], [address], Progress Notes * Nevaeh TORRESDOB:[birth year] (79 yo F)Acc No.[id number]:03/10/2025 Patient: Nevaeh JOHNSON :1945 A ge:79 Y S ex:Female Address: [address], [address] [facility] [place], [address] * true * Date: Generated for Anabella vasquez/Frank/Akshatitting on: 07/12/2024 07:12 AM EST
--- OUTSIDE RECORDS SUMMARY | 2025-03-10 07:16 | XMS_ITS ---
Author Organization aLlit Aguirre III, MD Address [address] [facility] [place] [address] Care Team Providers Care Printing Plate Maker Name Role Phone Dr. Lalit Aguirre III Primary Care Provider Medications Medication SIG (Take, Route, Frequency, Duration) Notes Start Date End Date Status Sulfamethoxazole-Trimetho prim 800-160 MG 1 tablet Orally twice a day for 10 days 03/10/2025 03/20/2025 Active Social History Sex Assigned At : Social History Observation Description Sex Assigned At Female Encounters Encounter Location Date Provider Diagnosis Lalit Aguirre III, MD [address] [place] [address] [place] [address] 03/10/2025 Lalit Aguirre Plan Of Treatment Medication Medication Name Sig Start Date Stop Date Notes Sulfamethoxazole-Trimethopri m 800-160 MG 1 tablet Orally twice a day for 10 days 03/10/2025 03/20/2025 Next Appt Details Provider Name:Lalit Aguirre , 05/13/2025 09:30:00 AM, [address] [place] [address] [place], [address], Provider Name:Lalit Aguirre , 02/16/2026 09:00:00 AM, [address] [place] [address] , [facility] [place], [place], [address], Progress Notes * Nevaeh TORRESDOB:[birth year] (79 yo F)Acc No.[id number]:03/10/2025 Patient: Nevaeh JOHNSON :1945 A ge:79 Y S ex:Female Address: [address] MAG[address], [facility], [address] * Refills Start Sulfamethoxazole-Trimethoprim Tablet, 800-160 MG, Orally, 20 Tablet, 1 tablet, twice a day, 10 days, Refills=0 * true * Date: Generated for Anabella vasquez/Frank/Akshatitting on: 1 07/12/2024 07:11 AM EST
--- OUTSIDE RECORDS SUMMARY | 2025-03-25 09:36 | XMS_ITS ---
Author Organization Lalit Aguirre III, MD Address [address] [place] [address] Care Team Providers Care Classifying Machine Operator Name Role Phone Dr. Lalit Aguirre III Primary Care Provider Results Component Value Reference Range Notes Urine Culture Reviewed date:03/29/2025 07:36:42 AM Interpretation: Performing Lab:[facility], [address] [place] [phone] Notes/Report: Urine Culture Report Result Urine Culture < 10,000 cfu/ml REASON FOR VISIT Rx Request Social History Sex Assigned At : Social History Observation Description Sex Assigned At Female Encounters Encounter Location Date Provider Diagnosis Lalit Aguirre III, MD [address] [place] [address] [place] [address] 03/25/2025 Lalit Aguirre UTI symptoms R39.9 Assessments Encounter Date Diagnosis (ICD Code) Assessment Notes Treatment Notes Treatment Clinical Notes 03/25/2025 UTI symptoms (ICD-10 - R39.9) Plan Of Treatment Pending Test Test Name Order Date URINALYSIS (UA) 03/25/2025 Next Appt Details Provider Name:Lalit Aguirre , 05/13/2025 09:30:00 AM, [address] [place] [address] [address], [place], [address], Provider Name:Lalit Aguirre , 02/16/2026 09:00:00 AM, [address] [place] [address] [address] MAG[place], [place], [address], Progress Notes * Nevaeh TORRESDOB:[birth year] (79 yo F)Acc No.[id number]:03/25/2025 Patient: Nevaeh JOHNSON :1945 A ge:79 Y S ex:Female Address: [address] MAGANA, [facility] [place], [address] Subjective: * Chief Complaints: * R x Request * Medical History: * Surgical History: * Hospitalization/Major Diagno stic Procedure: * Medications: Objective: * Vitals: * Physical Examination: Assessment: * Assessment: 1. U TI symptoms - R39.9 Plan: * Treatment: Value Reference Range U rine Culture < 10,000 cfu/ml - * Procedure Codes: * true * Date: Generated for Anabella vasquez/Frank/Ritusmitting on: 07/12/2024 07:10 AM EST
--- OUTSIDE RECORDS SUMMARY | 2025-03-26 04:17 | XMS_ITS ---
Author Organization Lalit Aguirre III, MD Address [address] [facility] [address] Care Team Providers Care Offset Lithographic Press Setter Name Role Phone Dr. Lalit Aguirre III Primary Care Provider REASON FOR VISIT told patient to call Social History Sex Assigned At : Social History Observation Description Sex Assigned At Female Encounters Encounter Location Date Provider Diagnosis Lalit Aguirre III, MD [address] [place] [address] [place] [address] 03/26/2025 Lalit Aguirre Plan Of Treatment Next Appt Details Provider Name:Lalit Aguirre , 05/13/2025 09:30:00 AM, [address] [place] [address] [place], [address], Provider Name:Lalit Aguirre , 02/16/2026 09:00:00 AM, [address] [place] [address] [place], [address], Progress Notes * Nevaeh TORRESDOB:[birth year] (79 yo F)Acc No.[id number]:03/26/2025 Patient: Nevaeh JOHNSON :1945 A ge:79 Y S ex:Female Address:[address], [address] [facility] [place], [address] * true * Date: Generated for Anabella vasquez/Frank/Ritusmitting on: 1 07/12/2024 07:11 AM EST
--- OUTSIDE RECORDS SUMMARY | 2025-05-11 07:10 | XMS_ITS | Clinical Summary ---
Author Organization [facility] Address [address] [facility] [address] [place] [address] Phone Care Team Providers Care Leg Man Name Role Phone Lalit Aguirre MD Primary Care Provider [phone] Allergies Active Allergy Reactions Criticality Noted Date [...] and she is planning on going to [place] for the winter. Continue plavix and aspirin [...] age to complete this topic Insurance Medicare [facility] Medicare [facility] Care Teams Leg Man Relationship Specialty Start Date End Date Lalit Aguirre MD [address] [place] [address] [phone] [place] PCP - General Medical Oncology 06/02/21
--- OUTSIDE RECORDS SUMMARY | 2025-05-11 07:12 | XMS_ITS | Patient Health Record ---
Author Organization [facility] Address [address] [place] [address] Care Team Providers Care Elevated Motorman Name Role Phone Lalit Aguirre MD Primary Care Provider Lyndon Muller Jr Unavailable Allergies Allergen (clinical drug ingredient) Drug/Non Drug Allergy documented on EMR Reaction Allergy Type Onset Date Status Penicillin Unknown Drug Allergy Active Reason For Referral No Information Medications Medication SIG (Take, Route, Frequency, Duration) Notes Start Date End Date Status Esomeprazole Magnesium 40 MG Capsule Delayed Release TAKE 1 CAPSULE BY MOUTH EVERY DAY; Duration: 90 days Active Atorvastatin Calcium 40 MG Tablet 1 tablet Orally Once a day; Duration: 30 day(s) Active Aspirin 81 81 MG Tablet Chewable 1 tablet Orally Once a day; Duration: 30 day(s) Active Myrbetriq 50 MG Tablet Extended Release 24 Hour 1 tablet Orally Once a day; Duration: 30 day(s) Active Citalopram Hydrobromide 10 MG Tablet 1 tablet Orally Once a day Active Immunizations Vaccine Route Administration Date Status Comme nts Influenza Unknown 03/02/2021 Administered Influenza Unknown 03/13/2023 Administered Influenza Unknown 02/13/2024 Administered Social History Tobacco Use: Social History Observation Description Date Details (start date - stop date) Never Smoker NA - NA Social History Drugs/Alcohol: Social Info Question Answer Notes Alcohol Screen Did you have a drink containing alcohol in the past year? No Points 0 Interpretation Negative Tobacco Use: Social Info Question Answer Notes Tobacco Use/Smoking Patient is a nonsmoker Additional Details Category Social Info Options Details Miscellaneous: Marital status: Occupation: retired Problems Problem Type SNOMED Code ICD Code Onset Dates Problem Status W/U Status Risk Notes Problem Flatulence, eructation and gas pain (109258556) Bloating (R14.0) Active confirmed Problem Gastroesophageal reflux disease (174431980) Gastroesophageal reflux disease, unspecified whether esophagitis present (K21.9) Active confirmed Vital Signs Temperature 97.3 degrees Fahrenheit 10/08/2024 Blood pressure diastolic 01 mm Hg 10/08/2024 Height 63.5 in 10/08/2024 Blood pressure systolic 001 mm Hg 10/08/2024 Weight 118 lbs 10/08/2024 BMI 20.57 kg/m2 10/08/2024 Encounters Encounter Location Date Provider Diagnosis [facility] [address] [place] [address] 10/08/2024 Lyndon Domran Jr Gastroesophageal reflux disease, unspecified whether esophagitis present K21.9 [facility] [address] [place] [phone] 07/25/2024 Lyndon Dorman Jr [facility] [address] [place] [address] [address] [place] [phone] 09/08/2024 Lyndon Dorman Jr Assessments Encounter Date [...] Provider Name:Lyndon delgado Jr, 10/12/2025 10:00:00 AM, [address] [place] [address], [address], [place], [address], Insurance Providers Payer Name Payer Address Payer Phone Subscriber Number Group Number Insured Name Patient Relationship to Insured Coverage Start Date Coverage End Date [place] [address] [place] [address] [id number] KOKI WASHINGTON Self - patient is the insured [facility] [address] [place] [id number] KOKI WASHINGTON Self - patient is the insured Medical (General) History Medical History History ICD Code Retinal artery occlusion urinary incontinence skin cancer Gastroesophageal reflux disease Colonoscopy 11/27/17 negative, family history of colon polyps, followup optional based on age Back pain Anxiety Surgical History Surgery Date(Month/Year) Varicose vein surgery Skin cancer removal carotid artery surgery x 2
--- OUTSIDE RECORDS SUMMARY | 2025-05-11 07:12 | XMS_ITS | Patient Health Record ---
Author Organization Lalit Aguirre III, MD Address [address] [place] [address] Care Team Providers Care Drawer Upfitter Name Role Phone Dr. Lalit Aguirre III [...] Culture Reviewed date:08/26/2024 09:37:42 AM Interpretation: Performing Lab:[facility], [address] [place] [phone] Notes/Report: Urine Culture No growth. URINE DIP [...] Culture Reviewed date:11/22/2024 02:21:15 PM Interpretation: Performing Lab:[facility], [address] [place] [phone] Notes/Report: Urine Culture No growth. Urine Culture Reviewed date:03/29/2025 07:36:42 AM Interpretation: Performing Lab:[facility], [address] [place] [phone] Notes/Report: Urine Culture Report Result Urine Culture < 10,000 cfu/ml Complete Blood Count Auto Di ff Reviewed date:07/04/2024 06:10:04 AM Interpretation: Performing Lab:[facility], [address] [place] [phone] Notes/Report: White Blood Count 5.8 4.8-10.8 X10*3/uL [...] NRBC Abs Auto 0.000 0.0-0.012 X10*3/uL Comprehensive [place]. Panel Fa st Reviewed date:07/04/2024 06:10:04 AM Interpretation: Performing Lab:[facility], [address] [place] [phone] Notes/Report: Sodium 126 135-145 mmol/L Potassium 4.2 [...] Panel Reviewed date:07/04/2024 06:10:04 AM Interpretation: Performing Lab:[facility], [address] [place] [phone] Notes/Report: Triglycerides 45 <150 mg/dL Desirable Triglyceride: [...] Total Reviewed date:07/04/2024 06:10:04 AM Interpretation: Performing Lab:[facility], [address] [place] [phone] Notes/Report: Vitamin D 25-OH Total 33.7 >30 [...] ff Reviewed date:08/26/2024 09:37:42 AM Interpretation: Performing Lab:[facility], [address] [place] [phone] Notes/Report: White Blood Count 5.1 4.8-10.8 X10*3/uL [...] Panel Reviewed date:08/26/2024 09:37:42 AM Interpretation: Performing Lab:[address] [phone] Notes/Report: Sodium 129 135-145 mmol/L Potassium 3.9 [...] ff Reviewed date:10/08/2024 11:36:21 AM Interpretation: Performing Lab:[address] [address] Notes/Report: White Blood Count 4.5 4.8-10.8 X10*3/uL [...] NRBC Abs Auto 0.000 0.0-0.012 X10*3/uL Comprehensive [place]. Panel Fa st Reviewed date:10/08/2024 11:36:21 AM Interpretation: Performing Lab:[facility], [address] [place] [phone] Notes/Report: Sodium 130 135-145 mmol/L Potassium 5.4 [...] Panel Reviewed date:10/08/2024 11:36:21 AM Interpretation: Performing Lab:[facility], [address] [place] [phone] Notes/Report: Triglycerides 56 <150 mg/dL Desirable Triglyceride: [...] Total Reviewed date:10/08/2024 11:36:21 AM Interpretation: Performing Lab:[facility], [address] [place] [phone] Notes/Report: Vitamin D 25-OH Total 26.9 >30 [...] date:10/14/2024 11:55:50 AM Interpretation: Performing Lab: Notes/Report: [address] [address] XRay Report Signed Patient: Nevaeh Torres MR#: [id number] : 1945 Acct:[id number] Age/Sex: 78 / F ADM Date: 10/10/24 Loc: KELY Attending Dr: Lalit Aguirre MD Ordering Physician: Lalit Aguirre MD Date of Service: 10/10/24 Procedure(s): XR chest 2V Accession Number(s): [id number] cc: Lalit Aguirre MD EXAMINATION: XR CHEST [...] 10/10/24 1041 DD/ 1013 TD/TT: 10/10/24 1022 Nuclear Medical Technologist: [address] [address] XRay Report Signed Patient: Nevaeh Torres MR#: [id number] : 1945 Acct:[id number] Age/Sex: 78 / F ADM Date: 10/10/24 Loc: KELY Attending Dr: Lalit Aguirre MD Ordering Physician: Lalit Aguirre MD Date of Service: 10/10/24 Procedure(s): XR corinna st 2V Accession Number(s): [id number] cc: Lalit Aguirre MD EXAMINATION: XR CHES [...] 10/10/24 1041 DD/ 1013 TD/TT: 10/10/24 1022 Nuclear Medical Technologist: Complete Blood Count Auto Di ff Reviewed date:12/07/2024 09:38:15 AM Interpretation: Performing Lab:[facility], [address] [place] [phone] Notes/Report: White Blood Count 5.4 4.8-10.8 X10*3/uL [...] Panel Reviewed date:12/07/2024 09:38:15 AM Interpretation: Performing Lab:[address] [phone] Notes/Report: Sodium 127 135-145 mmol/L Potassium 5.0 [...] ff Reviewed date:02/09/2025 12:37:35 PM Interpretation: Performing Lab:[address] [phone] Notes/Report: White Blood Count 4.6 4.8-10.8 X10*3/uL [...] NRBC Abs Auto 0.000 0.0-0.012 X10*3/uL Comprehensive [place]. Panel Fa st Reviewed date:02/09/2025 12:37:35 PM Interpretation: Performing Lab:[facility], [address] [place] [address] Notes/Report: Sodium 134 135-145 mmol/L Potassium 4.9 [...] Panel Reviewed date:02/09/2025 12:37:35 PM Interpretation: Performing Lab:[facility], [address] [place] [phone] Notes/Report: Triglycerides 44 <150 mg/dL Desirable Triglyceride: [...] Urinalysis Reviewed date:03/29/2025 07:36:42 AM Interpretation: Performing Lab:[address] [address] Notes/Report: Color Urine Yellow Appearance Urine Clear PH 8.0 5.0-9.0 Glucose Urine UA Negative Negative mg/dL Urine Blood Negative Negative Specific [place] - Urine 1.010 1.005-1.025 Urine Protein Negative Neg-Trace mg/dL Urine Ketones Negative Negative mg/dL Nitrite Urine Negative Negative Leukocyte Esterase Urine Negative Negative MM tomosynthesis screening B I Reviewed date:04/06/2025 04:38:52 PM Interpretation: Performing Lab: Notes/Report: [address] [place] [address] Mammography Report Signed Patient: Nevaeh Torres MR#: [id number] : 1945 Acct:[id number] Age/Sex: 79 / F ADM Date: 04/01/25 Loc: HO.MAMMO Attending Dr: Lalit Aguirre MD Ordering Physician: Lalit Aguirre MD Results: 2Benign Date of Service: 04/01/25 Follow Up: 1 Year From Orig inal Mammogram Procedure(s): MM tomosynthesis screening BI Accession Number(s): [id number] cc: Lalit Aguirre MD Reason For Exam: SCREENING EXAMINATION: MM SCREENING DIGITAL BREAST TOMOSYNTHESIS, BILATERAL CLINICAL INFORMATION: Screening. Asymptomatic. COMPARISON: Mammography: Comparison is made with available priors TECHNIQUE: Digital breast mammography with tomosynthesis is performed in both the craniocaudal and mediolateral oblique views along with computer-aided detection (CAD). FINDINGS: There are scattered areas of fibroglandular density. Left marker clip. Focal asymmetry upper outer right breast far posterior depth stable dating back to 2016. There are no significant masses, abnormal calcifications, or other abnormalities. MM/MM tomosynthesis screening BI IMPRESSION: No mammographic evidence of malignancy. ASSESSMENT: BI-RADS Category 2: Benign RECOMMENDATION: Routine annual mammography screening. 1 year F/U This examination should not preclude the clinical evaluation of a suspicious palpable abnormality. This patient's information was entered into a reminder system with a target due date for their next mammogram. Electronically signed by: Shakila Brooke DO 04/06/2025 12:05 PM [facility] Dictated By: Shakila Brooke DO Signed By: <Electronically signed by Shakila Brooke DO in OV> 04/06/25 1205 DD/ 1135 TD/TT: 04/01/25 1145 Nuclear Medical Technologist: [address] [place] [address] Mammography Report Signed Patient: Nevaeh Torres MR#: [id number] : 1945 Acct:[id number] Age/Sex: 79 / F ADM Date: 04/01/25 Loc: HO.MAMMO Attending Dr: Lalit Aguirre MD Ordering Physician: Lalit Aguirre MD Results: 2Benign Date of Service: 04/01/25 Follow Up: 1 Year From Orig inal Mammogram Procedure(s): MM tomosynthesis screening BI Accession Number(s): [id number] cc: Lalit Aguirre MD Reason For Exam: SCREENING EXAMINATION: MM SCREENING DIGITAL BREAST TOMOSYNTHESIS, BILATERAL CLINICAL INFORMATION: Screening. Asymptomatic. COMPARISON: Mammography: Compari son is made with available priors TECHNIQUE: Digital breast mammography with tomosynthesis is performed in both the craniocaudal and mediolateral oblique views along with computer-aided detection (CAD). FINDINGS: There are scattered areas of fibroglandular density. Left marker clip. Focal asymmetry uppe r outer right breast far posterior depth stable dating back to 2015. There are no significant masses, abnormal calcifications, or other abnormalities. MM/MM tomosynthesis screening BI IMPRESSION: No mammographic evidence of malignancy. ASSESSMENT: BI-RADS Category 2: Benign RECOMMENDATION: Routine annual mammography screening. 1 year F/U This examination hermann uld not preclude the clinical evaluation of a suspicious palpable abnormality. This patient's information was entered into a reminder system with a target due date for their next mammogram. Electronically binh d by: Shakila Brooke DO 04/06/2025 12:05 PM [facility] Dictated By: Shakila Brooke DO Signed By: <Electronically signed by Shakila Brooke DO in OV> 04/06/25 1205 DD/ 1135 TD/TT: 04/01/25 1145 Nuclear Medical Technologist: Reason For Referral Reason Evaluate and Treat Lower back pain Diagnosis 1 Back pain (M54.9) Referral Organization Lalit Aguirre III, MD Referring Provider First Name Lalit Referring Provider Last Name Carla Referring Provider Speciality Internal M edicine Referred Provider [facility], [place] Referred Provider Specialty Physical Med icine General [...] Problem Status W/U Status Risk Notes Problem 149003504 Back pain (M54.9) Active confirmed Her back pain i s minimal at this time and she will refrain from heavy lifting. Problem 02485583 Hyponatremia (E87.1) Active confirmed Her sodium has improved with treatment to 134 and she is asymptomatic. Problem 160304517 GERD (gastroesophag eal reflux disease) (K21.9) Active confirmed Her symptoms ar e well controlled with medication. She is sleeping well and tolerating her diet. 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 Problem 08821209 Anxiety (F41.9) Active confirmed She has coping with her anxiety well. She is maintaining her weight. No new problems have arisen. Problem Vitamin D deficiency (44066471) Vitamin D deficiency, unspecified (E55.9) Active confirmed He was continue d on her vitamin D supplementation in view of her osteopenia. Problem 58364340 Amaurosis fugax (G45.3) Active confirmed She is she is under the care of a retina specialist in blood flow to a retina appears normal at this time. She has had no further episodes of visual loss. Problem Retinal vascular occlusion (25922641) Unspecified retinal vascular occlusion (H34.9) Active confirmed This took place in the recent past and she was anticoagulated. That has now been stopped, but she remains on aspirin. No further episodes have occurred since her last visit. Problem 698345403440227 Vitreous hemorrhage, right eye (H43.11) Active confirmed Her vision has returned to her and her anticoagulation has been stopped. She remains on aspirin. Problem 368093460 Other idiopathic scoliosis, lumbar region (M41.26) Active confirmed She continues t o have mild but intermittent low back pain due to the scoliosis. No change in her regimen was necessary today. Problem Carotid bruit (230799829) Carotid bruit (R09.89) Active confirmed She has had carotid ultrasounds before 50 to 99% occlusion on the right she is going to see her vascular surgeon later this month. I have asked her to call me and let me know what he thinks. Medications were continued. Problem 24027628 Hearing loss (H91.90) Active confirmed She is beginnin g to have difficulty discriminating speech is asked for evaluation by your throat physician. I have made a referral. Problem 603774056 TIA (transient ischemic attack) (G45.9) Active confirmed No further such episodes have occurred. Problem Leukopenia (90816214) Leukopenia, unspecified type (D72.819) Active confirmed Her white blo od cell count is now 4600. She has had no infections. She feels generally healthy and well. This value will be observed. Problem 579857913 History of basal cell cancer (Z85.828) Active confirmed No new skin cancers are noted on today's examination. Problem Hearing loss (82054789) Hearing loss, unspecified hearing loss type, unspecified laterality (H91.90) Active confirmed Her hearing los s is unchanged. It is well compensated. There was no barriers to communication today. Problem 710552634 Osteopenia after menopause (M81.0) Active confirmed She was continued on current therapy at this time. Problem 666677775 Acute bilateral low back pain without sciatica (M54.50) Active confirmed She has decreased range of motion of lumbar spine. Review old x-rays show significant lumbar scoliosis. She has been referred to orthopedic surgery for evaluation as well as pain management. Problem 278144855 Fibromuscular dysplasia of carotid artery (I77.3) Active confirmed The right carotid artery was recently repaired and she was told the operation was successful. 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) [...] Provider Diagnosis Lalit Aguirre III, MD [address] [place] [address] DR [place], [place] [address] 05/12/2024 Lalit Aguirre GERD (gastroesophage al reflux disease) K21.9 ; Syndrome of inappropriate ADH (SIADH) secretion E22.2 ; Fibromuscular dysplasia of carotid artery I77.3 ; Hearing loss H91.90 ; Leukopenia, unspecified type D72.819 ; Osteopenia after menopause M81.0 ; Acute bilateral low back pain without sciatica M54.50 and Other idiopathic scoliosis, lumbar region M41.26 Lalit Aguirre III, MD [address] [place] [address] [place] [address] 07/07/2024 Lalit Aguirre GERD (gastroesophage al reflux [...] lumbar region M41.26 Lalit Aguirre III, MD [address] [place] [address] [place] [address] 08/21/2024 Lalit Aguirre Urinary tract infect ion in female N39.0 ; GERD (gastroesophageal reflux disease) K21.9 ; Hearing loss H91.90 ; Osteopenia after menopause M81.0 ; Fibromuscular dysplasia of carotid artery I77.3 and Syndrome of inappropriate ADH (SIADH) secretion E22.2 Lalit Aguirre III, MD [address] [place] [address] [place] [address] 08/22/2024 Lalit Aguirre GERD (gastroesophage al reflux disease) K21.9 ; Urinary tract infection in female N39.0 ; Anxiety F41.9 ; History of basal cell cancer Z85.828 ; Hearing loss H91.90 ; Osteopenia after menopause M81.0 and Amaurosis fugax G45.3 Lalit Aguirre III, MD [address] [place] [address] [place] [address] 08/26/2024 Lalit Aguirre GERD (gastroesophage al reflux disease) K21.9 ; Urinary tract infection in female N39.0 ; Other idiopathic scoliosis, lumbar region M41.26 ; Acute bilateral low back pain without sciatica M54.50 ; Syndrome of inappropriate ADH (SIADH) secretion E22.2 ; Fibromuscular dysplasia of carotid artery I77.3 and Unspecified retinal vascular occlusion H34.9 Lalit Aguirre III, MD [address] [place] [address] [place] [address] 10/10/2024 Lalit Aguirre GERD (gastroesophage al reflux disease) K21.9 ; Syndrome of inappropriate ADH (SIADH) secretion E22.2 ; Leukopenia, unspecified type D72.819 ; Chronic cough R05.3 ; Back pain M54.9 ; Hearing loss H91.90 ; Osteopenia after menopause M81.0 and Amaurosis fugax G45.3 Lalit Aguirre III, MD [address] [place] [address] [place] [address] 11/20/2024 Lalit Aguirre Urinary tract infect ion in female N39.0 ; Back pain M54.9 ; History of basal cell cancer Z85.828 ; TIA (transient ischemic attack) G45.9 ; Osteopenia after menopause M81.0 and Syndrome of inappropriate ADH (SIADH) secretion E22.2 Lalit Aguirre III, MD [address] [place] [address] [place] [address] 02/11/2025 Lalit Aguirre GERD (gastroesophage al reflux [...] carotid artery I77.3 Lalit Aguirre III, MD [address] [place] [address] [place] [address] 08/20/2024 Lalit Aguirre III, MD [address] [place] [address] [place] [address] 10/13/2024 Lalit Aguirre III, MD [address] [place] [address] [place] [address] 10/23/2024 Lalit Aguirre III, MD [address] [place] [address] [place] [address] 10/23/2024 Lalit Aguirre III, MD [address] [place] [address] [place] [address] 12/03/2024 Lalit Aguirre Hyponatremia E87.1 Lalit Aguirre III, MD [address] [place] [address] [place] [address] 02/11/2025 Lalit Aguirre Screening mammogram, encounter for Z12.31 Lalit Aguirre III, MD [address] [place] [address] [place] [address] 03/10/2025 Lalit Aguirre III, MD [address] [place] [address] [place] [address] 03/10/2025 Lalit Aguirre III, MD [address] [place] [address] [place] [address] 03/25/2025 Lalit Aguirre UTI symptoms R39.9 Lalit Aguirre III, MD [address] [place] [address] [place] [address] 03/26/2025 Lalit Aguirre Assessments Encounter Date Diagnosis [...] skin cancers are noted on today's examination. 12/03/2024 Hyponatremia (ICD-10 - E87.1) 02/11/2025 Screening [...] G45.9) No further such episodes have occurred. 05/12/2024 Hearing loss (ICD-10 - H91.90) She [...] Order Date PROFILE, FASTING (COMPREHENSIVE METABOLI C) 03/13/2018 PROFILE, [...] C) 05/16/2022 PROFILE, FASTING (COMPREHENSIVE METABOLI C) 02/28/2021 PROFILE, FASTING (COMPREHENSIVE METABOLI C) 10/08/2019 PROFILE, FASTING (COMPREHENSIVE METABOLI C) 07/07/2024 PROFILE, RANDOM (COMPREHENSIVE METABOLIC ) 11/24/2020 PROFILE, RANDOM (COMPREHENSIVE METABOLIC ) 12/03/2024 PROFILE, RANDOM (COMPREHENSIVE METABOLIC ) 08/22/2024 PROFILE, RANDOM (COMPREHENSIVE METABOLIC ) 02/11/2025 BUN 11/22/2021 CREATININE 11/22/2021 AMYLASE 01/03/2021 AMYLASE 11/24/2020 LIPASE 11/24/2020 LIPID PANEL 10/08/2019 LIPID PANEL 03/13/2018 LIPID PANEL 01/16/2023 LIPID PANEL 02/27/2017 LIPID PANEL 01/03/2021 LIPID PANEL 04/10/2019 LIPID PANEL 10/11/2020 LIPID PANEL 06/06/2021 LIPID PANEL 09/20/2022 LIPID PANEL 10/08/2018 LIPID PANEL 10/15/2020 CBC w DIFF 02/11/2025 CBC w DIFF 10/15/2020 CBC w DIFF 02/28/2021 CBC w DIFF 07/07/2024 CBC w DIFF 10/10/2024 CBC w DIFF 10/08/2019 CBC w DIFF 03/13/2018 CBC w DIFF 01/16/2023 CBC w DIFF 02/07/2022 CBC w DIFF 12/03/2024 CBC w DIFF 02/27/2017 CBC w DIFF 01/03/2021 CBC w DIFF 04/10/2019 CBC w DIFF 10/11/2020 CBC w DIFF 11/24/2020 CBC w DIFF 06/06/2021 CBC w DIFF 09/20/2022 CBC w DIFF 08/22/2024 CBC w DIFF 05/16/2022 CBC w DIFF 10/08/2018 SED RATE (ESR) 11/24/2020 URINALYSIS (UA) 03/25/2025 [...] Lipid Panel 03/31/2024 Vitamin D 25-OH Total 02/11/2025 Vitamin D 25-OH Total 05/16/2022 Vitamin D 25-OH Total 07/07/2024 MM tomosynthesis screening BI 02/11/2025 XR hips YANE min 3V 04/16/2024 XR pelvis min 3V 04/16/2024 Next Appt Details Provider Name:Lalit Aguirre , 05/13/2025 09:30:00 AM, [address] [place] [address] [address], [place], [address], Provider Name:Lalit Aguirre , 02/16/2026 09:00:00 AM, [address] [place] [address] [address], [place], [address], Insurance Providers Payer Name Payer Address Payer Phone Subscriber Number Group Number Insured Name Patient Relationship to Insured Coverage Start Date Coverage End Date MEDICARE NGS [address] [place] [phone] [id number] José Miguel ttNevaeh farley Self - patient is the insured [employer] [address] [place] [id number] [phone] [id number] Nevaeh Bone Self - patient is the insured Medical [...] rain placement, Left 2022-05-10 right carotid endarterectomy [facility] 05/16 21 biopsy of eyelid 2019 lesion removal from eyelid 01/2019 biopsy on leg 11/2018 Mohs surgery bridge of nose Laparascopic Surgery T & A as a child benign breast lump removed 1987 colonoscopy 03/2010 Cataract extraction both eyes 2012 Varicose vein surgery 1964 Hospitalization History Reason Date(Month/Year) No history vission loss 02/10/22 Right carotid surgery, [facility] 04/2021 CVA 11/29/2020 abdominal pain 04/16/2018
--- OUTSIDE RECORDS SUMMARY | 2025-05-11 07:12 | XMS_ITS | Encounter Summary ---
Author Organization [facility] Address [address] [place] [address] Care Team Providers Care Workforce Development Assistant Name Role Phone Lalit Aguirre Primary Care Provider [phone] Encounter Details Date Type Department Care Team (Latest Contact Info) Description 01/24/2022 [employer] [facility] Interventional Radiology [address] [place] [id number] [employer], Generic Provider [facility] [place] [address] CT Angiogram of the head [...] on filedocumented in this encounter Care Teams Workforce Development Assistant Relationship Specialty Start Date End Date Lalit Aguirre [address] [facility] [address] [place] [address] PCP - General Hematology 04/11/21 documented as of this encounter
--- OUTSIDE RECORDS SUMMARY | 2025-05-11 07:12 | XMS_ITS | Clinical Summary ---
Author Organization [facility] Address [address] [place] [address] Care Team Providers Care Packager And Strapper Name Role Phone Lalit Aguirre Primary Care Provider [phone] Allergies Active Allergy Reactions Criticality Noted Date [...] and she is planning on going to [place] for the winter. Continue plavix and aspirin [...] a day can be f/u with her tape recorder repairer as outpatient -If the patient remains hospitalized [...] Health Annual Screening 05/28/2024 Influenza Vaccine (#1) 2024 4, 03/09/2022, 03/27/2021, Additional history exists COVID-19 Vaccine ( season) 2025 09/09/2024, 02/21/2024, 03/09/2022, Additional history exists DTaP,Tdap,and Td Vaccines (2 - Td or Tdap) 01/11/2028 01/10/2018 Tobacco Screening 05/28/2042 12/01/2024 Statin Therapy Completed 05/02/2021 Hepatitis B Vaccines Aged Out No long er eligible based on patient's age to complete this topic Medical Devices Implanted Type Area Fisheries Technical Officer Device Identifier Shelf Expiration Date Model / Serial / Lot Device Closure Vascular Plug 6fr Angio-Seal Vip - S0 - [id number] Implanted:Qty : 1 on 04/27/2022 by Jose Morales MD at [facility] Implant Right: [employer] [id number] 01/25/2023 [id number] / 0 / [id number] System Stent Carotid [id number] Enroute - [id number] Implanted:Qty : 1 on 05/09/2022 by Jose Morales MD at [facility] Stent Right: [facility] 12/26/2023 SR-0840-C S / / [id number] System Stent Carotid [id number] Enroute - [id number] Implanted:Qty : 1 on 05/09/2022 by Jose Morales MD at [facility] Stent Right: [facility] 12/26/2023 SR-0840-C S / / [id number] Insurance MEDICARE [facility] Advance Directives Documents on File Type Date Recorded Patient Network Systems Administrator Expl [facility] Care Proxy 05/12/2021 2:01 PM [...] 7:58 AM 05/17/2021 1:24 PM Care Teams Packager And Strapper Relationship Specialty Start Date End Date Lalit Aguirre [address] [place] [address] PCP - General Hematology 04/11/21
--- OUTSIDE RECORDS SUMMARY | 2025-05-11 07:12 | XMS_ITS | Encounter Summary ---
Author Organization [facility] Address [address] [place] [address] Care Team Providers Care Human Services Worker Name Role Phone Lalit Aguirre Primary Care Provider [phone] Encounter Details Date Type Department Care Team (Late st Contact Info) Description 11/22/2021 Orders Only [facility] 2 Rad Act 1 [address] [place] [address] Anton Sanchez, [address] [place] [address] Social History Tobacco Use Types Packs/Day Years [...] on filedocumented in this encounter Care Teams Human Services Worker Relationship Specialty Start Date End Date Lalit Aguirre [address] [facility] [address] [place] [address] PCP - General Hematology 04/11/21 documented as of this encounter
--- OUTSIDE RECORDS SUMMARY | 2025-05-11 07:12 | XMS_ITS | Clinical Summary ---
Author Organization 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 Name Role Phone Lalit Aguirre MD Primary Care Provider [phone] Allergies Active Allergy Reactions Criticality Noted Date [...] file Insurance MEDICARE PART A & B [address] [place], [place] [id number] MEDICARE ENHANCE SUPPLEMENT MEDICARE PART A & B [facility] MEDICARE ENHANCE SUPPLEMENT MEDICARE PART A & B [facility] MEDICARE ENHANCE SUPPLEMENT MEDICARE PART A & B [facility] MEDICARE [place] [facility] Address: [address] [place] [address] MEDICARE PART A & B [facility] MEDICARE ENHANCE SUPPLEMENT MEDICARE PART A & B Member Subscriber Plan / Payer (Ef fective 2008-Present) Name:Nevaeh Torres Member ID:[id number] Relation to Subscriber:Self Name:Nevaeh Torres Subscriber ID:[id number] Payer ID:[id number] Group ID:Not on file Type:Medicare Address: [employer] [address] MEDICARE ENHANCE SUPPLEMENT MEDICARE PART A & B [facility] MEDICARE ENHANCE SUPPLEMENT MEDICARE PART A & B [facility] MEDICARE ENH[place] [facility] Address: [address] [place] [address] MEDICARE PART A & B [facility] MEDICARE ENHANCE SUPPLEMENT Care Teams Natural Gas Treating Unit Operator Relationship Specialty Start Date End Date Lalit Aguirre MD [address] [place] [address] [place] [address] PCP - General Medical Oncology 01/05/21 Additional Source Comments The information contained in this document represents components of the legal health record. It is not the complete legal health record.[facility]
[2025-05-11 07:22] LABS: MANUAL DIFF FLAG NO
[2025-05-11 07:56] LABS: Hematocrit 36.9 % (37.0-47.0); Hemoglobin 12.1 g/dl (12.0-16.0); Imm Gran Abs Auto 0.02 X10*3/uL (0.00-0.03); Imm Gran Pct Auto 0.5 % (0.0-0.4); Lymphocytes Absolute Auto 1.2 X10*3/uL (1.2-4.9); Mean Corpuscular HGB Conc 32.8 g/dl (31.0-35.0); Mean Corpuscular Hemoglobin 31.8 pg (27.0-33.0); Mean Corpuscular Volume 96.9 fL (80.0-98.0); NRBC Abs Auto 0.000 X10*3/uL (0.0-0.012); NRBC Pct Auto 0.0 /100WBC (0.0-0.2); Platelet Count 217 X10*3/uL (160-400); Red Blood Count 3.81 X10*6/uL (4.20-5.50); White Blood Count 4.1 X10*3/uL (4.8-10.8)
[2025-05-11 08:40] LABS: Alanine Aminotransferase 24 U/L (0-31); Albumin Level 4.1 g/dL (3.5-5.0); Alkaline Phosphatase 71 U/L (39-117); Anion Gap 10 (12-20); Aspartate Amino Transferase 33 U/L (5-31); Blood Urea Nitrogen 25 mg/dL (9-16); Calcium 9.2 mg/dL (8.4-10.2); Carbon Dioxide 28 mmol/L (22-29); Chloride 100 mmol/L (96-108); Estimated Glomerular Filt Rate 54; Potassium 4.7 mmol/L (3.3-5.1); Sodium 133 mmol/L (135-145); Total Protein 6.7 g/dL (6.5-8.0)
== END 2025-05-11 07:08 | disposition home or self-care (01) ==
LOC: HO.LAB 07:07
PROVIDERS: PCP Internal Medicine Medical Oncology; Visit Provider Internal Medicine Medical Oncology
DX: D72.819 Decreased white blood cell count, unspecified (principal); E87.1 Hypo-osmolality and hyponatremia; K21.9 Gastro-esophageal reflux disease without esophagitis; Z13.21 Encounter for screening for nutritional disorder
CPT/HCPCS: 36415; 80053; 82306; 85025